=== PATIENT | female | born 2005 | race Caucasian/White ===

== ENCOUNTER 2023-05-04 18:44 | Outpatient (REF) | payer OTHER, SELFPAY | END 2023-05-04 18:45 | disposition home or self-care (01) | LOC: LAB 18:44 | PROVIDERS: PCP Nurse Practitioner; Visit Provider Nurse Practitioner | DX: N89.8 Other specified noninflammatory disorders of vagina (principal) | CPT/HCPCS: 87491; 87591; 87660 ==

== ENCOUNTER 2023-11-19 16:24 | Outpatient (OUT) | payer BC, SELFPAY ==
[2023-11-19 17:02] LABS: Basophils Absolute Auto 0.1 10^3/uL (0.0-0.1); Basophils Percent Auto 0.9 % (0.2-2.0); Eosinophils Absolute Auto 0.2 10^3/uL (0.0-0.7); Eosinophils Percent Auto 3.4 % (0.9-7.0); Hematocrit 39.4 % (36.0-48.0); Hemoglobin 12.3 g/dL (12.0-16.0); Immature Granulocytes Abs Auto 0.02 10^3/uL (0.00-0.03); Immature Granulocytes Pct Auto 0.3 % (0.0-0.5); Lymphocytes Absolute Auto 2.2 10^3/uL (1.2-3.8); Mean Corpuscular HGB Conc 31.2 g/dL (29.9-35.2); Mean Corpuscular Hemoglobin 27.7 pg (26.7-34.0); Mean Corpuscular Volume 88.7 fL (81.0-99.0); Mean Platelet Volume 11.1 fL (9.5-13.5); Monocytes Absolute Auto 0.6 10^3/uL (0.3-0.8); Monocytes Percent Auto 8.7 % (1.7-12.0); Neutrophils Absolute Auto 3.9 10^3/uL (1.4-6.5); Neutrophils Percent Auto 55.7 % (43.0-75.0); Platelet Count 287 10^3/uL (150-450); Red Blood Count 4.44 10^6/uL (4.20-5.40); Red Cell Distribution Width 12.8 % (11.0-15.0)
[2023-11-19 17:28] LABS: Alanine Aminotransferase 19 U/L (14-59); Albumin Globulin Ratio 0.9; Albumin Level 3.7 g/dL (3.4-5.0); Alkaline Phosphatase 81 U/L (46-116); Anion Gap 11.6; Aspartate Amino Transferase 14 U/L (15-37); BUN Creatinine Ratio 11.9; Bilirubin Total 0.3 mg/dL (0.2-1.0); Carbon Dioxide 27.5 mmol/L (21.0-32.0); Chloride 106 mmol/L (98-107); Estimated GFR (African America >60 (>=60); Estimated GFR (Non-African Ame >60 (>=60); Free T3 2.48 pg/mL (2.18-3.98); Globulin 4.3 g/dL; Glucose 84 mg/dL (74-106); Potassium 4.1 mmol/L (3.5-5.1); Sodium 141 mmol/L (136-145); Thyroid Stimulating Hormone 0.737 uIU/mL (0.358-3.740)
[2023-11-19 17:43] LABS: Free T4 1.14 ng/dL (0.76-1.46)
[2023-11-23 17:09] LABS: Thyroglobulin Antibody <1.0 IU/mL (0.0-0.9); Thyroid Peroxidase (TPO) Ab <9 IU/mL (0-34)
[2023-11-26 00:07] LABS: Free Insulin 17 uU/mL (.); Total Insulin 17 uU/mL (.)
== END 2023-11-19 16:25 | disposition home or self-care (01) ==
LOC: LAB 16:28
PROVIDERS: PCP Nurse Practitioner; Visit Provider Nurse Practitioner
DX: F41.9 Anxiety disorder, unspecified (principal); R53.82 Chronic fatigue, unspecified; R63.5 Abnormal weight gain
CPT/HCPCS: 36415; 80053; 83525; 83527; 84439; 84443; 84481; 85025; 86376; 86800

== ENCOUNTER 2025-07-20 10:18 | Outpatient (OUT) | payer BC, OTHER, SELFPAY ==
--- OUTSIDE RECORDS SUMMARY | 2025-07-18 06:40 | XMS_ITS | Continuity of Care Document ---
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 Name Role Phone Angie Pike Primary Care Provider [phone] Angie Pike Attending Provider Care Teams Patient Care Team Team Status: Active Member Role/Relationship Status Dates CHEVY Nam Primary Care Provider Active Patient Care Team Team Status: Inactive Member Role/Relationship Status Dates CHEVY Nam Primary Care Provider Active Start: July 18, 2025 End: July 18, 2025CHARLEEN NamCAttending ProviderActiveStart: July 18, 2025 End: July 18, 2025 Chief Complaint and Reason for Visit Chief Complaint Admit Date established patient July 18, 2025 9 :33am Reason for Visit Admit Date Abdominal pain July 18, 2025 9 :33am Anxiety and depression July 18 9:33am Bloating July 18, 2025 9 :33am Chronic fatigue July 18, 2025 9 :33am Vitamin D deficiency July 18, 2025 9:33am Reason for Referral Type Reason(s) Provider Provider Contact Information P nik Address Start Date 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 Abdominal pain Abdominal bloating R10.9 - Unspecified abdominal pain,R14.0 - Abdominal distension (gaseous)R10.9 - Unspecified abdominal pain,R14.0 - Abdominal distension (gaseous)[facility]Work Phone: [phone] Elie [address] [place] [id number] 2024 Allergies, Adverse Reactions, Alerts Allergen Type Severity Reaction Last Updated Verified Status doxycycline Allergy Unknown unknown July 12, 2025 7:57am Ye s Active Social History Smoking Status Unknown if ever smoked Observation Status Observation Response Date of Response Legal Sex Female (finding) Sex Assigned At [facility] 2002 Problems Active Problems Problem Diagnosis/Recorded Date Onset Date Stat us Chronic vulvitis July 12, 2025 7:57am Unknown Active Chronic fatigue July 12, 2025 7:57am Unknown Active Pelvic pain July 12, 2025 7:58am Unknown Ac tive Dysuria July 12, 2025 7:58am Unknown Ac tive Overweight July 12, 2025 7:58am Unknown Ac tive Weight gain July 12, 2025 7:58am Unknown Ac tive Bloating July 18, 2025 10:22am Unknown A ctive Anxiety and depression July 18, 2025 10:23am Unkn own Active Rectal bleeding July 12, 2025 7:58am Unknown Active Abdominal pain July 18, 2025 10:22am Unknown Active Vitamin D deficiency July 18, 2025 10:22am Unknow n Active Medications Medication Status Dose Units Route Directions Qty Days Refills S tart Date Stop Date End Date Reason(s) Instructions Adherence Norgestimate-Ethinyl Estradi ol (Sprintec (28)) 0.25-0.035 mg tablet Discontinued 1 TAB PO Daily July 14, [facility] 10:12am Vital Signs Vital Reading Result Reference Range Collection Date/Time Height 63 [in_i] July 18, 2025 9:09alHmxcuk75.73 [facility]Oct[facility] 2024 9:55amBody Temperature 97.8 [degF]97.6-99.0[facility] 2024 9:55amHeart Rate92 /pzm17-575Bfhcuxg 2024 9:55amRespiratory rate18 /cgp14-66Tiestjj 2024 9:55amOxygen saturation by Pulse ydpwvsrl46 %95-100[facility] 2024 9:55amBP Gshamrgw686 mm[Hg]100-140July 18, 2025 9:55amBP Yointnguo53 mm[Hg]60-100July 18, 2025 9:55amBMI (Body Mass Index)26.0 kg/i4UipahkxJuly 18, 2025 9:55am Advance Directives Advance Directive Response Recorded Date/ Time Advance Directives No October 9:51am Insurance Providers Guarantor Elinor Butterfield Address [address] [place] [id number] Info.Home Phone: Coverage Status Update:2025 Payer Group Member ID Coverage Type Subscriber Relationship to Subscriber Effective Date Expiration Date Joseph ENGLISH Id: [id number] L Butterfield Id: [id number] [address] [facility] [address] Home Phone: caresource Medicaid [id number] [place] Id: [id number] [address] [place] [address] Home Phone: Self Encounters Encounter Location(s) Arrival/Admit Date Discharge/Departure Date Discharge/Departure Disposition Provider(s) Departed Physician/ Provider Office Visit -[facility] Family Medicine [place] July 18, 2025 9:33am July 18, 2025 10:34am Discharged to home care or self care (routine discharge) CHEVY Nam Recent Diagnosis Onset Date Admit Date Abdominal pain Unknown July 18 9:33am Anxiety and depression Unknown June 222024 9:33am Bloating Unknown July 18 9:33am Chronic fatigue Unknown July 18 9:33am Vitamin D deficiency Unknown June 9:33am Assessments Diagnosis Onset Date Resolution Status Admit Date Abdominal pain acuteOct2024 9:33amAnxiety and depressionacuteJuly 18, 2025 9:33amBloatingacuteJuly 18, 2025 9:33amChronic fatigueacuteJuly 18, 2025 9:33amVitamin D deficiencyacuteOctober 2024 9:33am Plan of Treatment Future Tests Future scheduled test information is unavailable Pending Tests Test Name Ordered Date Scheduled Date OPAL with Reflex July 18, 2025 10:23am Comprehensive Metabolic PanelOctober 2024 10:23amEBV Ab VCA, IgGOctober 2024 10:27amEBV Ab VCA, IgMOctober 2024 10:27amT-Transglutaminase (tTG) IgAOctober 2024 10:25amT-Transglutaminase (tTG) IgGOctober 2024 10:25am Future Visits Future appointment information is unavailable Future Procedures Procedure Name Ordered Date Scheduled Date Dipstick and Microscopic July 18, 2025 10:2 3am Vitamin R55Ygwqojs 2024 10:23amComplete Blood Count Auto DiffOctober 2024 10:23amC-Reactive ProteinOctober 2024 10:27amErythrocyte Sedimentation RateOctober 2024 10:27amIronOctober 2024 10:23am FerritinOctober 2024 10:23amFolateOctober 2024 10:23am HCG,Qualitative SerumOctober 2024 10:23amLipid PanelOctober 2024 10:23amMagnesiumOctober 2024 10:23amFree T4 (Free Thyroxine)July 18, 2025 10:23amThyroid Antibodies TPO+Tg AbOctober 2024 10:23amTransferrin July 18, 2025 10:23amThyroid Stimulating HormoneOctober 2024 10:23am Vitamin D 25 Hydroxy TotalOctober 2024 10:23am Future Medications Future medication information is unavailable Patient Instructions Patient instructions are unavailable Hospital Discharge Instructions Ambulatory Orders* Referral to Gastroenterology Time Frame: 07/18/25, Location: None Selected
--- OUTSIDE RECORDS SUMMARY | 2025-07-20 10:23 | XMS_ITS | Clinical Summary ---
Author Organization [employer] [facility] Address [id number] [address] [place] [address] Care Team Providers Care Project Controller Name Role Phone Genaro Rodriguez MD Primary Care Provider [phone] Allergies Active AllergyReactionsCriticalityNoted DateComments Firyg-Xfmaa-Ibmklsl-VadmxcnqeEsorBkp16/30/2018 Mom can't remember name of antibiotic Medications MedicationSigDispense QuantityRefillsLast FilledStart DateEnd DateStatus norgestimate-ethinyl estradioL (ORTHO TRI-CYCLEN LO) 0.18/0.215/0.25 mg-25 mcg per tablet Take 1 tablet by mouth in the morning.04/24/2021ctive Active Problems ProblemNoted DateDiagnosed NzpeFpzkfhwnz38/30/2022 Overview (03/20/2022): + 02/18/22 and History of nasal xhiazhu3807/30/2021 Family History Medical HistoryRelationNameCommentsArrhythmiaNeg HxAsthmaNeg HxClotting disorder Neg HxDiabetesNeg HxHeart attackNeg HxHeart defectNeg HxHigh CholesterolNeg Hx HypertensionNeg HxSeizuresNeg HxStrokeNeg HxSudden deathNeg HxThyroid IssuesNeg Hx Social History Tobacco UseTypesPacks/DayYears UsedDateSmoking Tobacco: Passive Smoke Exposure - Never SmokerSmokeless Tobacco: NeverAlcohol UseStandard Drinks/WeekCommentsYes0 (1 standard drink = 0.6 oz pure alcohol)SocialChildcareAnswerDate Recorded IwtfgntxoGmfpikj08/12/2019EmploymentAnswerDate RecordedEmploymentUnknown 03/02/2019Purpose - LifeAnswerDate RecordedPurpose and direction in lifeUnknown 1CommentsNoSex and Gender InformationValueDate RecordedSex Assigned at BirthNot on fileLegal NdcElxleh10/06/2015 12:06 PM EDTGender IdentityNot on fileSexual OrientationNot on file Last Filed Vital Signs Vital SignReadingTime TakenCommentsBlood Sgbmcbwr502/6407 8:31 AM EDT Ebich9606/30/2018 8:38 AM EDTTemperature--Respiratory Rate--Oxygen Saturation 100%01/18/2018 8:33 AM EDTInhaled Oxygen Concentration--Uzxgux05.2 kg (130 lb 9.6 oz)04/16/2022 8:31 AM CJNZoonuf867 cm (5' 3 )04/16/2022 8:31 AM EDTBody Mass Index23.13004/16/2022 8:31 AM EDT Plan of Treatment Health MaintenanceDue DateLast DoneCommentsDepression Ihskjlxmb68/14/2015Tobacco Budkcuxkf75/14/2015dult BMI Armiiehiz76/14/2021Pap Smear2024TaP,Tdap and Td Vaccines (7 - Td or Tdap)/10/2013, 06/19/2009, 08/30/2004, Additional history existsInfluenza Trlfcle5805/22/2025 Medical Devices Not on file Insurance Care Teams Team MemberRelationshipSpecialtyStart DateEnd Date Genaro Rodriguez MD PCP - GeneralFamily Medicine01/18/18
--- OUTSIDE RECORDS SUMMARY | 2025-07-20 10:23 | XMS_ITS | Clinical Summary ---
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 Name Role Phone Angie Pike NP Unavailable Genaro Rodriguez MD Primary Care Provider [phone] Allergies Active AllergyReactionsCriticalityNoted VkenNyombxeaTdinfeqxnxdFdiwo09/24/2024 Turns teeth black Medications MedicationSigDispense QuantityRefillsLast FilledStart DateEnd DateStatus norgestimate-ethinyl estradiol (Sprintec 28) 0.25-35 MG-MCG tablet Take 1 tablet by mouth in the morning.09/09/2022ctive phentermine (Adipex-P) 37.5 MG tablet Indications:Weight gain,Overweight (BMI 25.0-29.9)Take 1/2 pill daily 15 tablet 11/19/2023ctive Active Problems ProblemNoted DateDiagnosed DateChronic ikmgvlt2011/19/2023Weight gain11/19/2023 Overweight (BMI 25.0-29.9)10/29/2023 Assessment & Plan (11/19/2023 4:36 PM EST): Will trial 1/2 pill of adipex daily Fu in 4 weeks, if anxiety worsens stop medication and contact office Assessment & Plan (10/29/2023 3:37 PM EST): Pt meets qualifications of OAC 4731-07-25 for weight loss. BMI>30 or >27 with comorbid conditions. Notify office with any symptoms of chest pain, dyspnea, heart palpitations, or any anxiety symptoms. F/U in 4 weeks to document weight loss. Increase physical activity as tolerated, and lower caloric intake to 1600 calories daily if no contraindications BMI is 27, dx anxiety, pelvic pain OARRS reviewed Fu in 4 weeks Ajbbfbw9910/29/2023 Assessment & Plan (11/19/2023 4:37 PM EST): Long standing anxiety w occassional depression, she does not like having to take medications either Wants to see a new psychologist to have proper dx, she is working with mom on this d/t new insurance No meds at this time Assessment & Plan (10/29/2023 3:36 PM EST): No current meds at this time Pelvic pain10/29/2023 Assessment & Plan (10/29/2023 4:51 PM EST): Will try to find her a GEOSCIENCES PROFESSOR in [place] area to help with this Euzmmhi74/08/2024Chronic mtkifocq90/08/2024Rectal rqddvumh34/08/2024 Assessment & Plan (10/29/2023 4:52 PM EST): Appears to have resolved No further work up at this time If occurs again pt to call office Does report straining w stool, cont miralax I have reviewed notes from ER visit Family History Medical HistoryRelationNameCommentsCancerPaternal GrandmotherCancer in a muscle in legRelationNameStatusCommentsFatherAliveMaternal GrandfatherAliveMaternal GrandmotherAliveMotherAlivePaternal GrandfatherAlivePaternal GrandmotherAlive Social History Tobacco UseTypesPacks/DayYears UsedDateSmoking Tobacco: Never Tobacco Cessation:Counseling Given: Not Answered Alcohol UseStandard Drinks/WeekCommentsNot Currently0 (1 standard drink = 0.6 oz pure alcohol)PHQ-2AnswerDate RecordedPatient Health Questionnaire-2 Score2 4CommentsUnknownSex and Gender InformationValueDate RecordedSex Assigned at BirthNot on fileLegal JuiJmhzya82/15/2023 11:45 PM EDTGender IdentityNot on fileSexual OrientationNot on file Last Filed Vital Signs Vital SignReadingTime TakenCommentsBlood Ykrgkvol653/72011/19/2023 3:07 PM EST Ufquo746311/19/2023 3:07 PM OEDArenoicqcdq49.1 ??C (98.7 ??F)11/19/2023 3:07 PM ESTRespiratory Fzns406711/19/2023 3:07 PM ESTOxygen Dkwfxiubdv238%11/19/2023 3:07 PM ESTInhaled Oxygen Concentration--Nidyif10.2 kg (152 lb 9.6 oz)11/19/2023 3:07 PM SAKFvfbii601 cm (5' 3 )11/19/2023 3:07 PM ESTBody Mass Index27.03011/19/2023 3:07 PM EST Plan of Treatment Not on file Insurance Care Teams Team MemberRelationshipSpecialtyStart DateEnd Date Genaro Rodriguez MD PCP - GeneralFamily Medicine10/14/23 Angie Pike NP Referring PhysicianNurse Practitioner04/07/23
--- OUTSIDE RECORDS SUMMARY | 2025-07-20 10:27 | XMS_ITS | CCD ---
Author Organization [facility] Care Team Providers Care Bottom Saw Operator Name Role Phone PHYSICIAN, DEFAULT Unavailable Unavailable PHYSICIAN, DEFAULT Unavailable Unavailable PHYSICIAN, DEFAULT Unavailable Unavailable PHYSICIAN, DEFAULT Unavailable Unavailable Aichholz Angie WASHBURN Primary Care Provider AICHASHLEY FORM SETTER HELPER ANGIE Admitting Unavailable AICHHOLMacey FORM SETTER HELPER ANGIE Consulting Unavailable AICHHOLMacey, FORM SETTER HELPER ANGIE Attending Unavailable AICHHOLMacey, FORM SETTER HELPER ANGIE Primary Care Unavailable AICHHOLMacey, FORM SETTER HELPER ANGIE Consulting Unavailable AICKASEY, FORM SETTER HELPER ANGIE Attending Unavailable GLENDY, MADDISON MEIERA Admitting Unavailable JULIETA MAZARIEGOS Admitting Unavailable JULIETA MAZARIEGOS Attending Unavailable AICHASHLEY ANGIE J. Primary Care Unavailable Unavailable Primary Care Provider Unavailabl e ADDI AMANDA Attending Unavailable SELF, A SELF Referring Unavailable NO PCP, [facility] Primary Care Unavailable PETKOVSKA, AMANDA Referring Unavailable NO PCP, [facility] Primary Care Unavailable Aichholz MARRIAGE AND FAMILY TEACHER, Angie Unavailable Genaro Rodriguez MD Primary Care Provider [phone] AICKASEY ANGIE Attending Unavailable AICKASEY, ANGIE Attending Unavailable Pcp, No Primary Care Provider [phone] Moose Ellsworth MD Unavailable Charis Barrera CNP Unavailable Unavailab Moose Pizano MD Unavailable Jackelyn Hoskins MD Unavailable Nicolas [facility], Radhaingcas V. Unavailable [phone] Marcel Olivares MD Unavailable Sofy Ferrer CNP Unavailable MP LEVIN Attending Unavailable UNKNOWN, ATTENDING PROVIDER Referring Unav ailable UNKNOWN, ATTENDING PROVIDER Primary Care Unav ailable UNKNOWN, ATTENDING PROVIDER Attending Unav ailable UNKNOWN, ATTENDING PROVIDER Referring Unav ailable UNKNOWN, ATTENDING PROVIDER Primary Care Unav ailable DHAMIJA, YASHU Attending Unavailable DHAMIJA, YASHU Referring Unavailable DHAMIJA, YASHU Primary Care Unavailable JACKELYN HOSKINS Attending Unavailable DHAMIJA, YASHU Referring Unavailable DHAMIJA, YASHU Primary Care Unavailable NICOLAS, NZINGHA V. Attending Unavailable DHAMIJA, YASHU Referring Unavailable DHAMIJA, YASHU Primary Care Unavailable NICOLAS, NZINGHA V. Attending Unavailable REFERRAL, SELF Referring Unavailable PCP, NO Primary Care Unavailable MOOSE ELLSWORTH Attending Unavailable REFERRAL, SELF Referring Unavailable PCP, NO Primary Care Unavailable NICOLAS, NZINGHA V. Attending Unavailable MARCEL OLIVARES Referring Unavailable PCP, NO Primary Care Unavailable JACKELYN HOSKINS Attending Unavailable DHAMIJA, YASHU Referring Unavailable DHAMIJA, YASHU Primary Care Unavailable NICOLAS, NZINGHA V. Attending Unavailable DHAMIJA, YASHU Referring Unavailable DHAMIJA, YASHU Primary Care Unavailable NICOLAS, NZINGHA V. Attending Unavailable DHAMIJA, YASHU Referring Unavailable DHAMIJA, YASHU Primary Care Unavailable NICOLAS, NZINGHA V. Attending Unavailable DHAMIJA, YASHU Referring Unavailable DHAMIJA, YASHU Primary Care Unavailable NICOLAS, NZINGHA V. Attending Unavailable DHAMIJA, YASHU Referring Unavailable DHAMIJA, YASHU Primary Care Unavailable NICOLAS, NZINGHA V. Attending Unavailable DHAMIJA, YASHU Referring Unavailable DHAMIJA, YASHU Primary Care Unavailable NICOLAS, NZINGHA V. Attending Unavailable DHAMIJA, YASHU Referring Unavailable DHAMIJA, YASHU Primary Care Unavailable NICOLAS, NZINGHA V. Attending Unavailable DHAMIJA, YASHU Referring Unavailable DHAMIJA, YASHU Primary Care Unavailable NICOLAS, NZINGHA V. Attending Unavailable DHAMIJA, YASHU Referring Unavailable DHAMIJA, YASHU Primary Care Unavailable NICOLAS, NZINGHA V. Attending Unavailable DHAMIJA, YASHU Referring Unavailable DHAMIJA, YASHU Primary Care Unavailable NICOLAS, NZINGHA V. Attending Unavailable DHAMIJA, YASHU Referring Unavailable DHAMIJA, YASHU Primary Care Unavailable DHAMIJA, YASHU Attending Unavailable DHAMIJA, YASHU Referring Unavailable DHAMIJA, YASHU Primary Care Unavailable NICOLAS, RADHAINGHA V. Attending Unavailable DHAMIJA, YASHU Referring Unavailable DHAMIJA, YASHU Primary Care Unavailable NICOLAS, RADHAINGHA V. Attending Unavailable DHAMIJA, YASHU Referring Unavailable DHAMIJA, YASHU Primary Care Unavailable NICOLAS, RADHAINGHA V. Attending Unavailable DHAMIJA, YASHU Referring Unavailable DHAMIJA, YASHU Primary Care Unavailable NICOLAS, RADHAINGHA V. Attending Unavailable DHAMIJA, YASHU Referring Unavailable DHAMIJA, YASHU Primary Care Unavailable JACKELYN HOSKINS Attending Unavailable DHAMIJA, YASHU Referring Unavailable DHAMIJA, YASHU Primary Care Unavailable NICOLAS, RADHAINGHA V. Attending Unavailable DHAMIJA, YASHU Referring Unavailable DHAMIJA, YASHU Primary Care Unavailable NICOLAS, RADHAINGHA V. Attending Unavailable DHAMIJA, YASHU Referring Unavailable DHAMIJA, YASHU Primary Care Unavailable NICOLAS, RADHAINGHA V. Attending Unavailable DHAMIJA, YASHU Referring Unavailable DHAMIJA, YASHU Primary Care Unavailable NICOLAS, RADHAINGHA V. Attending Unavailable DHAMIJA, YASHU Referring Unavailable DHAMIJA, YASHU Primary Care Unavailable DHAMIJA, YASHU Attending Unavailable DHAMIJA, YASHU Referring Unavailable DHAMIJA, YASHU Primary Care Unavailable DHAMIJA, YASHU Attending Unavailable DHAMIJA, YASHU Referring Unavailable DHAMIJA, YASHU Primary Care Unavailable NICOLAS, RADHAINGHA V. Attending Unavailable DHAMIJA, YASHU Referring Unavailable DHAMIJA, YASHU Primary Care Unavailable NICOLAS, RADHAINGHA V. Attending Unavailable DHAMIJA, YASHU Referring Unavailable DHAMIJA, YASHU Primary Care Unavailable DHAMIJA, YASHU Attending Unavailable DHAMIJA, YASHU Referring Unavailable DHAMIJA, YASHU Primary Care Unavailable NICOLAS, RADHAINGHA V. Attending Unavailable DHAMIJA, YASHU Referring Unavailable DHAMIJA, YASHU Primary Care Unavailable SOFY FERRER Attending Unavailable DHAMIJA, YASHU Referring Unavailable DHAMIJA, YASHU Primary Care Unavailable NICOLAS, NZINGHA V. Attending Unavailable DHAMIJA, YASHU Referring Unavailable DHAMIJA, YASHU Primary Care Unavailable NICOLAS, NZINGHA V. Attending Unavailable DHAMIJA, YASHU Referring Unavailable DHAMIJA, YASHU Primary Care Unavailable NICOLAS, NZINGHA V. Attending Unavailable DHAMIJA, YASHU Referring Unavailable DHAMIJA, YASHU Primary Care Unavailable DHAMIJA, YASHU Attending Unavailable DHAMIJA, YASHU Referring Unavailable DHAMIJA, YASHU Primary Care Unavailable NICOLAS, NZINGHA V. Attending Unavailable DHAMIJA, YASHU Referring Unavailable DHAMIJA, YASHU Primary Care Unavailable NICOLAS, NZINGHA V. Attending Unavailable DHAMIJA, YASHU Referring Unavailable DHAMIJA, YASHU Primary Care Unavailable NICOLAS, NZINGHA V. Attending Unavailable DHAMIJA, YASHU Primary Care Unavailable DHAMIJA, YASHU Attending Unavailable DHAMIJA, YASHU Referring Unavailable DHAMIJA, YASHU Primary Care Unavailable NICOLAS, NZINGHA V. Attending Unavailable DHAMIJA, YASHU Referring Unavailable DHAMIJA, YASHU Primary Care Unavailable NICOLAS, NZINGHA V. Attending Unavailable DHAMIJA, YASHU Referring Unavailable DHAMIJA, YASHU Primary Care Unavailable NICOLAS, NZINGHA V. Attending Unavailable DHAMIJA, YASHU Referring Unavailable DHAMIJA, YASHU Primary Care Unavailable NICOLAS, NZINGHA V. Attending Unavailable DHAMIJA, YASHU Primary Care Unavailable NICOLAS, RADHAINGHA V. Attending Unavailable DHAMIJA, YASHU Referring Unavailable DHAMIJA, YASHU Primary Care Unavailable NICOLAS, RADHAINGHA V. Attending Unavailable DHAMIJA, YASHU Primary Care Unavailable Angie Allen Primary Care Provider Angie Allen Attending Provider [phone] Allergies Allergy ClassificationReported Allergen(s)Allergy TypeDate of OnsetReaction(s) FacilityBacitracin / Neomycin / Polymyxin B / pramoxine (1 source)Bacitracin / Neomycin / Polymyxin B / pramoxineDrug Nqccgzn23-71-3601 Rash HealthDoxycycline (1 source)DoxycyclineDrug Wibvqcj55-69-2170Hatal (See Comments)[facility] (20 sources)Doxycycline; Translations: [DOXYCYCLINE]Drug Gzjnzzw32-28-1747Tmsry, Other (See Comments)[facility] (20 sources)Bacitracin / Neomycin / Polymyxin B / pramoxine; Translations: [UMHPF-OAYGM-TOXCVJR-PRAMOXINE]Drug Bndltbb77-08-1464KtsyTB Health Medications Current Medications MedicationDrug Class(es)DatesSig (Normalized)Sig (Original)clobetasol propionate 0.0005 mg/mg topical ointment (10 sources)CorticosteroidStart: 06-04-2024 End: 06-18-5781zzartiywzJ (TEMOVATE) 0.05 % ointment Apply 0.5 g topically daily for 30 days. 15 g 06/04/2024 07/04/2024 ActiveStart: 06-03-2024 End: 25-77-6570fsopqxdxlW (TEMOVATE) 0.05 % cream Apply thin layer to vulva/ urethra once daily 30 g 06/03/2024 07/26/2024 Discontinuedestradiol 0.1 mg/ml vaginal cream (20 sources)EstrogenStart: 47-87-6154habfxwnfN (ESTRACE) 0.01 % (0.1 mg/gram) vaginal cream Indications: Vaginal burning Place 1 g vaginally at bedtime as needed. 42.5 g 01/05/2025 ActiveStart: 06-07-2024 End: 04-65-4062cazhddquC (ESTRACE) 0.01 % (0.1 mg/gram) vaginal cream Indications: Vaginal burning PLACE 1 GRAM VAGINALLY EVERY THURSDAY AND THURSDAY 42.5 g 06/07/2024 11/01/2024 DiscontinuedStart: 54-46-7246kccahuhrE (ESTRACE) 0.01 % (0.1 mg/gram) vaginal cream Indications: Vaginal burning Place 1 g vagina lly every Thursday and . 42.5 g 02/29/2024 Activefluconazole 150 mg oral tablet (20 sources)Azole AntifungalStart: 03-11-2025 End: 08-45-3220ljeg 1 tablet by mouth in the morningfluconazole (DIFLUCAN) 150 MG tablet Take 1 tablet (150 mg total) by mouth every 7 days for 4 doses. 4 tablet 03/20/2025 9:39 AM EDT 03/11/2025 04/17/2025 ActiveStart: 12-15-2024 End: 48-42-7507kfzx 1 tablet by mouth in the eveningfluconazole (DIFLUCAN) 100 MG tablet Indications: Chronic vulvitis Take 1 tablet (100 mg total) by mouth every 7 days. 4 tablet 12/16/2024 1:54 PM EDT 12/15/2024 02/13/2025 Discontinued Start: 07-26-2024 End: 86-70-9923jvoqfdlzjkv (DIFLUCAN) 100 MG tablet Indications: Chronic vulvitis Take 1 tablet (100 mg total) by mouth every 7 days. 4 tablet 11/01/2024 12/13/2024 DiscontinuedStart: 12-15-2023 End: 81-99-5578wegs 1 tablet by mouth every other dayfluconazole (DIFLUCAN) 100 MG tablet Indications: Monilial vaginitis Take 1 tablet (100 mg total) by mouth every other day. 4 tablet 12/15/2023 02/26/2024 DiscontinuedStart: 11-25-2023 End: 47-09-4415xkls 1 tablet by mouth once dailyfluconazole (DIFLUCAN) 100 MG tablet Indications: Monilial vaginitis Take 1 tablet (100 mg total) by mouth daily. 4 tablet 0 11/25/2023 12/15/2023 Discontinued (Therapy Completed / No Longer Needed)nitrofurantoin, macrocrystals 25 mg oral capsule (3 sources)Nitrofuran Antibacterialtake 1 capsule by mouth four times daily at bedtimenitrofurantoin (MACRODANTIN) 25 MG capsule Take 1 capsule (25 mg total) by mouth 4 times a day withmeals and at bedtime. Activephentermine hydrochloride 37.5 mg oral tablet (6 sources)Sympathomimetic Amine AnorecticStart: 10-29-2023 End: 63-68-7788lriq 1 tablet by mouth before mealtimephentermine (Adipex-P) 37.5 MG tablet Indications: Overweight (BMI 25.0-29.9) Take 1 tablet (37.5 mg) by mouth in the morning. Take before meals. 30 tablet 0 10/29/2023 11/28/2023 Activetake 0.5 tablet by mouth once daily before breakfastphentermine (ADIPEX-P) 37.5 mg tablet Take 0.5 tablets (18.75 mg total) by mouth every morning before breakfast. Activepolyethylene glycol 3350 45263 mg powder for oral solution (3 sources)Osmotic LaxativeStart: 10-23-2023 End: 78-95-6868oiqrugrguukl glycol, PEG, 3350 (Glycolax) 17 GM/SCOOP powder Take 34 g by mouth in the morning. 0 10/23/2023 11/22/2023 Activevitamin b12 1 mg/ml injectable solution (9 sources)Vitamin E77Vtgcd: 02-09-2025 End: 46-29-0867xniiooqdhqdsyv (VITAMIN B-12) injection 1,000 mcgStart: 01-05-2025 End: 02-54-7525nlnynvgyilqzvz (VITAMIN B-12) injection 1,000 mcgStart: 01-05-2025 End: 27-80-6087epqpph 1000 ug by intramuscular injection once1,000 mcg, Intramuscular, Once, On Janice 01/05/25 at 1630, For 1 dose Completed/Discontinued Medications MedicationDrug Class(es)DatesSig (Normalized)Sig (Original)ARIPiprazole 2 mg oral tablet (16 sources)Atypical AntipsychoticStart: 07-07-2024 End: 24-53-2105lbke 0.5 tablet by mouth at bedtimeARIPiprazole (ABILIFY) 2 MG tablet Indications: MOOD Take 0.5 tablets (1 mg total) by mouth in the morning and at bedtime. Indications: MOOD 30 tablet 2 07/07/2024 11/09/2024 Discontinued Start: 20-99-1695aqjj 0.5 tablet by mouth at bedtimeARIPiprazole (ABILIFY) 2 MG tablet Indications: MOOD Take 0.5 tablets (1 mg total) by mouth in the morning and at bedtime. Indications: MOOD 30 tablet 2 05/20/2024 Activeazelastine hydrochloride 0.137 mg/actuat metered dose nasal spray (1 source)Histamine-1 Receptor AntagonistStart: 26-45-9724ezmk 2 spray(s) nasal route twice dailyazelastine (ASTELIN) 0.1% nasal spray Use 2 Sprays in each nostril twice daily. 30 mL 3 06/04/2021 ActiveComment on above:Use 2 Sprays in each nostril twice daily.ciprofloxacin 500 mg oral tablet (1 source)Quinolone Antimicrobial End: 48-63-8477rdqt 1 tablet by mouth twice dailyciprofloxacin HCl (CIPRO) 500 MG tablet Take 1 tablet (500 mg total) by mouth 2 times a day. 0 11/24/2023 DiscontinuedClindamycin (19 sources)Lincosamide AntibacterialStart: 11-24-2023 End: 08-07-9990dzrdnfuhlow phosphate 2 % Gel Indications: Subacute and chronic vaginitis Place 1 g vaginally at bedtime as needed. 5 g 11/24/2023 11/09/2024 DiscontinuedStart: 93-53-4850jhiymiujujs phosphate 2 % Gel Indications: Subacute and chronic vaginitis Place 1 g vaginally at bedtime as needed. 5 g 11/24/2023 ActiveStart: 05-88-3173pbrcuukqnpx phosphate 2 % Gel Indications: Subacute and chronic vaginitis Place 1 g vaginally at bedtime as needed. 5 g 0 11/24/2023 Activeclotrimazole 10 mg/ml topical cream (9 sources)Azole AntifungalStart: 11-25-2023 End: 66-11-4235sssrjdevlibg (LOTRIMIN) 1 % cream Indications: Monilial vaginitis Apply topically 2 times a day. Around the vagina 45 g 11/25/2023 07/26/2024 Discontinuedethinyl estradiol 0.005 mg / norethindrone acetate 1 mg oral tablet (3 sources)Estrogen End: 94-20-0791ejmlmuukwldmc-ethinyl estradiol (FEMHRT 1/5) 1-5 mg-mcg Tab Take by mouth daily. 02/26/2024 DiscontinuedNorgestimate-Ethinyl Estradiol (7 sources)Progestin, EstrogenStart: 07-14-2025 End: 74-04-7008Zwuqypzujcvb-Ethinyl Estradiol (Sprintec (28)) 0.25-0.035 mg tablet Discontinued 1 TAB PO Daily July 14, 2025 12:00am July 18, 2025 10:12amStart: 33-90-6197zqlp 1 tablet by mouth in the morningnorgestimate- ethinyl estradiol (Sprintec 28) 0.25-35 MG-MCG tablet Take 1 tablet by mouth in the morning. 0 09/09/2022 ActiveStart: 04-35-5755obeb 1 tablet by mouth once zhbxzWIF-TS-DJRP 0.18/0.215/0.25 mg-25 mcg Take 1 tablet by mouth once daily. 0 04/24/2021 ActiveComment on above:Take 1 tablet by mouth once daily.fluticasone propionate 0.05 mg/actuat metered dose nasal spray (2 sources)CorticosteroidStart: 76-48-5290ogyi 2 spray(s) nasal route once daily fluticasone (FLONASE ALLERGY RELIEF) 50 mcg/actuation nasal spray Use 2 Sprays in each nostril oncedaily. 16 g 5 05/16/2021 ActiveComment on above:Use 2 Sprays in each nostril once daily.hydrOXYzine hydrochloride 25 mg oral tablet (10 sources)AntihistamineStart: 07-25-2024 End: 93-99-3619lbix 1-2 tablets by mouth twice daily as needed for anxiety hydrOXYzine HCL (ATARAX) 25 MG tablet Take 1 to 2 tablets (25-50 mg total) by mouth 2 times a day as needed for Anxiety. 30 tablet 07/25/2024 12:21 PM EST 07/25/2024 11/09/2024 DiscontinuedoxyCODONE hydrochloride 5 mg oral tablet (1 source)Opioid AgonistStart: 81-18-7629gzri 1 tablet by mouth every six hours as needed for painoxyCODONE IR (ROXICODONE) 5 mg immediate release tablet Indications: Post-operative pain Take 1 tablet by mouth every 6 hours as needed for pain. 20 tablet 0 08/07/2021 ActiveComment on above:Take 1 tablet by mouth every 6 hours as needed for pain.sodium chloride 0.111 meq/ml nasal spray (1 source)Start: 59-71-5998xrmezp chloride (AYR SALINE) 0.65 % nasal spray Use 2 Sprays in the nose every 2 hours while awake.50 mL 5 08/07/2021 ActiveComment on above:Use 2 Sprays in the nose every 2 hours while awake. Problems Active Problems Problem ClassificationProblemDateDocumented DateEpisodic/ChronicAbdominal pain (11 sources)Periumbilical pain; Translations: [Pain in pelvis]Onset: 10-22-2023 EpisodicAnxiety disorders (20 sources)Anxiety; Translations: [Anxiety disorder, unspecified]Onset: 377044-36-3177TmfrbjiXifpwxbpowoxudpb hemorrhage (9 sources)Melena; Translations: [Blood in stool]Onset: 17-86-9519Xontypkg Genitourinary symptoms and ill-defined conditions (1 source)Unspecified urinary incontinence; Translations: [Unspecified urinary incontinence]Onset: 08-81-1789SstkwojYbagvlvqrnlgj symptoms and ill-defined conditions (9 sources)Other symptoms and signs involving the genitourinary system; Translations: [Dysuria]Onset: 580274-62-5034SjmfvkynLlayfhnsoyufx and screening for infectious disease (6 sources)Contact with and (suspected) exposure to infections with a predominantly sexual mode of transmission; Translations: [Patient encounter status]Onset: 27-02-5904BqrvtkljXaaftqyzwvcf diseases of female pelvic organs (20 sources)Chronic vulvitis; Translations: [Subacute and chronic vulvitis] Onset: 428664-02-5314PpgngpaxOlmhrhj and fatigue (3 sources)Fatigue; Translations: [Chronic fatigue, unspecified]02-09-2025 ChronicMenstrual disorders (2 sources)Intermenstrual bleeding - irregular; Translations: [Excessive and frequent menstruation with irregular cycle]21-00-8924OxkkgydLcgw disorders (2 sources)Mood disorder; Translations: [Unspecified mood [affective] disorder] 72-20-9521DzzwjlxTzfp disorders (20 sources)Mood disorders; Translations: [Depression, unspecified]Onset: 04-22-2024 Resolved: 772720-60-4447Sxqygmk (2 sources)Candidiasis of vagina; Translations: [Monilial vaginitis]12-15-2023 EpisodicNutritional deficiencies (2 sources)Vitamin D deficiency; Translations: [Vitamin D deficiency, unspecified]71-67-9971VbfxsknJsixyrabiwz deficiencies (1 source)Cobalamin deficiency; Translations: [Deficiency of other specified B group vitamins]96-90-0699NuiihmymQrwpy female genital disorders (2 sources)Burning sensation of vagina; Translations: [Unspecified condition associated with female genital organs and menstrual cycle]05-71-6666Cdanntff Other gastrointestinal disorders (1 source)Slow transit constipation; Translations: [Slow transit constipation] 72-87-3529BpetzalhPgnng gastrointestinal disorders (3 sources)Abdominal bloating; Translations: [Abdominal distension (gaseous)] EpisodicOther injuries and conditions due to external causes (1 source)Injury of finger of left hand; Translations: [Unspecified injury of left wrist, hand and finger(s),initial encounter]78-87-2621WpnavolpDewkv injuries and conditions due to external causes (1 source)Unspecified injury of left wrist, hand and finger(s), initial encounter; Translations: [Unspecifiedinjury of left wrist, hand and finger(s), initial encounter]Onset: 57-27-4351IhrqkypgRpuza nervous system disorders (2 sources)Numbness of finger; Translations: [Anesthesia of skin]11-09-2024 EpisodicOther nutritional; endocrine; and metabolic disorders (5 sources)Body mass index 25-29 - overweight; Translations: [Overweight]Onset: 478715-74-2286AqfhdvwoIparn nutritional; endocrine; and metabolic disorders (1 source)Overweight; Translations: [Overweight]04-66-5814WiajnbltQkqik nutritional; endocrine; and metabolic disorders (1 source)Weight increased; Translations: [Abnormal weight gain]07-12-2025 EpisodicOther upper respiratory disease (1 source)Nasal congestion; Translations: [Nasal congestion]EpisodicOther upper respiratory infections (1 source)Chronic maxillary sinusitis; Translations: [Chronic maxillary sinusitis]74-83-3694UbdtwfnDxvezcfrxxi disorders (2 sources)Borderline personality disorder; Translations: [Borderline personality disorder]Onset: 901366-84-0053DfiicwoHqrvomox codes; unclassified (1 source)High sugar diet; Translations: [Other specified health status] 29-17-6937OvaovdmpSyxnxzmgndsn (2 sources)New Patient Visit/ Consultation; Translations: [New Patient Visit/ Consultation]Onset: 06-00-0246Yriujvovphkp (2 sources)Sexual Problem; Translations: [Sexual Problem]Onset: 01-05-2025 Unclassified (2 sources)std testOnset: 78-89-1956Uhdbvtgantns (2 sources)Annual Exam; Translations: [Annual Exam]Onset: 70-00-0000Jtybhsrumqhv (2 sources)Injury; Translations: [Injury]Onset: 85-25-0137Pqqyxbqfpbsz (2 sources)Labs Only; Translations: [Labs Only]Onset: 99-51-1110Xwqexxmahlfi (2 sources)Female Problem; Translations: [Female Problem]Onset: 04-22-2024 Unclassified (2 sources)R10.9 - Unspecified abdominal pain,R14.0 - Abdominal distension (gaseous)Urinary tract infections (1 source)Interstitial cystitis (chronic) without hematuria; Translations: [Interstitial cystitis (chronic) without hematuria]Onset: 78-12-2622Rglhfcx Past or Other Problems Problem ClassificationProblemDateDocumented DateEpisodic/ChronicOther aftercare (1 source)Encounter for therapeutic drug level monitoring; Translations: [Encounter for therapeutic drug level monitoring]Onset: 06-90-9201UmydlfivVybhz nutritional; endocrine; and metabolic disorders (20 sources)Abnormal weight gain; Translations: [Abnormal weight gain]Onset: 755028-43-9369IeaszwfzMdhkt nutritional; endocrine; and metabolic disorders (1 source)Abnormal weight gain; Translations: [Abnormal weight gain]Onset: 95-82-7213UhvpxpsdTyqnm upper respiratory disease (1 source)Nasal obstruction; Translations: [Other specified disorders of nose and nasal sinuses]Onset: 106496-86-3923UvolwmebDryjw upper respiratory disease (1 source)Stenosis of nasal valve; Translations: [Other specified disorders of nose and nasal sinuses]Onset: 080298-95-7408FfmzxjcuKlkcn upper respiratory disease (1 source)Deviated nasal septum; Translations: [Deviated nasal septum]Onset: 566881-25-8847YaxesaocBfzbd upper respiratory disease (1 source)Perforation of nasal septum; Translations: [Other specified disorders of nose and nasal sinuses]Onset: 764710-98-0570TnbvrgwwQiiamhd and strains (20 sources)Sprain of interphalangeal joint of unspecified finger, initial encounter; Translations: [Sprain of interphalangeal (joint) of hand]Onset: 393735-98-7281PvhsqhchMhchkkdzq-zdewoaw disorders (1 source)Cannabis use, unspecified, uncomplicated; Translations: [Cannabis use, unspecified, uncomplicated]Onset: 40-43-5744BjxlrfyzAruvkptmzlzy (1 source)Sprain of proximal interphalangeal (PIP) joint of waadjj53-85-2705 Urinary tract infections (2 sources)Urinary tract infectious disease; Translations: [Urinary Tract Infection]Onset: 21-20-3988Dppvvkro Results Test NameValueInterpretationReference RangeFacilityCBCon 49-11-7963Rieoimodtvm distribution width (RBC) [Ratio]13.9 %11.0 - 15.0 % HealthHematocrit (Bld) [Volume fraction]41.4 %35.0 - 45.0 % HealthHemoglobin (Bld) [Mass/Vol]13.8 g/dL11.7 - 15.5 g/dLUC White HospitalMCH (RBC) [Entitic mass]29.1 pg27.0 - 33.0 pgUC HealthMCHC (RBC) [Mass/Vol]33.3 g/dL32.0 - 36.0 g/dLUC HealthMCV (RBC) [Entitic vol]87.4 fL80.0 - 100.0 fLUC HealthPlatelet mean volume (Bld) [Entitic vol]10.9 fL7.5 - 11.5 fLUC HealthPlatelets (Bld) [#/Vol]214 10*3/uLUC HealthRBC (Bld) [#/Vol]4.74 10*6/uLUC HealthWBC (Bld) [#/Vol]5.8 10*3/uLUC HealthErythrocyte distribution width (RBC) [Ratio]13.9 %Mmoltc72.0-15.0[facility] CenterComment on above:Performed By: #### CBC #### Singh Gan ([id number]) [place] [address] USAHematocrit (Bld) [Volume fraction]41.4 %Hqlkhm77.0-45.0 [facility] Medical CenterComment on above:Performed By: #### CBC #### Singh Gan ([id number]) [place] [address] USAHemoglobin (Bld) [Mass/Vol]13.8 g/iTYtiqlb47.7-15.5 [facility] CenterComment on above:Performed By: #### CBC #### Singh Gan ([id number]) [place] [address] USAMCH (RBC) [Entitic mass]29.1 jfPpzwcj69.0-33.0UnSan Luis Obispo General HospitalComment on above:Performed By: #### CBC #### Singh Gan ([id number]) [place] [address] USAMCHC (RBC) [Mass/Vol]33.3 g/pLLjehgk34.0-36.0UnSan Luis Obispo General HospitalComment on above:Performed By: #### CBC #### Singh Gan ([id number]) [place] [address] USAMCV (RBC) [Entitic vol]87.4 wQRfgtth05.0-100.0UnSan Luis Obispo General HospitalComment on above:Performed By: #### CBC #### Singh Gan ([id number]) [place] [address] USAPlatelet mean volume (Bld) [Entitic vol]10.9 fLNormal 7.5-11.5UnSan Luis Obispo General HospitalComment on above:Performed By: #### CBC #### Singh Gan ([id number]) [place] [address] USAPlatelets (Bld) [#/Vol]214 10*3/eOJhlbrc504-284 [facility] CenterComment on above:Performed By: #### CBC #### Singh Gan ([id number]) [place] [address] USARBC (Bld) [#/Vol]4.74 10*6/uLNormal3.80-5.10[facility] Medical CenterComment on above:Performed By: #### CBC #### Singh Gan ([id number]) [place] [address] USAWBC (Bld) [#/Vol]5.8 10*3/uLNormal3.8-10.8UnSan Luis Obispo General HospitalComment on above:Performed By: #### CBC #### Singh Gan ([id number]) [place] [address] USADIFFERENTIALon 25-46-5913Nts BASO52 /uLNormal0-108 [facility] Medical CenterComment on above:Performed By: #### DIFF #### Singh Gan ([id number]) [place] [address] USAAbs USS338 /uLNormal0-864UnSan Luis Obispo General HospitalComment on above:Performed By: #### DIFF #### Singh Gan ([id number]) [place] [address] USAAbs UMHW871 /uLNormal0-1296UnSan Luis Obispo General HospitalComment on above:Performed By: #### DIFF #### Singh Gan ([id number]) [place] [address] USAAbs [id number] /zHWhtcfx9677-7577LfkassherzSan Luis Obispo General HospitalComment on above:Performed By: #### DIFF #### Singh Gan ([id number]) [place] [address] USABasophils/100 WBC (Bld)0.9 %Normal0.0-1.0UnSan Luis Obispo General HospitalComment on above:Performed By: #### DIFF #### Singh Gan ([id number]) [place] [address] USAEosinophils/100 WBC (Bld)2.2 %Normal0.0-8.0UnSan Luis Obispo General HospitalComment on above:Performed By: #### DIFF #### Singh Gan ([id number]) [place] [address] USALymphocytes (Bld) [#/Vol]1.572 10*3/zIRhprhe027-2113 [facility] CenterComment on above:Performed By: #### DIFF #### Singh Gan ([id number]) [place] [address] USALymphocytes/100 WBC (Bld)27.1 %Pqtzct50.0-45.0UnSan Luis Obispo General HospitalComment on above:Performed By: #### DIFF #### Singh Gan ([id number]) [place] [address] USAMonocytes/100 WBC (Bld)6.3 %Normal0.0-12.0UnSan Luis Obispo General HospitalComment on above:Performed By: #### DIFF #### Singh Gan ([id number]) [place] [address] USANeutrophils/100 WBC (Bld)63.5 %Qgkouz64.0-80.0[facility] Medical CenterComment on above:Performed By: #### DIFF #### Singh Gan ([id number]) [place] [address] USANucleated RBC0 /100 WBCNormal0-0UnSan Luis Obispo General HospitalComment on above:Performed By: #### DIFF #### Singh Gan ([id number]) [place] [address] USADifferentialon 57-21-7508Vegtvhrva (Bld) [#/Vol]0.052 10*3/uL0 - 108 /uLUC HealthBasophils/100 WBC (Bld)0.9 %0.0 - 1.0 % Health Eosinophils (Bld) [#/Vol]0.128 10*3/uL0 - 864 /uLUC HealthEosinophils/100 WBC (Bld)2.2 %0.0 - 8.0 % HealthLymphocytes (Bld) [#/Vol]1.572 10*3/uL570 - 4860 /uLUC HealthLymphocytes/100 WBC (Bld)27.1 %15.0 - 45.0 %UC HealthMonocytes (Bld) [#/Vol]0.365 10*3/uL0 - 1296 /uLUC HealthMonocytes/100 WBC (Bld)6.3 %0.0 - 12.0 % HealthNeutrophils (Bld) [#/Vol]3.683 10*3/oF8752 - 8640 /uLUC Health Neutrophils/100 WBC (Bld)63.5 %40.0 - 80.0 % HealthNucleated RBC/100 WBC (Bld) [Ratio]0 % HealthFERRITINon 93-06-2183Idqgamzs [Mass/Vol]20.9 ng/mLNormal 11.0-306.8[facility] CenterComment on above:Performed By: #### B12 #### Singh Gan ([id number]) [place] [address] USAFerritinon 28-62-3937Olnieujh [Mass/Vol]20.9 ng/mL11.0 - 306.8 ng/mLUC [facility] HealthIRON STUDIESon 02-09-2025%SAT15.8 %Fzeudb38.0-55.0 [facility] CenterComment on above:Performed By: #### B12 #### Singh Gan ([id number]) [place] [address] USAIron [Mass/Vol]59 ug/bXMjrpfy37-367BapdhzqvbsSan Luis Obispo General HospitalComment on above:Performed By: #### B12 #### Singh Gan ([id number]) [place] [address] MCZUCBQ864 ug/rCKrzayh216-727GbuxchswlxSan Luis Obispo General HospitalComment on above:Performed By: #### B12 #### Singh Gan ([id number]) [place] [address] USAIron Studies (Iron + TIBC)on 15-39-2799Nyev [Mass/Vol]59 ug/dL50 - 212 ug/dLUC HealthIron binding capacity [Mass/Vol]374 ug/dL265 - 497 ug/dLUC HealthIron saturation [Mass fraction]15.8 %15.0 - 55.0 %[facility] HealthNo Panel Informationon 83-87-2277HY HealthVITAMIN B12on 02-09-2025 Cobalamin (Vitamin B12) [Mass/Vol]471 pg/uPBqtkul871-094CfcdpupiflSan Luis Obispo General HospitalComment on above:Performed By: #### B12 #### Singh Gan ([id number]) [place] [address] USAVitamin B12on 55-59-7897Hdrepdizv (Vitamin B12) [Mass/Vol]471 pg/mL180 - 914 pg/mLUC [facility] HealthChlamydia / Gonorrhoeae DNA Swabon 01-06-2025. trachomatis DNA DALE+probe Ql (Unsp spec)NegativeNegativeUC HealthN. gonorrhoeae DNA DALE+probe Ql (Unsp spec)NegativeNegativeUC Health Comment on above:The presence of Chlamydia trachomatis and Neisseria gonorrhoeae DNA is detected by a U.S. Food and Drug Administration-approved amplification assay.[facility] General HospitalUrine cultureon 06-18-7680Fhwokijm identified Cx Nom (U)<1,000 cfu/mLUC HealthBacteria identified Cx Nom (U)Skin/Urogenital Bernadette. No Further Workup.[facility] HealthCHLAMYDIA / GONORRHOEAE DNA SWABon 01-05-2025. trachomatis DNA DALE+probe Ql (Unsp spec)NegativeNormalNegativeUnSan Luis Obispo General HospitalComment on above:Performed By: #### B12 #### Singh Gan ([id number]) [place] [address] USAN. gonorrhoeae DNA DALE+probe Ql (Unsp spec)Negative NormalNegativeUnSan Luis Obispo General HospitalComment on above:Result Comment: The presence of Chlamydia trachomatis and Neisseria gonorrhoeae DNA is detected by a U.S. Food and Drug Administration-approved amplification assay. Performed By: #### B12 #### Singh Gan ([id number]) [place] [address] USAURINALYSIS, MICROSCOPICon 54-92-1336LtsfpksoiUnleooy AbnormalNone SeenUnSan Luis Obispo General HospitalComment on above: Performed By: #### DIFF #### Singh Gan ([id number]) [place] [address] USARBC.1 /HPFNormal0-3UnSan Luis Obispo General HospitalComment on above:Performed By: #### DIFF #### Singh Gan ([id number]) [place] [address] USASquamous, Epith1 /HPFNormal0-5UnSan Luis Obispo General HospitalComment on above:Performed By: #### DIFF #### Singh Gan ([id number]) [place] [address] USAWBC.<0Okjooj1-0HhaofhxppySan Luis Obispo General Hospital Comment on above:Performed By: #### DIFF #### Singh Gan ([id number]) [place] [address] USAURINALYSIS-MACROSCOPIC W/REFLEX TO MICROSCOPICon 99-77-3978Quybqlvyi, UrineNegativeNormalNegativeUnSan Luis Obispo General HospitalComment on above:Performed By: #### DIFF #### Singh Gan ([id number]) [place] [address] USAClarity (U)CloudyAbnormalClearUnSan Luis Obispo General HospitalComment on above:Performed By: #### DIFF #### Singh Gan ([id number]) [place] [address] USAColor (U)StrawNormalYellow,StrawUnSan Luis Obispo General HospitalComment on above:Performed By: #### DIFF #### Singh Gan ([id number]) [place] [address] USAGlucose Ql (U)NegativeNormalNegativeUnSan Luis Obispo General HospitalComment on above:Performed By: #### DIFF #### Singh Gan ([id number]) [place] [address] USAHemoglobin Ql (U)NegativeNormalNegativeUnSan Luis Obispo General HospitalComment on above:Performed By: #### DIFF #### Singh Gan ([id number]) [place] [address] USAKetoneNegativeNormalNegativeUnSan Luis Obispo General HospitalComment on above:Performed By: #### DIFF #### Singh Gan ([id number]) [place] [address] USALeukocyte esterase Test strip Ql (U)NegativeNormal NegativeParkview Community Hospital Medical CenterComment on above:Performed By: #### DIFF #### Singh Gan ([id number]) [place] [address] USANitrite Ql (U)NegativeNormalNegativeUnSan Luis Obispo General HospitalComment on above:Performed By: #### DIFF #### Singh Gan ([id number]) [place] [address] USApH (U)6.5 [pH]Normal5.0-8.0[facility] CenterComment on above:Performed By: #### DIFF #### Singh Gan ([id number]) [place] [address] USAProtein, urineNegativeNormalNegativeUnSan Luis Obispo General HospitalComment on above:Performed By: #### DIFF #### Singh Gan ([id number]) [place] [address] USASpecific gravity (U) [Rel density]1.182Hdbqtc7.005-1.035 [facility] CenterComment on above:Performed By: #### DIFF #### Singh Gan ([id number]) [place] [address] USAUrobilinogen (U) [Mass/Vol]mg/dLNormal0.2-1.9UnSan Luis Obispo General HospitalComment on above:Performed By: #### DIFF #### Singh Gan ([id number]) [place] [address] USAURINE CULTUREon 46-92-8488Uleuvonr identified Cx Nom (U) Culture Result: <1,000 cfu/mL Skin/Urogenital Bernadette. No Further Workup.NormalUnSan Luis Obispo General HospitalComment on above:Performed By: #### B12 #### Singh Gan ([id number]) [place] [address] USAUreaplasma/Mycoplasma hominis Cultureon 01-05-2025 Mycoplasma hominisNegativeNormalNegativeUnSan Luis Obispo General Hospital Comment on above:Order Comment: PERFORMED AT: [place] [id number] DIRECTOR: Mikki Nunez MD PHONE: [phone] By: #### B12 #### Singh Gan ([id number]) [place] [address] USAUreaplasma urealyticumNegativeNormalNegativeUnSan Luis Obispo General HospitalComment on above:Order Comment: PERFORMED AT: [facility] [address] [id number] DIRECTOR: Mikki Nunez MD PHONE: [phone] By: #### B12 #### Singh Gan ([id number]) [place] [address] USAUrinalysis-Macroscopic w/Rfx to Microscoon 01-05-2025 Bilirubin Ql (U)NegativeNegativeUC HealthClarity (U)CloudyAbnormalClearUC Health Color (U)StrawYellow,StrawUC HealthGlucose Ql (U)NegativeNegative mg/dLUC Health Interpretation and review of laboratory resultsAbnormalUC HealthKetones (U) [Mass/Vol]NegativeNegative mg/dLUC HealthLeukocyte esterase Test strip Ql (U) NegativeNegativeUC HealthNitrite Ql (U)NegativeNegativeUC HealthpH (U)6.5 [pH] 5.0 - 8.0UC HealthProtein Ql (U)NegativeNegative mg/dLUC HealthRBC Ql (U) NegativeNegativeUC HealthSpecific gravity Refractometry (U) [Rel density]1.022 1.005 - 1.035UC HealthUrobilinogen (U) [Mass/Vol]mg/dL0.2 - 1.9 mg/dLUC HealthUC HealthVaginitis Panel DNA Amplified Probeon 06-18-3705Iirknvynp Vaginosis NegativeNegativeUC HealthCandida glabrata/kruseiNot detectedNot DetectedUC HealthCandida SpeciesNot detectedNot DetectedUC HealthTrichomonas vaginalisNot detectedNot DetectedUC HealthComment on above:A positive result for bacterial vaginosis indicates that Atopobium spp., bacterial vaginosis-associated bacterium 2 (BVAB2), and/or Megasphaera-1 have been detected in relative concentrations consistent with bacterial vaginosis. A detected result for Nadya group indicates that C. albicans, C. tropicalis, C. parapsilosis, and/or C. dubliniensis have been detected. A detected result for Nadya gl abrata/Nadya krusei indicates that C. glabrata and/or C. krusei have been detected. For both Nadya targets, further species differentiation is not possible. A detected result for Trichomonas vaginalis indicates that T. vaginalis was detected in the specimen. For all targets, a negative or not detected result indicates that these organisms were not detected above the limit of detection of the assay. This assay is an FDA-approved nucleic acid amplification assay. HealthBacterial VaginosisNegativeNormalNegativeParkview Community Hospital Medical CenterComment on above:Performed By: #### B12 #### Singh Gan ([id number]) [place] [address] USACandida glabrata/kruseiNot detectedNormalNot Detected [facility] CenterComment on above:Performed By: #### B12 #### Singh Gan ([id number]) [place] [address] USACandida SpeciesNot detectedNormalNot DetectedUnSan Luis Obispo General HospitalComment on above:Performed By: #### B12 #### Singh Gan ([id number]) [place] [address] USATrichomonas vaginalisNot detectedNormalNot Detected [facility] CenterComment on above:Result Comment: A positive result for bacterial vaginosis indicates that Atopobium spp., bacterial vaginosis-associated bacterium 2 (BVAB2), and/or Megasphaera-1 have been detected in relative concentrations consistent with bacterial vaginosis. A detected result for Nadya group indicates that C. albicans, C. tropicalis, C. parapsilosis, and/or C. dubliniensis have been detected. A detected result for Nadya glabrata/Nadya krusei indicates that C. glabrata and/or C. krusei have been detected. For both Nadya targets, further species differentiation is not possible. A detected result for Trichomonas vaginalis indicates that T. vaginalis was detected in the specimen. For all targets, a negative or not detected result indicates that these organisms were not detected above the limit of detection of the assay. This assay is an FDA-approved nucleic acid amplification assay. Performed By: #### B12 #### Singh Gan ([id number]) [place] [address] USACHLAMYDIA / GONORRHOEAE DNA URINEon 16-87-9464Uwarmqdus Trachomatis DNANegativeNormalNegativeUnSan Luis Obispo General Hospital Comment on above:Performed By: #### DIFF #### Singh Gan ([id number]) [place] [address] USANeisseria Gonorrhoeae DNANegativeNormalNegative [facility] CenterComment on above:Result Comment: The presence of Chlamydia trachomatis and Neisseria gonorrhoeae DNA is detected by a U.S. Food and Drug Administration-approved amplification assay.Performed By: #### DIFF #### Singh Gan ([id number]) [place] [address] USAVaginitis Panel DNA Amplified Probeon 12-13-2024 Bacterial VaginosisNegativeNormalNegativeUnSan Luis Obispo General Hospital Comment on above:Performed By: #### DIFF #### Singh Gan ([id number]) [place] [address] USACandida glabrata/kruseiNot detectedNormalNot Detected [facility] CenterComment on above:Performed By: #### DIFF #### Singh Gan ([id number]) [place] [address] USACandida SpeciesNot detectedNormalNot DetectedUnSan Luis Obispo General HospitalComment on above:Performed By: #### DIFF #### Singh Gan ([id number]) [place] [address] USATrichomonas vaginalisNot detectedNormalNot Detected [facility] CenterComment on above:Result Comment: A positive result for bacterial vaginosis indicates that Atopobium spp., bacterial vaginosis-associated bacterium 2 (BVAB2), and/or Megasphaera-1 have been detected in relative concentrations consistent with bacterial vaginosis. A detected result for Nadya group indicates that C. albicans, C. tropicalis, C. parapsilosis, and/or C. dubliniensis have been detected. A detected result for Nadya glabrata/Nadya krusei indicates that C. glabrata and/or C. krusei have been detected. For both Nadya targets, further species differentiation is not possible. A detected result for Trichomonas vaginalis indicates that T. vaginalis was detected in the specimen. For all targets, a negative or not detected result indicates that these organisms were not detected above the limit of detection of the assay. This assay is an FDA-approved nucleic acid amplification assay. Performed By: #### DIFF #### Singh Gan ([id number]) [address] StreetCon 72-33-6363Nzmxfhfuasb distribution width (RBC) [Ratio]14.0 %Vazopj80.0-15.0[facility] CenterComment on above:Performed By: #### UC #### Singh Gan ([id number]) [place] [address] USAHematocrit (Bld) [Volume fraction]39.0 %Zehkqb77.0-45.0 [facility] CenterComment on above:Performed By: #### UC #### Singh Gan ([id number]) [place] [address] USAHemoglobin (Bld) [Mass/Vol]13.0 g/iAHwxkrs15.7-15.5 [facility] CenterComment on above:Performed By: #### UC #### Singh Gan ([id number]) [place] [address] USAMCH (RBC) [Entitic mass]29.2 dqFbgnmi35.0-33.0[facility] CenterComment on above:Performed By: #### UC #### Singh Gan ([id number]) [place] [address] USAMCHC (RBC) [Mass/Vol]33.4 g/rKXxeohb23.0-36.0UnBeaumont Hospitalcinnati Medical CenterComment on above:Performed By: #### #### Singh Gan ([id number]) [place] [address] USAMCV (RBC) [Entitic vol]87.5 fZRmyxgd43.0-100.0UnSan Luis Obispo General HospitalComment on above:Performed By: #### #### Singh Gan ([id number]) [place] [address] USAPlatelet mean volume (Bld) [Entitic vol]11.6 fLHigh 7.5-11.5[facility] CenterComment on above:Performed By: #### #### Singh Gan ([id number]) [place] [address] USAPlatelets (Bld) [#/Vol]178 10*3/ySHqxghw954-571 [facility] CenterComment on above:Performed By: #### #### Singh Gan ([id number]) [place] [address] USARBC (Bld) [#/Vol]4.46 10*6/uLNormal3.80-5.10[facility] CenterComment on above:Performed By: #### #### Singh Gan ([id number]) [place] [address] USAWBC (Bld) [#/Vol]7.2 10*3/uLNormal3.8-10.8[facility] CenterComment on above:Performed By: #### #### Singh Gan ([id number]) [place] [address] USACOMPREHENSIVE METABOLIC PANELon 58-72-9118Cuygiaw [Mass/Vol]4.5 g/dLNormal3.5-5.7UnSan Luis Obispo General HospitalComment on above:Order Comment: Must the patient be fasting for this test?->YesPerformed By: #### CBC #### Singh Gan ([id number]) [place] [address] USAALP [Catalytic activity/Vol]56 U/QObbuit83-687HoieikkhhqSan Luis Obispo General HospitalComment on above:Order Comment: Must the patient be fasting for this test?->YesPerformed By: #### CBC #### Singh Gan ([id number]) [place] [address] USAALT [Catalytic activity/Vol]13 U/LNormal7-52UnSan Luis Obispo General HospitalComment on above:Order Comment: Must the patient be fasting for this test?->YesPerformed By: #### CBC #### Singh Gan ([id number]) [place] [address] USAAnion gap [Moles/Vol]9 mmol/LNormal3-16UnSan Luis Obispo General HospitalComment on above:Order Comment: Must the patient be fasting for this test?->YesPerformed By: #### CBC #### Singh Gan ([id number]) [place] [address] USAAST [Catalytic activity/Vol]28 U/WIloccg22-10NfaebifxtoSan Luis Obispo General HospitalComment on above:Order Comment: Must the patient be fasting for this test?->YesPerformed By: #### CBC #### Singh Gan ([id number]) [place] [address] USABILI, Total0.6 mg/dLNormal0.0-1.5UnSan Luis Obispo General HospitalComment on above:Order Comment: Must the patient be fasting for this test?->YesPerformed By: #### CBC #### Singh Gan ([id number]) [place] [address] USACalcium [Mass/Vol]8.9 mg/dLNormal8.6-10.3UnSan Luis Obispo General HospitalComment on above:Order Comment: Must the patient be fasting for this test?->YesPerformed By: #### CBC #### Singh Gan ([id number]) [place] [address] USAChloride [Moles/Vol]106 mmol/DDshpas93-344XxqyhffsxhSan Luis Obispo General HospitalComment on above:Order Comment: Must the patient be fasting for this test?->YesPerformed By: #### CBC #### Singh Gan ([id number]) [place] [address] USACO2 [Moles/Vol]25 mmol/XSovxdh52-50QmbcfxshmfSan Luis Obispo General HospitalComment on above:Order Comment: Must the patient be fasting for this test?->YesPerformed By: #### CBC #### Singh Gan ([id number]) [place] [address] USACreatinine [Mass/Vol]0.84 mg/dLNormal0.60-1.30UnSan Luis Obispo General HospitalComment on above:Order Comment: Must the patient be fasting for this test?->YesPerformed By: #### CBC #### Singh Gan ([id number]) [place] [address] USAGFR/1.73 sq M.predicted among non-blacks MDRD (S/P/Bld) [Vol rate/Area]mL/min/{1.73_m2}NormalUnSan Luis Obispo General Hospital Comment on above:Order Comment: Must the patient be fasting for this test?->Yes Result Comment: As of 2021, the estimated GFR is calculated using the 2020 Chronic Kidney Disease Epidemiology Collaboration (CKD-EPI) equation. In line with the NKF-ASN Task Force Recommendations, this equation does not include a coefficient for race. A single eGFR value is calculated for eachpatient. The reference interval is >60 mL/min/1.73m2. eGFR values greater than 90 will be reported as >90mL/min/1.73m2. Reference: Andrew C, Zoey M, Mar DC, Miguel A ND, Pati CA, Dash, et al. A Unifying Approach for GFR Estimation: Recommendations of the NKF-ASN Task Force on Reassessing the inclusion of Race in Diagnosing Kidney Disease. Am J Kidney Dis. 2020. GFR is estimated using creatinine, age, and sex. Patient's values should be interpreted as a trend. Below 90 mL/min/1.73m2, the patient may have renal disease. For additional information: www.kidney.orgPerformed By: #### CBC #### Singh Gan ([id number]) [place] [address] USAGlucose [Mass/Vol]78 mg/fUDeiygh37-462TqgsbcazgzSan Luis Obispo General HospitalComment on above:Order Comment: Must the patient be fasting for this test?->YesPerformed By: #### CBC #### Singh Gan ([id number]) [place] [address] USAOsmolality [Osmolality]287 mosm/duFuattd859-707 [facility] CenterComment on above:Order Comment: Must the patient be fasting for this test?->YesPerformed By: #### CBC #### Singh Gan ([id number]) [place] [address] USAPotassium [Moles/Vol]3.8 mmol/LNormal3.5-5.3UnSan Luis Obispo General HospitalComment on above:Order Comment: Must the patient be fasting for this test?->YesPerformed By: #### CBC #### Singh Gan ([id number]) [place] [address] USAProtein [Mass/Vol]6.6 g/dLNormal6.4-8.9UnSan Luis Obispo General HospitalComment on above:Order Comment: Must the patient be fasting for this test?->YesPerformed By: #### CBC #### Singh Gan ([id number]) [place] [address] USASodium [Moles/Vol]140 mmol/FGavduu926-528OsctcgovcgSan Luis Obispo General HospitalComment on above:Order Comment: Must the patient be fasting for this test?->YesPerformed By: #### [facility] #### Singh Gan ([id number]) [place] [address] USAUrea nitrogen [Mass/Vol]8 mg/dLNormal7-25UnSan Luis Obispo General HospitalComment on above:Order Comment: Must the patient be fasting for this test?->YesPerformed By: #### CBC #### Singh Gan ([id number]) [place] [address] USADIFFERENTIALon 66-03-9068Upr BASO36 /uLNormal0-200 [facility] CenterComment on above:Performed By: #### #### Singh Gan ([id number]) [place] [address] USAAbs FUV979 /hEYpoomk45-241QnezwidnlfSan Luis Obispo General HospitalComment on above:Performed By: #### #### Singh Gan ([id number]) [place] [address] USAAbs EGNQ892 /xFFjqyga554-140HmsuveilooSan Luis Obispo General HospitalComment on above:Performed By: #### #### Singh Gan ([id number]) [place] [address] USAAbs AXGK2496 /sHYgmhnv4487-2152NdzjayixdzSan Luis Obispo General HospitalComment on above:Performed By: #### #### Singh Gan ([id number]) [place] [address] USABasophils/100 WBC (Bld)0.5 %Normal0.0-1.0UnSan Luis Obispo General HospitalComment on above:Performed By: #### #### Singh Gan ([id number]) [place] [address] USAEosinophils/100 WBC (Bld)1.5 %Normal0.0-8.0UnSan Luis Obispo General HospitalComment on above:Performed By: #### #### Singh Gan ([id number]) [place] [address] USALymphocytes (Bld) [#/Vol]1.555 10*3/dJHoydaj939-8085 [facility] CenterComment on above:Performed By: #### #### Singh Gan ([id number]) [place] [address] USALymphocytes/100 WBC (Bld)21.6 %Mzmzhr77.0-45.0UnSan Luis Obispo General HospitalComment on above:Performed By: #### #### Singh Gan ([id number]) [place] [address] USAMonocytes/100 WBC (Bld)4.3 %Normal0.0-12.0UnSan Luis Obispo General HospitalComment on above:Performed By: #### UC #### Singh Gan ([id number]) [place] [address] USANeutrophils/100 WBC (Bld)72.1 %Lrxfdt13.0-80.0UnSan Luis Obispo General HospitalComment on above:Performed By: #### UC #### Singh Gan ([id number]) [place] [address] USANucleated RBC0 /100 WBCNormal0-0UnSan Luis Obispo General HospitalComment on above:Performed By: #### #### Singh Gan ([id number]) [place] [address] USAFSHon 39-92-1217WER9.3 mIU/mLNormalUnSan Luis Obispo General HospitalComment on above:Result Comment: All Adults Females: Mid-Follicular Phase 3.85-8.78 Mid-Cycle Peak 4.54-22.51 Mid-Luteal Phase 1.79-5.12 Post Menopausal 16.74-113.59 Males: 1.27-19.26Performed By: #### DIFF #### Singh Gan ([id number]) [place] [address] USAGLYCOHEMOGLOBIN, A1Con 48-08-7114EbN6r (Bld) [Mass fraction]4.9 %Normal4.0-5.6UnSan Luis Obispo General HospitalComment on above:Result Comment: Hemoglobin A1c Interpretation Guidelines: Normal: <5.7% Prediabetes: 5.7-6.4% Diabetes: >6.4% Diagnosis requires two independent tests unless clinical diagnosis is clear. Some clinical conditions, particularly anemias and hemoglobinopathies, may interfere with the diagnostic accuracy of hemoglobin A1c. The recommended goal for diabetic glycemic control (Hemoglobin A1c <7.0%) should be individualized based on duration of diabetes, age/life expectancy, comorbid conditions, known CVD or advanced microvascular complications, hypoglycemia unawareness, and other individual patient considerations.Performed By: #### DIFF #### Singh Gan ([id number]) [place] [address] USAHEPATITIS C ANTIBODYon 77-15-4944Ptujcjvhr C Interp Non-ReactiveNormalNonreactiveParkview Community Hospital Medical CenterComment on above:Order Comment: Antibodies to HCV not detected; does not exclude the possibility of exposure to HCV.Result Comment: Health Department notified in accordance with reportable infectious disease guidelines.Performed By: #### HCVAB #### Singh Gan ([id number]) [place] [address] USAHIV 1+2 ANTIBODY/ANTIGEN WITH REFLEXon 76-44-8709UCT 1+2 AB/AGNNon-ReactiveNormalNonreactiveUnSan Luis Obispo General Hospital Comment on above:Order Comment: HIV-1 p24 Antigen and HIV-1/HIV-2 Antibody not detected.Performed By: #### UC #### Singh Gan ([id number]) [place] [address] USAINSULINon 66-50-7016Vxpzmez5.98 uIU/mLNormal3.20-16.30 [facility] Medical CenterComment on above:Result Comment: Note: New reference range has been established due to a change in methodology. Please review results with caution and interpret values with the new reference range. Performed By: #### DIFF #### Singh Gan ([id number]) [place] [address] USALUTEINIZING HORMONEon 46-90-8823KT67.1 mIU/mLNormal [facility] CenterComment on above:Result Comment: All Adults Females: Mid-Follicular Phase 2.12-10.89 Mid-Cycle Peak 19.18-103.03 Mid-Luteal Phase 1.20-12.86 Post Menopausal 10.87-58.64 Males: 1.24-8.62Performed By: #### DIFF #### Singh Gan ([id number]) [place] [address] USAMAGNESIUMon 67-77-9334Rpvoogiww [Mass/Vol]1.9 mg/dL Normal1.5-2.5[facility] Medical CenterComment on above:Performed By: #### CBC #### Singh Gan ([id number]) [place] [address] USAPROLACTINon 20-58-6455Ngvnvkgyr6.80 ng/mLNormal 3.34-26.72UnSan Luis Obispo General HospitalComment on above:Order Comment: The testing method for prolactin is a chemiluminescent immunoassay manufactured by [employer] Concentrations of prolactin obtained by different assay methods or kits may varyand cannot be used interchangeably.Prolactin results cannot be interpreted as absolute evidence of the presence or absence of malignant disease.Performed By: #### DIFF #### Singh Gan ([id number]) [place] [address] USAProlactinon 28-95-2188Tsuxrquds [Mass/Vol]7.8 ng/mL3.34 - 26.72 ng/mLMemorial Health System Selby General HospitalThe testing method for prolactin is a chemiluminescent immunoassay manufactured by [employer]. Concentrations of prolactin obtained by different assay methods or kits may vary and cannot be used interchangeably. Prolactin results cannot be interpreted as absolute evidence of the presence or absence of malignant disease.[facility] HealthTESTOSTERONE, TOTALon 70-74-3772Rtqsqsqvpcfq [Mass/Vol]54 ng/dLNormal0-75UnSan Luis Obispo General HospitalComment on above:Performed By: #### UC #### Singh Gan ([id number]) [place] [address] USATHYROID FUNCTION CASCADEon 94-05-0162MDD, 3rd Generation 0.64 uIU/mLNormal0.45-4.12UnSan Luis Obispo General HospitalComment on above:Performed By: #### UC #### Singh Gan ([id number]) [place] [address] USAVITAMIN B12on 07-31-5679Wxtfszggt (Vitamin B12) [Mass/Vol]281 pg/tAOnklvi275-887FqmwpzadhkSan Luis Obispo General HospitalComment on above:Performed By: #### DIFF #### Singh Gan ([id number]) [place] [address] USAVITAMIN D 25-HYDROXYon 52-85-6798Flfhyzx D, 25 Hydroxy 39.5 ng/tQLpedak99.0-100.0UnSan Luis Obispo General HospitalComment on above:Result Comment: Vitamin D deficiency has been defined by the [place] of Medicine (IOM) and an Endocrine Society practice guideline as a level of serum 25-OH Vitamin D less than 20 ng/mL. The Endocrine Society went on to further define Vitamin D insufficiency as a level between 21-29 ng/mL. 1) IOM. 2011 Dietary reference intakes for calcium and D. Estrella D.C: The National Academies Press 2) Joe MF, Deisy NC, Vinay CARDOZO, et al. Evaluation, treatment, and prevention of Vitamin D deficiency: an Endocrine Society clinical practice guideline. JCEM. 2010; 96(7):1911-30.Performed By: #### UC #### Singh Gan ([id number]) [place] [address] USAHand Surgeryon 10-88-7272FI HealthXR FINGER LEFT MINIMUM 2-VIEWSon 29-02-8940RN FINGER LEFT MINIMUM 2-VIEWSEXAM: XR FINGER LEFT MINIMUM 2-VIEWS INDICATION: Sprain of proximal interphalangeal (PIP) joint of finger COMPARISON: None available TECHNIQUE: 3 views centered over the left third digit FINDINGS and IMPRESSION: 1. No acute fracture or dislocation. 2. Preserved joint spaces and alignments. Report Verified by: Kaylynn Colon MD at 11/10/2024 4:19 PM ESTNormalUniversZanesville City HospitalHCG URINE, QUALITATIVEon 45-47-5727Nyji HCG ( test) Ql (U)NegativeNormalNegativeUnSan Luis Obispo General Hospital Comment on above:Performed By: #### UPREG #### Singh Gan ([id number]) [place] [address] USAUrine cultureon 85-08-2396Loxyyquu identified Cx Nom (U) 1,000- <10,000 cfu/mLUC HealthBacteria identified Cx Nom (U)Mixed Gram Negative and Gram Positive Organisms. No Further WorkupUC [facility] HealthVaginitis Panel DNA Amplified Probeon 91-71-4056Jtcodembj VaginosisNegativeNegativeUC Health Nadya glabrata/kruseiNot detectedNot DetectedUC HealthCandida SpeciesNot detectedNot DetectedUC HealthTrichomonas vaginalisNot detectedNot DetectedUC HealthComment on above:A positive result for bacterial vaginosis indicates that Atopobium spp., bacterial vaginosis-associated bacterium 2 (BVAB2), and/or Megasphaera-1 have been detected in relative concentrations consistent with bacterial vaginosis. A detected result for Nadya group indicates that C. albicans, C. tropicalis, C. parapsilosis, and/or C. dubliniensis have been detected. A detected result for Nadya glabrata/Nadya krusei indicates that C. glabrata and/or C. krusei have been detected. For both Nadya targets, further species differentiation is not possible. A detected result for Trichomonas vaginalis indicates that T. vaginalis was detected in the specimen. For all targets, a negative or not detected result indicates that these organisms were not detected above the limit of detection of the assay. This assay is an FDA-approved nucleic acid amplification assay. [facility] General HospitalURINE CULTUREon 49-51-2277Dmmqvkye identified Cx Nom (U)Culture Result: 1,000- <10,000 cfu/mL Mixed Gram Negative and Gram Positive Organisms. No Further WorkupNormal [facility] CenterComment on above:Performed By: #### UC #### Singh Gan ([id number]) [place] [address] USAVaginitis Panel DNA Amplified Probeon 07-26-2024 Bacterial VaginosisNegativeNormalNegativeUnSan Luis Obispo General Hospital Comment on above:Performed By: #### UC #### Singh Gan ([id number]) [place] [address] USACandida glabrata/kruseiNot detectedNormalNot Detected [facility] Medical CenterComment on above:Performed By: #### UC #### Singh Gan ([id number]) [place] [address] USACandida SpeciesNot detectedNormalNot DetectedUnSan Luis Obispo General HospitalComment on above:Performed By: #### UC #### Singh Gan ([id number]) [place] [address] USATrichomonas vaginalisNot detectedNormalNot Detected [facility] Medical CenterComment on above:Result Comment: A positive result for bacterial vaginosis indicates that Atopobium spp., bacterial vaginosis-associated bacterium 2 (BVAB2), and/or Megasphaera-1 have been detected in relative concentrations consistent with bacterial vaginosis. A detected result for Nadya group indicates that C. albicans, C. tropicalis, C. parapsilosis, and/or C. dubliniensis have been detected. A detected result for Nadya glabrata/Nadya krusei indicates that C. glabrata and/or C. krusei have been detected. For both Nadya targets, further species differentiation is not possible. A detected result for Trichomonas vaginalis indicates that T. vaginalis was detected in the specimen. For all targets, a negative or not detected result indicates that these organisms were not detected above the limit of detection of the assay. This assay is an FDA-approved nucleic acid amplification assay. Performed By: #### UC #### Singh Gan ([id number]) [place] [address] USACHLAMYDIA / GONORRHOEAE DNA URINEon 19-27-8671Jfokgyueb Trachomatis DNANegativeNormalNegativeParkview Community Hospital Medical Center Comment on above:Performed By: #### CTNGUR #### Singh Gan ([id number]) [place] [address] USANeisseria Gonorrhoeae DNANegativeNormalNegative [facility] Medical CenterComment on above:Result Comment: The presence of Chlamydia trachomatis and Neisseria gonorrhoeae DNA is detected by a U.S. Food and Drug Administration-approved amplification assay.Performed By: #### CTNGUR #### Singh Gan ([id number]) [place] [address] USAURINALYSIS, MICROSCOPICon 13-87-6223AKI.4 /HPFHigh0-3 [facility] Medical CenterComment on above:Performed By: #### CTNGUR #### Singh Gan ([id number]) [place] [address] USASquamous, Epith1 /HPFNormal0-5[facility] Medical CenterComment on above:Performed By: #### CTNGUR #### Singh Gan ([id number]) [place] [address] USAWBC.>203Zkew1-2LrmhkkdwnaSan Luis Obispo General Hospital Comment on above:Performed By: #### CTNGUR #### Singh Gan ([id number]) [place] [address] USAURINALYSIS-MACROSCOPIC W/REFLEX TO MICROSCOPICon 71-71-3271Kviiiubup, UrineNegativeNormalNegativeParkview Community Hospital Medical CenterComment on above:Performed By: #### CTNGUR #### Singh Gan ([id number]) [place] [address] USAClarity (U)ClearNormalClearUnSan Luis Obispo General HospitalComment on above:Performed By: #### CTNGUR #### Singh Gan ([id number]) [place] [address] USAColor (U)YellowNormalYellow,StrawUnSan Luis Obispo General HospitalComment on above:Performed By: #### CTNGUR #### Singh Gan ([id number]) [place] [address] USAGlucose Ql (U)NegativeNormalNegativeParkview Community Hospital Medical CenterComment on above:Performed By: #### CTNGUR #### Singh Gan ([id number]) [place] [address] USAHemoglobin Ql (U)TraceAbnormalNegHighland Springs Surgical CenterComment on above:Performed By: #### CTNGUR #### Singh Gan ([id number]) [place] [address] USAKetoneNegativeNormalNegativeParkview Community Hospital Medical CenterComment on above:Performed By: #### CTNGUR #### Singh Gan ([id number]) [place] [address] USALeukocyte esterase Test strip Ql (U)LargeAbnormal NegativeParkview Community Hospital Medical CenterComment on above:Performed By: #### CTNGUR #### Singh Gan ([id number]) [place] [address] USANitrite Ql (U)NegativeNormalNegativeUnSan Luis Obispo General HospitalComment on above:Performed By: #### CTNGSYLVESTER #### Singh Gan ([id number]) [place] [address] USApH (U)6.5 [pH]Normal5.0-8.0UnSan Luis Obispo General HospitalComment on above:Performed By: #### CTNGSYLVESTER #### Singh Gan ([id number]) [place] [address] USAProtein (U) [Mass/Vol]30 mg/dLAbnormalNegativeUnSan Luis Obispo General HospitalComment on above:Performed By: #### CTNGSYLVESTER #### Singh Gan ([id number]) [place] [address] USASpecific gravity (U) [Rel density]1.769Yuyzeo0.005-1.035 [facility] Medical CenterComment on above:Performed By: #### CTNGSYLVESTER #### Singh Gan ([id number]) [place] [address] USAUrobilinogen (U) [Mass/Vol]mg/dLNormal0.2-1.9UnSan Luis Obispo General HospitalComment on above:Performed By: #### CTNGUR #### Singh Gan ([id number]) [place] [address] USAURINE CULTUREon 21-80-6962Akxbtsnj identified Cx Nom (U) Culture Result: <10,000 cfu/mL Skin/Urogenital Bernadette. No Further Workup.NormalUnSan Luis Obispo General HospitalComment on above:Performed By: #### CTNGUR #### Singh Gan ([id number]) [place] [address] USACHLAMYDIA / GONORRHOEAE DNA SWABon 4C. trachomatis DNA DALE+probe Ql (Unsp spec)NegativeNormalNegativeParkview Community Hospital Medical CenterComment on above:Performed By: #### CTNGUR #### Singh Gan ([id number]) [place] [address] USAN. gonorrhoeae DNA DALE+probe Ql (Unsp spec)Negative NormalNegativeParkview Community Hospital Medical CenterComment on above:Result Comment: The presence of Chlamydia trachomatis and Neisseria gonorrhoeae DNA is detected by a U.S. Food and Drug Administration-approved amplification assay. Performed By: #### CTNGUR #### Singh Gan ([id number]) [place] [address] USAPOC URINALYSISon 04-42-5151Mvyfvtbpu, UrineNegative NormalNegativeParkview Community Hospital Medical CenterComment on above:Performed By: #### CTNGUR #### Singh Gan ([id number]) [place] [address] USAGlucose Ql (U)NegativeNormalNegativeParkview Community Hospital Medical CenterComment on above:Performed By: #### CTNGUR #### Singh Gan ([id number]) [place] [address] USAHemoglobin Ql (U)NegativeNormalNegativeParkview Community Hospital Medical CenterComment on above:Performed By: #### CTNGUR #### Singh Gan ([id number]) [place] [address] USAKetoneNegativeNormalNegativeParkview Community Hospital Medical CenterComment on above:Performed By: #### CTNGSYLVESTER #### Singh Gan ([id number]) [place] [address] USALeukocyte esterase Test strip Ql (U)SmallAbnormal NegativeUnSan Luis Obispo General HospitalComment on above:Performed By: #### CTNGSYLVESTER #### Singh Gan ([id number]) [place] [address] USANitrite Ql (U)NegativeNormalNegativeUnSan Luis Obispo General HospitalComment on above:Performed By: #### CTNGUR #### Singh Gan ([id number]) [place] [address] USApH (U)6.0 [pH]Normal5.0-8.0UnSan Luis Obispo General HospitalComment on above:Performed By: #### CTNGSYLVESTER #### Singh Gan ([id number]) [place] [address] USAProtein, urineNegativeNormalNegativeUnSan Luis Obispo General HospitalComment on above:Performed By: #### CTNGSYLVESTER #### Singh Gan ([id number]) [place] [address] USASpecific gravity (U) [Rel density]1.833Fwzzzq3.005-1.035 [facility] CenterComment on above:Performed By: #### CTNGUR #### Singh Gan ([id number]) [place] [address] USAUrobilinogen (U) [Mass/Vol]0.2 mg/dLNormal0.2-1.0 [facility] CenterComment on above:Performed By: #### CTNGUR #### Singh Gan ([id number]) [place] [address] USAURINALYSIS, MICROSCOPICon 93-15-7166Cenrhron, Epith2 /HPFNormal0-5[facility] CenterComment on above:Performed By: #### CTNGUR #### Singh Gan ([id number]) [place] [address] USAWBC.7 /HPFHigh0-UnSan Luis Obispo General Hospital Comment on above:Performed By: #### CTNGUR #### Singh Gan ([id number]) [place] [address] USAURINALYSIS-MACROSCOPIC W/REFLEX TO MICROSCOPICon 20-38-2038Gyeeenlqb, UrineNegativeNormalNegativeUnSan Luis Obispo General HospitalComment on above:Performed By: #### CTNGUR #### Singh Gan ([id number]) [place] [address] USAClarity (U)ClearNormalClearUnSan Luis Obispo General HospitalComment on above:Performed By: #### CTNGUR #### Singh Gan ([id number]) [place] [address] USAColor (U)StrawNormalYellow,StrawUnSan Luis Obispo General HospitalComment on above:Performed By: #### CTNGUR #### Singh Gan ([id number]) [place] [address] USAGlucose Ql (U)NegativeNormalNegativeParkview Community Hospital Medical CenterComment on above:Performed By: #### CTNGUR #### Singh Gan ([id number]) [place] [address] USAHemoglobin Ql (U)NegativeNormalNegativeUnSan Luis Obispo General HospitalComment on above:Performed By: #### CTNGUR #### Singh Gan ([id number]) [place] [address] USAKetoneNegativeNormalNegativeUnSan Luis Obispo General HospitalComment on above:Performed By: #### CTNGUR #### Singh Gan ([id number]) [place] [address] USALeukocyte esterase Test strip Ql (U)ModerateAbnormal NegativeUnSan Luis Obispo General HospitalComment on above:Performed By: #### CTNGUR #### Singh Gan ([id number]) [place] [address] USANitrite Ql (U)NegativeNormalNegativeUnSan Luis Obispo General HospitalComment on above:Performed By: #### CTNGUR #### Singh Gan ([id number]) [place] [address] USApH (U)6.5 [pH]Normal5.0-8.0[facility] CenterComment on above:Performed By: #### CTNGUR #### Singh Gan ([id number]) [place] [address] USAProtein, urineNegativeNormalNegativeUnSan Luis Obispo General HospitalComment on above:Performed By: #### CTNGUR #### Singh Gan ([id number]) [place] [address] USASpecific gravity (U) [Rel density]1.137Pvoeff8.005-1.035 [facility] CenterComment on above:Performed By: #### CTNGUR #### Singh Gan ([id number]) [place] [address] USAUrobilinogen (U) [Mass/Vol]mg/dLNormal0.2-1.9UnSan Luis Obispo General HospitalComment on above:Performed By: #### CTNGUR #### Singh Gan ([id number]) [place] [address] USAURINE CULTUREon 71-88-3742Svzoupky identified Cx Nom (U) Culture Result: 1,000- <10,000 cfu/mL Skin/Urogenital Bernadette. No Further Workup.NormalUnSan Luis Obispo General HospitalComment on above:Performed By: #### CTNGUR #### Singh Gan ([id number]) [place] [address] USAVaginitis Panel DNA Amplified Probeon 04-22-2024 Bacterial VaginosisNegativeNormalNegativeUnSan Luis Obispo General Hospital Comment on above:Performed By: #### CTNGUR #### Singh Gan ([id number]) [place] [address] USACandida glabrata/kruseiNot detectedNormalNot Detected [facility] CenterComment on above:Performed By: #### CTNGUR #### Singh Gan ([id number]) [place] [address] USACandida SpeciesNot detectedNormalNot DetectedUnSan Luis Obispo General HospitalComment on above:Performed By: #### CTNGUR #### Singh Gan ([id number]) [place] [address] USATrichomonas vaginalisNot detectedNormalNot Detected [facility] CenterComment on above:Result Comment: A positive result for bacterial vaginosis indicates that Atopobium spp., bacterial vaginosis-associated bacterium 2 (BVAB2), and/or Megasphaera-1 have been detected in relative concentrations consistent with bacterial vaginosis. A detected result for Nadya group indicates that C. albicans, C. tropicalis, C. parapsilosis, and/or C. dubliniensis have been detected. A detected result for Nadya glabrata/Nadya krusei indicates that C. glabrata and/or C. krusei have been detected. For both Nadya targets, further species differentiation is not possible. A detected result for Trichomonas vaginalis indicates that T. vaginalis was detected in the specimen. For all targets, a negative or not detected result indicates that these organisms were not detected above the limit of detection of the assay. This assay is an FDA-approved nucleic acid amplification assay. Performed By: #### CTVALERIA #### Singh Gan ([id number]) [address] 77-00-8216Xbmgrunbbtw distribution width (RBC) [Ratio]14.1 %Oepiqu73.0-15.0UnSan Luis Obispo General HospitalComment on above:Performed By: #### CBC #### Singh Gan ([id number]) [place] [address] USAHematocrit (Bld) [Volume fraction]35.7 %Wfgaoe95.0-45.0 [facility] CenterComment on above:Performed By: #### CBC #### Singh Gan ([id number]) [place] [address] USAHemoglobin (Bld) [Mass/Vol]12.6 g/tNQggkvg01.7-15.5 [facility] CenterComment on above:Performed By: #### CBC #### Singh Gan ([id number]) [address] [address] USAMCH (RBC) [Entitic mass]34.2 aqUwts34.0-33.0UnSan Luis Obispo General HospitalComment on above:Performed By: #### CBC #### Singh Gan ([id number]) [place] [address] USAMCHC (RBC) [Mass/Vol]35.4 g/hSXngioa54.0-36.0UnSan Luis Obispo General HospitalComment on above:Performed By: #### CBC #### Singh Gan ([id number]) [address] (RBC) [Entitic vol]96.5 wSDuvere09.0-100.0UnSan Luis Obispo General HospitalComment on above:Performed By: #### CBC #### Singh Gan ([id number]) [place] [address] USAPlatelet mean volume (Bld) [Entitic vol]9.3 fLNormal 7.5-11.5UnSan Luis Obispo General HospitalComment on above:Performed By: #### CBC #### Singh Gan ([id number]) [place] [address] USAPlatelets (Bld) [#/Vol]241 10*3/nLAzxsba609-258 [facility] CenterComment on above:Performed By: #### CBC #### Singh Gan ([id number]) [place] [address] USARBC (Bld) [#/Vol]3.69 10*6/uLLow3.80-5.10[facility] CenterComment on above:Performed By: #### CBC #### Singh Gan ([id number]) [place] [address] USAWBC (Bld) [#/Vol]5.9 10*3/uLNormal3.8-10.8UnSan Luis Obispo General HospitalComment on above:Performed By: #### CBC #### Singh Gan ([id number]) [place] [address] USACOMPREHENSIVE METABOLIC PANELon 41-77-1520Elfvoda [Mass/Vol]4.2 g/dLNormal3.5-5.7UnSan Luis Obispo General HospitalComment on above:Order Comment: Must the patient be fasting for this test?->NoPerformed By: #### CBC #### Singh Gan ([id number]) [place] [address] USAALP [Catalytic activity/Vol]58 U/GTuanvc27-577CqujozutlySan Luis Obispo General HospitalComment on above:Order Comment: Must the patient be fasting for this test?->NoPerformed By: #### CBC #### Singh Gan ([id number]) [place] [address] USAALT [Catalytic activity/Vol]9 U/LNormal7-52UnSan Luis Obispo General HospitalComment on above:Order Comment: Must the patient be fasting for this test?->NoPerformed By: #### CBC #### Singh Gan ([id number]) [place] [address] USAAnion gap [Moles/Vol]11 mmol/LNormal3-16UnSan Luis Obispo General HospitalComment on above:Order Comment: Must the patient be fasting for this test?->NoPerformed By: #### CBC #### Singh Gan ([id number]) [place] [address] USAAST [Catalytic activity/Vol]15 U/LChpcpb33-76XbpjcsdzcgSan Luis Obispo General HospitalComment on above:Order Comment: Must the patient be fasting for this test?->NoPerformed By: #### CBC #### Singh Gan ([id number]) [place] [address] USABILI, Total0.3 mg/dLNormal0.0-1.5UnSan Luis Obispo General HospitalComment on above:Order Comment: Must the patient be fasting for this test?->NoPerformed By: #### CBC #### Singh Gan ([id number]) [place] [address] USACalcium [Mass/Vol]9.1 mg/dLNormal8.6-10.3UnSan Luis Obispo General HospitalComment on above:Order Comment: Must the patient be fasting for this test?->NoPerformed By: #### CBC #### Singh Gan ([id number]) [place] [address] USAChloride [Moles/Vol]105 mmol/DHqbosf73-719TngtbddpjcSan Luis Obispo General HospitalComment on above:Order Comment: Must the patient be fasting for this test?->NoPerformed By: #### CBC #### Singh Gan ([id number]) [place] [address] USACO2 [Moles/Vol]25 mmol/DLtrbal34-31AcwkzzwtqiSan Luis Obispo General HospitalComment on above:Order Comment: Must the patient be fasting for this test?->NoPerformed By: #### CBC #### Singh Gan ([id number]) [place] [address] USACreatinine [Mass/Vol]0.81 mg/dLNormal0.60-1.30UnSan Luis Obispo General HospitalComment on above:Order Comment: Must the patient be fasting for this test?->NoPerformed By: #### CBC #### Singh Gan ([id number]) [place] [address] USAGFR/1.73 sq M.predicted among non-blacks MDRD (S/P/Bld) [Vol rate/Area]mL/min/{1.73_m2}NormalUnSan Luis Obispo General Hospital Comment on above:Order Comment: Must the patient be fasting for this test?->No Result Comment: As of 2021, the estimated GFR is calculated using the 2020 Chronic Kidney Disease Epidemiology Collaboration (CKD-EPI) equation. In line with the NKF-ASN Task Force Recommendations, this equation does not include a coefficient for race. A single eGFR value is calculated for eachpatient. The reference interval is >60 mL/min/1.73m2. eGFR values greater than 90 will be reported as >90mL/min/1.73m2. Reference: Andrew C, Zoey M, Mar DC, Miguel A ND, Pati [place], Dash, et al. A Unifying Approach for GFR Estimation: Recommendations of the NKF-ASN Task Force on Reassessing the inclusion of Race in Diagnosing Kidney Disease. Am J Kidney Dis. 2020. GFR is estimated using creatinine, age, and sex. Patient's values should be interpreted as a trend. Below 90 mL/min/1.73m2, the patient may have renal disease. For additional information: [email or web address] By: #### CBC #### Singh Gan ([id number]) [place] [address] USAGlucose [Mass/Vol]79 mg/wRAieput28-965TqauiyvvgrSan Luis Obispo General HospitalComment on above:Order Comment: Must the patient be fasting for this test?->NoPerformed By: #### CBC #### Singh Gan ([id number]) [place] [address] USAOsmolality [Osmolality]289 mosm/xoZpxply848-899 [facility] CenterComment on above:Order Comment: Must the patient be fasting for this test?->NoPerformed By: #### CBC #### Singh Gan ([id number]) [place] [address] USAPotassium [Moles/Vol]3.6 mmol/LNormal3.5-5.3UnSan Luis Obispo General HospitalComment on above:Order Comment: Must the patient be fasting for this test?->NoPerformed By: #### CBC #### Singh Gan ([id number]) [place] [address] USAProtein [Mass/Vol]6.8 g/dLNormal6.4-8.9UnSan Luis Obispo General HospitalComment on above:Order Comment: Must the patient be fasting for this test?->NoPerformed By: #### CBC #### Singh Gan ([id number]) [place] [address] USASodium [Moles/Vol]141 mmol/AVtoooj851-772BnwkyaukilSan Luis Obispo General HospitalComment on above:Order Comment: Must the patient be fasting for this test?->NoPerformed By: #### CBC #### Singh Gan ([id number]) [place] [address] USAUrea nitrogen [Mass/Vol]7 mg/dLNormal7-25UnSan Luis Obispo General HospitalComment on above:Order Comment: Must the patient be fasting for this test?->NoPerformed By: #### CBC #### Singh Gan ([id number]) [place] [address] USADHEA SULFATE, SERUMon 94-21-1455IOUG Tyyumnb851 ug/dL Hioslw49-792TzyjkvotpoSan Luis Obispo General HospitalComment on above:Performed By: #### CBC #### Singh Gan ([id number]) [place] [address] USADIFFERENTIALon 90-26-8332Kbx BASO41 /uLNormal0-200 [facility] CenterComment on above:Performed By: #### DIFF #### Singh Gan ([id number]) [place] [address] USAAbs EOS71 /sAKsukbc23-677RvkfkcinhfSan Luis Obispo General HospitalComment on above:Performed By: #### DIFF #### Singh Gan ([id number]) [place] [address] USAAbs ZAWY706 /yALeseyk714-747VofxzbfblaSan Luis Obispo General HospitalComment on above:Performed By: #### DIFF #### Singh Gan ([id number]) [place] [address] USAAbs CBNF2113 /aVWbgbcm6086-5016QytdiyixavSan Luis Obispo General HospitalComment on above:Performed By: #### DIFF #### Singh Gan ([id number]) [place] [address] USABasophils/100 WBC (Bld)0.7 %Normal0.0-1.0UnSan Luis Obispo General HospitalComment on above:Performed By: #### DIFF #### Singh Gan ([id number]) [place] [address] USAEosinophils/100 WBC (Bld)1.2 %Normal0.0-8.0[facility] CenterComment on above:Performed By: #### DIFF #### Snigh Gan ([id number]) [place] [address] USALymphocytes (Bld) [#/Vol]1.64 10*3/xTDjbkdz359-2126 [facility] CenterComment on above:Performed By: #### DIFF #### Singh Gan ([id number]) [place] [address] USALymphocytes/100 WBC (Bld)27.8 %Qejjwi36.0-45.0UnSan Luis Obispo General HospitalComment on above:Performed By: #### DIFF #### Singh Gan ([id number]) [place] [address] USAMonocytes/100 WBC (Bld)5.6 %Normal0.0-12.0UnSan Luis Obispo General HospitalComment on above:Performed By: #### DIFF #### Singh Gan ([id number]) [place] [address] USANeutrophils/100 WBC (Bld)64.7 %Qiawvf03.0-80.0UnSan Luis Obispo General HospitalComment on above:Performed By: #### DIFF #### Singh Gan ([id number]) [place] [address] USANucleated RBC0 /100 WBCNormal0-0UnSan Luis Obispo General HospitalComment on above:Performed By: #### DIFF #### Singh Gan ([id number]) [place] [address] USAFERRITINon 81-29-8652Ehcjxcxs [Mass/Vol]9.7 ng/mLLow 11.0-306.8UnSan Luis Obispo General HospitalComment on above:Performed By: #### CBC #### Singh Gan ([id number]) [place] [address] USAFREE T4on 20-87-0356Fbyq T4 [Mass/Vol]0.91 ng/dLNormal 0.61-1.76[facility] CenterComment on above:Result Comment: Biotin megadosing (consumption >300 mcg/day) may falsely elevate free T4. When indicated, discontinue megadosing for 1 week and repeat testing.Performed By: #### CBC #### Singh Gan ([id number]) [place] [address] USAFSHon 89-11-6256VZM2.3 mIU/mLNormalParkview Community Hospital Medical CenterComment on above:Result Comment: All Adults Females: Mid-Follicular Phase 3.85-8.78 Mid-Cycle Peak 4.54-22.51 Mid-Luteal Phase 1.79-5.12 Post Menopausal 16.74-113.59 Males: 1.27-19.26Performed By: #### CBC #### Singh Gan ([id number]) [place] [address] USAIRON STUDIESon 02-26-2024%SAT10.5 %Low15.0-55.0 [facility] Medical CenterComment on above:Performed By: #### IRNS #### Singh Gan ([id number]) [place] [address] USAIron [Mass/Vol]36 ug/eQOpc07-991VsilfmjzymSan Luis Obispo General HospitalComment on above:Performed By: #### IRNS #### Singh Gan ([id number]) [place] [address] NCPVCJR194 ug/vYOnflkb169-852UpngyfrhfgSan Luis Obispo General HospitalComment on above:Performed By: #### IRNS #### Singh Gan ([id number]) [place] [address] USALUTEINIZING HORMONEon 46-80-3502JB55.3 mIU/mLNormal [facility] CenterComment on above:Result Comment: All Adults Females: Mid-Follicular Phase 2.12-10.89 Mid-Cycle Peak 19.18-103.03 Mid-Luteal Phase 1.20-12.86 Post Menopausal 10.87-58.64 Males: 1.24-8.62Performed By: #### CTNGUR #### Singh Gan ([id number]) [place] [address] USAT3 TOTALon 41-18-5600B9, Total95.4 ng/jPGginte46.0-220.0 [facility] CenterComment on above:Result Comment: Biotin megadosing (consumption >300 mcg/day) may falsely elevate total T3. When i ndicated, discontinue megadosing for 1 week and repeat testing.Performed By: #### CBC #### Singh Gan ([id number]) [place] [address] USATESTOSTERONE, TOTALon 75-28-8142Vyocrsfgwego [Mass/Vol] 49 ng/dLNormal0-75UnSan Luis Obispo General HospitalComment on above: Performed By: #### B12 #### Singh Gan ([id number]) [place] [address] USATHYROID STIMULATING HORMONEon 39-03-1406FZW, 3rd Generation0.72 uIU/mLNormal0.45-4.12[facility] Comment on above:Performed By: #### B12 #### Singh Gan ([id number]) [place] [address] USAURINALYSIS, MICROSCOPICon 77-19-0937Zulfdep Oxal Crystal OccasionalAbnormalNone Seen,FewUnSan Luis Obispo General HospitalComment on above:Performed By: #### CBC #### Singh Gan ([id number]) [place] [address] USAMucousPresentAbnormalNone SeenUnSan Luis Obispo General HospitalComment on above:Performed By: #### CBC #### Singh Gan ([id number]) [place] [address] USARBC.<5Ncmsgg7-4LtjmlicbtbSan Luis Obispo General Hospital Comment on above:Performed By: #### CBC #### Singh Gan ([id number]) [place] [address] USASquamous, Epith8 /HPFHigh0-5UnSan Luis Obispo General HospitalComment on above:Performed By: #### CBC #### Singh Gan ([id number]) [place] [address] USAWBC.8 /HPFHigh0UnSan Luis Obispo General Hospital Comment on above:Performed By: #### CBC #### Singh Gan ([id number]) [place] [address] USAURINALYSIS-MACROSCOPIC W/REFLEX TO MICROSCOPICon 62-72-8878Gnxxmsahf, UrineNegativeNormalNegativeUnSan Luis Obispo General HospitalComment on above:Performed By: #### CBC #### Singh Gan ([id number]) [place] [address] USAClarity (U)CloudyAbnormalClearUniversity of Moyie Springs Medical CenterComment on above:Performed By: #### CBC #### Singh Gan ([id number]) [place] [address] USAColor (U)YellowNormalYellow,StrawUnSan Luis Obispo General HospitalComment on above:Performed By: #### CBC #### Singh Gan ([id number]) [place] [address] USAGlucose Ql (U)NegativeNormalNegHighland Springs Surgical CenterComment on above:Performed By: #### CBC #### Singh Gan ([id number]) [place] [address] USAHemoglobin Ql (U)NegativeNormalNegHighland Springs Surgical CenterComment on above:Performed By: #### CBC #### Singh Gan ([id number]) [place] [address] ANQSrnwmn85 mg/dLAbnormalNegHighland Springs Surgical CenterComment on above:Performed By: #### CBC #### Singh Gan ([id number]) [place] [address] USALeukocyte esterase Test strip Ql (U)NegativeNormal NegativeParkview Community Hospital Medical CenterComment on above:Performed By: #### CBC #### Singh Gan ([id number]) [place] [address] USANitrite Ql (U)NegativeNormalNegHighland Springs Surgical CenterComment on above:Performed By: #### CBC #### Singh Gan ([id number]) [place] [address] USApH (U)6.0 [pH]Normal5.0-8.0UnSan Luis Obispo General HospitalComment on above:Performed By: #### CBC #### Singh Gan ([id number]) [place] [address] USAProtein (U) [Mass/Vol]50 mg/dLAbnormalNegativeUnSan Luis Obispo General HospitalComment on above:Performed By: #### CBC #### Singh Gan ([id number]) [place] [address] USASpecific gravity (U) [Rel density]1.243Ndyfgd8.005-1.035 [facility] CenterComment on above:Performed By: #### CBC #### Singh Gan ([id number]) [place] [address] USAUrobilinogen (U) [Mass/Vol]mg/dLNormal0.2-1.9UnSan Luis Obispo General HospitalComment on above:Performed By: #### CBC #### Singh Gan ([id number]) [place] [address] USAVITAMIN B12on 87-36-4257Prubglsbn (Vitamin B12) [Mass/Vol]355 pg/nSJhrdcp857-751UhdslyomnrSan Luis Obispo General HospitalComment on above:Performed By: #### B12 #### Singh Gan ([id number]) [place] [address] USAVaginitis Panel DNA Amplified Probeon 02-26-2024 Bacterial VaginosisNegativeNormalNegativeUnSan Luis Obispo General Hospital Comment on above:Performed By: #### B12 #### Singh Gan ([id number]) [place] [address] USACandida glabrata/kruseiNot detectedNormalNot Detected [facility] CenterComment on above:Performed By: #### B12 #### Singh Gan ([id number]) [place] [address] USACandida SpeciesNot detectedNormalNot DetectedParkview Community Hospital Medical CenterComment on above:Performed By: #### B12 #### Singh Gan ([id number]) [place] [address] USATrichomonas vaginalisNot detectedNormalNot Detected [facility] CenterComment on above:Result Comment: A positive result for bacterial vaginosis indicates that Atopobium spp., bacterial vaginosis-associated bacterium 2 (BVAB2), and/or Megasphaera-1 have been detected in relative concentrations consistent with bacterial vaginosis. A detected result for Nadya group indicates that C. albicans, C. tropicalis, C. parapsilosis, and/or C. dubliniensis have been detected. A detected result for Nadya glabrata/Nadya krusei indicates that C. glabrata and/or C. krusei have been detected. For both Nadya targets, further species differentiation is not possible. A detected result for Trichomonas vaginalis indicates that T. vaginalis was detected in the specimen. For all targets, a negative or not detected result indicates that these organisms were not detected above the limit of detection of the assay. This assay is an FDA-approved nucleic acid amplification assay. Performed By: #### B12 #### Singh Gan ([id number]) [place] [address] USAUrine cultureon 77-72-4215Rkcqumyg identified Cx Nom (U) <10,000 cfu/mL Skin/Urogenital Bernadette. No Further Workup. HealthUC Health Urinalysis-Macroscopic w/Rfx to Microscoon 05-64-7688Ekigueerb Ql (U)Negative NegativeUC HealthClarity (U)ClearClearUC HealthColor (U)StrawYellow,StrawUC HealthGlucose Ql (U)NegativeNegative mg/dLUC HealthKetones (U) [Mass/Vol] NegativeNegative mg/dLUC HealthLeukocyte esterase Test strip Ql (U)Negative NegativeUC HealthNitrite Ql (U)NegativeNegativeUC HealthpH (U)6.5 [pH]5.0 - 8.0 UC HealthProtein Ql (U)NegativeNegative mg/dLUC HealthRBC Ql (U)NegativeNegative UC HealthSpecific gravity Refractometry (U) [Rel density]1.0231.005 - 1.035UC HealthUrobilinogen (U) [Mass/Vol]mg/dL0.2 - 1.9 mg/dLUC HealthMicroscopic testing is not performed when the dipstick is negative for blood, leukocyte, protein and nitrite.[facility] LABUC White HospitalCB WITH DIFFERENTIALon 10-23-2023 AUTOMATED NRBC ABSOLUTE0.00 x10(3)/mcLNormalCSentara Obici HospitalComment on above:Performed By: #### [id number] #### [facility] [address] [place] [address] USAUTOMATED NRBC PERCENTAGE0.0 %[facility] Memorial HealthCareComment on above:Performed By: #### [id number] #### [facility] [address] [place] [address] 14096 USBASOPHIL ABSOLUTE0.04 x10(3)/mcLNormal0.00-0.10[facility] HospitalComment on above:Performed By: #### [id number] #### [facility] [address] [place] [address]387 USBasophils/100 WBC (Bld)0.5 %Normal0.0-1.0[facility] HospitalComment on above:Performed By: #### [id number] #### [facility] [address] [place] [address] 10905 USEOSINOPHIL ABSOLUTE0.28 x10(3)/mcLNormal0.00-0.60 [facility] HospitalComment on above:Performed By: #### [id number] #### [facility] [address] [place] [address] 22820 USEosinophils/100 WBC (Bld)3.5 %Normal0.0-5.0[facility] HospitalComment on above:Performed By: #### [id number] #### [facility] [address] [place] [address] 94212 USHematocrit (Bld) [Volume fraction]40.0 %Scocqj54.0-47.0 [facility] HospitalComment on above:Performed By: #### [id number] #### [facility] [address] [place] [address]993 USHemoglobin (Bld) [Mass/Vol]13.5 g/aOOtntpz08.7-15.7 [facility] HospitalComment on above:Performed By: #### [id number] #### [facility] [address] [place] [address] 95720 USIMMATURE GRAN ABS0.01 x10(3)/mcLNormal0.00-0.09[facility] HospitalComment on above:Performed By: #### [id number] #### [facility] [address] [place] [address]149 USImmature granulocytes/100 WBC (Bld)0.1 %Normal0.0-0.6 [facility] HospitalComformerly [facility] on above:Performed By: #### [id number] #### [facility] [address] [place] [address] 05672 USLYMPHOCYTE ABSOLUTE3.38 x10(3)/mcLNormal1.20-5.20 [facility] HospitalComformerly [facility] on above:Performed By: #### [id number] #### [facility] [address] [place] [address] 93467 USLymphocytes/100 WBC (Bld)41.9 %Payeaw01.0-42.0[facility] HospitalComformerly [facility] hospital on above:Performed By: #### [id number] #### [facility] [address] [place] [address] 38562 USMCV (RBC) [Entitic vol]84.7 dNMixqmb19.0-96.0[facility] HospitalComment on above:Performed By: #### [id number] #### [facility] [place] [address] USMEAN CELL TGHGEMGOOJ02.6 dvAirpri96.0-34.0[facility] HospitalComment on above:Performed By: #### [id number] #### [facility] [place] [address] USMEAN CELL HEMOGLOBIN CFHVFFFJKYSRT05.8 gm/dLNormal 31.0-36.0[facility] HospitalComment on above:Performed By: #### [id number] #### [facility] [address] [place] [address] 24342 USMONOCYTE ABSOLUTE0.66 x10(3)/mcLHigh0.00-0.60[facility] HospitalComformerly [facility] on above:Performed By: #### [id number] #### [facility] [address] [place] [address] 71034 USMonocytes/100 WBC (Bld)8.2 %High0.0-8.0[facility] HospitalComment on above:Performed By: #### [id number] #### [facility] [address] [place] [address] 50949 USNEUTROPHIL ABSOLUTE3.70 x10(3)/mcLNormal1.80-8.00 [facility] HospitalComment on above:Performed By: #### [id number] #### [facility] [address] [place] [address] 01314 QXMDZSFMDE383 x10(3)/fhKMggjsw608-116XfogptlmdrOhiohealth Shelby HospitalComment on above:Performed By: #### [id number] #### [facility] [place] [address] USPlatelet mean volume (Bld) [Entitic vol]11.4 fLNormal 9.6-12.0[facility] HospitalComment on above:Performed By: #### [id number] #### [facility] [place] [address] USRED BLOOD CELL4.72 x10(6)/mcLNormal3.80-5.20[facility] on above:Performed By: #### [id number] #### [facility] [address] [place] [address] USRED CELL DIAMETER WIDTH13.0 %Normal<=15.2CSentara Obici HospitalComformerly [facility] on above:Performed By: #### [id number] #### [facility] [place] [address] USSegmented neutrophils/100 WBC (Bld)45.8 %Kshzml68.0-70.0 [facility] on above:Performed By: #### [id number] #### [facility] [place] [address] USWHITE BLOOD CELLS8.07 x10(3)/mcLNormal4.50-13.00 [facility] on above:Performed By: #### [id number] #### [facility] [address] [place] [address] 91561 USCRP (C-REACTIVE PROTEIN)on 72-97-0759F-REACTIVE PROTEIN 0.40 mg/dLNormal<=0.40[facility] on above:Order Comment: Values of 0.8 mg/dL or higher are consistent with inflammation/infection.Performed By: #### [id number] #### [facility] [address] [place] [address] USED Provider Noteson 57-03-8570BQ Provider NotesHistory of Present Illness Brenda is a 18yo F with no significant past medical history brought to the ED for blood in stool. For the last 3 days patient has had large amount of bright red blood every time she has a bowel movement. She has been having bowel movement once a day, the blood is on the top of the stool, not mixed with the stool. Patient additionally complains of intermittent cramping abdominal pain. Denies nausea or vomiting. Denies diarrhea, no history of constipation. Has regular daily bowel movements. Patient remains afebrile, no weight loss. Denies anal pain or hemorrhoids. Denies blood in urine or easy bruising. No other associated symptoms or concerns. The history is provided by the patient. No permit coordinator was used. HPI Documentation is Complete History Review: PMH: No significant problems PSH: None Social History: Attends School/Day Care in Person Family History: Reviewed with patient/family - non contributory Review of Systems Review of Systems Constitutional: Negative for activity change, appetite change, fatigue and fever. HENT: Negative for congestion and sore throat. Respiratory: Negative for cough. Gastrointestinal: Positive for abdominal pain and blood in stool. Negative for diarrhea, nausea and vomiting. ROS Documentation is Complete Physical Exam Exam conducted with a lead pressman present. Constitutional: Appearance: Normal appearance. HENT: Mouth/Throat: Mouth: Mucous membranes are moist. Pharynx: Oropharynx is clear. Cardiovascular: Rate and Rhythm: Normal rate and regular rhythm. Heart sounds: Normal heart sounds. Pulmonary: Effort: Pulmonary effort is normal. Breath sounds: Normal breath sounds. Abdominal: Tenderness: There is abdominal tenderness (mild epigastric and suprapubic). There is no guarding or rebound. Genitourinary: Rectum: Normal. Skin: General: Skin is warm. Capillary Refill: Capillary refill takes less than 2 seconds. Neurological: Mental Status: She is alert. Physical Exam Documentation is Complete ED Course: ED Plan: Brenda is a 18yo F with no significant past medical history brought to the ED for blood in stool and intermittent cramping abdominal pain for the last 3 days. Patient well-appearing, in no distress, well-hydrated. Mild epigastric and suprapubic tenderness on exam without rebound or guarding. Rest of physical exam within normal limits. No hemorrhoids or anal fissure noted. Patient denies nausea, vomiting or diarrhea, no history of constipation. GI consulted over phone recommends obtaining KUB to rule out increase stool burden, CBC and inflammation markers, obtaining stool infectious panel and stool calprotectin. CBC CRP and ESR obtained and within normal limits, no elevation of white blood cell count, anemia or increased inflammation marker levels. KUB obtained shows increased stool burden, discussed with patient that we will start MiraLAX daily to ensure regular daily bowel movements and rule out constipation as a cause of presenting symptoms. Patient is not able to provide stool sample during the ER visit. Ordered bacterial and viral stool panel and stool calprotectin to be done outpatient. Instructed patient to follow-up with PCP, has appointment scheduled for the following week to follow-up on lab results and symptoms after patient taking MiraLAX for a week. Discussed further follow-up with GI if symptoms persist. Instructed patient to return to the ED if she develops increased abdominal pain, frequent bloody stools or other new concerning symptoms. Patient expresses understanding and agrees with the plan. MDMNormalCincRiverside Walter Reed HospitalFECAL CALPROTECTINon 57-74-6490NEMJY CALPROTECTINFECAL CALPROTECTIN 5Normal<=50[facility] on above:Order Comment: 50 ug/g or less: Normal 51-120 ug/g: Borderline elevated 121 ug/g or greater: Abnormal, suggestive of inflammatory bowel disease (IBD) Performed By: #### [id number] #### [facility] [address] [place] [address] USRAD ABDOMEN 1Von 81-75-9590UJT ABDOMEN 1VCLINICAL HISTORY: Blood in stool. Patient states that she has had abdominal pain for 4 days and herlast bowel movement was today. COMPARISON: None PROCEDURE COMMENTS: Single view of the abdomen. FINDINGS: ABDOMEN: Bowel gas is present in a nonobstructive pattern. There is no evidence of pneumatosis, organomegaly, or abdominal mass. There is a small calcific density projecting over the right lateral abdomen adjacent to the abdominal wall. There is a moderate amount of stool in the colon. BONES: Normal. IMPRESSION: 1. Moderate amount of stool in the colon. 2. Nonspecific small calcific density projecting over the right lateral mid abdomen. This may be related to the adjacent rib.NormalOhiohealth Shelby HospitalROUTINE BACTERIAL STOOL PATHOGENS - MOLECULARon 28-65-4697GSGAHALQENZWF NegativeNormalNegativeGalion Community Hospital on above:Order Comment: This specimen was tested with the BD MAX System, a PCR assay for the detection of nucleic acids from Campylobacter species (jejuni and coli), Salmonella species, Shigella species, and Shiga toxins 1 and 2.Performed By: #### [id number] #### [facility] [address] [place], [place] [address]YEWXLSIIJOKbaxglakKihnfmJomfahrzFsublpgurq Childrens HospitalComment on above:Order Comment: This specimen was tested with the BD MAX System, a PCR assay for the detection of nucleic acids from Campylobacter species (jejuni and coli), Salmonella species, Shigella species, and Shiga toxins 1 and 2.Performed By: #### [id number] #### [address] [address]RBIENKWELkmuiunyMbgcozSolewlvjMwkvexsogu [facility] Comment on above:Order Comment: This specimen was tested with the BD MAX System, a PCR assay for the detection of nucleic acids from Campylobacter species (jejuni and coli), Salmonella species, Shigella species, and Shiga toxins 1 and 2.Performed By: #### [id number] #### [address] [address]BKGPVBAFU E. COLI (SHIGA TOXIN)NegativeNormalNegGonzales Memorial HospitalComment on above:Order Comment: This specimen was tested with the BD MAX System, a PCR assay for the detection of nucleic acids from Campylobacter species (jejuni and coli), Salmonella species, Shigella species, and Shiga toxins 1 and 2.Performed By: #### [id number] #### [address] [address]SKEQXHT VIRAL STOOL PATHOGENS - MOLECULARon 10-23-[address] Baptist HospitalComment on above: Order Comment: This specimen was tested on the BD MAX system, a PCR assay for the detection of nucleic acids from Adenovirus, Astrovirus, Norovirus, Rotavirus, and Sapovirus.Performed By: #### [id number] #### [address] [address]SFZHMXYRUKBxlrrhmaQzpapjYoalejlyWdltqsdnyk Childrens HospitalComment on above:Order Comment: This specimen was tested on the BD MAX system, a PCR assay for the detection of nucleic acids from Adenovirus, Astrovirus, Norovirus, Rotavirus, and Sapovirus.Performed By: #### [id number] #### [address] [address]WGTNSAEENKexyxadhIimyxpVnuqoblsJmhccqsiju [facility] Comment on above:Order Comment: This specimen was tested on the BD MAX system, a PCR assay for the detection of nucleic acids from Adenovirus, Astrovirus, Norovirus, Rotavirus, and Sapovirus.Performed By: #### [id number] #### [facility] [address] [place], [place] [address]EHVLSOMRKBdgwuvfqNbxaqbCxgwjbxhQmjohewbjt [facility] Comment on above:Order Comment: This specimen was tested on the Liquid5 system, a PCR assay for the detection of nucleic acids from Adenovirus, Astrovirus, Norovirus, Rotavirus, and Sapovirus.Performed By: #### [id number] #### [facility] [address] [place] [address]HXBSSVEALFdlzewafXcyrkaBropxygoSwpgqsbtyu [facility] Comment on above:Order Comment: This specimen was tested on the BD MAX system, a PCR assay for the detection of nucleic acids from Adenovirus, Astrovirus, Norovirus, Rotavirus, and Sapovirus.Performed By: #### [id number] #### [facility] [address] [place] [id number] RATEon [id number] (Bld) [Velocity]16 mm/hNormal0-20 [facility] HospitalComment on above:Performed By: #### [id number] #### [facility] [address] [place] [address] USEDPCPon [id number] Duran/Female/[id number]/Triage Level 3//Blood in stool []; Periumbilical abdominal pain []/Discharge Home/Attending: Parker Michelle/Registered Nurse: Rhoda Borrero Provider Department Center 10/22/2023 None-None ED [facility] Primary Care Provider: No Pcp, [facility] Myco/Ureaplasma Culton [id number]/Ureaplasma Cult(NOTE)NormalMerSutter Amador HospitalComment on above:Result Comment: Ureaplasma Species and Mycoplasma hominis Culture ARUP test code [id number] Collected: 03/16/2023 15:09 MT Started: 03/18/2023 12:01 MT Source: Genital Body Site: Urethral Free Text Sources: Genital Final Report Culture negative for Mycoplasma hominis Culture negative for Ureaplasma spp Ureaplasma Species and Mycoplasma hominis Culture COLLECTED 03/16/2023 15:09 S=Susceptible, NonS=Nonsusceptible, IND=Indeterminate, I=Intermediate, SDD=Susceptibility is dose dependent, R=Resistant, None=Interpretive guidelines are not availablePerformed By: #### AUREMY #### [place] [id number] Collection Systems Administrator: Richmond Ayala MDOPERATIVE REPORTon [id number] REPORT [address] [address] OPERATIVE REPORT PATIENT NAME: BRENDA KIM : 2005 MED REC NO: [id number] ROOM: ACCOUNT NO: [id number] ADMIT DATE: 03/16/2023 PROVIDER: Julieta Mazariegos DO DATE OF PROCEDURE: 03/16/2023 INDICATIONS FOR SURGERY: Dysuria, painful urination, urethral pain. PREOPERATIVE DIAGNOSES: Dysuria, painful urination, urethral pain. POSTOPERATIVE DIAGNOSES: No evidence for interstitial cystitis, suspect nongonococcal urethritis, bladder trabeculations grade 2 with overactive bladder wet. OPERATIONS PERFORMED: Ureaplasma, mycoplasma urethral cultures and cystourethroscopy with hydrodistention. SURGEON: Julieta Mazariegos DO SLIDE FASTENER REPAIRER: Kalie Barlow DO and Rosanna Burgess DO ANESTHESIA: MAC. FINDINGS: As above. SPECIMENS: Ureaplasma culture. COMPLICATIONS: None. ESTIMATED BLOOD LOSS: None. COURSE: Prior to the procedure, risks and benefits of the procedure were explained to the patient. The patient understood and signed informed consent under no duress or confusion. Her urine test was negative. The patient was taken back to the OR and prepped and draped in sterile fashion in dorsal lithotomy position under MAC anesthesia. Surgical timeout was taken. Ureaplasma, mycoplasma cultures were taken. Then using a 17-[place] Timorese 30-degree cystourethroscope, the urethra was cannulated and cystoscopy was completed in the systematic manner. The urethra, trigone, and bladder were without tumor, stones, infection, diverticuli or fistula. There were signs of baseline inerstitial cystitis. The patient did have grade 1 to 2 trabeculations upon filling with 2 small pockets of what looked almost like diverticuli. Subjectively, as if she had a bladder of someone who is twice her age. Ureters were patent and effluxed urine. The bladder was only able to be distended to about 300 mL and the patient began bladder spasm and leaked around the cystoscope. This 300 mL volume was held into bladder by occluding the urethra with a gentle press technique and then the bladder was drained. Repeat cystourethroscopy at a lower volume did not show any interstitial cystitis or glomerulations and the bladder was drained. The procedure was felt to be complete. A postoperative timeout occurred and the patient was taken to recovery in stable fashion. The family was updated by personal consultation. The patient will go home on trospium 20 mg a day and Uribel 10 mg up to four times a day until the cultures are back. She will followup in 1 week in the office. JULIETA MAZARIEGOS DO /HT_[id number] Doc#: [id number] CC: Julieta Mazariegos, [facility] HospitalCHLAMYDIA/GONOCOCCUS DALE (SWAB/URINE/PAPon [id number] trachomatis, NAANegativeNormal NegativeThe [facility] HospitalComment on above:Performed By: #### CT/NGNA #### [facility] [address] [place] [address] Dr. Yilan ChangNeisseria gonorrhoeae, NAANegativeNormalNegativeThe [facility] HospitalComment on above:Performed By: #### CT/NGNA #### [facility] [address] [place] [address] [address] Matthew Baldwin [id number] Visit (OTPLIN) BRENDA MARROQUIN ([id number]) 1 F Date Time Provider Department 12/12/21 5:15 PM PATEL BAR [place] During your visit today, we recorded the following information about you: Patel Bar MD 12/12/2021 8:53 PM Signed SECTION OF FACIAL PLASTIC AND RECONSTRUCTIVE SURGERY Head and Neck [place], [facility] Follow up Visit Date of service: 12/12/2021 Brenda Marroquin is a 16 year old female who presents after surgery for follow-up. Procedure: 1. 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 Open septoplasty 3. Therapeutic out-fracture of bilateral inferior turbinates. 4. Repair of nasal septal perforation with Alloderm interposition graft 5. Cosmetic rhinoplasty Date: 08/07/2021 Patient reports that left side feels partially obstructed (improved from before surgery but worse than a month ago), right side reports some improvement. Obstruction most notable during exercise and sleeping - reports mouth breathing at night. Swelling has improved since prior visit. On exam edema resolving. Incision well healed. Nasal airways patent. Dynamic valve collapse mild-moderate, minimally contributing to obstruction. Left inferior turbinate mildly hypertrophied. Septum midline. Good nasal contours. Assessment/Plan: Discussed course of healing can vary, particularly with weather/humidity and allergy hx. Given no mechanical obstruction appreciated, symptoms may also be related to abnormal sensation intranasally related to prior surgeries. May further improve now that patient is approx 1 year out from original surgery, and 4 months out from most recent surgery. - Daily PO allergy medication / antihistamine + Flonase; they will get this over the counter - 2-3 months follow up; discussed that no intervention would be planned until at least 9-12 months out from surgery. Seen in conjunction with Dr. Bar. Curry Morgan MD Resident, Plastic Surgery Attending attestation: I personally evaluated and examined the patient with Dr. Morgan. Within the resident's note, I have edited the history, physical exam, assessment, and plan to reflect my own findings. Patel Bar MD, FACS Facial Plastic and Reconstructive Surgery [facility], Head and [place] I spent a total of 20 minutes on the date of the service which included preparing to see the patient, bohe-pn-dvva patient care, completing clinical documentation, performing a medically appropriate examination and counseling and educating the patient/family/caregiver. Referring Provider: SELF [[id number]] Allergies As of Date: 12/12/2021 (No Known Allergies) Date Reviewed: 12/12/2021 Reviewed by: Patel Bar MD - Fully Assessed Reason for Visit: Established Patient Follow-Up [[id number]] Cmt: 3-4 month follow up Primary Visit Diagnosis:History of nasal surgery [Z98.890] Other Visit Diagnosis:Nasal congestion [R09.81] Prescriptions as of 12/12/2021 - oxyCODONE IR (ROXICODONE) 5 mg immediate release tablet Take 1 tablet by mouth every 6 hours as needed for pain. - sodium chloride (AYR SALINE) 0.65 % nasal spray Use 2 Sprays in the nose every 2 hours while awake. - azelastine (ASTELIN) 0.1% nasal spray Use 2 Sprays in each nostril twice daily. - TRI-LO-CHARITY 0.18/0.215/0.25 mg-25 mcg Take 1 tablet by mouth once daily. - fluticasone (FLONASE ALLERGY RELIEF) 50 mcg/actuation nasal spray Use 2 Sprays in each nostril once daily. 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 Matthew HsiehCHLAMYDIA/GONOCOCCUS DALE (SWAB/URINE/PAPon [id number] trachomatis, NAANegativeNormalNegativeThe [facility] HospitalComment on above: Performed By: #### CT/NGNA #### [facility] [address] [place] [address] Dr. Matthew HsiehNeisseria gonorrhoeae, NAANegativeNormalNegativeCleveland Clinic Mercy HospitalComment on above:Performed By: #### CT/NGNA #### [facility] [address] [place] [address] Dr. Matthew HsiehVAGINITIS/VAGINOSIS DNA PROBEon [id number] speciesNegative NormalNegativeCleveland Clinic Mercy HospitalComment on above:Performed By: #### VAGINT #### [facility] [address] [place] [address] Dr. Matthew Fergusonerellcarlos vaginalisPositiveAbnormalNegativeCleveland Clinic Mercy HospitalComment on above:Performed By: #### VAGINT #### [facility] [address] [place] [address] Dr. Matthew Arias vaginalisNegativeNormalNegativeCleveland Clinic Mercy Hospital Comment on above:Performed By: #### VAGINT #### [facility] [address] [place] [address] Dr. Matthew Baldwin [id number] Visit (OTOLMN) BRENDA MARROQUIN ([id number]) 1 F Date Time Provider Department 08/13/21 3:45 PM PATEL BAR OTFRANCINE During your visit today, we recorded the following information about you: Patel Bar MD 08/13/2021 4:44 PM Signed SECTION [facility] FACIAL PLASTIC [facility] Date of service: 08/13/2021 Brenda Marroquin is a 16 year old female who presents after surgery for follow-up. Procedure: 1. 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 Open septoplasty 3. Therapeutic out-fracture of bilateral inferior turbinates. 4. Repair of nasal septal perforation with Alloderm interposition graft 5. Cosmetic rhinoplasty Date: 08/07/2021 Doing well with no significant concerns since surgery. On exam, suture lines are intact. No evidence of infection. Splints removed today. Nose with good contours and expected nasal swelling. Nasal cavities patent. Assessment/Plan: Doing well after surgery. Nasal saline spray every 2 hours while awake. Continue routine wound care. Follow up in 6 weeks with virtual visit and 3 months in person. Joe Rivera MD for the service of Patel Bar MD, [facility] Facial Plastic and Reconstructive Surgery [facility] [place] Attending attestation: I personally evaluated and examined the patient with Dr. Rivera. Within the resident's note, I have edited the history, physical exam, assessment, and plan to reflect my own findings. Patel Bar MD, [facility] Facial Plastic and Reconstructive Surgery [facility] [place] [place] Luciano Gonzalez 08/13/2021 3:24 PM Signed Tobacco Use: Never Was smoking cessation packet given? N/A - Patient is a non-smoker or quit >1 year ago. Was a referral initiated?N/A Patient is a non-smoker Referring Provider: PATEL BAR [[id number]] Allergies As of Date: 08/13/2021 (No Known Allergies) Date Reviewed: 08/13/2021 Reviewed by: Patel Bar MD - Fully Assessed Reason for Visit: Follow Up [171] Cmt: post op nasal surgery Primary Visit Diagnosis:Nasal septal deviation [J34.2] Prescriptions as of 08/13/2021 - oxyCODONE IR (ROXICODONE) 5 mg immediate release tablet Take 1 tablet by mouth every 6 hours as needed for pain. - sodium chloride (AYR SALINE) 0.65 % nasal spray Use 2 Sprays in the nose every 2 hours while awake. - bacitracin 500 unit/gram ointment Apply to affected area twice daily for 7 days. - cefADROxil (DURICEF) 500 mg capsule Take 1 capsule by mouth twice daily for 7 days. - azelastine (ASTELIN) 0.1% nasal spray Use 2 Sprays in each nostril twice daily. - TRI-LO-CHARITY 0.18/0.215/0.25 mg-25 mcg Take 1 tablet by mouth once daily. - fluticasone (FLONASE ALLERGY RELIEF) 50 mcg/actuation nasal spray Use 2 Sprays in each nostril once daily. 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 N/A - Patient is a non-smoker or quit >1 year ago. Was a referral initiated?N/A Patient is a non-smoker Disposition: Return in about 6 weeks (around 09/24/2021) for virtual appoitment. Follow-up and Disposition History for Encounter Date Provider Department Center 08/13/2021 [id number] BAR Bldg Encounter Status:Closed by PATEL BAR on 08/13/21[facility] POSTPROC EVALon [id number] POSTPROC EVALHNO ID: [id number] Author: Saqib Dobson MD Service: Anesthesiology Author Type: Anesthesiologist Type: Anesthesia Postprocedure Evaluation Filed: 08/07/2021 3:03 PM Note Text: POST ANESTHESIA EVALUATION NOTE : 2005 Procedure Summary Date: 08/07/21 Room / Location: [address] OR Anesthesia Start: 837 Anesthesia Stop: 1308 Procedures: REPAIR NASAL VESTIBULAR STENOSIS (Bilateral Nose) SEPTOPLASTY (Bilateral Nose) GRAFT EAR CARTILAGE TO NOSE AUTOGENOUS (Left Ear) GRAFT AUTOGENOUS RIB CARTILAGE TO NOSE (Right Chest) Diagnosis: Refractory obstruction of nasal airway Nasal valve stenosis Deviated nasal septum Nasal septal perforation History of nasal surgery Surgeons: Patel Bar MD Responsible Provider: Saqib Dobson MD Anesthesia Type: general ASA Status: 2 Anesthesia Type: general Last vitals Vitals Value Taken Time BP 108/51 08/07/21 1415 Temp 36.3 ?C (97.3 ?F) 08/07/21 1415 Pulse 89 08/07/21 1415 Resp 16 08/07/21 1415 SpO2 96 % 08/07/21 1415 Post Anesthesia Patient Status Patient Evaluation: PACU. PACU/ICU Patient Condition: stable. Anticipated Disposition: phase 2 then home. Neurological Status: aware and responsive. Pulmonary Status: breathing comfortably on room air Airway Control: returned to baseline unsupported. Cardiovascular Status: stable. Pain Management: clinically adequate - multimodal analgesia pain management approach Postoperative Hydration: acceptable. Intraoperative Events: no significant anesthesia events Post Operative Nausea/Vomiting Status: no significant post operative nausea or vomiting Anesthetic Observations: Recommendation: further care per PACU/ICU/floor team. Anesthesia Observations No Documentation SIGNATURE: Saqib Dobson MD PATIENT NAME: Brenda Marroquin DATE: August 07, 2021 TIME: 3:03 PM CSN: [id number] [facility] PRE-OPon [id number] PRE-OPHNO ID: [id number] Author: Saqib Dobson MD Service: Anesthesiology Author Type: Anesthesiologist Type: Anesthesia Preprocedure Evaluation Filed: 08/07/2021 8:06 AM Note Text: ANESTHESIOLOGY DAY OF SURGERY NOTE : 2005 Procedure(s) (LRB): REPAIR NASAL VESTIBULAR STENOSIS (Bilateral) SEPTOPLASTY (Bilateral) GRAFT EAR CARTILAGE TO NOSE AUTOGENOUS (Left) GRAFT AUTOGENOUS RIB CARTILAGE TO NOSE (Right) Surgeon(s): Patel Bar MD Estimated body mass index is 24.27 kg/m? as calculated from the following: Height as of 07/30/21: 160 cm (5' 3 ). Weight as of 07/30/21: 62.1 kg (137 lb). Most recent hematocrit and potassium results: No results found for this basename: HCT,HEMATOCRIT,K,POTASSIUM Relevant Problems No relevant active problems I - PHYSICAL EVALUATION AIRWAY Patient intubated: No. Tracheostomy tube not present Mallampati: II. TM distance: >3 FB. Neck ROM: full ROM without neurological symptoms. Mouth opening: adequate. Short neck: no. Thick neck: no DENTAL Dental findings: teeth intact. Additional exam findings: no II - ANESTHESIA PLAN ASA Score: 2 Anesthetic Plan: general Airway type: ETT The patient is not a current smoker. NPO Status: adequate Monitoring plan: standard ASA. Postoperative analgesic plan: parenteral or oral opioids. Anesthetic Risks, Benefits, Alternatives, Personnel Discussed. Consent obtained from: patient.Patient / Surrogate agrees to blood products: blood products not planned Significant changes in the patient condition since the History and Physical, not otherwise documented in primary service progress note: no. Potential Anesthesia issues that may suggest increased risk of complications or contraindication to planned procedure: none. Vitals Value Taken Time BP 118/58 08/07/21727 Pulse 68 08/07/21727 Resp 16 08/07/21727 Temp 36.5 ?C (97.7 ?F) 08/07/21727 SpO2 98 % 08/07/21727 Facility-Administered Medications as of 08/07/2021 Medication Dose Route Frequency - [COMPLETED] acetaminophen 1,000 mg tab(s) (TYLENOL) 1,000 mg ORAL Pre-Op Once - [COMPLETED] celecoxib 200 mg cap(s) (CeleBREX) 200 mg ORAL ONCE - [COMPLETED] promethazine 12.5 mg tab(s) (PHENERGAN) 12.5 mg ORAL Pre-Op Once - [COMPLETED] glycopyrrolate 0.2 mg injection (ROBINUL) 0.2 mg INTRAVENOUS Pre-Op Once - lactated ringers iv infusion 30 mL/hr INTRAVENOUS CONTINUOUS - [COMPLETED] gabapentin 100 mg cap(s) (NEURONTIN) 100 mg ORAL ONCE - lidocaine 10 mg/mL (1 %) 1-2 mg injection (XYLOCAINE) 0.1-0.2 mL INTRADERMAL PRN - lactated ringers iv infusion 5-30 mL/hr INTRAVENOUS CONTINUOUS - ceFAZolin iv piggyback 2 g in D5W (iso-osmotic) 100 mL (ANCEF) 2 g INTRAVENOUS Pre-Op Once Outpatient Medications as of 08/07/2021 Medication Sig - TRI-LO-CHARITY 0.18/0.215/0.25 mg-25 mcg Take 1 tablet by mouth once daily. - azelastine (ASTELIN) 0.1% nasal spray Use 2 Sprays in each nostril twice daily. (Patient not taking: Reported on 07/30/2021 ) - fluticasone (FLONASE ALLERGY RELIEF) 50 mcg/actuation nasal spray Use 2 Sprays in each nostril once daily. I have interviewed and examined the patient. I have reviewed the medical record and/or the pre-anesthesia evaluation, pertinent labs, and test results. This contains updated information obtained within 48 hours of Surgery/Procedure. SIGNATURE: Saqib Dobson MD PATIENT NAME: Brenda Marroquin DATE: August 07, 2021 TIME: 8:05 AM CSN: [id number] NOTon [id number] OP NOTHNO ID: [id number] Author: Joe Rivera MD Service: Otolaryngology Author Type: Resident Type: Brief Op Note Filed: 08/07/2021 12:49 PM Note Text: BRIEF OP NOTE LOG ID: [id number] Surgery/Procedure Date: 08/07/2021 Incision/Procedure Start Time: 9:08 AM Incision Close/Procedure End Time: Surgeon(s) and Role: * Patel Bar MD - Primary * Joe Rivera MD - Resident - Assisting Pre Operative Diagnoses: Refractory nasal obstruction, nasal deformity, nasal septal deviation Post Operative Diagnoses: Same as pre-op Procedure(s): 1. REPAIR NASAL VESTIBULAR STENOSIS: 79855 (CPT?) 2. SEPTOPLASTY: 10983 (CPT?) 3. GRAFT EAR CARTILAGE TO NOSE AUTOGENOUS: 94304 (CPT?) 4. GRAFT AUTOGENOUS RIB CARTILAGE TO NOSE: 70535 (CPT?) Anesthesia: General Procedure Indications: Brenda Marroquin is an 16 year old female with the above preoperative diagnosis and as such was taken to operating room for above listed procedure Operative Findings: 1. See op note Estimated Blood Loss: 15ml Specimens: * No specimens in log * Implants: Implant Name Type Inv. Item Serial No. Electrical Line Worker Lot No. LRB Model Num No. Used GRFT COSTAL CARTILAGE 5-8CM - [id number] Graft GRFT COSTAL CARTILAGE 5-8CM [id number] [facility] [id number] N/A 1216-25 1 MATRIX ALLODERM THIN ACELLULAR DERMIS 7X4CM TISSUE ALLOGRAFT REGENERATIVE - [id number] Graft MATRIX ALLODERM THIN ACELLULAR DERMIS 7X4CM TISSUE ALLOGRAFT REGENERATIVE LIFECELL [id number] N/A [id number] Complications: None Drains: None Counts: Correct SIGNATURE: Joe Rivera MD PATIENT NAME: Brenda Marroquin DATE: August 07, 2021 TIME: 12:48 PM PAGER/CONTACT #: [phone] Medical [facility]inkat[facility] [id number] (OTOLMN) BRENDA MARROQUIN ([id number]) 1 F Date Time Provider Department 08/07/21 RICHY VILLALOBOS During your visit today, we recorded the following information about you: Richy Villalobos MD 08/07/2021 6:38 PM Signed The patient's mother is calling the after-hours line. She is postop day [address] Bar. Mom noticed some slow oozing of blood coming around the external splint. There is not high-volume and appears to be stopping on its own. I advised that this is not entirely unexpected immediately after surgery. She will call the office back if there is continued or worsening bleeding. She will continue trying to keep the splint dry. Richy Villalobos MD Otolaryngology - Head and Neck Surgery PGY 3 Pager: [phone] Service pager: [phone] (page after 5pm and on weekends) Reid Rodriguez RN 08/08/2021 2:53 PM Signed Called and spoke to pt per Dr. bar request. Pt states that she is no longer bleeding from nose. Educated pt minor nasal bleeding is expected the first few days after surgery. Instructed pt to message into My Chart with any further questions or issues. Reid Rodriguez rn Allergies As of Date: 08/07/2021 (No Known Allergies) Date Reviewed: 08/07/2021 Reviewed by: Lea Faith RN - Fully Assessed Reason for Visit: Nasal bleeding [Other] Prescriptions as of 08/08/2021 - oxyCODONE IR (ROXICODONE) 5 mg immediate release tablet Take 1 tablet by mouth every 6 hours as needed for pain. - sodium chloride (AYR SALINE) 0.65 % nasal spray Use 2 Sprays in the nose every 2 hours while awake. - bacitracin 500 unit/gram ointment Apply to affected area twice daily for 7 days. - cefADROxil (DURICEF) 500 mg capsule Take 1 capsule by mouth twice daily for 7 days. - oxymetazoline (AFRIN, OXYMETAZOLINE,) 0.05 % nasal spray Use 2 Sprays in the nose as needed (for nasal bleeding) for up to 2 days. - azelastine (ASTELIN) 0.1% nasal spray Use 2 Sprays in each nostril twice daily. - TRI-LO-CHARITY 0.18/0.215/0.25 mg-25 mcg Take 1 tablet by mouth once daily. - fluticasone (FLONASE ALLERGY RELIEF) 50 mcg/actuation nasal spray Use 2 Sprays in each nostril once daily. 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] 07/30/2021 Nasal valve stenosis [J34.89] 07/30/2021 Deviated nasal septum [J34.2] 07/30/2021 Nasal septal perforation [J34.89] 07/30/2021 History of nasal surgery [Z98.890] 07/30/2021 Encounter Status:Closed by RICHY VILLALOBOS on 08/07/21[facility] DaytonHISTORY PHYSICALon [id number] PHYSICALHNO ID: [id number] Author: Patel Bar MD Service: Otolaryngology Author Type: Physician Type: HANDP Filed: 08/07/2021 8:31 AM Note Text: History and Physical Update Day of Surgery DOS: 08/07/21 Interval History: No changes to condition Exam: Unchanged Assessment/Plan: Ready for surgery as planned Patel Bar MDNoAccess Hospital DaytonNURSING PROGon [id number] PROGHNO ID: [id number] Author: Karolina Lott RN Service: ? Author Type: Registered Nurse Type: Nursing Progress Note Filed: 08/08/2021 12:55 PM Note Text: Mom reports pt had some bleeding from bridge of nose, getting splint bloody last night. She called control clerk repairs ENT doctor. Bleeding now stopped except for slight ooze. Mom reports she will check daughter again this afternoon and will call Dr. Bar's office if bleeding continues.Normal [facility] HospitalOPERATIVE NOon [id number] NOHNO ID: [id number] Author: Patel Bar MD Service: Otolaryngology Author Type: Physician Type: Operative Report Filed: 08/08/2021 1:40 PM Note Text: Date: 08/07/2021 Incision/Procedure Start Time: 9:08 AM Incision Close/Procedure End Time: 12:45 PM Attending Surgeon: Patel Bar MD Wallpaper Embosser Helper: Joe Rivera MD (resident) Preoperative Diagnosis: 1. Refractory nasal obstruction 2. Nasal septal deviation 3. Nasal valve collapse 4. History of nasal surgery 5. Nasal septal perforation Postoperative Diagnosis: 1. Refractory nasal obstruction 2. Nasal septal deviation 3. Nasal valve collapse 4. History of nasal surgery 5. Nasal septal perforation Procedure Performed: 1. 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 Open septoplasty 3. Therapeutic out-fracture of bilateral inferior turbinates. 4. Repair of nasal septal perforation with Alloderm interposition graft Specimens: No specimens Complications: No complications Blood loss: Minimal Anesthesia: General endotracheal Implanted Devices: None Indications: 16 year old female with a nasal septal deviation obstructing the bilateral nasal cavities, nasal valve stenosis, and nasal septal perforation after previous nasal surgery. The procedure, including risks and benefits were discussed with the patient, who expressed understanding. All questions were answered. Informed consent was obtained. She also desired cosmetic changes that are self pay and dictated in a separate note. Description Of Procedure: She was taken to the operating room and placed in a supine position on the operating table. After satisfactory induction of general anesthesia with oroendotracheal intubation, the nasal cavity was packed with 4% cocaine cottonoids and the soft tissues of the nose were infiltrated with 10 mL of a solution of 0.5% lidocaine, 0.25% Marcaine, 1:100,000 epinephrine. The patient's face was prepped and draped. The nose was approached from bilateral marginal incisions, joined by inverted-V transcolumellar incision. The dorsum sharply elevated. Bleeding controlled by electrocautery. The septum was approached from above with elevation of bilateral mucoperichondrial flaps. The upper lateral cartilages were sharply from the septum. The deviated quadrangular cartilage was exposed and resected along with inferiorly deviated maxillary crest and posteriorly deviated bony septum. For nasal valve reconstruction, bilateral communications editor grafts and a columellar strut graft were planned. Donor rib cartilage was obtained and carved into appropriately size grafts. Each communications editor graft was secured to the septum and the upper lateral cartilages re-suspended with several 5-0 PDS horizontal mattress sutures. The medial crura of the lower lateral cartilages were suspended to the columellar strut with 4-0 gut horizontal mattress sutures x3, followed by posterior transdomal dome-binding suture using 5-0 PDS suture. The septum was quilted with a 4-0 Chromic suture anteriorly. Cartilage was then harvested from the left ear conchal bowl. A posterior incision was made along the antihelix and taken down to cartilage. The skin flap was then elevated anteriorly. A 3 x 1.5 cm piece of conchal cartilage was the harvested. Hemostasis was obtained. The incision was closed with a running locking 5-0 fast gut suture. This same suture was then used to quilt the skin flaps in lieu of a bolster. Moises grafts were then fashioned from ear cartilage and placed within soft tissue pockets deep to the supra-alar crease bilaterally. The incisions were then repaired with 6-0 fast gut simple interrupted sutures for the transcolumellar incision and 5-0 chromic simple interrupted sutures for the marginal incision. The inferior turbinate were then fractured laterally to open up the nasal airway due to their being medialized. At this time, the patient's bilateral nasal cavities were patent. External tape was applied. Splints were placed internally and secured to the septum with a Prolene suture. The patient was then turned back to anesthesia and extubated uneventfully. She was taken to the recovery room in good condition. I, Patel Bar, was scrubbed for the entirety of the procedure and performed all critical portions with resident assistance. Patel Bar MD Facial Plastic and Reconstructive Surgery Head [facility] Neck [place] [facility] NOHNO ID: [id number] Author: Patel Bar MD Service: Otolaryngology Author Type: Physician Type: Operative Report Filed: 08/08/2021 1:41 PM Note Text: Date: 08/07/2021 Incision/Procedure Start Time: 9:08 AM Incision Close/Procedure End Time: 12:45 PM Attending Surgeon: Patel Bar MD Wallpaper Embosser Helper: Joe Rivera MD (resident) Preoperative Diagnosis: 1. Concern regarding nasal appearance 2. Encounter for cosmetic surgery Postoperative Diagnosis: 1. Concern regarding nasal appearance 2. Encounter for cosmetic surgery Procedure Performed: 1. Cosmetic reduction rhinoplasty - self pay (concurrent case with functional nasal surgery) Total cosmetic time: 30 minutes. Remainder of time spent on the functional procedures. Specimens: No specimens Complications: No complications Blood loss: Minimal Anesthesia: General endotracheal Implanted Devices: None Indications: 16 year old female who presents for cosmetic rhinoplasty with concurrent functional nasal surgery. The procedures, including risks and benefits were discussed with the patient, who expressed understanding. All questions were answered. Informed consent was obtained. The functional nasal surgery portion of the case is dictated in a separate operative report. The functional portion is submitted to insurance. The cosmetic portion is self pay. Description Of Procedure: She was taken to the operating room and placed in a supine position on the operating table. After satisfactory induction of general anesthesia with oroendotracheal intubation, the nasal cavity was packed with 4% cocaine cottonoids and the soft tissues of the nose were infiltrated with 8 mL of a solution of 0.5% lidocaine, 0.25% Marcaine, 1:100,000 epinephrine. The patient's face was prepped and draped. The nose was approached from bilateral marginal incisions, joined by inverted-V transcolumellar incision. The dorsum sharply elevated. Bleeding controlled by electrocautery. The septum was approached from above with elevation of bilateral mucoperichondrial flaps. The upper lateral cartilages were sharply from the septum. The deviated quadrangular cartilage was exposed. The dorsal hump was then reduced using a 15 blade for the cartilage and Claudio osteotomes for the bony dorsum. Lateral osteotomies were then performed to closed the open roof deformity and medialize the nasal bones. Functional septoplasty, nasal valve reconstruction, and inferior turbinate out-fracture were then performed. Cephalic trim of the lateral crura of the lower lateral cartilages was then performed, leaving 7 mm of caudal cartilage. The tip was then suspended, refined, and rotated. A small tip graft was placed using the lower lateral cartilage that was removed during the cephalic trim. Additionally, a small only draft was used to camouflage a small depression over the left dorsum using LLC that was removed from the other side. The incisions were then repaired with 6-0 fast-absorbing gut simple interrupted sutures for the transcolumellar incision and 5-0 chromic simple interrupted sutures for the marginal incision. External tape was applied. An external splint was applied. Splints were placed internally and secured to the septum with a 4-0 Prolene suture. The patient was then turned back to anesthesia and extubated uneventfully. She was taken to the recovery room in good condition. I, Patel Bar, was scrubbed for the entirety of the procedure and performed all critical portions with resident assistance. Patel Bar MD Facial Plastic and Reconstructive Surgery [facility] [place] [facility]No[facility] DaytonPreOp/PreProc COVIDon 08-04-2021 SARS-CoV-2 (COVID-19) RNA DALE+probe Ql (Unsp spec)UPPER RESPIRATORY TRACT SWAB NormalCleveland Clinic Lutheran HospitalComment on above:Performed By: #### POCOVD ####[facility] [id number] [place], [place] [address] [id number] (COVID-19) RNA DALE+probe Ql (Unsp spec)Negative for COVID19 (SARS CoV2) by RT- PCR or equivalent method.NormalNegative for COVID19 (SARS CoV2) by RT-PCR or equivalent method.[facility] on above:Result Comment: This test was developed and its performance characteristics determined by [facility] [place]. This test has been authorized by FDA under an Emergency Use Authorization (EUA). This test has been validated in accordance with the FDA's Guidance Document Policy for DiagnosticsTesting in Laboratories Certified to Perform High Complexity Testing under CLIA prior to Emergency use Authorization for Coronavirus Disease 2019 during the Public Health Emergency issued on November 19, 2019. Test performed by [facility], [facility] [place], [address], [place] [address].Performed By: #### POCOVD ####[facility] [id number] [place] [id number] [id number] PHYSICALon [id number] PHYSICALHNO ID: [id number] Author: Malka Taylor APRN.MADDISON Service: ? Author Type: Nurse Practitioner Type: HANDP Filed: 07/30/2021 3:17 PM Note Text: HISTORY AND PHYSICAL EXAMINATION SERVICE DATE: 07/30/2021 SERVICE TIME: 2:59 PM PRIMARY CARE PHYSICIAN: Angie Pike, MADDISON, FORM SETTER HELPER REASON FOR VISIT: Brenda Marroquin is a 16 year old female who is scheduled for Procedure(s): REPAIR NASAL VESTIBULAR STENOSIS (Bilateral) SEPTOPLASTY (Bilateral) GRAFT EAR CARTILAGE TO NOSE AUTOGENOUS (Left) GRAFT AUTOGENOUS RIB CARTILAGE TO NOSE (Right) at the request of Dr. Patel Bar for consultation. My final recommendation will be communicated back to the requesting physician by way of shared medical record or letter. COVID VACCINATION STATUS Not vaccinated, prior infection about 3-4 months ago. No hospitalization. 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 Patient presents with grandmother at today's visit. She had nasal surgery in October of this year. PND improved but her breathing did not. She has difficulty breathing out of the left side of her nose. She uses Flonase as needed which does help with drainage. She denies nasal congestion or loss of smell. She occasionally snores and breathes out of her mouth when sleeping. She works out doing [employer] a couple times per week. REVIEW OF SYSTEMS: General: No weight loss, malaise or fevers. Neurological: Negative for: headaches, impaired sensorium and seizures. Respiratory: Negative for: asthma, bronchitis, current cough, dyspnea, pneumonia within 6 weeks and URI < 2 weeks. Cardiovascular: Negative for: arrhythmia, chest pain, congenital heart defect, hyperlipidemia, hypertension, murmur/valvular heart disease, open heart surgery and valve surgery. GI: Negative for: abdominal pain, difficulty swallowing, GERD, irritable bowel syndrome, inflammatory bowel disease, liver disease, nausea and vomiting. : Negative for: dysuria, hematuria, nephrolithiasis, renal failure and urinary tract infection. MORTGAGE LOAN CLOSER: Negative for abnormal vaginal bleeding, abnormal vaginal discharge. Endocrine: No history of diabetes. Has not taken steroids within the past 30 days. No history of endocrinological symptoms or problems. Hematology: No history of bleeding or clotting disorder. Patient is not taking anti-coagulation or platelet medications. No history of hematological symptoms or problems. Oncology: No history of CA metastasis, chemo within 30 days, or radiotherapy within 90 days. No history of oncological symptoms or problems. Psych: No history of psychiatric symptoms or problems. Musculoskeletal: Negative for joint pain or swelling, back pain or muscle pain. Skin: Negative for lesions, rash and itching. PAST MEDICAL HISTORY Diagnosis Date - Deviated nasal septum 07/30/2021 PAST SURGICAL HISTORY Procedure Laterality Date - IN ANESTH,LOWER ARM SURGERY 2005 - SEPTOPLASTY 10/2020 FAMILY HISTORY Problem Relation Age of Onset - No Known Problems Mother - No Known Problems Father Social History Tobacco Use - Smoking status: Never Smoker - Smokeless tobacco: Never Used Vaping Use - Vaping Use: Never used Substance Use Topics - Alcohol use: Never - Drug use: Never Prior to Admission medications as of 07/30/21 1505 Medication Sig Last Dose Taking TRI-LO-CHARITY 0.18/0.215/0.25 mg-25 mcg Take 1 tablet by mouth once daily. Taking Yes fluticasone (FLONASE ALLERGY RELIEF) 50 mcg/actuation nasal spray Use 2 Sprays in each nostril once daily. Taking Yes azelastine (ASTELIN) 0.1% nasal spray Use 2 Sprays in each nostril twice daily. Patient not taking: Reported on 07/30/2021 Not Taking No medication comments found. ALLERGIES No Known Allergies Objective PHYSICAL EXAM: General: alert and oriented and healthy appearance. Pertinent negatives noted - not distressed. Skin: normal color, no rash or lesions. HEENT: pupils equal round and pupils reactive to light. Cardiovascular: regular rate and rhythm, normal S1 and S2, no rub, murmurs, or gallop. Respiratory: normal breath sounds, no wheezes or crackles. No chest wall deformity or tenderness. Abdomen: soft. Pertinent negatives noted - no hernia, no mass, not rigid and not tender. Extremities: no deformity, no edema or tenderness, no joint swelling or clubbing. Neurological: normal cognition and motor skills. Gait normal. No weakness or sensory deficit. PAIN ASSESSMENT: VITALS: BP 125/58 Pulse 78 Temp (Src) 98 (Tympanic) Resp 16 Ht 5' 3 (1.60m) Wt 137 lb (62.1kg) HC 6.3 (16.0cm) SpO2 98% LMP 07/23/2021 BMI 24.27 kg/(m2). Diagnostic tests reviewed for today's visit: Lab Value Units Date High Low HB No re (more content not included)...[facility] 06-27-2021 CNOVOffice Visit (OTPLIN) BRENDA MARROQUIN ([id number]) 1 F Date Time Provider Department 06/27/21 10:30 AM GENTHER, PATEL OTPLIN During your visit today, we recorded the following information about you: Patel Bar MD 06/27/2021 5:32 PM Signed SECTION OF FACIAL PLASTIC AND RECONSTRUCTIVE SURGERY Head and Neck [place], [facility] Follow-up Visit Date of service: 06/27/2021 Brenda Marroquin is a 16 year old female who presents for follow up of nasal obstruction. Interim History: Brenda has been using the Flonase daily for 6 weeks without improvement in her breathing. Saw Dr. Rosario who did not recommend intervention regarding her sinuses. Interested in surgical repair to address her breathing. Also may want to address some aesthetic concerns. She previously underwent septoplasty and inferior turbinate excision without improvement. Physical examination: Well appearing, NAD. Alert and oriented. Pleasant and appropriately interactive. Septum moderately deviated, S shaped with bilateral partial obstruction Small anterior septal perforation Internal nasal valves narrow and collapse on inspiration Weak nasal alae Turbinates reduced Tip bulbous, midvault narrow, projection slightly over, rotation slightly under Assessment/Plan: Nasal obstruction due primarily to nasal valve collapse with contribution from septal deviation. She also has a nasal septal perforation. She has failed Flonase for 6 weeks. We discussed surgical correction with septoplasty and nasal valve reconstruction (communications editor grafts and moises grafts). She would like to proceed with surgery given the severity of the problem. We will plan for an open approach. Given the need for cartilage for structural grafting and her previous history of septal surgery, she likely will not have adequate septal cartilage for necessary nasal grafting. She may require a right costal cartilage harvest. Additionally, she may require left auricular cartilage harvest for moises grafts for nasal valve reconstruction. We will also repair her septal perforation with primary closure and an Alloderm interposition graft. I do not plan to change the appearance of the patient's nose in any significant way. We discussed a functional, non-cosmetic nasal reconstruction. Risks discussed include but are not limited to: infection, bleeding, scar, septal perforation, persistent or worsened nasal obstruction, cartilage warp, cosmetic deformity, asymmetry, scar being more noticeable, no guarantee of functional/cosmetic outcome, need for future surgical procedures, and other unforseen complications. We also discussed concerns regarding the appearance of her nose. She would like to straighten the profile of her nose and refine and rotate her tip. We will plan for dorsal hump reduction, osteotomies to close the open roof, cephalic trim, and tip sutures to refine and rotate the tip. She will also likely need rim grafts to smooth the transition from her tip to ala. The functional components of the treatment plan will be submitted to insurance for approval. The cosmetic components will be paid by the patient according to the flat fee schedule and will be entirely separate from the functional component. All questions answered. Photos obtained today. Consent obtained. Patel Bar MD, FACS Facial Plastic and Reconstructive Surgery [facility], [facility] [place] I spent a total of 40 minutes on the date of the service which included preparing to see the patient, [id number] patient care, completing clinical documentation, obtaining and/or reviewing separately obtained history, performing a medically appropriate examination, counseling and educating the patient/family/caregiver and ordering medications, tests, or procedures. Referring Provider: SELF [200] Allergies As of Date: 06/27/2021 (No Known Allergies) Date Reviewed: 06/27/2021 Reviewed by: Patel Bar MD - Fully Assessed Reason for Visit: Follow Up [171] Primary Visit Diagnosis:Refractory obstruction of nasal airway [J34.89] Other Visit Diagnoses:Nasal valve stenosis [J34.89] Deviated nasal septum [J34.2] Nasal septal perforation [J34.89] History of nasal surgery [Z98.890] Order(s):SURGICAL REQUEST - ELECTIVE (04/2020) [3156835] Order #: [id number]: 1 REFER TO PACC - PRE ANESTHESIA CONSULTATION CLINIC [4832203] Order #: [id number]: 1 FUTURE PRE-PROCEDURE AND PRE-OPERATIVE COVID [SQPOCOVD] Order #: [id number] FUTURE Prescriptions as of 06/27/2021 - azelastine (ASTELIN) 0.1% nasal spray Use 2 Sprays in each nostril twice daily. - TRI-LO-CHARITY 0.18/0.215/0.25 mg-25 mcg Take 1 tablet by mouth once daily. - fluticasone (FLONASE ALLERGY RELIEF) 50 mcg/actuation nasal spray Use 2 Sprays in each nostril once daily. Problem List As Of Date: 06/27/2021 (None) Encounter N (more content not included)...NormalCleveland Clinic Lutheran HospitalHOSPon [id number]:Brenda Marroquin MRN: Height:5' 3 (1.6 m) Weight:137 lb (62.143 kg) Outpatient Medications as of 08/07/21: azelastine (ASTELIN) 0.1% nasal spray TRI-LO-CHARITY 0.18/0.215/0.25 mg-25 mcg fluticasone (FLONASE ALLERGY RELIEF) 50 mcg/actuation nasal spray Admission/Clinic Administered Medications as of 08/07/21: lactated ringers iv infusion lidocaine 10 mg/mL (1 %) 1-2 mg injection (XYLOCAINE) lactated ringers iv infusion scopolamine 1 mg over 3 days 1 Patch (TRANSDERM-SCOP) Problem List: Refractory obstruction of nasal airway [J34.89] Nasal valve stenosis [J34.89] Deviated nasal septum [J34.2] Nasal septal perforation [J34.89] History of nasal surgery [Z98.890] Allergies: No Known Allergies Date Verified:08/07/21 Lab Values No results within the last 30 days for the following basenames: K,HCT No progress notes entered within the past 30 daysNoOhioHealth [facility] [id number] Visit (OTOLMM) CARABRENDA ([id number]) 1 F Date Time Provider Department 06/04/21 2:10 PM ELIS ROSARIO OTOLMM During your visit today, we recorded the following information about you: Pulse Blood pressure 74/minute 121/79 Elis Rosario MD 06/04/2021 2:41 PM Signed This consult is seen at the kind request of Dr. Patel aBr of facial plastic surgery, and my final recommendations will be communicated to the requesting health care provider by way of shared electronic medical record. This note is formatted with the impression and plan first and the history and physical to follow. IMPRESSION 16-year-old female with nasal congestion opposable drainage secondary to septal deviation and likely chronic rhinitis. RECOMMENDATION/PLAN I recommend she continue the Flonase nasal spray. I will add saline irrigation twice a day and Astelin nasal spray, 2 sprays twice a day. I do not think she needs any sinus surgery at this point in time but she should proceed with Dr. Bar for functional septorhinoplasty. If patient has persistent drainage after her surgery with Dr. Bar, she can return to see me for further management of her chronic rhinitis. Chief Complaint Nasal drainage, cough, nasal congestion. History of Present Illness Brenda Marroquin is a 16 year old female presents for evaluation of nasal drainage and nasal congestion. Patient has longstanding history of nasal congestion and drainage. She was seen by outside ENT in October and a CT scan showed severe septal deviation and nasal polyps. She underwent septoplasty, resection of mari bullosa, and bilateral masseter antrostomy in October 2020. After surgery, patient reports persistent nasal congestion. She did have history of nasal trauma with external deviation to the left. Patient subsequently seen Dr. Patel Bar who recommended rhinoplasty and revision septoplasty. Patient was sent here to evaluate for her postnasal drainage. She did have a new CT scan scan of her sinuses which showed persistent right septal deviation. There does not appear to be any evidence of significant sinusitis. Currently patient has been on Flonase for 1 week and reports some improvement of her drainage and cough. She does not use any nasal saline irrigation. She reports congestion on the right side of her nose. Patient does report allergy symptoms of sneezing and watery eyes. History reviewed. No pertinent past medical history. PAST SURGICAL HISTORY Procedure Laterality Date - SEPTOPLASTY, bilateral maxillary antrostomies, resection of mari bullosa 10/2020 History reviewed. No pertinent family history. CURRENT OUTPATIENT MEDICATIONS Current Outpatient Medications on File Prior to Visit Medication Sig - TRI-LO-CHARITY 0.18/0.215/0.25 mg-25 mcg Take 1 tablet by mouth once daily. - fluticasone (FLONASE ALLERGY RELIEF) 50 mcg/actuation nasal spray Use 2 Sprays in each nostril once daily. No current facility-administered medications on file prior to visit. ALLERGIES ALLERGIES No Known Allergies The remainder of the patient's history and review of systems is on the outpatient questionaire which was reviewed by me and placed in the outpatient chart. PHYSICAL EXAMINATION Appearance: General examination of the patient's external face, head and neck reveals no abnormalities. The patient is not retrognathic The patient's voice is strong and clear and they communicate easily. Ears: Exam of the ears revealed normal appearing external auditory canals, tympanic membranes, and middle ears. No signs of infection or fluid were seen. Nose: External nose with slight deviation to the left side. Throat: There were no lesions to visualization or palpation of the lips, cheeks, gums, floor of mouth, tongue, hard and soft palate, tonsillar pillars or posterior pharyngeal wall. The patient is a Larsen Tongue Position 2 and has grade 2 tonsils. Neck: Palpation of the neck revealed no adenopathy, salivary gland masses or asymmetry, or thyroid masses or enlargement. Procedure In order to assess the patient's complaint of nasal obstruction, nasal endoscopy was performed. Consent: verbal Anesthesia: topical lidocaine and phenylephrine After spraying the nose with topical 2% lidocaine and Afrin the nasal endoscope was passed. Findings: Septum was deviated to the right side. There is a small pinpoint septal perforation in the anterior inferior septum. Bilateral lateral antrostomies were patent. No pus, edema, or polyps. Nasopharynx was patent. Elis Rosario MD Medical Decision Making: Problems: Moderate: New problem with uncertain prognosis Data: Unique test result(s) reviewed: 1 Risk: Moderate: Drug management Medical Decision Making Level: 4 - Moderate Referring Provider: SELF [200] Allergies As of Date: 06/04/2021 (No Known Allergies) (more content not included)...[facility] WO IVCONon [id number] SINUS STEREO WO IVCON* * *Final Report* * * DATE OF EXAM: May 28 2021 3:41PM [facility] 2075 - CT SINUS STEREO WO IVCON / PROCEDURE REASON: Chronic maxillary sinusitis * * * * Physician Interpretation * * * * EXAMINATION: CT SINUS STEREO WO IVCON CLINICAL HISTORY: Chronic maxillary sinusitis. TECHNIQUE: Spiral high resolution axial unenhanced CT images were obtained through the paranasal sinuses with sagittal, coronal reconstructions. MQ: CTSI_1 CT Radiation dose: Integrated Dose-Length Product (DLP) for this visit = 148 mGy*cm. CT Dose Reduction Employed: No dose reduction techniques were required COMPARISON: None. RESULT: Post-Surgical Findings: Limited inferior/mid left ethmoid resection, and morphology of left maxillary sinus ostium suggests some resection of the left uncinate process. There also appears to be partial removal of the tip of the right uncinate process (4:23). Sinus Chambers: Minimal ethmoid inflammatory mucosal thickening on the right and left. Small retention cyst along posterior-inferior portion of left maxillary sinus. Localized mucosal thickening along medial-inferior wall of left maxillary antrum partially sequestered by a small bony septal (series 3, image 19; series 4, image 20). This area is clear on the contralateral side but shows similar anatomic morphology. Frontal and sphenoid sinus chambers are clear. Nasal Cavities: Substantial nasal septal deviation towards the right. Developmental Anomalies: As above. Ostiomeatal Complex: Some narrowing of the midline drainage pathways related to the nasal septal deviation towards the right. Other: The visualized mastoid air cells and middle ear cavities are clear. The soft tissues of the face and orbits are within normal limits within the limitations of the study. Dock Builder (topogram) images: No additional findings. IMPRESSION: Mild inflammatory and localized postoperative changes as discussed above. Relatively prominent nasal septal deviation towards the right. Assembler Wire Mesh Gate: PSCB Transcribe Date/Time: May 28 2021 4:46P Dictated by : ROBERT LÓPEZ MD This examination was interpreted and the report reviewed and electronically signed by: ROBERT LÓPEZ MD on May 28 2021 4:52PM EST [id number] Campus Medical CenterCNOVon [id number] Visit (OTPLIN) BRENDA MARROQUIN ([id number]) 1 F Date Time Provider Department 05/16/21 11:00 AM PATEL BAR During your visit today, we recorded the following information about you: Patel Bar MD 05/16/2021 11:[address] sinus scan Referral to rhinology Start Flonase daily 2 sprays to each side Follow up with me after consultation with rhinology to finalize surgical plan (including cosmetic component) Patel Bar MD 05/16/2021 11:31 AM Signed SECTION OF FACIAL PLASTIC AND RECONSTRUCTIVE SURGERY Head and Neck [place], [facility] New Patient Evaluation Date of service: 05/16/2021 Brenda Marroquin is a 16 year old female who presents with a chief complaint of nasal obstruction, nasal drainage. HPI Today, Ms. Marroquin notes left worse than right nasal obstruction. She also has a lot of post-nasal drainage. She underwent endonasal septoplasty, bilateral MMA, conchal bullosa resection, and inferior turbinate excision in October 2020. She got very little improvement on the left. Drainage has remained the same. Still unable to adequately breathe through her nose comfortably. Previous CT scan prior to her sinus surgery showed maxillary thickening; only report available, no images. Not currently using any nasal sprays. Has some seasonal allergies for which she takes OTC pills. History of nasal trauma when she was around 9 years old. History reviewed. No pertinent past medical history. History reviewed. No pertinent surgical history. Medications: Current Outpatient Medications on File Prior to Visit Medication Sig - TRI-LO-CHARITY 0.18/0.215/0.25 mg-25 mcg Take 1 tablet by mouth once daily. No current facility-administered medications on file prior to visit. Allergies: ALLERGIES No Known Allergies Social History Tobacco Use - Smoking status: Not on file Substance Use Topics - Alcohol use: Not on file - Drug use: Not on file History reviewed. No pertinent family history. Vital Signs: There were no vitals taken for this visit. Exam: Patient is well-appearing, in no acute distress. Breathing comfortably, no stertor or stridor. Alert and oriented. Pleasant and appropriately interactive. Head is normocephalic, atraumatic. Nose: Septum moderately deviated, S shaped Internal nasal valves narrow and collapse on inspiration Turbinates reduced Tip bulbous, midvault narrow, projection slightly over, rotation slightly under ? Impression: Nasal obstruction with recent surgery. Here nasal valve issues (stenosis and collapse) were not addressed at her previous surgery and are most-likely responsible for her continued obstruction. In addition, her septum is still deviated. She additionally has persistent sinus issues. Plan: Start Flonase daily - Rx sent Sinus CT scan for continued sinus symptoms after sinus surgery Referral to rhinology for sinus evaluation Follow up with me after rhinology evaluation Pending her response to the Flonase, we discussed surgical correction with nasal valve reconstruction with communications editor and moises grafts and revision (likely extracorporeal) septoplasty. Given her history of nasal surgery and need for structural grafting for her nasal valve and septal reconstructions, she may require a right costal cartilage harvest or left auricular cartilage harvest. She would also like to modify the external shape of her nose. 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 She would like her tip to be less pointy; she would benefit from some tip deprojection, rotation, and refinement. 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 (more content not included)...[facility] Specimen: [id number] Received: 11/19/20 Status: MALLORY Amaya Num: [id number] Spec Type: Surgical Subm Dr: Elbert Lakhani DO Tissues: A Sinus Contents/Biopsy (SINUS CONTENTS) Procedures: HE Stain, Gross/Micro L4 Patient Age/Sex Location Account Attending Physician Brenda Marroquin / [place] [id number] Elbert Lakhani DO SPEC NUM: [id number] RECD: 11/19/20 STATUS: MALLORY AMAYA NUM: [id number] FAITH: 11/19/20- SUBM DR: Elbert Lakhani DO ENTERED: 11/19/20-1252 [facility] DR: [facility] SPEC TYPE: Surgical DEPT: S ORDERED: HE Stain, Gross/Micro L4 ORDERED: HE Stain, Gross/Micro L4 Pathological Diagnosis Sinus contents, bilateral maxillary sinus, antrostomy: - Fragments of respiratory mucosa with chronic inflammation and focal eosinophilia. - Minute fragments of bone also present. Clinical Information Nasal obstruction, deviated septum, turbinate hypertrophy Gross Description Received in formalin labeled with the patient's name, number and sinus contents is a collection sock containing toussaint-pink soft tissue aggregating 2 x 1.3 x 0.2 cm. Entirely submitted in one cassette labeled A1. (SM/YJ) Microscopic Description One glass slide with H E stained material has been examined. The microscopic findings support the above pathologic diagnosis. CPT Codes 28820 Specimen: [id number] Received: 11/19/20 Status: MALLORY Amaya Num: [id number] Spec Type: Surgical Subm Dr: Elbert Lakhani DO Tissues: A Sinus Contents/Biopsy (SINUS CONTENTS) Procedures: HE Stain, Gross/Micro L4 Patient: Brenda Marroquin [id number] (Continued) Signed (signature on file) Alf Heredia MD 11/20/20 1529 [facility] CenterCOVID[facility]19 [facility] [id number]- [facility] NegativeNormalNegativeBethesda North HospitalComment on above:Order Comment: Comment OR at [facility] Healthcare Worker?: NResult Comment: Testing for SARS-CoV-2 by RT-PCR This test was developed and its performance characteristics determined by [employer] ([employer] and validated at the [facility]. This test has not been FDA cleared or approved. This test has been authorized by FDA under an Emergency Use Authorization (EUA). This test has been validated in accordance with the FDA's Guidance Document (Policy for Diagnostics Testing in Laboratories Certified to Perform High Complexity Testing under CLIA prior to Emergency Use Authorization for Coronavirus Disease-2019 during the Public Health Emergency) issued on December 22, 2019. This test is only authorized for the duration of time the declaration that circumstances exist justifying the authorization of the emergency use of in vitro diagnostic tests for detection of SARS-CoV-2 virus and/or diagnosis of COVID-19 infection under section 564(b)(1) of the Act, 21 U.S.C. 360bbb-3(b)(1), unless the authorization is terminated or revoked sooner. PERFORMED BY: [place] [address] PATHOLOGIST PROPERTY SUPERVISOR MURRAY HERRING M.D.Performed By: #### COVID-19 [facility] #### [facility] [address] Vital Signs Date TimeVital SignValuePerforming TxcethvviDeammzzh10-45-4196 09:55-0400Body jkhteb292.02 cmLisa Aichholz MARRIAGE AND FAMILY TEACHER-C Work Phone: [phone]10-28-2025 09:55-0400 Body mass index (BMI) [Ratio]26 kg/m2Lisa Aichholz MARRIAGE AND FAMILY TEACHER-C Work Phone: [phone])[address] [place], [place] 3867610-28-2025 09:55-0400 Body vfhluihkusz23.8 [degF]Angie Aichholz MARRIAGE AND FAMILY TEACHER-C Work Phone: [phone] [place], [place] 3867610-28-2025 09:55-0400 Body gyhtiu94.73 kgLisa Aichholz MARRIAGE AND FAMILY TEACHER-C Work Phone: 1(107)[address] [place], [place] 3867610-28-2025 09:55-0400 Diastolic blood wcymcmpz42 mm[Hg]Angie Aichholz MARRIAGE AND FAMILY TEACHER-C Work Phone: [phone])[address] [place], [place] 3867610-28-2025 09:55-0400 Heart rate92 /minLisa Aichholz MARRIAGE AND FAMILY TEACHER-C Work Phone: [phone] [place], [place] 3867610-28-2025 09:55-0400 Respiratory rate18 /minLisa Aichholz MARRIAGE AND FAMILY TEACHER-C Work Phone: [phone])[address] [place], [place] 3867610-28-2025 09:55-0400 SaO2% (BldA) [Mass fraction]98 %Angie Aichholz MARRIAGE AND FAMILY TEACHER-C Work Phone: 1(477)[address]10-28-2025 09:55-0400 Systolic blood crkeamki876 mm[Hg]Angie Aichholz MARRIAGE AND FAMILY TEACHER-C Work Phone: 1(196)[address]05-22-2025 09:05-0400 Body xlsapy064 Aditya Ellsworth MD Work Phone: [facility] HospitalKikicu26-54-0911 09:05-0400Body mass index (BMI) [Ratio]26.15 kg/c0SorolMoose Ellsworth MD Work Phone: [facility] HospitalVeqnrs73-85-4794 09:05-0400Body wlonpdpxfih58.5 [degF]Moose Ellsworth MD Work Phone: [facility] HospitalKcigff07-69-5561 09:05-0400Body .95 kgMoose Ellsworth MD Work Phone: [facility] HospitalEsokhn40-04-4625 09:05-0400Diastolic blood pressure 74 mm[Hg]Moose Ellsworth MD Work Phone: [facility] HospitalMzsyrb18-64-0890 09:05-0400Heart rate82 /minMoose Ellsworth MD Work Phone: [facility] HospitalTxshwj33-14-4762 09:05-0400Inhaled oxygen otoelbjqqmawa48 %Moose Ellsworth MD Work Phone: [facility] HospitalLgcwse65-23-8587 09:05-0400Respiratory rate18 /min Moose Ellsworth MD Work Phone: [facility] HospitalGtblgh89-15-0816 09:05-8713XaF9% (BldA) [Mass fraction]99 %Moose Ellsworth MD Work Phone: [facility] HospitalJxpllx76-40-6339 09:05-0400Systolic blood pressure 108 mm[Hg]Moose Ellsworth MD Work Phone: [facility] HospitalTmsatp26-58-9901 16:13-0400Body isjgvv128 cmLlibia Ellsworth MD Work Phone: [facility] HospitalXudava85-72-1221 16:13-0400Body mass index (BMI) [Ratio]25.51 kg/v6KfuymMoose Ellsworth MD Work Phone: [facility] HospitalAwbcgo57-52-2408 16:13-0400Body ocjkmeipnjw32.5 [degF]Moose Ellsworth MD Work Phone: [place] [address]Qkcvtv91-96-4538 16:13-0400Body vrcvec77.32 kgMoose Ellsworth MD Work Phone: [facility] Rohpjx10-29-6039 16:13-0400Diastolic blood pressure 72 mm[Hg]Moose Ellsworth MD Work Phone: [place] [address]Emtome14-43-5165 16:13-0400Heart rate82 /minMoose Ellsworth MD Work Phone: [place] [address]Ukhpqa12-18-2478 16:13-0400Inhaled oxygen dchgumsknbexx71 %Moose Ellsworth MD Work Phone: [place] [address]Pmpsky50-20-3802 16:13-0400Respiratory rate14 /min Moose Ellsworth MD Work Phone: [place] [address]Xsypvb49-94-8116 16:13-3012KhZ5% (BldA) [Mass fraction]99 %Moose Ellsworth MD Work Phone: [place] [address]Knikal00-33-2810 16:13-0400Systolic blood pressure 105 mm[Hg]Moose Ellsworth MD Work Phone: [place] [address]Nndrwk71-95-8852 15:54-0400Body yawhjt577 cmLritu Ferrer CNP Work Phone: [place] [address]Ghfyzg24-59-7449 15:54-0400Body mass index (BMI) [Ratio]25.86 kg/m2Sofy Ferrer CNP Work Phone: [place] [address]Ffbtzv24-13-0360 15:54-0400Body ozdyuksnprx52.7 [degF]Sofy Ferrer CNP Work Phone: [place] [address]Whosqt64-16-9760 15:54-0400Body mheohx97.22 kgSofy Ferrer CNP Work Phone: [facility] Irogue16-09-5304 15:54-0400Diastolic blood pressure 74 mm[Hg]Sofy Ferrer CNP Work Phone: [place] [address]Jmvcpr16-39-6545 15:54-0400Heart rate71 /minSofy Ferrer CNP Work Phone: [facility] Wvepzx59-63-8541 15:54-0400Inhaled oxygen wdupgdeykaqkm98 %Sofy Ferrer CNP Work Phone: [facility] Jnwlpw43-33-1057 15:54-0400Respiratory rate18 /min Sfoy Ferrer CNP Work Phone: uc Xzgtla64-20-0877 15:54-5007YbT4% (BldA) [Mass fraction]98 %Sofy Ferrer CNP Work Phone: [facility] Myfpuy26-48-4456 15:54-0400Systolic blood pressure 108 mm[Hg]Sofy Ferrer CNP Work Phone: [facility] HospitalQcnqyq41-54-4075 10:35-0500Body lsuikt939 Aditya Ellsworth MD Work Phone: [facility] HospitalZtllhp64-15-4313 10:35-0500Body mass index (BMI) [Ratio]26.22 kg/d3LkfzsMoose Ellsworth MD Work Phone: [facility] HospitalVjbkjt83-12-7532 10:35-0500Body .3 [degF]Moose Ellsworth MD Work Phone: [facility] HospitalQelsxb72-44-6315 10:35-0500Body rtpfoy49.13 kgMoose Ellsworth MD Work Phone: [facility] HospitalZaiapo76-02-6436 10:35-0500Diastolic blood pressure 70 mm[Hg]Moose Ellsworth MD Work Phone: [facility] Erwhcb17-25-6798 10:35-0500Heart rate83 /minMoose Ellsworth MD Work Phone: [facility] Pusexq94-83-4307 10:35-0500Inhaled oxygen yihwwqwpnuulm41 %Moose Ellsworth MD Work Phone: [facility] HospitalTnfune03-89-9495 10:35-0500Respiratory rate14 /min Moose Ellsworth MD Work Phone: [facility] HospitalJtrkni65-89-1364 10:35-9721FbV6% (BldA) [Mass fraction]98 %Moose Ellsworth MD Work Phone: [facility] HospitalRyxqqp16-74-3544 10:35-0500Systolic blood pressure 100 mm[Hg]Moose Ellsworth MD Work Phone: [facility] HospitalOavsjo83-51-4631 12:57-0500Body tyvcqa280 cmMp Levin MD Work Phone: [facility] HospitalMsubyu74-15-1506 12:57-0500Body mass index (BMI) [Ratio]25.69 kg/j0PmvjeMp Levin MD Work Phone: [facility] HospitalIyhjtq81-30-1900 12:57-0500Body .77 kgMp Levin MD Work Phone: [facility] HospitalUpoovi71-72-5251 13:07-0500Body rxtise498 cmMarcel Olivares MD Work Phone: [facility] HospitalMvvznb44-91-3170 13:07-0500Body mass index (BMI) [Ratio]26.22 kg/k6MhdkyvzMarcel Olivares MD Work Phone: [facility] HospitalQxpskx90-36-5950 13:07-0500Body clhpcsnpopk99.3 [degF]Marcel Olivares MD Work Phone: [facility] HospitalRaholk24-60-9632 13:07-0500Body qrywlu26.13 kg Marcel Olivares MD Work Phone: [facility] HospitalOpfjob89-77-6767 13:07-0500Diastolic blood pressure 82 mm[Hg]Marcel Olivares MD Work Phone: [facility] HospitalWqlbgs29-50-5452 13:07-0500Heart rate93 /minMarcel Olivares MD Work Phone: [facility] HospitalUigjea75-81-3532 13:07-0500Inhaled oxygen excuoaqkxlwca85 %Marcel Olivares MD Work Phone: [facility] HospitalZtspzv27-18-2777 13:07-0500Respiratory rate18 /min Marcel Olivares MD Work Phone: [facility] Lxtsmd59-38-3329 13:07-1447JsB4% (BldA) [Mass fraction]99 %Marcel Olivares MD Work Phone: [facility] HospitalTbpzqs63-05-9114 13:07-0500Systolic blood pressure 119 mm[Hg]Marcel Olivares MD Work Phone: [facility] HospitalZyqebu94-96-7108 16:20-0500Body cmLlibia Ellsworth MD Work Phone: [facility] HospitalUkiwaw53-94-5669 16:20-0500Body mass index (BMI) [Ratio]26.93 kg/l9JhwzqMoose Ellsworth MD Work Phone: [facility] HospitalDmshtx39-26-0487 16:20-0500Body lqepygjjjgc50.7 [degF]Moose Ellsworth MD Work Phone: [facility] HospitalVbcdtt76-54-3572 16:20-0500Body .95 kgMoose Ellsworth MD Work Phone: [facility] HospitalGjwxnb40-97-6331 16:20-0500Diastolic blood pressure 82 mm[Hg]Moose Ellsworth MD Work Phone: [facility] HospitalGencqx15-98-1007 16:20-0500Heart rate85 /minMoose Ellsworth MD Work Phone: [facility] HospitalDhotck36-42-6139 16:20-0500Inhaled oxygen xjfjroqdurbfx95 %Moose Ellsworth MD Work Phone: [facility] Nlowwl39-46-2109 16:20-0500Respiratory rate18 /min Moose Ellsworth MD Work Phone: [facility] HospitalMurcku72-12-8181 16:20-2118UgX0% (BldA) [Mass fraction]99 %Moose Ellsworth MD Work Phone: [facility] Djfjig80-27-5359 16:20-0500Systolic blood pressure 133 mm[Hg]Moose Ellsworth MD Work Phone: [facility] Yzjsmd66-12-3883 10:48-0500Body mass index (BMI) [Ratio]26.04 kg/d2XfwxeJackelyn Hoskins MD Work Phone: [facility] HospitalZijfbd19-68-4288 10:48-0500Body .68 kgJackelyn Hoskins MD Work Phone: [facility] Opfsgo84-65-8514 10:48-0500Diastolic blood pressure 77 mm[Hg]Jackelyn Hoskins MD Work Phone: [facility] HospitalDyspli96-78-4516 10:48-0500Heart rate73 /minJackelyn Hoskins MD Work Phone: [facility] HospitalHoenfr16-61-7630 10:48-0500Systolic blood pressure 112 mm[Hg]Jackelyn Hoskins MD Work Phone: [facility] HospitalAtwjja93-31-7260 16:06-0500Body gbzxju035 cmLlibia Ellsworth MD Work Phone: [facility] Ighbby49-82-4126 16:06-0500Body mass index (BMI) [Ratio]25.86 kg/s9XfhgiMoose Ellsworth MD Work Phone: [facility] HospitalLdpcls88-21-4076 16:06-0500Body jzgwokqxhkt29.7 [degF]Moose Ellsworth MD Work Phone: [facility] Kqtrri68-66-1116 16:06-0500Body kohmfi37.22 kgMoose Ellsworth MD Work Phone: [facility] Ioeogr01-60-1204 16:06-0500Diastolic blood pressure 74 mm[Hg]Moose Ellsworth MD Work Phone: [facility] Ikuqxv77-99-7082 16:06-0500Heart rate77 /minMoose Ellsworth MD Work Phone: [facility] Jdwefj87-36-3468 16:06-0500Inhaled oxygen vpqizwavxpyfk01 %Moose Ellsworth MD Work Phone: [facility] Cerliz32-75-5276 16:06-0500Respiratory rate18 /min Moose Ellsworth MD Work Phone: [facility] Yjrxhw41-22-0202 16:06-7682ApV8% (BldA) [Mass fraction]98 %Moose Ellsworth MD Work Phone: [facility] Dmrhtv70-28-5138 16:06-0500Systolic blood pressure 108 mm[Hg]Moose Ellsworth MD Work Phone: [facility] Lbvnye60-24-8815 16:08-0400Body gsvxco090 cmLlibia Ellsworth MD Work Phone: [facility] Nobnua47-62-2848 16:08-0400Body mass index (BMI) [Ratio]25.33 kg/e5NzgtnMoose Ellsworth MD Work Phone: Rbfezx89-14-5139 16:08-0400Body thlirm78.86 kgMoose Ellsworth MD Work Phone: [facility] Jwuqhk34-14-5978 16:08-0400Diastolic blood pressure 78 mm[Hg]Moose Ellsworth MD Work Phone: [facility] Tqfxxf10-96-3234 16:08-0400Heart rate91 /minMoose Ellsworth MD Work Phone: [facility] Jnfehg08-37-9914 16:08-0400Inhaled oxygen tovnjzixsskzj56 %Moose Ellsworth MD Work Phone: [facility] Ikjegr19-89-8186 16:08-5969VlK4% (BldA) [Mass fraction]97 %Moose Ellsworth MD Work Phone: [facility] Tzywqg90-67-3037 16:08-0400Systolic blood pressure 113 mm[Hg]Moose Ellsworth MD Work Phone: [facility] Ohojwi58-58-2911 10:11-0400Body niwmea443 Aditya Ellsworth MD Work Phone: [facility] HospitalQwhwyf25-54-8517 10:11-0400Body mass index (BMI) [Ratio]26.57 kg/i0XdujqMoose Ellsworth MD Work Phone: [facility] HospitalMzhvow26-80-6892 10:11-0400Body kgvohkgtubq25.4 [degF]Moose Ellsworth MD Work Phone: [facility] HospitalNevimp31-50-7267 10:11-0400Body usnzkm59.04 kgMoose Ellsworth MD Work Phone: [facility] HospitalRusdms76-26-8365 10:11-0400Diastolic blood pressure 71 mm[Hg]Moose Ellsworth MD Work Phone: [facility] HospitalUcrapi51-74-7080 10:11-0400Heart rate83 /minMoose Ellsworth MD Work Phone: [facility] HospitalFjyapf40-63-9597 10:110400Respiratory rate18 /min Moose Ellsworth MD Work Phone: [facility] HospitalSwlcas86-35-4910 10:11-0400Systolic blood pressure 110 mm[Hg]Moose Ellsworth MD Work Phone: [facility] HospitalXgoern74-36-8999 10:41-0500Body ymarzk817 Aditya Ellsworth MD Work Phone: [facility] HospitalXtqzzr81-81-8688 10:41-0500Body mass index (BMI) [Ratio]26.75 kg/v2DzmhoMoose Ellsworth MD Work Phone: [facility] HospitalYzfjix19-12-9729 10:41-0500Body luqsaexrpgf37.4 [degF]Moose Ellsworth MD Work Phone: [facility] HospitalMxpurd01-31-4646 10:41-0500Body tdazfq62.49 kgMoose Ellsworth MD Work Phone: uc Cglpdj36-62-5353 10:41-0500Diastolic blood pressure 78 mm[Hg]Moose Ellsworth MD Work Phone: uc Bxuxgn47-04-9510 10:41-0500Heart rate94 /minMoose Ellsworth MD Work Phone: [facility] HospitalXahxbf14-93-9632 10:41-0500Inhaled oxygen yscnqghiycfqz43 %Moose Ellsworth MD Work Phone: [facility] HospitalCozdqu01-84-2920 10:41-8009SjP7% (BldA) [Mass fraction]97 %Moose Ellsworth MD Work Phone: [place] [address]Kjhpur32-91-9726 10:41-0500Systolic blood pressure 114 mm[Hg]Mooes Ellsworth MD Work Phone: [facility] HospitalXvamyl53-41-0721 13:45-0500Body cmLisa Glendy MARRIAGE AND FAMILY TEACHER Work Phone: [facility] CenterXkjcieoaih61-83-4640 13:45-0500Body mass index (BMI) [Ratio]27.88 kg/m2Marlenesa Glendy MARRIAGE AND FAMILY TEACHER Work Phone: [facility] CenterFvkilbpqgs75-03-3532 13:45-0500Body temperature 97.81 [degF]Angie Pike MARRIAGE AND FAMILY TEACHER Work Phone: [facility] CenterJkdwbjaqop12-37-6941 13:45-0500Body weyxba74.4 kg Angie Glendy MARRIAGE AND FAMILY TEACHER Work Phone: [facility] CenterWdirxdthje96-60-1068 13:45-0500Diastolic blood hjihkgpp08 mm[Hg]Angie Glendy MARRIAGE AND FAMILY TEACHER Work Phone: [facility] CenterCozekzqzfh13-49-4485 13:45-0500Heart rate80 /min Angie Pike MARRIAGE AND FAMILY TEACHER Work Phone: noResearch [facility] HospitalLfrxsnhevf36-55-5752 13:45-0500Respiratory rate18 /minAngie Pike MARRIAGE AND FAMILY TEACHER Work Phone: noAZ Abtrgrwqmc64-90-6867 13:45-8636AzO9% (BldA) [Mass fraction]96 %Angie Glendy MARRIAGE AND FAMILY TEACHER Work Phone: [facility] Vqdnbziqeb92-76-1446 13:45-0500Systolic blood npghhgse054 mm[Hg]Angie Glendy MARRIAGE AND FAMILY TEACHER Work Phone: [facility] Encounters Encounter DateEncounter TypeCare ProviderFacilityStart: 07-18-2025 End: 33-28-5962wkgyuiimaaIife J Aichholz MARRIAGE AND FAMILY TEACHER-C Work Phone: -[facility] ClydeStart: 07-18-2025 End: 03-60-5257Neqlpyf encounter procedureLisa Yonatan Pike MARRIAGE AND FAMILY TEACHER-C-[facility] [place] Work Phone: Start: 70-34-8369qdhgecdeopEHTXOKA [facility] PhysiciansStart: 13-16-6534mgexaspmlnHLZPQBY [facility] PhysiciansStart: 31-96-8226qtpdvmvgpeCBWUKQX [facility] PhysiciansStart: 48-69-7271qtnuioxdgiJMOBRHL [facility] PhysiciansStart: 18-84-4256oqzzfaelhrYRCJVEE [facility] PhysiciansStart: 60-87-2374srikyhkybsPOSLALA [facility] PhysiciansStart: 02-09-2025 End: 40-88-2762Cymmnn outpatient visit 15 minutesMoose Ellsworth MD Work Phone: [facility] CenterComment on above:Chronic fatigue (Primary Dx); Slow transit constipationStart: 27-58-9497keofnfhggzVXRBD [facility] PhysiciansStart: 52-42-0264syxmzrqwufIGJZIQH [facility] PhysiciansStart: 80-11-1190pweibtsdzsFAWZCMO [facility] PhysiciansStart: 24-15-4576ldszdxgndiRZHYWDC [facility] PhysiciansStart: 01-05-2025 End: 15-87-4723Spjmdg outpatient visit 25 minutesMoose Ellsworth MD Work Phone: [facility] CenterComment on above:Vaginal burning (Primary Dx); B12 deficiencyStart: 99-17-5944iszmzdftnqBDAMACarolinas ContinueCARE [facility] PhysiciansStart: 88-24-3236eobhpohdcuHVQFMJG [facility] PhysiciansStart: 58-31-0098jzonmczlsmTHPVNJG [facility] PhysiciansStart: 92-44-6918mhsvvyjdsqDKGNTJR [facility] PhysiciansStart: 12-13-2024 End: 84-72-7181Gsduqi outpatient visit 15 minutesSofy Ferrer CNP Work Phone: [facility] CenterComment on above:Routine screening for STI (sexually transmitted infection) (Primary Dx); Chronic vulvitisStart: 63-34-9117nnodemnobgSTBXCommunity Health PhysiciansStart: 92-09-2992tgeuqarrreKINJWBG VMunising [facility] PhysiciansStart: 11-24-2024 End: 46-35-9754Xrvlfa outpatient visit 15 minutesMoose Ellsworth MD Work Phone: [facility] CenterComment on above:Abnormal weight gain (Primary Dx); Monilial vaginitis; Anxiety and depressionStart: 44-80-0125cvdopyvpeiXNNOWCarolinas ContinueCARE [facility] PhysiciansStart: 09-00-5076mgboesgxgxNZBUZKX [facility] PhysiciansStart: 11-17-2024 End: 31-69-0191Ekvkdd outpatient new 30 minutesMp Levin MD Work Phone: [facility] HospitalComment on above:Injury of finger of left hand, initial encounter (Primary Dx)Start: 91-41-5939efcpxbwpncUBZSX [facility] Start: 11-18-1365kffeujtwgoXXHUKTM VCarmencita [facility] Physicians Start: 11-09-2024 End: 54-20-6322Hwjgjv outpatient visit 25 minutesMarcel Olivares MD Work Phone: [facility] CenterComment on above:Sprain of proximal interphalangeal (PIP) joint of finger (Primary Dx); Numbness of fingerStart: 11-09-2024 End: 53-61-8430uwmwgeelviBZQURMXAOCanby Medical Centertart: 97-01-7260lcryiutsddRIFAS [facility] PhysiciansStart: 11-01-2024 End: 23-59-1585Znihpo outpatient visit 15 minutesMoose Ellsworth MD Work Phone: [facility] CenterComment on above:Irregular periods (Primary Dx); Chronic vulvitis; Screen for sexually transmitted diseasesStart: 44-88-3806ooeplmvvvjGABYJUV [facility] PhysiciansStart: 49-42-8706addsabscysRQMABWI VMun[facility] PhysiciansStart: 08-26-7488lyctdcnfznKEKQZWY [facility] PhysiciansStart: 47-83-2736rizsuiqckyWOJTURC [facility] PhysiciansStart: 09-02-2024 End: 92-34-8001Mwntek outpatient visit 25 minutesJackelyn Hoskins MD Work Phone: [facility] CenterComment on above:Borderline personality disorder (CMS-HCC) (Primary Dx); ISABELL (generalized anxiety disorder); Other depressionStart: 14-72-2057imhyobxzjySKEUT [facility] PhysiciansStart: 34-44-2328sfkkcsgfauHEYGBSC [facility] PhysiciansStart: 70-88-2566cweiihkdmnGHUYXRJ [facility] PhysiciansStart: 18-96-9295rhwkeobfbyRCHSBZK [facility] PhysiciansStart: 19-21-2533ybvdvqfpfpYWIUHIJ [facility] PhysiciansStart: 07-26-2024 End: 34-33-6010Ewwszz outpatient visit 25 minutesMoose Ellsworth MD Work Phone: [facility] CenterComment on above:Chronic vulvitis (Primary Dx); Mood disorder (CMS-HCC); Diet is high in sugarStart: 31-32-5537wqtjuwpatpCCLXZHuron Valley-Sinai Hospital PhysiciansStart: 60-95-2670hlgbebzweaACHYWJX [facility] PhysiciansStart: 18-14-3542iilezqlxwbNJVHRZB [facility] PhysiciansStart: 22-06-1880ssffvdqbgzEIKTUKQ [facility] PhysiciansStart: 68-50-7384gvoscacegcMZQSGXP [facility] PhysiciansStart: 67-12-6714abhwmwsswiRAEZISX [facility] PhysiciansStart: 79-63-7041rpeqbbpfgzUUXOLVO [facility] PhysiciansStart: 75-99-1316ewvhgionvbPTSCEUQ [facility] PhysiciansStart: 35-03-1491ikvzibigqgZRSBOOL [facility] PhysiciansStart: 59-08-7018mvsbuvpafmDEXWXIM [facility] PhysiciansStart: 82-39-0777ehicqzunweSNKCKGV [facility] PhysiciansStart: 21-11-1165dgoilxxwmuNHFGSCritical access hospital PhysiciansStart: 68-19-9661uzorueslkzCAZTTCM [facility] PhysiciansStart: 79-43-9327ogptphmiwrNGMSI JOHNMyMichigan Medical Center PhysiciansStart: 36-65-4378pzwvbwrkhsJRJNSQM [facility] PhysiciansStart: 81-43-5804hiwepguwlhIGSTBVC [facility] PhysiciansStart: 37-37-2262fdftfnbmqjHMDZLBeaumont Hospital PhysiciansStart: 28-37-4770kmsmmuphgkJJKFJ [facility] PhysiciansStart: 02-26-2024 End: 14-78-9972Hiwmql outpatient visit 25 Marshal Ellsworth MD Work Phone: [facility] CenterComment on above:Dysuria (Primary Dx); Metrorrhagia; Vaginal burningStart: 12-15-2023 End: 43-19-6532Bjmdwm outpatient visit 25 Marshal Ellsworth MD Work Phone: [facility] CenterComment on above:Dysuria (Primary Dx); Monilial vaginitis; Abnormal weight gainStart: 11-24-2023 End: 77-01-4696Ixmhst outpatient visit 25 minutesMoose Ellsworth MD Work Phone: [facility] CenterComment on above:Subacute and chronic vaginitis (Primary Dx); Acute vulvitis; Abnormal weight gainStart: 11-19-2023 End: 17-00-5010drsagrjwuoGDEC AICHHOLZNot AvailableStart: 71-12-9204Hnkfldwru encounterLisa Aichholz MARRIAGE AND FAMILY TEACHER Work Phone: [facility] FMStart: 10-29-2023 End: 44-94-5800nwjsvsblzwULXA AICHHOLZNot AvailableStart: 13-68-0515Aswpfh flowsheetLisa Aichholz MARRIAGE AND FAMILY TEACHER Work Phone: [facility] FMStart: 05-47-6592Ghzldw flowsheetLisa Aichholz MARRIAGE AND FAMILY TEACHER Work Phone: [facility] FMStart: 10-29-2023 End: 79-67-9630Gxpihd outpatient visit 25 minutesAngie Glendy MARRIAGE AND FAMILY TEACHER Work Phone: [facility] FMComment on above:Overweight (BMI 25.0-29.9) (Primary Dx); Pelvic pain; Dysuria; Anxiety; Rectal bleedingStart: 10-23-2023 End: 64-36-2973oncgiofhprDAQJPCorewell Health Ludington Hospitaltart: 10-22-2023 End: 99-94-1135Inavxityz department patient visitCorewell Health Ludington Hospitaltart: 03-16-2023 End: 24-18-2599lokesfusdiJHVZDS J CROAKMerDoctors Medical Centertart: 04-29-2022 End: 52-70-5374xnigtearetWCQ ANGIE PIKEFacility:Q2Vdtdu: 12-12-2021 End: 71-95-0086Phwolqu encounter procedureDacortes Bar MD Work Phone: Plastic SurgeryComment on above:History of nasal surgery (Primary Dx); Nasal congestionStart: 10-02-2021 End: 41-32-6342xgfbyfwhmyCUQ LISA AICHHOLZFacility:M7Hlhai: 05-28-2021 End: 95-54-4508Ehjzhdxcli hospital [facility] by [facility]United [facility] Radiology Ct ScanStart: 10-13-2017 End: 80-10-3585KibmqlwramYLCUDWG PHYSICIANFacility:UTMCStart: 10-07-2017 End: 23-32-1115OjmqccjqmmUZZQWAX PHYSICIANFacility:[facility] Procedures DateProcedureProcedure DetailPerforming ClinicianStart: 03-20-2025 End: 94-30-5322Aqkynoebrkboa w/patient 60 minutesAnxiety and depressionNzingcas Black [facility] Work Phone: Comment on above:Anxiety and depression (Primary Dx) Start: 03-13-2025 End: 71-92-8735Sazadmxmnefsi w/patient 60 minutesAnxiety and depressionNzingha V. Nicolas LPCC Work Phone: Comment on above:Anxiety and depression (Primary Dx) Start: 03-06-2025 End: 66-85-4081Anfrqytxclzyi w/patient 60 minutesAnxiety and depressionNzingha V. Nicolas LPCC Work Phone: Comment on above:Anxiety and depression (Primary Dx) Start: 02-27-2025 End: 19-47-3421Brbqbifogaegf w/patient 60 minutesAnxiety and depressionNzingha V. Nicolas LPCC Work Phone: Comment on above:Anxiety and depression (Primary Dx) Start: 02-20-2025 End: 75-06-4229Lmtghlrqhysgm w/patient 60 minutesAnxiety and depressionNzingha V. Nicolas LPCC Work Phone: Comment on above:Anxiety and depression (Primary Dx) Start: 01-30-2025 End: 02-18-6127Yskqgganlodrz w/patient 60 minutesAnxiety and depressionNzingha V. Nicolas LPCC Work Phone: Comment on above:Anxiety and depression (Primary Dx) Start: 01-23-2025 End: 68-56-6293Nuimvbauuirhi w/patient 60 minutesAnxiety and depressionNzingha V. Nicolas LPCC Work Phone: Comment on above:Anxiety and depression (Primary Dx) Start: 01-09-2025 End: 24-06-3113Eddfnvymvvysz w/patient 60 minutesAnxiety and depressionNzingha V. Nicolas LPCC Work Phone: Comment on above:Anxiety and depression (Primary Dx) Start: 01-02-2025 End: 19-20-5356Tbalzgtoiuuem w/patient 60 minutesAnxiety and depressionNzingha V. Nicolas LPCC Work Phone: Comment on above:Anxiety and depression (Primary Dx) Start: 12-26-2024 End: 78-41-5979Mxryfdvmefniw w/patient 60 minutesAnxiety and depressionNzingha V. Nicolas LPCC Work Phone: Comaweh on above:Anxiety and depression (Primary Dx) Start: 12-19-2024 End: 02-28-0120Tcqlzkvjllvcs w/patient 60 minutesAnxiety and depressionNzingha V. Nicolas LPCC Work Phone: Comment on above:Anxiety and depression (Primary Dx) Start: 11-28-2024 End: 48-07-6408Vryeogddnvdkc w/patient 60 minutesAnxiety and depressionNzingha V. Nicolas LPCC Work Phone: Comment on above:Anxiety and depression (Primary Dx) Start: 11-21-2024 End: 12-59-6047Bjptjinmvrmdx w/patient 60 minutesAnxiety and depressionNzingha V. Nicolas LPCC Work Phone: Comment on above:Anxiety and depression (Primary Dx) Start: 13-85-2303YAJ REFERRAL TO HAND SURGERYMarcle Olivares MD Work Phone: Start: 11-14-2024 End: 30-13-5325Npmicaksgpigi w/patient 60 minutesAnxiety and depressionNzingha V. Nicolas LPCC Work Phone: Comwtax on above:Anxiety and depression (Primary Dx) Start: 10-17-2024 End: 42-13-5004Wbhhvsosxaygq w/patient 60 minutesAnxiety and depressionNzingha V. Nicolas LPCC Work Phone: Comhubt on above:Anxiety and depression (Primary Dx) Start: 10-03-2024 End: 88-81-8645Vemglhbkcmzxb w/patient 60 minutesAnxiety and depressionNzingha V. Nicolas LPC Work Phone: Combrht on above:Anxiety and depression (Primary Dx) Start: 09-19-2024 End: 45-51-1275Sumuknisyudxe w/patient 60 minutesAnxiety and depressionNzingha V. Nicolas LPCC Work Phone: Comment on above:Anxiety and depression (Primary Dx) Start: 08-15-2024 End: 83-06-2487Vvbqjkyqoxvwa w/patient 60 minutesAnxiety and depressionNzingha V. Nicolas LPCC Work Phone: Comment on above:Anxiety and depression (Primary Dx) Start: 08-08-2024 End: 02-12-2935Gesevkllpilaz w/patient 60 minutesAnxiety and depressionNzingha V. Nicolas LPCC Work Phone: Comment on above:Anxiety and depression (Primary Dx) Start: 08-01-2024 End: 45-97-9143Iaovzqqygwrsr w/patient 60 minutesAnxiety and depressionNzingha V. Nicolas LPCC Work Phone: Comment on above:Anxiety and depression (Primary Dx) Start: 07-25-2024 End: 81-82-8407Bofdqbhianigd w/patient 60 minutesAnxiety and depressionNzingha V. Nicolas LPCC Work Phone: Comment on above:Anxiety and depression (Primary Dx) Start: 07-18-2024 End: 04-02-3018Puxkflrsnzitq w/patient 60 minutesAnxiety and depressionNzingha V. Nicolas LPCC Work Phone: Comcnxb on above:Anxiety and depression (Primary Dx) Start: 07-11-2024 End: 03-69-8621Xwgjsiiiiiwzd w/patient 60 minutesAnxiety and depressionNzingha V. Nicolas LPCC Work Phone: Comment on above:Anxiety and depression (Primary Dx) Start: 07-04-2024 End: 82-61-4480Yzxjnglshabae w/patient 45 minutesAnxiety and depressionNzingha V. Nicolas LPCC Work Phone: Comwddb on above:Anxiety and depression (Primary Dx) Start: 06-27-2024 End: 97-81-8801Lkyswqdmreoyi w/patient 60 minutesAnxiety and depressionNzingha V. Nicolas LPCC Work Phone: Comment on above:Anxiety and depression (Primary Dx) Start: 06-20-2024 End: 83-04-4325Erqsnkkuwzwqu w/patient 60 minutesAnxiety and depressionNalexandr Black [facility] Work Phone: Comment on above:Anxiety and depression (Primary Dx) Start: 59-10-7416Utmrms-up visitFollow-upLAURI NANDYALStart: 07-30-2021H/O: surgeryHistory of nasal surgeryPatel Bar MD Work Phone: Start: 56-93-8398Lg maxillofacial w/o contrast materialPatel Bar MD Work Phone: H/O: surgeryHistory of nasal surgeryPatel Bar MD Work Phone: Plan of Treatment DateCare ActivityDetailAuthorStart: 76-97-0875Svippavamcmx: Influenza (MyChart) (Season Ended) HealthStart: 01-97-3371Tlkriqkzychz: Influenza (MyChart) (#1) Immunization: Influenza (MyChart) (#1)[facility] HospitalComment on above:Postponed from 05/22/2024 (Declined by patient)Start: 39-45-7911Gwdjyucdnz Monitoring (PHQ-9) Depression Monitoring (PHQ-9)[facility] HospitalStart: 26-82-3219Lgrxvyyzmq A1c measurementDiabetes Screening HealthStart: 01-51-2039Telrypttwa Monitoring (PHQ-9)Depression Monitoring (PHQ-9) HealthStart: 10-64-1783Lqbillesccfb: DTaP/Tdap/Td (7 - Td or Tdap)Immunization: DTaP/Tdap/Td (7 - Td or Tdap) HealthStart: 96-61-7567Tabzaletzhzs: COVID-19 ( season)Immunization: COVID-19 ( season) HealthStart: 50-50-3358Yegylzkivldb: Influenza (MyChart) (#1)Immunization: Influenza (MyChart) (#1) HealthStart: 05-22-2024 Influenza vaccinationImmunization: Influenza (MyChart) (Season Ended)[facility] Start: 77-55-1019Anjjxjgpo for malignant neoplasm of cervixCervical Cancer Screening/Pap Smear (MyChart)[facility] HospitalStart: 11-19-2023 End: 62-74-1090Iwaujke encounter astfxrclb02/29/2024 3:00 PM EST Office Visit [facility] [address] [place] [phone] Genaro Rodriguez MD [address] [place] [phone] [facility] FMStart: 10-29-2023 End: 23-70-3949Pqtysvr encounter barcpmqmb62/08/2024 1:40 PM EST Office Visit [facility] [address] [place] [phone] Angie Pike NP [address] [place] [phone] ArrivedNOMS CW FMComment on above:ArrivedStart: 05-22-2023 Immunization: COVID-19 ( season)Immunization: COVID-19 ( season)[facility] HospitalStart: 56-59-0907Mfuaqwnat vaccinationPeoples Hospitaltart: 51-73-8336Vhnlgxbjty AssessmentDepression AssessmentPeoples Hospitaltart: 49-32-7639Zuaawfeozvpm: DTaP/Tdap/Td (1 - Tdap)Immunization: DTaP/Tdap/Td (1 - Tdap) HealthStart: 66-78-7381Aschvqbrgugm: Hepatitis A (1 of 2 - Risk 2-dose series)Immunization: Hepatitis A (1 of 2 - Risk 2-dose series)[facility] HospitalStart: 17-62-6736Cgvwjgltpmmw: Hepatitis B (1 of 3 - 19+ 3-dose series)Immunization: Hepatitis B (1 of 3 - 19+ 3-dose series)[facility] HospitalStart: 91-58-9979Vhfsr microalbumin profileDTaP,Tdap,Td Vaccine (1 - Tdap)[facility] Hospitaltart: 96-94-9720Swdjhhdtk vaccinationINFLUENZA (#1)[facility] Hospitaltart: 2021 Alcohol consumption screeningAlcohol Misuse ScreeningUC HealthStart: 2021 CHLAMYDIA SCREENING (18-24)CHLAMYDIA SCREENING (18-24)[facility] Hospitaltart: 65-50-3242Ixzsouxkdn screeningDepression ScreeningUC HealthStart: 01-23-8989EG (GONORRHEA) SCREENING (18-24)GC (GONORRHEA) SCREENING (18-24)[facility] Start: 05-56-0745FBLPISBSZ C SCREENINGHEPATITIS C SCREENINGProtestant Hospital Start: 86-83-0094MTC SCREENINGHIV SCREENINGPeoples Hospitaltart: 62-77-0108HVB screeningHIV ScreeningUC HealthStart: 60-54-3319Eqqilscvpcjgp B Vaccine: Consider Based On Risk (1 of 2 - Patient Seeks Protection)Meningococcal B Vaccine: Consider Based On Risk (1 of 2 - Patient Seeks Protection)[facility] Hospital[facility]art: 08-02-3869NANWBVGSBOXZQ CONJUGATE (1 - 2-dose series)MENINGOCOCCAL CONJUGATE (1 - 2-dose series)[facility] Hospitaltart: 45-32-1386Lwmpffpvkopp: HPV (1 - 3-dose series)Immunization: HPV (1 - 3-dose series)[facility] HospitalStart: 70-23-0495UGZD TO ADULT TRANSITION ANNUAL ASSESSMENTPEDS TO ADULT TRANSITION ANNUAL ASSESSMENTPeoples Hospitaltart: 13-91-3232Nfcee depression screening assessmentDEPRESSION SCREENINGPeoples Hospitaltart: 99-56-1585MKPW TO ADULT TRANSITION INITIAL DISCUSSIONPEDS TO ADULT TRANSITION INITIAL DISCUSSION [facility]: 07-49-0233EDB VACCINE (1 - 2-dose series)HPV VACCINE (1 - 2-dose series)[facility]art: 77-65-6101Udvlkzcbd Hearing TestPediatric Hearing TestUC HealthStart: 84-89-7701LDTELJXNWXAJP B: Consider based on risk (1 of 2 - Risk Bexsero 2-dose series)MENINGOCOCCAL B: Consider based on risk (1 of 2 - Risk Bexsero 2-dose series)[facility]art: 42-61-7625HIW Vaccine (1 - 2-dose series)HPV Vaccine (1 - 2-dose series)[facility] Urine microalbumin profileDTAP,TDAP,TD (1 - Tdap)[facility]: 66-10-8991EOWEH-19 VACCINE (1)COVID-19 VACCINE (1)[facility]: 99-06-5699Sixzs-19 Vaccine (#1)Covid-19 Vaccine (#1)[facility]: 71-90-3151Cwonsglla B Vaccine (1 of 3 - 3-dose series)Hepatitis B Vaccine (1 of 3 - 3-dose series)[facility]: 84-04-5039Uqdztlqrl C screening Hepatitis C Screening (MyChart)[facility] HospitalStart: 75-16-8764Tubpt panelLipid Panel [facility] HospitalStart: 38-70-0343Wennkgft examinationComprehensive Physical ExamUC Health End: 26-78-8025DHJ panel - Blood by Automated countCBC Lab Routine Metrorrhagia 1 Occurrences starting 02/26/2024 until 02/25/2025UC HealthComment on above:1 Occurrences starting 02/26/2024 until 5CBC panel - Blood by Automated countCBC Lab Routine Metrorrhagia 02/26/2024 4:51 PM EDTUC Health End: 99-07-1875CQC panel - Blood by Automated countCBC Lab Routine Irregular periods 1 Occurrences starting 11/01/2024 until 11/01/2025UC HealthComment on above:1 Occurrences starting 11/01/2024 until 6Cefuroxime free [Mass/volume] in Serum or PlasmaBethesda North Hospital End: 41-45-7236Thrhidcwp / Gonorrhoeae DNA SwabChlamydia / Gonorrhoeae DNA Swab Lab Routine Subacute and chronic vaginitis Acute vulvitis 1 Occurrences starting 11/24/2023 until 11/23/2024UC HealthComment on above:1 Occurrences starting 11/24/2023 until 5Chlamydia / Gonorrhoeae DNA SwabChlamydia / Gonorrhoeae DNA Swab Lab Routine Subacute and chronic vaginitis Acute vulvitis 11/24/2023 3:33 PM ESTUC Health End: 49-09-9143Rhpbnqmod / Gonorrhoeae DNA UrineChlamydia / Gonorrhoeae DNA Urine Lab Routine Routine screening for STI (sexually transmitted infection) 1 Occurrences starting 12/13/2024 until 12/13/2025[facility] Work Phone: comment on above:1 Occurrences starting 12/13/2024 until 6Chlamydia / Gonorrhoeae DNA UrineChlamydia / Gonorrhoeae DNA Urine Lab Routine Routine screening for STI (sexually transmitted infection) 12/13/2024 4:12 PM EDTUC Health End: 14-97-2149Dpjdlcbffcgwy metabolic 2000 panel - Serum or PlasmaComprehensive metabolic panel Lab Routine Metrorrhagia 1 Occurrences starting 02/26/2024 until 02/25/2025UC HealthComment on above:1 Occurrences starting 02/26/2024 until 5Comprehensive metabolic 1999 panel - Serum or Plasma Comprehensive metabolic panel Lab Routine Metrorrhagia 02/26/2024 4:51 PM EDTUC Health End: 12-28-6163Xetiaxfamiryh metabolic 1999 panel - Serum or PlasmaComprehensive metabolic panel Lab Routine Irregular periods 1 Occurrences starting 11/01/2024 until11/01/2025UC HealthComment on above:1 Occurrences starting 11/01/2024 until 6Comprehensive metabolic 2000 panel - Serum or PlasmaBethesda North Hospital End: 87-19-0354Ecnvlyzzlgxswh vitamin b-12Vitamin B12 Lab Routine Subacute and chronic vaginitis 1 Occurrences starting 11/24/2023 until 11/23/2024[facility] Comment on above:1 Occurrences starting 11/24/2023 until 11/23/2024 End: 66-13-7858Bxrhtlxzbrqqjq vitamin b-12Vitamin B12 Lab Routine Metrorrhagia 1 Occurrences starting 02/26/2024 until 02/25/2025UC HealthComment on above:1 Occurrences starting 02/26/2024 until 5Cyanocobalamin vitamin b-12 Vitamin B12 Lab Routine Metrorrhagia 02/26/2024 4:51 PM EDTUC Health End: 92-60-6554Vzaqgwkjpenwqq vitamin b-12Vitamin B12 Lab Routine Irregular periods 1 Occurrences starting 11/01/2024 until 11/01/2025UC HealthComment on above:1 Occurrences starting 11/01/2024 until 11/01/2025 End: 86-82-2748OCNM-sulfate, serumDHEA-sulfate, serum Lab Routine Metrorrhagia 1 Occurrences starting 02/26/2024 until 02/25/2025UC HealthComment on above:1 Occurrences starting 02/26/2024 until 02/25/2025DHEA-sulfate, serumDHEA-sulfate, serum Lab Routine Metrorrhagia 02/26/2024 4:51 PM EDTUC Health End: 17-06-1873KshukjceksmbBpbwopmlekfh Lab Routine Metrorrhagia 1 Occurrences starting 02/26/2024 until 02/25/2025UC HealthComment on above:1 Occurrences starting 02/26/2024 until 02/25/2025DifferentialDifferential Lab Routine Metrorrhagia 02/26/2024 4:51 PM EDTUC Health End: 29-44-0675XmpdzbhwxsgqKvbifcxuhcrz Lab Routine Irregular periods 1 Occurrences starting 11/01/2024 until 11/01/2025UC HealthComment on above:1 Occurrences starting 11/01/2024 until 11/01/2025Epstein Riley virus capsid IgG Ab [Units/volume] in SerumBethesda North Hospital End: 74-08-7566Iemhhkbq [Mass/volume] in Serum or PlasmaFerritin Lab Routine Metrorrhagia 1 Occurrences starting 02/26/2024 until 02/25/2025UC HealthComment on above:1 Occurrences starting 02/26/2024 until 02/25/2025Ferritin [Mass/volume] in Serum or PlasmaFerritin Lab Routine Metrorrhagia 02/26/2024 4:51 PM EDTUC Health End: 84-07-6858JRK (Follicle stimulating hormone)FSH (Follicle stimulating hormone) Lab Routine Metrorrhagia 1 Occurrences starting 02/26/2024 until 02/25/2025UC HealthComment on above:1 Occurrences starting 02/26/2024 until 02/25/2025FSH (Follicle stimulating hormone)FSH (Follicle stimulating hormone) Lab Routine Metrorrhagia 02/26/2024 4:51 PM EDTUC Health End: 03-71-0631MMF (Follicle stimulating hormone)FSH (Follicle stimulating hormone) Lab Routine Irregular periods 1 Occurrences starting 11/01/2024 until 11/01/2025UC HealthComment on above:1 Occurrences starting 11/01/2024 until 11/01/2025 End: 94-53-9348ZXY Urine, QualitativeHCG Urine, Qualitative Lab Routine Chronic vulvitis 1 Occurrences starting 11/01/2024 until 11/01/2025[facility] Work Phone: Comment on above:1 Occurrences starting 11/01/2024 until 11/01/2025HCG Urine, QualitativeHCG Urine, Qualitative Lab Routine Chronic vulvitis 11/01/2024 4:54 PM ESTUC Health End: 84-36-2242Jfbmjpdbqn A1c/Hemoglobin.total in BloodHemoglobin A1c Lab Routine Subacute and chronic vaginitis 1 Occurrences starting 11/24/2023 until 11/23/2024UC HealthComment on above:1 Occurrences starting 11/24/2023 until 11/23/2024 End: 94-62-2571Hrsurkcumj A1c/Hemoglobin.total in BloodHemoglobin A1c Lab Routine Irregular periods 1 Occurrences starting 11/01/2024 until 11/01/2025UC HealthComment on above:1 Occurrences starting 11/01/2024 until 11/01/2025 End: 58-49-7276Ordnpjcli C AntibodyHepatitis C Antibody Lab Routine Screen for sexually transmitted diseases 1 Occurrences starting 11/01/2024 until 05/16/2025 [facility] HealthComment on above:1 Occurrences starting 11/01/2024 until 05/16/2025 End: 22-57-6963TDG 1+2 Antibody/Antigen with ReflexHIV 1+2 Antibody/Antigen with Reflex Lab Routine Screen for sexually transmitted diseases 1 Occurrences starting 11/01/2024 until 05/16/2025UC HealthComment on above:1 Occurrences starting 11/01/2024 until 05/16/2025 End: 39-97-7909IwvtyahNekkcvl Lab Routine Irregular periods 1 Occurrences starting 11/01/2024 until 11/01/2025UC HealthComment on above:1 Occurrences starting 11/01/2024 until 11/01/2025 End: 84-49-0769Zfkv Studies (Iron + TIBC)Iron Studies (Iron + TIBC) Lab Routine Metrorrhagia 1 Occurrences starting 02/26/2024 until 02/25/2025UC HealthComment on above:1 Occurrences starting 02/26/2024 until 02/25/2025Iron Studies (Iron + TIBC)Iron Studies (Iron + TIBC) Lab Routine Metrorrhagia 02/26/2024 4:51 PM EDT Health End: 02-48-9127Lfnopbehpcq hormoneLuteinizing hormone Lab Routine Metrorrhagia 1 Occurrences starting 02/26/2024 until 02/25/2025UC HealthComment on above:1 Occurrences starting 02/26/2024 until 02/25/2025Luteinizing hormoneLuteinizing hormone Lab Routine Metrorrhagia 02/26/2024 4:51 PM EDTUC Health End: 94-13-0888Jhqvlmygitn hormoneLuteinizing hormone Lab Routine Irregular periods 1 Occurrences starting 11/01/2024 until 11/01/2025UC HealthComment on above:1 Occurrences starting 11/01/2024 until 11/01/2025 End: 43-60-0382Lomajllre [Mass/volume] in Serum or PlasmaMagnesium Lab Routine Subacute and chronic vaginitis 1 Occurrences starting 11/24/2023 until [facility] HealthComment on above:1 Occurrences starting 11/24/2023 until 11/23/2024 End: 08-71-4717Ueqwrvold [Mass/volume] in Serum or PlasmaMagnesium Lab Routine Irregular periods 1 Occurrences starting 11/01/2024 until 11/01/2025[facility] Comment on above:1 Occurrences starting 11/01/2024 until 11/01/2025 End: 98-51-8905X5, TotalT3, Total Lab Routine Metrorrhagia 1 Occurrences starting 02/26/2024 until 02/25/2025UC HealthComment on above:1 Occurrences starting 02/26/2024 until 02/25/2025T3, TotalT3, Total Lab Routine Metrorrhagia 02/26/2024 4:51 PM EDT Health End: 28-26-9419Hwmlywqowfyp [Mass/volume] in Serum or PlasmaTestosterone, Total Lab Routine Metrorrhagia 1 Occurrences starting 02/26/2024 until 02/25/2025UC HealthComment on above:1 Occurrences starting 02/26/2024 until 02/25/2025 Testosterone [Mass/volume] in Serum or PlasmaTestosterone, Total Lab Routine Metrorrhagia 02/26/2024 4:51 PM EDTUC Health End: 70-31-2046Lokfjbbkhwux [Mass/volume] in Serum or PlasmaTestosterone, Total Lab Routine Irregular periods 1 Occurrences starting 11/01/2024 until 11/01/2025 HealthComment on above:1 Occurrences starting 11/01/2024 until 11/01/2025 End: 80-13-5809Flwlebg Function CascadeThyroid Function [place] Lab Routine Irregular periods 1 Occurrences starting 11/01/2024 until 05/16/2025[facility] Comment on above:1 Occurrences starting 11/01/2024 until 05/16/2025 End: 30-41-2649Jdokbwqwjcr [Units/volume] in Serum or PlasmaTSH (Thyroid Stimulating Hormone) Lab Routine Metrorrhagia 1 Occurrences starting 02/26/2024 until 02/25/2025UC HealthComment on above:1 Occurrences starting 02/26/2024 until 02/25/2025Thyrotropin [Units/volume] in Serum or PlasmaTSH (Thyroid Stimulating Hormone) Lab Routine Metrorrhagia 02/26/2024 4:51 PM EDTUC Health End: 95-73-5362Ovzkaurum (T4) free [Mass/volume] in Serum or PlasmaT4, free Lab Routine Metrorrhagia 1 Occurrences starting 02/26/2024 until 02/25/2025[facility] Comment on above:1 Occurrences starting 02/26/2024 until 02/25/2025Thyroxine (T4) free [Mass/volume] in Serum or PlasmaT4, free Lab Routine Metrorrhagia 02/26/2024 4:51 PM EDTUC HealthTissue transglutaminase IgA Ab [Units/volume] in [facility]glutamin[facility] IgG Ab [Units/volume] in [facility] End: 02-27-3280Eyosw [Mass/volume] in Serum or PlasmaUric acid Lab Routine Abnormal weight gain 1 Occurrences starting 11/24/2023 until 11/23/2024[facility] Comment on above:1 Occurrences starting 11/24/2023 until 11/23/2024 End: 69-57-5690Adnphvcjkf/Mycoplasma hominis CultureUreaplasma/Mycoplasma hominis Culture Microbiology Routine Vaginal burning 1 Occurrences starting until 01/05/2026 Health Work Phone: comment on above:1 Occurrences starting 01/05/2025 until 01/05/2026Ureaplasma/Mycoplasma hominis CultureUreaplasma/Mycoplasma hominis Culture Microbiology Routine Vaginal burning 01/05/2025 4[facility] End: 82-67-2715Papwspdtkg Macroscopic OnlyUrinalysis Macroscopic Only Lab Routine Dysuria 1 Occurrences starting 12/15/2023 until 12/14/2024 Health Work Phone: comidda on above:1 Occurrences starting 12/15/2023 until 12/14/2024 End: 09-96-5632Isexwwileu-Macroscopic w/Rfx to MicroscoUrinalysis-Macroscopic w/Rfx to Microsco Lab Routine Dysuria 1 Occurrences starting 02/26/2024 until 02/25/2025 Health Work Phone: comment on above:1 Occurrences starting 02/26/2024 until 02/25/2025Urinalysis-Macroscopic w/Rfx to MicroscoUrinalysis-Macroscopic w/Rfx to Microsco Lab Routine Dysuria 02/26/2024 4:51 PM [facility] End: 69-91-4078Flrtxnywn Panel DNA Amplified ProbeVaginitis Panel DNA Amplified Probe Microbiology Routine Subacute and chronic vaginitis Acute vulvitis 1 Occurrences starting 11/24/2023 until 11/23/2024UC HealthComment on above:1 Occurrences starting 11/24/2023 until 11/23/2024Vaginitis Panel DNA Amplified ProbeVaginitis Panel DNA Amplified Probe Microbiology Routine Subacute and chronic vaginitis Acute vulvitis 11/24/2023 3:33 PM [facility] Health End: 52-69-5952Xprlfbmqm Panel DNA Amplified ProbeVaginitis Panel DNA Amplified Probe Microbiology Routine Dysuria Vaginal burning 1 Occurrences starting 02/26/2024 until 02/25/2025UC HealthComment on above:1 Occurrences starting 02/26/2024 until 02/25/2025Vaginitis Panel DNA Amplified ProbeVaginitis Panel DNA Amplified Probe Microbiology Routine Dysuria Vaginal burning 02/26/2024 4:59 PMEDTUC Health End: 68-46-2052Nbohudwyb Panel DNA Amplified ProbeVaginitis Panel DNA Amplified Probe Microbiology Routine Chronic vulvitis 1 Occurrences starting 12/13/2024 until 12/13/2025UC HealthComment on above:1 Occurrences starting 12/13/2024 until 12/13/2025Vaginitis Panel DNA Amplified ProbeVaginitis Panel DNA Amplified Probe Microbiology Routine Chronic vulvitis 12/13/2024 4:12 PM EDTUC Health End: 54-07-9142Udrbwsf D 25 hydroxyVitamin D 25 hydroxy Lab Routine Subacute and chronic vaginitis 1 Occurrences starting 11/24/2023 until 11/23/2024[facility] Work Phone: comment on above:1 Occurrences starting 11/24/2023 until 11/23/2024 End: 04-98-0179Yqhakux D 25 hydroxyVitamin D 25 hydroxy Lab Routine Irregular periods 1 Occurrences starting 11/01/2024 until 11/01/2025UC HealthComment on above:1 Occurrences starting 11/01/2024 until 11/01/2025 End: 66-72-9077IM Finger - left 2 ViewsX-ray Finger Left min 2-views Imaging Routine Sprain of proximal interphalangeal (PIP) joint of finger 1 Occurrences starting 11/09/2024 until 05/24/2025[facility] Work Phone: comment on above:1 Occurrences starting 11/09/2024 until 05/24/2025XR Finger - left 2 ViewsX-ray Finger Left min 2-views Imaging Routine Sprain of proximal interphalangeal (PIP) joint of finger 11/09/2024 1:43 PM [facility] Immun[facility] Immunization DateImmunizationNotesCare JyibdgsbCopjehqr74-09-8203GNH, unspecified formulationNzingha Nicolas [facility] Work Phone: uc Uyxotw77-80-3782frrysjrrj virus vaccineNzingha Nicolas [facility] Work Phone: uc Lilkvr98-52-3564EUP, unspecified formulationNzingha Nicolas [facility] Work Phone: uc Zmdcoe65-93-1985baajlxx toxoid, reduced diphtheria toxoid, and acellular pertussis vaccine, adsorbedNGallup Indian Medical Center Work Phone: uc Qrdkha75-70-7397tedirdczfh, tetanus toxoids and acellular pertussis vaccine, 5 pertussis antigensNGallup Indian Medical Center Work Phone: uc Tjnbjb44-07-3986wzsjbku, mumps and rubella virus vaccineNGallup Indian Medical Center Work Phone: [place] Ltugqh79-96-1900lisvhnilzd vaccine, inactivated [facility] Work Phone: uc Oyzghj36-36-4099gbbjonady virus vaccineNGallup Indian Medical Center Work Phone: uc Eozuiq45-28-9898spsihcejnm, tetanus toxoids and acellular pertussis vaccine, 5 pertussis antigensNGallup [facility] Center Work Phone: uc Rdwxsq98-81-5218yyyoyozelfn influenzae type b vaccine, conjugate unspecified formulationMemorial Medical Center Work Phone: uc Ikjwmu04-32-6910tjuclqr, mumps and rubella virus vaccineNGallup [facility] Medical Center Work Phone: uc Hufppu70-94-2112waetdqjqqd, tetanus toxoids and acellular pertussis vaccine, 5 pertussis antigensNGallup [facility] Work Phone: HP Olwpnx95-82-2528mxowncsxmfa influenzae type b vaccine, conjugate unspecified formulationMemorial Medical Center Work Phone: uc Hassfg85-07-8068jimdieezx B vaccine, pediatric or pediatric/adolescent dosageNGallup [facility] Medical Center Work Phone: uc Jryrrw48-39-4363puzdxdydxa vaccine, inactivated [facility] Work Phone: uc Ofqhbj81-70-0344otepgxjxnz, tetanus toxoids and acellular pertussis vaccine, 5 pertussis antigensNzingcas Black [facility] Work Phone: uc Vzuuko77-06-4414opjfbwpsmhe influenzae type b vaccine, conjugate unspecified formulationNzingcas Black [facility] Work Phone: LL Yffupr83-18-7819nohvnsdjl B vaccine, pediatric or pediatric/adolescent dosageNzingcas Black [facility] Work Phone: VQ Hfeatq68-76-1431nwinbelgyu vaccine, inactivated Nzingcas Black [facility] Work Phone: [place] Luzunv56-15-4777ggbfnpamyc, tetanus toxoids and acellular pertussis vaccine, 5 pertussis antigensNzingcas Black [facility] Work Phone: XI Sppbte60-43-3302vhmfkkuuyti influenzae type b vaccine, conjugate unspecified formulationNzingcas Black [facility] Work Phone: EL Vtbndn51-16-6539dylqfsbfg B vaccine, pediatric or pediatric/adolescent dosageNzingcas Black [facility] Work Phone: PY Ielnrk42-97-1204uyztsbrgyb vaccine, inactivated Nzingcas Black [facility] Work Phone: [facility] Payers DatePayer CategoryPayerPolicy [id number] Health Insurance[facility] [id number] 2020-Present [phone] [address] [place] [address] [id number] Private Health InsuranceUN[facility] [id number] 2020- Present [phone] [address] [place] [address] HMO [id number] BLUE CARD PPO OOS [id number] 2019-Present [phone] [address] [place] [address] [id number] [id number] 2.16.840.1.867091.3.57[id number] 2.16.840.1.656964.3.579.[id number] 2.16.840.1.206650.3.579.2.74058-24-5961Crrtbsk63979632 2.16.840.1.847827.3.579.2.423205-14-8426Gutaqlx5098354 2.16.840.1.959320.3.579.2.501268-48-1261Dncqgip1611134 2.16.840.1.796628.3.57[id number] 2.16.840.1.393210.3.57[id number] 2.16.840.1.078422.3.57[id number] 2.16.840.1.200143.3.579.2.852842-40-0737Yvsoctq34119261 2.16.840.1.554899.3.579.2.628365-69-3461Nwgwlcx36367557 2.16.840.1.219929.3.579.2.678460-97-6936Zdsztsm20814055 2.16840.1.446151.3.579.2.406190-27-8119Gqqqyms57033271 2.16840.1.039351.3.579.2.481034-63-4335Mllqrsi37627899 2.840.1.795392.3.579.2.676675-99-9956Jczrasx12405200 2.840.1.848328.3.579.2.295171-43-1623Fjhgihr92482985 2.0.1.317878.3.579.2.094588-47-7080Acyvwyh46851524 2.840.1.197030.3.579.2.041406-42-1410Beitkre68317734 2.0.1.887885.3.579.2.915457-14-7240Ezewycr38829533 2.840.1.518750.3.579.2.817697-29-2405Rembzcl05650631 2.840.1.901601.3.579.2.520711-11-9030Dzrtezh44250476 2.840.1.133048.3.579.2.087466-45-2813Ofmxwqw14545309 2.840.1.370584.3.579.2.259937-35-3767Kmwzuzk08018168 2.840.1.207013.3.579.2.892717-58-1067Cwnejcc19889882 2.840.1.078360.3.579.2.226337-40-4393Pdnukfm93683828 2.840.1.526414.3.579.2.271079-92-5092Gwqqwgm53658789 2.840.1.074581.3.579.2.465518-26-1809Arianod26752267 2.840.1.652508.3.579.2.726963-40-1781Kdoyutm91272399 2.840.1.834953.3.579.2.593517-78-8909Qdedngf07916149 2.840.1.495997.3.579.2.007962-39-4157Bfsranx85920894 2.0.1.010675.3.579.2.963526-51-6752Dsifear67764969 2..1.652947.3.579.2.888134-82-6251Ocdesva15080682 2.0.1.283449.3.579.2.691384-63-4578Pcoeiqi47356194 2.840.1.748666.3.579.2.508143-21-3564Ccsjmgo13075200 2.0.1.784377.3.579.2.093780-39-1558Hrlvrzj39323860 2..1.704969.3.579.2.755404-26-8436Dwhfogv59487859 2.840.1.023705.3.579.2.027366-53-1820Tbwsbvo43674995 2.0.1.606174.3.579.2.665573-32-3943Lrekbql64180890 2.840.1.043233.3.579.2.087388-61-0629Vtnquux91519125 2.840.1.268282.3.579.2.503717-07-4044Fsidryt75066876 2.16840.1.961962.3.579.2.631768-24-6340Hawequq96429679 2.16.840.1.781348.3.579.2.001310-93-1534Nfrhhej50318856 2.16.840.1.099363.3.579.2.352571-69-2418Dewmqud88029185 2.16840.1.560253.3.579.2.196366-36-0771Hifzefs68361160 2.16840.1.156013.3.579.2.993075-17-0821Uhohhqn76208531 2.840.1.238679.3.579.2.792758-99-5036Pulzulc24909397 2.840.1.221603.3.579.2.308197-05-3821Njxlttz83557924 2.840.1.451849.3.579.2.212292-18-6419Wuimuzp01746349 2.840.1.117587.3.579.2.224787-14-5548Uagemea81073864 2.840.1.722663.3.579.2.057501-95-9291Diqakzq69826730 2.840.1.678897.3.579.2.375926-94-8000Qogifxa65020349 2.840.1.000268.3.579.2.871704-70-7122Phbvytf92026479 2.840.1.986076.3.579.2.446898-77-1157Gcgmrxd21201766 2.16840.1.944151.3.579.2.411516-27-3079Urwuwer86505941 2.840.1.485917.3.579.2.373502-64-9785Zhqqybo96040721 2.16.840.1.880660.3.579.2.964137-43-5466Skifbsx54054481 2.16.840.1.688236.3.579.2.098850-64-4642Glxovwk77085079 2.16.840.1.864100.3.579.2.302110-82-2652Aysn-vqzNtkerivFBG998524349 Social History DateTypeDetailFacilityStart: 06-04-2021 End: 13-07-6696Crhwxow smoking status NHISNever smoked tobaccoProtestant Hospital Start: 06-04-2021 End: 55-21-9273Xmqxcmx use and exposureSmokeless tobacco non-userPeoples Hospitaltart: 01-91-0250Qzzczfs intakeLifetime non-drinker (finding)Peoples Hospitaltart: 87-61-6741Jmzjdaz SDOH Alcohol Hiumyyjjf1Jhtfydmvg ClinicStart: 70-29-5837Tvw Assigned At BirthNot on fileAdamstown ClinicStart: 12-02-2021 End: 43-74-7898Ecfbhpce to SARS-CoV-2 (event)Not sureProtestant HospitalTojohnson memorial hospital smoking status NHISTobacco smoking consumption unknownPeoples Hospitaltart: 05-16-2021 End: 15-90-5399Azccccc of Social functionNOAZ HealthcareStart: 05-16-2021 End: 23-90-8647Sjup Deprivation IndexNOAZ HealthcareNational Score (1-100), lower number is lower riskNot on file HealthStart: 10-27-2023 End: 43-20-3364Lzbmbqt intakeEx-drinker (finding)N[facility] HealthcareStart: 12-13-2024 End: 04-15-6745Mdxhkoiaw beverage intakeCurrent drinker of alcohol (finding) HealthStart: 27-51-8522Zbdshap CommentoccUC HealthSexFemale (finding)[facility] Hospitaltart: 81-59-6396Ids Assigned At BirthFeSelect Medical Specialty [facility] Medical Equipment Procedure CodeEquipment CodeEquipment Original TextEquipment IdentifierDatesGrft Costal Cartilage 5-8cm - [id number]: 07-62-1824Mtxfpl Alloderm Thin Acellular Dermis 7x4cm Tissue Allograft Regenerative - [id number]: 08-07-2021 Clinical Notes 05-16-2021 to 06-21-2025 Note Date & QkiyLnwiBathapam45-93-6365 Evaluation note* Diagnosis Onset Date Resolution Status Admit Date Abdominal pain acuteOctober 2024 9:33amAnxiety and depressionacuteOctober 2024 9:33amBloatingacuteOctober 2024 9:33amChronic fatigueacuteOctober 2024 9:33amVitamin D deficiencyacuteOctober 2024 9:33am [facility] Work Phone: 1(921) 273-901806-30-2025 History of Present illness Narrative* Rodriguez Black [facility] - 03/20/2025 10:00 AM EDT The HPI, ROS, and assessment & plan were reviewed and copied forward (with edits) from a note written by radio script writer on 03/13/2025. I have reviewed and updated the history, physical exam, data, assessment, and plan of the note so that it reflects my evaluation and management of the patient. THERAPY SESSION NOTE Session #: 34 Start Time: 10:00 AM End Time: 11:00 AM Session Length: 60 minutes Focal Issues Discussed client's process of packing and moving. She is getting ready for a trip to [place], then back to [place], and finally her move to [place] with Javi. Discussed client feeling too overwhelmed withmoving to make arrangements for ongoing therapy. Also discussed client does not feel that she can consider getting medical care for control or anything else, as she has not looked for a job to get insurance. Client did not follow through on more work regarding attachment issues. However, client and counselor discussed client examining possible various aspects of her life that she may want to explore and develop a plan of activities to address moving forward. Client and counselor looked at a Wellness Wheel worksheet and client scored and identified strengths and weaknesses in her wellness plan. Counselor encouraged client to complete the worksheet activities, when she is able, as a way to continue working on her wellbeing. Impressions Client is making some progress. Goals: 1. Be able to leave an unhealthy relationship. 2. Cease obsessive stalking behavior 3. Develop confidence in her ability to manage everyday life stressors related to living independently. Diagnosis Anxiety and Depression Follow up on Treatment Plan Next session is scheduled for Thursday, April 03, 2025 at 10:00 AM. RECOMMENDATIONS/PLANS Disposition Continue individual therapy. documented in this encounterMemorial Health System [facility]by [facility] HospitalZptyix35-97-5470 History of Present illness Narrative* MEÑO Sharp - 03/13/2025 10:00 AM EDT The HPI, ROS, and assessment & plan were reviewed and copied forward (with edits) from a note written by radio script writer on 03/06/2025. I have reviewed and updated the history, physical exam, data, assessment, and plan of the note so that it reflects my evaluation and management of the patient. THERAPY SESSION NOTE Session #: 33 Start Time: 10:00 AM End Time: 10:58 AM Session Length: 58 minutes Focal Issues Because client will be going home to take things there, then taking a trip to [place], April 03 will be client's last therapy session. Clients last day of work was yesterday. 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 Client is more anxious about traveling with her cat, Betsy, than living with Javi. Reviewed work in 'The Attachment Theory Workbook . Client scored high on anxious attachment and discussed the importance of continuing therapy so that client can continue her progress on learning to manage her emotions when she is stressed. Discussed client's concern that Javi experiences anxious avoidance. Discuss that it might be helpful for both of them to read the workbook together. Client acknowledged that getting into ongoing therapy will be important. Impressions Client is making some progress. Goals: 1. Be able to leave an unhealthy relationship. 2. Cease obsessive stalking behavior 3. Develop confidence in her ability to manage everyday life stressors related to living independently. Diagnosis Anxiety and Depression Follow up on Treatment Plan Next session is scheduled for Woody, March 20, 2025 at 10:00 AM. RECOMMENDATIONS/PLANS Disposition Continue individual therapy. documented in this encounterUC [id number] History of Present illness Narrative* MEÑO Sharp - 03/06/2025 10:00 AM EDT The HPI, ROS, and assessment & plan were reviewed and copied forward (with edits) from a note written by radio script writer on 02/27/2025. I have reviewed and updated the history, physical exam, data, assessment, and plan of the note so that it reflects my evaluation and management of the patient. THERAPY SESSION NOTE Session #: 32 Start Time: 10:00 AM End Time: 11:00 AM Session Length: 60 minutes Focal Issues Discussed the self love workbook. Client shared that results of tests that she took on self-love and that client identified that she wants healthier relationships and she wants to experience peace inher life. Client acknowledged that the barriers to achieving her goals is her unresolved trauma related that being abandoned by her biological father. Also discussed client making new effort to work on herself instead of focusing on romance by overcoming her fear of being alone and sitting out by herself at her apartment's pool. 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 Impressions Client is making some progress. Goals: 1. Be able to leave an unhealthy relationship. 2. Cease obsessive stalking behavior 3. Develop confidence in her ability to manage everyday life stressors related to living independently. Diagnosis Anxiety and Depression Follow up on Treatment Plan Next session is scheduled for Thursday, March 13, 2025 RECOMMENDATIONS/PLANS Disposition Continue individual therapy. documented in this encounterUC [id number] History of Present illness Narrative* MEÑO Sharp - 02/27/2025 10:00 AM EDT The HPI, ROS, and assessment & plan were reviewed and copied forward (with edits) from a note written by radio script writer on 02/20/2025. I have reviewed and updated the history, physical exam, data, assessment, and plan of the note so that it reflects my evaluation and management of the patient. THERAPY SESSION NOTE Session #: 31 Start Time: 10:00 AM End Time: 11:00 AM Session Length: 60 minutes Focal Issues April 02, 2025 client is moving to [place] to be with Javi. Client will move her things to her family's home, including her car, and stay with Javi temporarily while she looks for a job in [place]. Discussed client's mother's concern that client will get and will become so complacent living with Javi that client doesn't look for a job. Client wrote a letter to her mother about her plans. Discussed client developing other relationships with [place] and not being totally dependent on Javi for socialization. Client stated that she plans to reach out to some online girl groups to make connections, as she did in [place]. This counselor also mentioned [facility]. Also discussed the importance of continuing therapy. 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 This counselor mentioned online therapy and discussed finding someone who specializes in DBT. Discussed continuing with Self Love Workbook. Impressions Client is making some progress. Goals: 1. Be able to leave an unhealthy relationship. 2. Cease obsessive stalking behavior 3. Develop confidence in her ability to manage everyday life stressors related to living independently. Diagnosis Anxiety and Depression Follow up on Treatment Plan Next session is scheduled for Thursday, March 06, 2025 at 10:00 AM. RECOMMENDATIONS/PLANS Disposition Continue individual therapy. documented in this encounterMemorial [facility] [id number] History of Present illness Narrative* MEÑO Sharp - 02/20/2025 10:00 AM EDT The HPI, ROS, and assessment & plan were reviewed and copied forward (with edits) from a note written by radio script writer on 01/30/2025. I have reviewed and updated the history, physical exam, data, assessment, and plan of the note so that it reflects my evaluation and management of the patient. THERAPY SESSION NOTE Session #: 30 Start Time: 10:00 AM End Time: 11:00 AM Session Length: 60 minutes Focal Issues Discussed Javi visiting over the last week and how they have been having a good time together. Discussed client feeling hurt and upset with her mother for screaming at client and putting her down because client has not found a job and is considering moving to [place] and staying with Javi. Client can understand her mother's concerns, but is hurt by the way her mother talks to her and does not listen to client. Discussed client's plans and how she feels that she has made a lot of progress in demonstrating self-care and not putting herself in positions where she is hurt by men. Discussed that importance of client continuing with therapy to manage her BPD and further working in loving herself. Client sharedthat she is very passionate about working with children and with animals and wishes that she would have focused on these areas in school instead of business, which she does not want to do at all. 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 She feels that her supervisor dried yeast is out to [facility] and client is just trying to stay there until she gives her two weeks notice in a few weeks. Client's lease ends in March and currently client is planning on moving to [place] with Javi and that client will continue to look for work in [place]. When Javi's lease ends in September, they are both talking about Javi joining client in [place]. Discussed client's work in her self love book. Impressions Client is making some progress. Goals: 1. Be able to leave an unhealthy relationship. 2. Cease obsessive stalking behavior 3. Develop confidence in her ability to manage everyday life stressors related to living independently. Diagnosis Anxiety and Depression Follow up on Treatment Plan Next session is scheduled for Thursday, February 27, 2025 at 10:00 AM. RECOMMENDATIONS/PLANS Disposition Continue individual therapy. documented in this encounterMemorial Health [facility] [id number] History of Present illness Narrative* Moose Ellsworth MD - 02/09/2025 9:15 AM EDT [facility] Brenda Kim : 2005 IN-PERSON VISIT Time spent on visit: Prep time day of visit: Call/visit scheduled for: 9:15 Patient checked in: Call/Visit start: 9:28 Call/Visit end: 9:48 Code based on time/LOS: LEVEL 3 PRIOR VISITS: DATE 05/21/2022 11/24/2023 12/15/2023 02/26/2024 04/22/2024 05/10/2024 07/26/2024 11/01/2024 11/24/2024 02/09/2025 SUMMARY UTI sx UA 05/20 nonindicative ?Vag dc Hx STI DC Term dysuria Vulvar swelling +BV 5 and +CT Recurrent Seen over ^ 6 times by Integrity Director and Uro w/o def dx Wants to avoid abx!!! Last visit here for similar 11/19/23 LABS Gluc 84 LFT TSH 0.74 fT3: 2.48 TPO Ab <1 Insulin 17 nf 3/5 +nadya > 4 doses fluconazole Sx resolved, Dysuria restarted after menses No vulvar swelling, no dysp Didn t get clinda gel No labs as yet Wt up 30# in 2 mo, Did 1 mo Adipex (Sep only) Nf insulin 17 (4 hr pp) POC UA: neg pH 6.5 SG 1025 OFF OCP, Heavy menses Acne flares w/o it LABS 12/14 Mag 2.0 Uric 4.4 B12 196 D 34.6 A1c 4.7 Using daily B12, mag, Probiotic POC UA: too late E cream helps burning a lot using weekly NSActive from Oct to march STI screen ?Monilia LMP 03/05-, then spotted brown x 2 wk after, period again Anxiety/ Depr worse since BF issues Labile PHQ 15 ISABELL 14 6 LABS K 3.6 Mag X LFT 15/ Iron 36/10%/342 Ferr 9.7 B12 355 H/H 12.8/35.7 MCV 96.5 RDW 14 DHEA 156 FSH 9.3 LH 55.3 T 49 TSH 0.72, FT4 0.91 TT3 95 Still some dysuria on bi w topical E2, declines further eval today 04/22 Tritest (-) Ucx (-) CT/NG (-) ?E2 vag cr, two times per week Wt 124# in , Max now 142# Just wants a chance for 1-2 more mo Adipex, (only got to use in Oct/Nov, 18>35mg doses, none x3 mo Newly (x3d) on micro dosing of Abilify for dx BPD Vulvitis after sugar SI over weekend after excesses Sees sugar correlations Episode 07/25- of some SI Working with Dr Black OFF Abilify OFF Estrace Hasn t started Atarax Wt sl up on Abilify so stopped it Adipex > Acne, nightsweats Impacted wisdom teeth removed from sinuses, currently on steroids/ Abx Acne flare Concerns about PCOS Irreg periods Wants repeat work up (Didn't remember eval) Reports NOT using Abilify or Adipex WH Labs ordered for 3 wk post abx ?Yeast infxn now, did 2 doses fluconazole, \ Tired, drained Sleep and appt off Dog last week Fatigue More before menses Not too heavy ?b12 inj x1 Labs 11/24 Insulin 8.9 Test 54 A1c 4.9 FSH/LH 4.3/13 PRL 7.8 H/H MCV 87 RDW 14 B12 281 D 39.5 LFT Mag 1.9 K 3.8 SOC IC diet over summer Loves fruit, has reduced bananas More greens Less sweet fruits Working 2 jobs and 2 classes over summer 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 , working at [employer], has cut out sugar, Working out daily More greens, spinach / lettuce Good fruits On mB12 ggt 1K every other day PLAN >Tritest >uCT/NG (neg) >HIV/RPR RX fluconazole After visit Cx > strep ag (rx Keflex #10) >CT/NG >BV (+Nadya) Declines UA Rx Clinda vag gel JIC >labs later for D, Mag, B12, A1c ?Vag pH testing, ?boric acid ?Dr Santos at [facility] 12/15/23 >Reduce fructose >Umicro >UCx (-) >Lemon/ACV in water >CHO/fruit redux ?Allergic response >Sacc B RF Fluc for 4 doses over longer time Trial off OCP vs alternative OCP ?Adipex >LABS w/ FSH/LH/Test >UA, micro >Tritest Prefers to C: OFF OCP Still on Adipex, wt down 7-8# Rx Estrace cream for topical burning Has clindagel for BV but not using >UA/ Cx >Tritest collected >CT/NG swab >two times per week E2 cream Ref psychiatry soon Ref Counseling >home uHCG C: LD Abilify Rx Adipex 18 #15 C: care with MH >BV panel (self collect) >UCx Rx Fluconazole 100 #4 weekly ?Sacc B +/- Nystatin If no yeast > retrial E2 cream >uHCG (-) RF Rx Fluconazole #4 Orders in for fasting labs not sooner than 3 wks AFTER steroids, abx. OR Follow up before labs >LABS with added PRL Consider Allulose sweetner >LABS for B12, iron Then B12 inj after >Hydrate >ADD Mag citr/ CALM or pill Mejia: >>: POC; C: Continue S: stable R!: Resolved! MSQ: Medical Symptom Questionnaire) MBSR: Mindfulness Based Stress Reduction Rx: Prescribed Tx: Treatment Rec: Recommended GF: Gluten Free DE: Digestive Enzymes S:SUBJECTIVE: CC: Chief Complaint Patient presents with Follow-up Wants another B-12 shot HPI: NOTES FROM 11/24/2024 VISIT: HERE TO UPDATE ON MOOD/ WEIGHT CONCERNS HAS BEEN MEETING WITH COUNSELORS NOT NOTING SIG SHIFTS IN HEALTH SINCE REMOVAL OF IMPACTED TEETH/ CHRONIC SINUS ISSUES STILL FRUSTRATED WITH WEIGHT, WORKING OUT REGULARLY REMAINS CONCERNED ABOUT HORMONAL CONTRIBUTION TO HER SITUATION AND WANTING TO ADDRESS PCOS SLEEPING AND APPETITE OFF BALANCE, MID SEMESTER STRESSES BLAMMED NOT USING ANY RX NOR ANY SUPPLEMENTS SOME COMPLAINTS ABOUT VAG ISSUES YEAST NOT IMPROVING YET WITH 2 DOSES OF FLUCONAZOLE OVER PASTWEEK. 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 SO FAR NONE FOR OCT 2 HOME PREG TESTS NEGATIVE REVIEWED CONCERNS OF INTERPRETING HORMONE LEVELS AT CURRENT LEVEL OF METABOLIC/ IMMUNOLOGIC DISTRESS FROM RECENT SURG AND MEDS E2 HELPS SOME DURING FLARES BUT HASN'T BEEN USING WAS ON FENUGREEK FOR 6 MONTHS BUT OFF PAST 6+ MONTHS, WAS TRYING FOR VAG ODOR MOOD, NOT USING ABILIFY DIDN'T DISCUSS WEIGHT HAS BEEN BACK ON VITAMINS, AND WOULD LIKE TO ASCERTAIN LEVELS NOTES FROM 07/26/2024 VISIT: VULVITIS FLARE UP, HAD BEEN OFF ESTROGEN SINCE WAS DOING WELL WITH BURNING SOME WHITISH CLUMPY DC URINE HAS ODD SMELL LAST S ACTIVE WEEKS AGO STARTING TO SEE SOME DIETARY CORRELATIONS, CONSIDERABLE CANDY IN TAKE RELATED TO RECENT HALLOWEEN AND LAST NIGHTS, FAV CANDY...SOUR PUNCH STRAWS ( 2 LAST NIGHT) HAD HAD SOME BURNING 2 DAY PRIOR, PERIODS REMAIN RANDOM Patient's last menstrual period was 07/25/2024 (exact date). DID HAVE ONE WEEK OF ADIPEX, DIDN'T FINISH THE REST OF THE MONTH > WORSE ACNE, NIGHT SWEATS ON ABILIFY WAS OVEREATING, HUNGRY A LOT AND CRAVED SUGARY FOODS, PAST WEEKEND WAS ALSO SCARY BECAUSE OF A SUDDEN FLARE UP IN SUICIDAL THOUGHTS OVER WEEKEND, AFTER HALLOWEEN AND WHILE/AFTER WORKING AT [employer] WHERE SHE HAD HAD SEVERAL PANCAKES; REPORTS THE SCARY THOUGHTS STOPPED QUICKLY THEY STARTED. HAS BEEN IN CONTACT WITH PSYCHIATRY TEAM OVER PREVIOUS WEEKEND, AND HAS COUNSELOR APPT ON 08/01. REPORTS NO CURRENT SUICIDAL THOUGHTS OR PLANS. HAS ATARAX BUT NOT STARTED NOTES FROM 05/10/2024 VISIT: BLADDER STILL SOME BURNING, DESPITE two times per week E2 CREAM URINE BAD ODOR AND HAS TRIED SOME BORIC ACID VAGINALLY STARTED ABILIFY 1MG YESTERDAY, NEWER DX WITH BPD ON LOWEST DOSE, MOOD STABILIZING ALSO STARTED REGULAR TALK THERAPY/ Q THURSDAY ADIPEX CONVERSATION/ WEIGHT CONCERNS DID HAPPEN PER PSYCHIATRY WAS USING 09/22 TAB 18.75, IN OCT, WENT TO FULL TAB SPRING. OFF ADIPEX SINCE 3 MONTHS MAX WT NOW AT 142#, 2018 WT PRE COLLEGE 124# MORE SUGAR PAST WEEK, BIRTHDAY/ ETOH LAST SEX EARLY MARCH Patient's last menstrual period was 04/04/2024 (within days). NOTES FROM 04/22/2024 VISIT: VULVAR BURNING MUCH BETTER WITH WEEKLY TOPICAL ESTROGEN, HOWEVER, OFF OCP, MENSES ARE IRREG, Patient's last menstrual period was 04/04/2024 (approximate). BUT PRIOR HAD BEEN 2 WEEKS EARLIER AND HAD BROWN SPOTTING BETWEEN THE TWO STILL REQUIRING A PANTY LINER, NOTICED THAT APPLYING THE ESTROGEN CREAM SEEMED TO SIG REDUCE THE MENSTRUAL BLEEDING TOO Lab Results Component Value Date KETONESU Negative 04/22/2024 GLUCOSEU Negative 04/22/2024 BLOODU Negative 04/22/2024 BILIRUBINUR Negative 04/22/2024 UROBILINOGEN 0.2 04/22/2024 PROTEINUA Negative 04/22/2024 NITRITE Negative 04/22/2024 LEUKOCYTESUR Small (A) 04/22/2024 PHUR 6.0 04/22/2024 WANTING TO GET BACK ON ADIPEX, LABS SEEN FROM EVAL IN OFF RX PAST 3 MONTHS. HAD GAINED 30# UP FROM 127# FROM APR TO Aug, RANDOM DID DROP 20# ON RX, NOW AT 137# MOOD VERY LABILE MICKEY SINCE BF , HE WAS BACK IN [place]OWN RECENTLY AND THEY HOOKED UP, LATER SHEFOUND OUT HE HAD ANOTHER GF OUT OF STATE. WANTING RETEST FOR STI SHE IDENTIFIES THEIR RELATIONSHIP A CONTRIBUTOR TO HER POOR MENTAL HEALTH LATELY, PRIOR TRIALS OF MEDICATIONS MET WITH TOO MANY SIDE EFFECTS SHE'S OPEN TO CONNECTING WITH A NEW PSYCHIATRIST AND COUNSELOR/S. HX OF SUICIDAL IDEATION, NO HOSPITALIZATIONS BUT REPORTS THAT HOSPITALIZATION WAS RECOMMENDED FOR SI IN THE PAST, NO CURRENT SI OR IMPULSES BUT ADMITS THINGS CAN FLIP FROM DAY TO DAY. BUT SHE HAS NO CURRENT PLAN AND FEELS SAFE FOR THE NEAR FUTURE, WALKED HER TO EXERCISE SPECIALIST FOR SOON APPT WITH PSYCHIATRY TEAM PHQ-9 Scores: 15/ ISABELL 15 NOTES FROM 02/26/2024 VISIT: OFF OCP TO SEE ABOUT WEIGHT LOSS STILL ON ADIPEX 01/18-01/22, SPOTTING 02/17-02/24, SUPER TAMPONS, BIG CLOTS STARTED TRACKING URINE BURNING, , STARTED AGAIN 02/18-TODAY HAS BEEN DOING PERIOD PANTIES SO NOT USING TAMPONS OR PADS, STILL HOPKINS NOTES FROM 12/15/2023 VISIT: BACK TO DISCUSS RETURN OF BURNING URINATION, FEELS IT'S MAINLY FUNGAL. DID HAVE +NADYA ON 11/24/23 TESTING. USED 4 DOSES OF FLUCONAZOLE, RESOLVED, WAS ABLE TO USE TAMPONS ON LAST MENSES, NOT OFTEN COMFORTABLE ENOUGH TO DO THAT. REDUCED VAG DC EXTREME BURNING RESOLVED BUT BURNING BACK AFTER MOST RECENT MENSES Patient's last menstrual period was 12/08/2023 (approximate). 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, WITHOUT NOTABLE BENEFIT OFF OCP LATELY, BF IS LONG DISTANCE STARTED OCP AT AGE 13 Lab Results Component Value Date KETONESU Negative 12/15/2023 GLUCOSEU Negative 12/15/2023 BLOODU Negative 12/15/2023 BILIRUBINUR Negative 12/15/2023 UROBILINOGEN 0.2 12/15/2023 PROTEINUA Negative 12/15/2023 NITRITE Negative 12/15/2023 LEUKOCYTESUR Trace (A) 12/15/2023 PHUR 6.5 12/15/2023 LABSPEC 1.023 12/15/2023 CLARITYU Clear 12/15/2023 COLORU Straw 12/15/2023 NOTES FROM 11/24/2023 VISIT: RECURRENT INTENSE VULVITIS/ VAGINITIS DATES ONSET FROM WHEN CT+ X2 IN CLOSE PROXIMITY WITH SAME EX=PARTNER, ALSO + FOR BV AT THAT TIME SO UNDERWENT 2 ROUNDS OF DOXY NOW MAINLY EXTERNAL DYSURIA CURRENTLY VULVA/VAGINAL INTROITUS TOO SWOLLEN TO SELF ADMIN MONISTAT SUPP RECENTLY SEXUALLY ACTIVE WITH NEW LONG DISTANCE PARTNER FROM Jul INTOL OF CONDOMS/ SPERMACIDE, LATEX ALLERGY? 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 12 MONTHS, 2 ULTRASOUNDS, 2 LAP EXPLOR HAS BEEN TO UROGYN ALSO WT UP 50# IN YEAR, NO TPO AB MANY LABS FROM [facility] AND CARE EVERYWHERE OVER PAST 2 WEEKS WITH NL GLUCOSE, NL LFTs, NORMAL CBC, RECALLS PRIOR TESTING FOR MYCO/UREAPLASMA BUT RESULTS NOT FOUND DIET MOD WITH LOWER SUGAR, BUT HEAVY FRUIT, BANANA HAS TRIED PROBIOTICS RX THAT WORKED BEST AND FOR SEVERAL DAYS WAS TOPICAL/INSERT OF CLINDAYMYCIN (USED APPLICATOR WITH GEL) SOON SUPPOSED TO SEE DR COLLAZO WITH UC TODAY BUT WAS CANCELLED RESCHEDULED FOR 12/14 ALSO STRUGGLING WITH SEVERE CONSTIPATION, FIRST BOUT 7TH GR WAS HAVING RECTAL BLEEDING 10/23/23 > CALPRO TESTING (NORMAL) AND STOOL TESTING (NEG) CLEARED UP TRIED GUT HELP WITH PROBIOTICS (FLORAGEN), MAG, TRIED CLINDA CREAM VAGINALLY, HELPED TOPICALLY FOR SEV DAYS NOTES FROM 05/21/2022 VISIT: URINARY SX CAME IN PRIOR DAY FOR UA, ESSENTIALLY NON-SUSPICIOUS FOR INFECTION HX BV STAYED WITH EX BUT BROKE UP AFTER January EVAL NO NEW PARTNERS SINCE January: CHLAMYDIA, YEAST + BV AND UTI > ABX FOR CHLAMYDIA, DIDN'T HELP (AZITH), 2ND DX OF CHLAMYDIA, ENDED UP ON 2ND ABX (DOXY) RETEST IN March WAS NEG FOR CHLAMYDIA SX DIDN'T CLEAR UP LAST MENSTRUAL HX UA Lab Results Component Value Date KETONESU Negative 05/20/2022 GLUCOSEU Negative 05/20/2022 BLOODU Negative 05/20/2022 BILIRUBINUR Negative 05/20/2022 UROBILINOGEN 0.2 E.U./dL 05/20/2022 PROTEINUA Negative 05/20/2022 NITRITE Negative 05/20/2022 LEUKOCYTESUR Negative 05/20/2022 PHUR 6.5 05/20/2022 LABSPEC 1.025 05/20/2022 CLARITYU Clear 05/20/2022 COLORU Yellow 05/20/2022 RX HISTORY: FLAGYL ZITHROMYCIN ONE TIME DOSE > 2 X CHLAMYDIA DOXY 14 DOSES, THEN NEG FOR CHLAMYDIA NEG AGAIN FOR CHLAMYDIA, STILL NOT TESTED NO ORAL MEDS FOR ACNE OCP FROM MEDS: Current Medications as of 02/13/2025 10:22 PM Outpatient Medications Quantity Refills Start End estradioL (ESTRACE) 0.01 % (0.1 mg/gram) vaginal cream 42.5 g 0 01/05/2025 -- fluconazole (DIFLUCAN) 100 MG tablet 4 tablet 0 12/15/2024 -- Inpatient Medications Ordered Dose Frequency Start End cyanocobalamin (VITAMIN B-12) injection 1,000 mcg 1,000 mcg Every 30 days 02/09/2025 1000 04/10/2025 0859 ROS/ BIO-SYSTEMS REVIEW: GEN: wt/sleep/ appetite/ energy [] PSYCHOSOCIAL: mood/ connections / intimacy/ pain 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, ?EATING DISORDER WEIGHT GAIN REPORTED 30# IN ON ADIPEX NOVEMBER-February PHQ-9 Scores: 04/22/2024 10:57 AM 04/22/2024 6:28 PM 11/01/2024 4:55 PM PHQ Total Score PHQ-9 Total Score 12 14 10 GAD7 Scores: 04/22/2024 10:58 AM 04/22/2024 6:27 PM 11/01/2024 4:56 PM [id number] Score ISABELL-7 Total Score 16 15 6 [] ASSIMILATION: gut/ digestion/ BM / nutrition/ oxygenation ON ADIPEX , NONE HAS BEEN ON SACC B FOR 3 MO, [] ENERGY: mitochondria/ sleep quality [] IMMUNE: environment/ airways/ skin /pets : WISDOM TEETH OUT/ SINUS IMPACTION > 2 ABX/ STEROIDS FLAGYL ZITHROMYCIN ONE TIME DOSE > 2 X CHLAMYDIA DOXY 14 DOSES, THEN NEG FOR CHLAMYDIA > ROTTED TEETH NEG AGAIN FOR CHLAMYDIA, TEST FOR MYCOPLASMA NO ORAL MEDS FOR ACNE TRIAL OF ESTRACE FOR ?VAGINITIS () OCCAS USE OF BORIC ACID VAGINALLY (2023) [] STRUCTURE: spine/ joints/ muscles [] HORMONAL: neurotransmitters/ cycles, weight, adrenal WT GAIN FRESHMAN 50# ON OCP FROM AGE 13, INITIALLY FOR 2-3 WK PERIODS OFF OCP DECEMBER-FEBRUARY 2024 > IRREG MENSES, CLOTTING, TRIAL ESTRACE FOR VAG BURNING STEPAN-MENSES WHILE LABS PENDING FOR FSH/LH [] TRANSPORT: heart/ circ/ swelling/ lymph/ bleed/bruise [] DETOX: exposures/ tob-EtOH / elim ON ADIPEX , NONE DEC>Apr [] Past medical history, medications, allergies and problem visit reviewed and discussed: Past Medical History: Diagnosis Date Acne 2017 Allergy 2020 Anxiety 2021 Constipation 2017 Depression 2021 Allergies Allergen Reactions Doxycycline Other (See Comments) Other Reaction(s): Tooth Discoloration Turns teeth black Djqqi-Xbtxj-Zkyxctk-Pramoxine Rash Mom can't remember name of antibiotic SOC: Social History Tobacco Use Smoking status: Never Smokeless tobacco: Never Vaping Use Vaping status: Never Used Substance Use Topics Alcohol use: Not Currently Comment: occ Drug use: Never O: OBJECTIVE: Vitals: 02/09/25 0905 BP: 108/74 BP Location: Right upper arm Patient Position: Sitting Pulse: 82 Resp: 18 Temp: 97.5 F (36.4 C) TempSrc: Temporal SpO2: 99% Weight: 147 lb 9.6 oz (67 kg) Height: 5' 3 (1.6 m) Body mass index is 26.15 kg/m . 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 Chronic fatigue Vitamin B12 CBC Differential Ferritin Iron Studies (Iron + TIBC) cyanocobalamin (VITAMIN B-12) injection 1,000 mcg 2. Slow transit constipation SUMMARY: No LOS data to display Patient Instructions FATIGUE: CONT B12 ORALLY UNTIL WE MAKE SURE YOU'RE ABSORBING IT LAB BEFORE JAB BUT THEN POP BACK TO ROOM FOR THE JAB BOWELS AND ENERGY: ADD MAG CITRATE (PDR) CALM FOR BOWELS OR MAG GLYCINATE FOR BOWELS AND MOOD ====== RESTORING MAGNESIUM! Magnesium is needed for a functioning level of Vitamin D and many other critical biochemical processes. Have your Magnesium level checked, aim for over 2.1 OR Magnesium RBC > 6.2 Dietary sources: Start eating more Magnesium-rich foods: Seafood, especially kelp and oysters. Whole grains, especially buckwheat, millet and wild rice. Leafy greens, especially Collards, Beet Greens, Mustard Greens,spinach and kale. Nuts and seeds, especially cashews, almonds, and pistachio nuts, as well as pumpkin seeds. And, Chocolate! But, only dark chocolate with a high content of [place], 80+% or more is great! Here are some high quality magnesium supplement brands: Magnesium Glycinate by NOW Brands or Nature Made, more easily found on the shelf at local pharmacies but... Prefer online ordering for..... Magnesium Glycinate by Vital Nutrients (magnesium glycinate ,and malate) Magnesium Glycinate by Pure Encapsulations (120mg per capsule, 1-2 daily, best at bedtime) Mag Glycinate by Callision - This highly absorbable and osnh-uz-pqexop formula promotes relaxation and restful sleep. Gluten, dairy and soy free formula. Magnesium SRT B free by Mariel (mag malate) AVOID MAGNESIUM OXIDE OR CITRATE IF POSSIBLE UNLESS YOUR MAIN GOAL IS VERY LOOSE BOWELS. MAGNESIUM FOR CONSTIPATION: BEST MAG CITRATE IN PILL OR POWDER FORM (LIKE NATURAL CALM ), STARTING AROUND 180- 200MG DAILY (1 TSP) MICKEY BEFORE BED, DIAL UP TO BOWEL TOLERANCE, EVEN HIGH 800MG (5 TSP), BACK OFF IF BOWELS TOO LOOSE. FOR CALMING/MUSCLE RELAXATION, WITHOUT CONSTIPATION: BETTER ABSORBED AND MAY SEE LESS LAXATIVE EFFECT WITH MAGNESIUM GLYCINATE OR MALATE OR TAURATE, LESS READILY AVAILABLE) START AROUND 120MG AND ALSO DIAL UP TO BOWEL TOLERANCE. YOUR BOWELS WILL TELL YOU IF YOU'VE GONE TOO FAR documented in this encounterMemorial Health [facility] [id number] Instructions* Patient Instructions* Moose Ellsworth MD - 02/09/2025 9:15 AM EDT FOR FATIGUE: LAB BEFORE JAB BUT THEN POP BACK TO ROOM FOR THE JAB CONT B12 ORALLY UNTIL WE MAKE SURE YOU'RE ABSORBING IT FOR BOWELS AND ENERGY: ADD MAG CITRATE (PDR) CALM FOR BOWELS OR MAG GLYCINATE FOR BOWELS AND MOOD ====== RESTORING MAGNESIUM! Magnesium is needed for a functioning level of Vitamin D and many other critical biochemical processes. Have your Magnesium level checked, aim for over 2.1 OR Magnesium RBC > 6.2 Dietary sources: Start eating more Magnesium-rich foods: Seafood, especially kelp and oysters. Whole grains, especially buckwheat, millet and wild rice. Leafy greens, especially Collards, Beet Greens, Mustard Greens,spinach and kale. Nuts and seeds, especially cashews, almonds, and pistachio nuts, as well as pumpkin seeds. And, Chocolate! But, only dark chocolate with a high content of [place], 80+% or more is great! Here are some high quality magnesium supplement brands: Magnesium Glycinate by NOW Brands or Nature Made, more easily found on the shelf at local pharmacies but... Prefer online ordering for..... Magnesium Glycinate by Vital Nutrients (magnesium glycinate ,and malate) Magnesium Glycinate by Pure Encapsulations (120mg per capsule, 1-2 daily, best at bedtime) Mag Glycinate by Callision - This highly absorbable and upiq-cg-irorzx formula promotes relaxation and restful sleep. Gluten, dairy and soy free formula. Magnesium SRT B free by Mariel (mag malate) AVOID MAGNESIUM OXIDE OR CITRATE IF POSSIBLE UNLESS YOUR MAIN GOAL IS VERY LOOSE BOWELS. MAGNESIUM FOR CONSTIPATION: BEST MAG CITRATE IN PILL OR POWDER FORM (LIKE NATURAL CALM ), STARTING AROUND 180- 200MG DAILY (1 TSP) MICKEY BEFORE BED, DIAL UP TO BOWEL TOLERANCE, EVEN HIGH 800MG (5 TSP), BACK OFF IF BOWELS TOO LOOSE. FOR CALMING/MUSCLE RELAXATION, WITHOUT CONSTIPATION: BETTER ABSORBED AND MAY SEE LESS LAXATIVE EFFECT WITH MAGNESIUM GLYCINATE OR MALATE OR TAURATE, LESS READILY AVAILABLE) START AROUND 120MG AND ALSO DIAL UP TO BOWEL TOLERANCE. YOUR BOWELS WILL TELL YOU IF YOU'VE GONE TOO FAR documented in this encounterMemorial Health System [facility] [id number] History of Present illness Narrative* Rodriguez FranklinCarmencita Black, [facility] - 01/30/2025 10:00 AM EDT The HPI, ROS, and assessment & plan were reviewed and copied forward (with edits) from a note written by radio script writer on 01/23/2025. I have reviewed and updated the history, physical exam, data, assessment, and plan of the note so that it reflects my evaluation and management of the patient. THERAPY SESSION NOTE Session #: 29 Start Time: 10:01 AM End Time: 11:00 AM Session Length: 59 minutes Focal Issues Client will probably quit her job at [employer] and is going to focus on looking for a corporate job in [place] and stay in an [employer] in [place] while she is waiting for a while. Javi is coming to [place] to visit next weekend. Client sing going to work until the end of February while she is looking for a job in [place]. Javi is willing to move to [place] when his lease is up on his apartment. Client catches herself stalking Javi on [employer] and tracking his movements on his phone. Discussed client's struggle with having a mother who is anxious and explodes at client and everyonearound her with anger client doesn't want to be that person again, who would become physically violent towards her mother and others. Agreed that client would continue to work on studying her self love workbook. Impressions Client is making some progress. Goals: 1. Be able to leave an unhealthy relationship. 2. Cease obsessive stalking behavior 3. Develop confidence in her ability to manage everyday life stressors related to living independently. Diagnosis Anxiety and Depression Follow up on Treatment Plan Next session is scheduled for Thursday, February 20, 2025 at 10:00 AM. RECOMMENDATIONS/PLANS Disposition Continue individual therapy. documented in this encounterMemorial Health [facility] [id number] History of Present illness Narrative* MEÑO Sharp - 01/23/2025 10:00 AM EDT The HPI, ROS, and assessment & plan were reviewed and copied forward (with edits) from a note written by radio script writer on 01/09/2025. I have reviewed and updated the history, physical exam, data, assessment, and plan of the note so that it reflects my evaluation and management of the patient. THERAPY SESSION NOTE Session #: 28 Start Time: 10:00 AM End Time: 11:00 AM Session Length: 60 minutes Focal Issues Client went on trip for Javi's birthday. Her friend, Nilda, lives in [place], came to join them. Discussed her relationship with Javi. Client felt proud of herself for resisting taking his [employer] password when he offered it because she knows she would become obsessive. Discussed being supportive Javi's efforts t manage his IED (Intermittent Explosive Disorder) and how both of them have fears of self- sabatoging their relationship. Discussed that client is still waiting for [employer] to open hireing, but in the meantime,client is going to look for any job. Client wants to be a [id number] mother and Javi is supportive of that as well. Impressions Client is making some progress. Goals: 1. Be able to leave an unhealthy relationship. 2. Cease obsessive stalking behavior 3. Develop confidence in her ability to manage everyday life stressors related to living independently. Diagnosis Anxiety and Depression Follow up on Treatment Plan Next session is scheduled for Thursday, January 23, 2025 at 10:00 AM. RECOMMENDATIONS/PLANS Disposition Continue individual therapy. documented in this encounterMemorial Health [facility] [id number] History of Present illness Narrative* MEÑO Sharp - 01/09/2025 10:00 AM EDT THERAPY SESSION NOTE Session #: 27 Start Time: 10:00 AM End Time: 11:00 AM Session Length: 60 minutes Focal Issues Discussed The Fatherless Daughter Project book and client could relate to a list of descriptors of how being abandoned by her father impacts how client sees herself and engages in relationships. Client could relate to most of the descriptors. Client shared that she and Javi talk a lot and client is trying to not stay on her phone all of thetime, trying to constantly be trying to know what he is doing out of fear of losing him. This week client is driving to [place] to hang out with Javi and his friends for his birthday. Javi is graduating on January 21 with a degree in [employer]. Discussed client's nervousness about graduation and no longer having the structure of being in school, especially because she does not have her future plans settled. Client will apply to [employer] after graduation, although her first choice is [employer], but they are not open for applications at this time. Impressions Client is making some progress. Goals: 1. Be able to leave an unhealthy relationship. 2. Cease obsessive stalking behavior 3. Develop confidence in her ability to manage everyday life stressors related to living independently. Diagnosis Encounter Diagnosis Name Primary? Anxiety and depression Yes Follow up on Treatment Plan Next session is scheduled for Thursday, January 23, 2025 at 10:00 AM. RECOMMENDATIONS/PLANS Disposition Continue individual therapy. documented in this encounterMemorial Health System [facility] [id number] History of Present illness Narrative* Moose Ellsworth MD - 01/05/2025 4:15 PM EDT [facility] Brenda Kim : 2005 IN-PERSON VISIT Time spent on visit: Prep time day of visit: Call/visit scheduled for: 4:15 Patient checked in: Call/Visit start: 4:15 Call/Visit end: 4:35 Code based on time/LOS: LEVEL 4 PRIOR VISITS: DATE 05/21/2022 11/24/2023 12/15/2023 02/26/2024 04/22/2024 05/10/2024 07/26/2024 11/01/2024 11/24/2024 01/05/2025 SUMMARY UTI sx UA 05/20 nonindicative ?Vag dc Hx STI DC Term dysuria Vulvar swelling +BV 5 and +CT Recurrent Seen over ^ 6 times by Integrity Director and Uro w/o def dx Wants to avoid abx!!! Last visit here for similar 11/19/23 LABS Gluc 84 LFT TSH 0.74 fT3: 2.48 TPO Ab <1 Insulin 17 nf 3/5 +nadya > 4 doses fluconazole Sx resolved, Dysuria restarted after menses No vulvar swelling, no dysp Didn t get clinda gel No labs as yet Wt up 30# in 2 mo, Did 1 mo Adipex (Sep only) Nf insulin 17 (4 hr pp) POC UA: neg pH 6.5 SG 1025 OFF OCP, Heavy menses Acne flares w/o it LABS 12/14 Mag 2.0 Uric 4.4 B12 196 D 34.6 A1c 4.7 Using daily B12, mag, Probiotic POC UA: too late E cream helps burning a lot using weekly NSActive from Oct to march STI screen ?Monilia LMP 03/05-, then spotted brown x 2 wk after, period again 04/14- Anxiety/ Depr worse since BF issues Labile PHQ 15 ISABELL 14 02/25 LABS K 3.6 Mag X LFT 05/06 Iron 36/10%/342 Ferr 9.7 B12 355 H/H 12.8/35.7 MCV 96.5 RDW 14 DHEA 156 FSH 9.3 LH 55.3 T 49 TSH 0.72, FT4 0.91 TT3 95 Still some dysuria on bi w topical E2, declines further eval today 04/22 Tritest (-) Ucx (-) CT/NG (-) ?E2 vag cr, two times per week Wt 124# in , Max now 142# Just wants a chance for 1-2 more mo Adipex, (only got to use in Oct/Nov, 18>35mg doses, none x3 mo Newly (x3d) on micro dosing of Abilify for dx BPD Vulvitis after sugar SI over weekend after excesses Sees sugar correlations Episode 07/25- of some SI Working with Dr Black OFF Abilify OFF Estrace Hasn t started Atarax Wt sl up on Abilify so stopped it Adipex > Acne, nightsweats Impacted wisdom teeth removed from sinuses, currently on steroids/ Abx Acne flare Concerns about PCOS Irreg periods Wants repeat work up (Didn't remember eval) Reports NOT using Abilify or Adipex WH Labs ordered for 3 wk post abx ?Yeast infxn now, did 2 doses fluconazole, \ Tired, drained Sleep and appt off Dog last week Urethral Burning again the past [address]/ng 12/13 x 3 LABS K 3.8 Mag 1.9 B12 281 D 39.5 LFT FSH/LH 4.3/ A1c 4.9 Insulin <9 TSH 0.64 Test 54 SOC IC diet over summer Loves fruit, has reduced bananas More greens Less sweet fruits Working 2 jobs and 2 classes over summer 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 , working at [employer], has cut out sugar, Working out daily PLAN >Tritest >uCT/NG (neg) >HIV/RPR RX fluconazole After visit Cx > strep ag (rx Keflex #10) >CT/NG >BV (+Nadya) Declines UA Rx Clinda vag gel JIC >labs later for D, Mag, B12, A1c ?Vag pH testing, ?boric acid ?Dr Santos at [facility] 12/15/23 >Reduce fructose >Umicro >UCx (-) >Lemon/ACV in water >CHO/fruit redux ?Allergic response >Sacc B RF Fluc for 4 doses over longer time Trial off OCP vs alternative OCP ?Adipex >LABS w/ FSH/LH/Test >UA, micro >Tritest Prefers to C: OFF OCP Still on Adipex, wt down 7-8# Rx Estrace cream for topical burning Has clindagel for BV but not using >UA/ Cx >Tritest collected >CT/NG swab >two times per week E2 cream Ref psychiatry soon Ref Counseling >home uHCG C: LD Abilify Rx Adipex 18 #15 C: care with MH >BV panel (self collect) >UCx Rx Fluconazole 100 #4 weekly ?Sacc B +/- Nystatin If no yeast > retrial E2 cream >uHCG (-) RF Rx Fluconazole #4 Orders in for fasting labs not sooner than 3 wks AFTER steroids, abx. OR Follow up before labs >LABS with added PRL Consider Allulose sweetner >B12 #1 INJ >Self collect CT/NG + Tritest Vag (all neg) >UCx (-) >Ureaplasma cx RF Estrace vag cream Mejia: >>: POC; C: Continue S: stable R!: Resolved! MSQ: Medical Symptom Questionnaire) MBSR: Mindfulness Based Stress Reduction Rx: Prescribed Tx: Treatment Rec: Recommended GF: Gluten Free DE: Digestive Enzymes S:SUBJECTIVE: CC: Chief Complaint Patient presents with Sexual Problem STD testing pt states no symptoms HPI: NOTES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 >CT/NG >BV (+Nadya) Declines UA Rx Clinda vag gel JIC >labs later for D, Mag, B12, A1c ?Vag pH testing, ?boric acid ?Dr Santos at [facility] 12/15/23 >Reduce fructose >Umicro >UCx (-) >Lemon/ACV in water >CHO/fruit redux ?Allergic response >Sacc B RF Fluc for 4 doses over longer time Trial off OCP vs alternative OCP ?Adipex >LABS w/ FSH/LH/Test >UA, micro >Tritest Prefers to C: OFF OCP Still on Adipex, wt down 7-8# Rx Estrace cream for topical burning Has clindagel for BV but not using >UA/ Cx >Tritest collected >CT/NG swab >two times per week E2 cream Ref psychiatry soon Ref Counseling >home uHCG C: LD Abilify Rx Adipex 18 #15 C: care with MH >BV panel (self collect) >UCx Rx Fluconazole 100 #4 weekly ?Sacc B +/- Nystatin If no yeast > retrial E2 cream >uHCG (-) RF Rx Fluconazole #4 Orders in for fasting labs not sooner than 3 wks AFTER steroids, abx. OR Follow up before labs >LABS with added PRL Consider Allulose sweetner Mejia: >>: POC; C: Continue S: stable R!: Resolved! MSQ: Medical Symptom Questionnaire) MBSR: Mindfulness Based Stress Reduction Rx: Prescribed Tx: Treatment Rec: Recommended GF: Gluten Free DE: Digestive Enzymes S:SUBJECTIVE: CC: Chief Complaint Patient presents with Annual Exam Pt. Would like lab work HPI: NOTES FROM 11/24/2024 VISIT: HERE TO UPDATE ON MOOD/ WEIGHT CONCERNS HAS BEEN MEETING WITH COUNSELORS NOT NOTING SIG SHIFTS IN HEALTH SINCE REMOVAL OF IMPACTED TEETH/ CHRONIC SINUS ISSUES STILL FRUSTRATED WITH WEIGHT, WORKING OUT REGULARLY REMAINS CONCERNED ABOUT HORMONAL CONTRIBUTION TO HER SITUATION AND WANTING TO ADDRESS PCOS SLEEPING AND APPETITE OFF BALANCE, MID SEMESTER STRESSES BLAMMED NOT USING ANY RX NOR ANY SUPPLEMENTS SOME COMPLAINTS ABOUT VAG ISSUES YEAST NOT IMPROVING YET WITH 2 DOSES OF FLUCONAZOLE OVER PASTWEEK. 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 SO FAR NONE FOR OCT 2 HOME PREG TESTS NEGATIVE REVIEWED CONCERNS OF INTERPRETING HORMONE LEVELS AT CURRENT LEVEL OF METABOLIC/ IMMUNOLOGIC DISTRESS FROM RECENT SURG AND MEDS E2 HELPS SOME DURING FLARES BUT HASN'T BEEN USING WAS ON FENUGREEK FOR 6 MONTHS BUT OFF PAST 6+ MONTHS, WAS TRYING FOR VAG ODOR MOOD, NOT USING ABILIFY DIDN'T DISCUSS WEIGHT HAS BEEN BACK ON VITAMINS, AND WOULD LIKE TO ASCERTAIN LEVELS NOTES FROM 07/26/2024 VISIT: VULVITIS FLARE UP, HAD BEEN OFF ESTROGEN SINCE WAS DOING WELL WITH BURNING SOME WHITISH CLUMPY DC URINE HAS ODD SMELL LAST S ACTIVE WEEKS AGO STARTING TO SEE SOME DIETARY CORRELATIONS, CONSIDERABLE CANDY IN TAKE RELATED TO RECENT HALLOWEEN AND LAST NIGHTS, FAV CANDY...SOUR PUNCH STRAWS ( 2 LAST NIGHT) HAD HAD SOME BURNING 2 DAY PRIOR, PERIODS REMAIN RANDOM Patient's last menstrual period was 07/25/2024 (exact date). DID HAVE ONE WEEK OF ADIPEX, DIDN'T FINISH THE REST OF THE MONTH > WORSE ACNE, NIGHT SWEATS ON ABILIFY WAS OVEREATING, HUNGRY A LOT AND CRAVED SUGARY FOODS, PAST WEEKEND WAS ALSO SCARY BECAUSE OF A SUDDEN FLARE UP IN SUICIDAL THOUGHTS OVER WEEKEND, AFTER HALLOWEEN AND WHILE/AFTER WORKING AT [employer] WHERE SHE HAD HAD SEVERAL PANCAKES; REPORTS THE SCARY THOUGHTS STOPPED QUICKLY THEY STARTED. HAS BEEN IN CONTACT WITH PSYCHIATRY TEAM OVER PREVIOUS WEEKEND, AND HAS COUNSELOR APPT ON 08/01. REPORTS NO CURRENT SUICIDAL THOUGHTS OR PLANS. HAS ATARAX BUT NOT STARTED NOTES FROM 05/10/2024 VISIT: BLADDER STILL SOME BURNING, DESPITE two times per week E2 CREAM URINE BAD ODOR AND HAS TRIED SOME BORIC ACID VAGINALLY STARTED ABILIFY 1MG YESTERDAY, NEWER DX WITH BPD ON LOWEST DOSE, MOOD STABILIZING ALSO STARTED REGULAR TALK THERAPY/ Q THURSDAY ADIPEX CONVERSATION/ WEIGHT CONCERNS DID HAPPEN PER PSYCHIATRY WAS USING 09/22 TAB 18.75, IN OCT, WENT TO FULL TAB SPRING. OFF ADIPEX SINCE 3 MONTHS MAX WT NOW AT 142#, 2018 WT PRE COLLEGE 124# MORE SUGAR PAST WEEK, BIRTHDAY/ ETOH LAST SEX EARLY MARCH Patient's last menstrual period was 04/04/2024 (within days). NOTES FROM 04/22/2024 VISIT: VULVAR BURNING MUCH BETTER WITH WEEKLY TOPICAL ESTROGEN, HOWEVER, OFF OCP, MENSES ARE IRREG, Patient's last menstrual period was 04/04/2024 (approximate). BUT PRIOR HAD BEEN 2 WEEKS EARLIER AND HAD BROWN SPOTTING BETWEEN THE TWO STILL REQUIRING A PANTY LINER, NOTICED THAT APPLYING THE ESTROGEN CREAM SEEMED TO SIG REDUCE THE MENSTRUAL BLEEDING TOO Lab Results Component Value Date KETONESU Negative 04/22/2024 GLUCOSEU Negative 04/22/2024 BLOODU Negative 04/22/2024 BILIRUBINUR Negative 04/22/2024 UROBILINOGEN 0.2 04/22/2024 PROTEINUA Negative 04/22/2024 NITRITE Negative 04/22/2024 LEUKOCYTESUR Small (A) 04/22/2024 PHUR 6.0 04/22/2024 WANTING TO GET BACK ON ADIPEX, LABS SEEN FROM EVAL IN OFF RX PAST 3 MONTHS. HAD GAINED 30# UP FROM 127# FROM APR TO Aug, RANDOM DID DROP 20# ON RX, NOW AT 137# MOOD VERY LABILE MICKEY SINCE BF , HE WAS BACK IN [place]OWN RECENTLY AND THEY HOOKED UP, LATER SHEFOUND OUT HE HAD ANOTHER GF OUT OF STATE. WANTING RETEST FOR STI SHE IDENTIFIES THEIR RELATIONSHIP A CONTRIBUTOR TO HER POOR MENTAL HEALTH LATELY, PRIOR TRIALS OF MEDICATIONS MET WITH TOO MANY SIDE EFFECTS SHE'S OPEN TO CONNECTING WITH A NEW PSYCHIATRIST AND COUNSELOR/S. HX OF SUICIDAL IDEATION, NO HOSPITALIZATIONS BUT REPORTS THAT HOSPITALIZATION WAS RECOMMENDED FOR SI IN THE PAST, NO CURRENT SI OR IMPULSES BUT ADMITS THINGS CAN FLIP FROM DAY TO DAY. BUT SHE HAS NO CURRENT PLAN AND FEELS SAFE FOR THE NEAR FUTURE, WALKED HER TO EXERCISE SPECIALIST FOR SOON APPT WITH PSYCHIATRY TEAM PHQ-9 Scores: 15/ ISABELL 15 NOTES FROM 02/26/2024 VISIT: OFF OCP TO SEE ABOUT WEIGHT LOSS STILL ON ADIPEX 01/18-01/22, SPOTTING 29 02/17-02/24, SUPER TAMPONS, BIG CLOTS STARTED TRACKING URINE BURNING, , STARTED AGAIN 02/18-TODAY HAS BEEN DOING PERIOD PANTIES SO NOT USING TAMPONS OR PADS, STILL HOPKINS NOTES FROM 12/15/2023 VISIT: BACK TO DISCUSS RETURN OF BURNING URINATION, FEELS IT'S MAINLY FUNGAL. DID HAVE +NADYA ON 11/24/23 TESTING. USED 4 DOSES OF FLUCONAZOLE, RESOLVED, WAS ABLE TO USE TAMPONS ON LAST MENSES, NOT OFTEN COMFORTABLE ENOUGH TO DO THAT. REDUCED VAG DC EXTREME BURNING RESOLVED BUT BURNING BACK AFTER MOST RECENT MENSES Patient's last menstrual period was 12/08/2023 (approximate). 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, WITHOUT NOTABLE BENEFIT OFF OCP LATELY, BF IS LONG DISTANCE STARTED OCP AT AGE 13 Lab Results Component Value Date KETONESU Negative 12/15/2023 GLUCOSEU Negative 12/15/2023 BLOODU Negative 12/15/2023 BILIRUBINUR Negative 12/15/2023 UROBILINOGEN 0.2 12/15/2023 PROTEINUA Negative 12/15/2023 NITRITE Negative 12/15/2023 LEUKOCYTESUR Trace (A) 12/15/2023 PHUR 6.5 12/15/2023 LABSPEC 1.023 12/15/2023 CLARITYU Clear 12/15/2023 COLORU Straw 12/15/2023 NOTES FROM 11/24/2023 VISIT: RECURRENT INTENSE VULVITIS/ VAGINITIS DATES ONSET FROM WHEN CT+ X2 IN CLOSE PROXIMITY WITH SAME EX=PARTNER, ALSO + FOR BV AT THAT TIME SO UNDERWENT 2 ROUNDS OF DOXY NOW MAINLY EXTERNAL DYSURIA CURRENTLY VULVA/VAGINAL INTROITUS TOO SWOLLEN TO SELF ADMIN MONISTAT SUPP RECENTLY SEXUALLY ACTIVE WITH NEW LONG DISTANCE PARTNER FROM Jul INTOL OF CONDOMS/ SPERMACIDE, LATEX ALLERGY? 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 12 MONTHS, 2 ULTRASOUNDS, 2 LAP EXPLOR HAS BEEN TO UROGYN ALSO WT UP 50# IN YEAR, NO TPO AB MANY LABS FROM [facility] AND CARE EVERYWHERE OVER PAST 2 WEEKS WITH NL GLUCOSE, NL LFTs, NORMAL CBC, RECALLS PRIOR TESTING FOR MYCO/UREAPLASMA BUT RESULTS NOT FOUND DIET MOD WITH LOWER SUGAR, BUT HEAVY FRUIT, BANANA HAS TRIED PROBIOTICS RX THAT WORKED BEST AND FOR SEVERAL DAYS WAS TOPICAL/INSERT OF CLINDAYMYCIN (USED APPLICATOR WITH GEL) SOON SUPPOSED TO SEE DR COLLAZO WITH UC TODAY BUT WAS CANCELLED RESCHEDULED FOR 12/14 ALSO STRUGGLING WITH SEVERE CONSTIPATION, FIRST BOUT 7TH GR WAS HAVING RECTAL BLEEDING 10/23/23 > CALPRO TESTING (NORMAL) AND STOOL TESTING (NEG) CLEARED UP TRIED GUT HELP WITH PROBIOTICS (FLORAGEN), MAG, TRIED CLINDA CREAM VAGINALLY, HELPED TOPICALLY FOR SEV DAYS NOTES FROM 05/21/2022 VISIT: URINARY SX CAME IN PRIOR DAY FOR UA, ESSENTIALLY NON-SUSPICIOUS FOR INFECTION HX BV STAYED WITH EX BUT BROKE UP AFTER January EVAL NO NEW PARTNERS SINCE January: CHLAMYDIA, YEAST + BV AND UTI > ABX FOR CHLAMYDIA, DIDN'T HELP (AZITH), 2ND DX OF CHLAMYDIA, ENDED UP ON 2ND ABX (DOXY) RETEST IN March WAS NEG FOR CHLAMYDIA SX DIDN'T CLEAR UP LAST MENSTRUAL HX UA Lab Results Component Value Date KETONESU Negative 05/20/2022 GLUCOSEU Negative 05/20/2022 BLOODU Negative 05/20/2022 BILIRUBINUR Negative 05/20/2022 UROBILINOGEN 0.2 E.U./dL 05/20/2022 PROTEINUA Negative 05/20/2022 NITRITE Negative 05/20/2022 LEUKOCYTESUR Negative 05/20/2022 PHUR 6.5 05/20/2022 LABSPEC 1.025 05/20/2022 CLARITYU Clear 05/20/2022 COLORU Yellow 05/20/2022 RX HISTORY: FLAGYL ZITHROMYCIN ONE TIME DOSE > 2 X CHLAMYDIA DOXY 14 DOSES, THEN NEG FOR CHLAMYDIA NEG AGAIN FOR CHLAMYDIA, STILL NOT TESTED NO ORAL MEDS FOR ACNE OCP FROM MEDS: Current Medications as of 11/26/2024 9:10 AM Outpatient Medications Quantity Refills Start End fluconazole (DIFLUCAN) 100 MG tablet 4 tablet 0 11/01/2024 -- ROS/ BIO-SYSTEMS REVIEW: GEN: wt/sleep/ appetite/ energy [] PSYCHOSOCIAL: mood/ connections / intimacy/ pain 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, ?EATING DISORDER WEIGHT GAIN REPORTED 30# IN > ON ADIPEX PHQ-9 Scores: 04/22/2024 10:57 AM 04/22/2024 6:28 PM 11/01/2024 4:55 PM PHQ Total Score PHQ-9 Total Score 12 14 10 GAD7 Scores: 04/22/2024 10:58 AM 04/22/2024 6:27 PM 11/01/2024 4:56 PM [id number] Score ISABELL-7 Total Score 16 15 6 [] ASSIMILATION: gut/ digestion/ BM / nutrition/ oxygenation ON ADIPEX , NONE HAS BEEN ON SACC B FOR 3 MO, [] ENERGY: mitochondria/ sleep quality [] IMMUNE: environment/ airways/ skin /pets : WISDOM TEETH OUT/ SINUS IMPACTION > 2 ABX/ STEROIDS FLAGYL ZITHROMYCIN ONE TIME DOSE > 2 X CHLAMYDIA DOXY 14 DOSES, THEN NEG FOR CHLAMYDIA > ROTTED TEETH NEG AGAIN FOR CHLAMYDIA, TEST FOR MYCOPLASMA NO ORAL MEDS FOR ACNE TRIAL OF ESTRACE FOR ?VAGINITIS () OCCAS USE OF BORIC ACID VAGINALLY (2023) [] STRUCTURE: spine/ joints/ muscles [] HORMONAL: neurotransmitters/ cycles, weight, adrenal WT GAIN FRESHMAN 50# ON OCP FROM AGE 13, INITIALLY FOR 2-3 WK PERIODS OFF OCP DECEMBER-FEBRUARY 2024 > IRREG MENSES, CLOTTING, TRIAL ESTRACE FOR VAG BURNING STEPAN-MENSES WHILE LABS PENDING FOR FSH/LH [] TRANSPORT: heart/ circ/ swelling/ lymph/ bleed/bruise [] DETOX: exposures/ tob-EtOH / elim ON ADIPEX , NONE [] Past medical history, medications, allergies and problem visit reviewed and discussed: Past Medical History: Diagnosis Date Acne 2017 Allergy 2020 Anxiety 2021 Constipation 2017 Depression 2021 Allergies Allergen Reactions Doxycycline Other (See Comments) Other Reaction(s): Tooth Discoloration Turns teeth black Ytkek-Dbrqs-Jehcjpq-Pramoxine Rash Mom can't remember name of antibiotic SOC: Social History Tobacco Use Smoking status: Never Smokeless tobacco: Never Vaping Use Vaping status: Never Used Substance Use Topics Alcohol use: Not Currently Drug use: Never O: OBJECTIVE: Vitals: 11/24/24 1035 BP: 100/70 BP Location: Right upper arm Patient Position: Sitting BP Cuff Size: Regular Pulse: 83 Resp: 14 Temp: 97.3 F (36.3 C) TempSrc: Temporal SpO2: 98% Weight: 148 lb (67.1 kg) Height: 5' 3 (1.6 m) Body mass index is 26.22 kg/m . 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 Abnormal weight gain Prolactin 2. Monilial vaginitis 3. Anxiety and depression SUMMARY: No LOS data to display Patient Instructions LABS TODAY FASTING I'LL SEND MESSAGE SOON I CAN CONSIDER ALLULOSE, A SWEETENER RX SUGAR documented in this encounterUC [id number] Instructions* Patient Instructions* Moose Ellsworth MD - 11/24/2024 10:15 AM EST LABS TODAY FASTING I'LL SEND MESSAGE SOON I CAN CONSIDER ALLULOSE, A SWEETENER RX SUGAR documented in this encounterUC [id number] History of Present illness Narrative* Rodriguez Black, [facility] - 11/21/2024 10:00 AM EST THERAPY SESSION NOTE Session #: 22 Start Time: 10:00 AM End Time: 11:00 AM Session Length: 60 minutes Focal Issues Discussed how client put her dog down. Faraz cried for two days. She had nightmares and struggled to sleep for 3 days. Her family helped client to realize that she did the right thing. Chelsey talked to Ian about their relationship not woirking out. Reviewed client's progress on her goals. Client feels that she is doing well on her first two goals, but continues to struggle with developing confidence related to living independently. Discussed how client feels good about the growth she has accomplished. Discussed how different it may be for client to get comfortable with being alone. I'm trying to work on feeling good about myself physically and emotionally (due to fighting her poor body image. After graduation, it will be weird to live alone. Discussed creating a journal and practicing self-car when she becomes angry. Impressions Client is making progress. Goals: 1. Be able to leave an unhealthy relationship. 2. Cease obsessive stalking behavior 3. Develop confidence in her ability to manage everyday life stressors related to living independently. Diagnosis Encounter Diagnosis Name Primary? Anxiety and depression Yes Follow up on Treatment Plan Next session is scheduled for Thursday, November 28, 2024 at 10:00 AM. RECOMMENDATIONS/PLANS Disposition Continue individual therapy. documented in this encounterMemorial [facility] [id number] History of Present illness Narrative* Mp Levin MD - 11/17/2024 1:00 PM EST Images from the original note were not included. Orthopaedics and Sports Medicine Hand and Upper Extremity Surgery Mp Levin MD Brenda Rhoadess 11/17/2024 The patient is seen at the request of Marcel Olivares MD. CHIEF COMPLAINT Chief Complaint Patient presents with New Patient Visit/ Consultation Left hand- middle finger numbness Summary of Upper Extremity Problems and Interventions Diagnosis: left middle finger numbness History of Present Illness Assessment Brenda Kim is a 19 y.o. right hand dominant female who presents for evaluation of left middle finger numbness. She had her left hand caught on her pitbulls's collar on 10/28/2024. She has been feeling weird at the tip, always in pins and needles. Allergies Allergies Allergen Reactions Doxycycline Other (See Comments) Other Reaction(s): Tooth Discoloration Turns teeth black Cojkx-Zcnlc-Ajrwjgd-Pramoxine Rash Mom can't remember name of antibiotic Home Medications Current Outpatient Medications Medication Sig fluconazole Take 1 tablet (100 mg total) by mouth every 7 days. No current facility-administered medications for this visit. Past Medical, Surgical, & Social History Past Medical History: Diagnosis Date Acne 2017 Allergy 2020 Anxiety 2021 Constipation 2018 Depression 2021 Past Surgical History: Procedure Laterality Date COSMETIC SURGERY 2020 NASAL SEPTUM SURGERY 08/11 NOSE SURG WISDOM TOOTH EXTRACTION Bilateral 10/28/2024 IMPACTED INTO SINUSES Social History Occupational History Not on file Tobacco Use Smoking status: Never Smokeless tobacco: Never Vaping Use Vaping status: Never Used Substance and Sexual Activity Alcohol use: Not Currently Drug use: Never Sexual activity: Not Currently Partners: Male control/protection: Condom reports that she has never smoked. She has never used smokeless tobacco. History reviewed. No pertinent family history. Physical Exam Vital Signs: Ht 5' 3 (1.6 m) Wt 145 lb (65.8 kg) LMP 11/09/2024 (Exact Date) Comment: regular BMI 25.69 kg/m BMI: Body mass index is 25.69 kg/m . General appearance: healthy, alert, no distress, appropriate for stated age HEENT: normocephalic, atraumatic Respiratory exam: Breathing easy and unlabored on room air Cardiovascular: Extremities warm and well perfused with brisk capillary refill, no significant edema. Lymphatic: No obvious lymphadenopathy Neuro: Alert and oriented to person, place, time, and situation. No focal, motor, or sensory deficit except as noted below. Psychiatric: Mood and affect normal and appropriate Hand Exam LMF tip radial and ulnar side has 2PD of 6 mm. No tinel's sign on either side of the digit Assessment Brenda Kim is a 19 y.o. female with LMF injury due to dog collar Plan I shared that she has protective sensation with no signs of nerve disruption at this point. I recommended monitoring the progress of her recovery in the next few months. She agrees with this plan. All questions were answered in the office today. Mp Levin MD Assistant Professor Of Philosophy, Hand and Upper Extremity Surgery Professor, Department of Orthopaedic Surgery [facility] Please note that some or all of this record was generated using voice recognition software.If thereare any questions about the content of this document, please contact me as some errors in manager motor may have occurred. documented in this encounterUC [id number] History of Present illness Narrative* MEÑO Sharp - 11/14/2024 10:00 AM EST THERAPY SESSION NOTE Session #: 21 Start Time: 10:00 AM End Time: 11:00 AM Session Length: 60 minutes Focal Issues Discussed client feeling devastated because her family will either have to put her dog, Natividad, down,or give them away to the clinical trainer. Client may have to have surgery on her hand because she as injured tyring to get Natividad to stop attacking th eir other dog, Magdalene. Discussed client needing to break up with Ian. Discussed client's growth as she has learned to navigate having a healthy relationship, although they are not compatible. Impressions Client is making progress. Goals: 1. Be able to leave an unhealthy relationship. 2. Cease obsessive stalking behavior 3. Develop confidence in her ability to manage everyday life stressors related to living independently. Diagnosis Encounter Diagnosis Name Primary? Anxiety and depression Yes Follow up on Treatment Plan Next session is scheduled for Thursday, November 21, 2024 at 10:00 AM. RECOMMENDATIONS/PLANS Disposition Continue individual therapy. documented in this encounterUC [id number] History of Present illness Narrative* Marcel Olivares MD - 11/09/2024 1:15 PM EST Mandeep Kim is a 19 y.o. female who presents for Injury (Finger feels numb) History of Present Illness The patient presents with left middle finger numbness and pain after her fingers got caught in her dog's prong collar while trying to lift the 80 lb dog. The injury occurred on Thursday. The patient describes the sensation as 'pins and needles,' similar to when a limb falls asleep. The numbness extends from the middle of the finger at the PIP to the tip. The patient can bend the finger but experiences significant pain when trying to fully extend it, particularly at the proximal interphalangeal joint on the palmar aspect. The patient reports that the numbness and pain have made everyday activities, such as typing and petting her cat, difficult. Review of Systems. Objective Blood pressure 119/82, pulse 93, temperature 97.3 F (36.3 C), temperature source Temporal, resp. rate 18, height 5' 3 (1.6 m), weight 148 lb (67.1 kg), last menstrual period 11/09/2024, SpO2 99%. Physical Exam EXTREMITIES: No trauma signs, swelling, or deformity in left middle finger. Brisk capillary refill in left middle finger. Mildly limited extension at PIP joint with pain on palmar aspect of left middle finger. Flexion normal in left middle finger. Tenderness on joint line of PIP of left middle finger. Pain on radial side of PIP joint with valgus and varus stress testing in left middle finger. Joint of left middle finger appears normal on inspection. Results Procedure: Dorsal Splint Application Description: Dorsal splint applied to the left middle finger. Essence taped to the fourth finger. Checked capillary refill and ensured stability. Informed Consent: Discussed the use of a splint to prevent movement and aid in healing. Explained the alternative of essence taping and the potential need for a splint if a fracture is present. Patientpreferred the splint for better immobilization. RADIOLOGY X-ray: No evidence of fractures or avulsion fracture of the volar plate (11/09/2024) Assessment & Plan Left Middle Finger Trauma Traumatic injury to the left middle finger with numbness and pain, particularly at the proximal interphalangeal joint. Possible volar plate injury with damage to the palmar digital nerves. No visiblesigns of trauma, swelling, or deformity. Limited extension at the PIP joint due to pain. Flexion ispreserved. -Obtain X-ray to rule out fracture or damage to the joint. -Apply dorsal splint and essence tape to the fourth finger for stability and pain relief. -Refer to orthopedic surgery for further evaluation of possible damage to the palmar digital nerves. -Advise patient to report any changes in color or increased discomfort. General Health Maintenance -Check tetanus shot status. If it has been more than 10 years since the last shot, administer a booster. -Patient declined flu shot. -Patient has a scheduled appointment with a fiberglass model maker for a Pap smear. -Patient reports normal hearing. Attestation documented in this encounterUC [id number] Instructions* Patient Instructions* Marcel Olivares MD - 11/09/2024 1:15 PM EST VISIT SUMMARY: You came in today due to numbness and pain in your left middle finger after it got caught in your dog's prong collar. The injury has made it difficult for you to perform everyday activities like typing and petting your cat. We discussed the possible causes and next steps for treatment. YOUR PLAN: -LEFT MIDDLE FINGER TRAUMA: You have a traumatic injury to your left middle finger, which may involve damage to the palmar digital nerves and a possible volar plate injury. We will get an X-ray to check for any fractures or joint damage. In the meantime, you should use a dorsal splint and essence tape your middle finger to your fourth finger for stability and pain relief. We are also referring you to orthopedic surgery for further evaluation. Please let us know if you notice any changes in color or increased discomfort. -GENERAL HEALTH MAINTENANCE: We reviewed your general health. Please check your tetanus shot status; if it has been more than 10 years since your last shot, you should get a booster. You declined theflu shot today. You have an upcoming appointment with your fiberglass model maker for a Pap smear, and you reported normal hearing. INSTRUCTIONS: Please follow up with the orthopedic surgeon as soon as possible for further evaluation of your finger. If you notice any changes in color or increased discomfort in your finger, contact us immediately. Contains text generated by Marina. documented in this encounterUC [id number] History of Present illness Narrative* Moose Ellsworth MD - 11/01/2024 4:15 PM EST [facility] 2005 [facility] V[facility] Time spent on visit: Prep time day of visit: Call/visit scheduled for: 4:15 Patient checked in: Call/Visit start: 4:30 Call/Visit end: 4:50 Code based on time/LOS: LEVEL 3 PRIOR VISITS: DATE 05/21/2022 11/24/2023 12/15/2023 02/26/2024 04/22/2024 05/10/2024 07/26/2024 11/01/2024 SUMMARY UTI sx UA 05/20 nonindicative ?Vag dc Hx STI DC Term dysuria Vulvar swelling +BV 5 and +CT Recurrent Seen over ^ 6 times by Integrity Director and Uro w/o def dx Wants to avoid abx!!! Last visit here for similar 11/19/23 LABS Gluc 84 LFT TSH 0.74 fT3: 2.48 TPO Ab <1 Insulin 17 nf 11/23 +nadya > 4 doses fluconazole Sx resolved, Dysuria restarted after menses No vulvar swelling, no dysp Didn t get clinda gel No labs as yet Wt up 30# in 2 mo, Did 1 mo Adipex (Sep only) Nf insulin 17 (4 hr pp) POC UA: neg pH 6.5 SG 1025 OFF OCP, Heavy menses Acne flares w/o it LABS 12/14 Mag 2.0 Uric 4.4 B12 196 D 34.6 A1c 4.7 Using daily B12, mag, Probiotic POC UA: too late E cream helps burning a lot using weekly NSActive from Oct to march STI screen ?Monilia LMP 03/05-, then spotted brown x 2 wk after, period again 04/14- Anxiety/ Depr worse since BF issues Labile PHQ 15 ISABELL 14 6/ LABS K 3.6 Mag X LFT 15/9 Iron 36/10%/342 Ferr 9.7 B12 355 H/H 12.8/35.7 MCV 96.5 RDW 14 DHEA 156 FSH 9.3 LH 55.3 T 49 TSH 0.72, FT4 0.91 TT3 95 Still some dysuria on bi w topical E2, declines further eval today 04/22 Tritest (-) Ucx (-) CT/NG (-) ?E2 vag cr, two times per week Wt 124# in ', Max now 142# Just wants a chance for 1-2 more mo Adipex, (only got to use in Oct/Nov, 18>35mg doses, none x3 mo Newly (x3d) on micro dosing of Abilify for dx BPD Vulvitis after sugar SI over weekend after Halloween excesses Sees sugar correlations Episode 07/25- of some SI Working with Dr Black OFF Abilify OFF Estrace Hasn t started Atarax Wt sl up on Abilify so stopped it Adipex > Acne, nightsweats Impacted wisdom teeth removed from sinuses, currently on steroids/ Abx Acne flare Concerns about PCOS Irreg periods Wants repeat work up (Didn't remember eval) Reports NOT using Abilify or Adipex SOC IC diet over summer Loves fruit, has reduced bananas More greens Less sweet fruits Working 2 jobs and 2 classes over summer 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 , working at [employer] PLAN >Tritest >uCT/NG (neg) >HIV/RPR RX fluconazole After visit Cx > strep ag (rx Keflex #10) >CT/NG >BV (+Nadya) Declines UA Rx Clinda vag gel JIC >labs later for D, Mag, B12, A1c ?Vag pH testing, ?boric acid ?Dr Santos at [facility] 12/15/23 >Reduce fructose >Umicro >UCx (-) >Lemon/ACV in water >CHO/fruit redux ?Allergic response >Sacc B RF Fluc for 4 doses over longer time Trial off OCP vs alternative OCP ?Adipex >LABS w/ FSH/LH/Test >UA, micro >Tritest Prefers to C: OFF OCP Still on Adipex, wt down 7-8# Rx Estrace cream for topical burning Has clindagel for BV but not using >UA/ Cx >Tritest collected >CT/NG swab >two times per week E2 cream Ref psychiatry soon Ref Counseling >home uHCG C: LD Abilify Rx Adipex 18 #15 C: care with MH >BV panel (self collect) >UCx Rx Fluconazole 100 #4 weekly ?Sacc B +/- Nystatin If no yeast > retrial E2 cream >uHCG (-) RF Rx Fluconazole #4 Orders in for fasting labs not sooner than 3 wks AFTER steroids, abx. OR Follow up before labs Mejia: >>: POC; C: Continue S: stable R!: Resolved! 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 SO FAR NONE FOR OCT 23 HOME PREG TESTS NEGATIVE REVIEWED CONCERNS OF INTERPRETING HORMONE LEVELS AT CURRENT LEVEL OF METABOLIC/ IMMUNOLOGIC DISTRESS FROM RECENT SURG AND MEDS E2 HELPS SOME DURING FLARES BUT HASN'T BEEN USING WAS ON FENUGREEK FOR 6 MONTHS BUT OFF PAST 6+ MONTHS, WAS TRYING FOR VAG ODOR MOOD, NOT USING ABILIFY DIDN'T DISCUSS WEIGHT HAS BEEN BACK ON VITAMINS, AND WOULD LIKE TO ASCERTAIN LEVELS NOTES FROM 07/26/2024 VISIT: VULVITIS FLARE UP, HAD BEEN OFF ESTROGEN SINCE WAS DOING WELL WITH BURNING SOME WHITISH CLUMPY DC URINE HAS ODD SMELL LAST S ACTIVE WEEKS AGO STARTING TO SEE SOME DIETARY CORRELATIONS, CONSIDERABLE CANDY IN TAKE RELATED TO RECENT HALLOWEEN AND LAST NIGHTS, FAV CANDY...SOUR PUNCH STRAWS ( 2 LAST NIGHT) HAD HAD SOME BURNING 2 DAY PRIOR, PERIODS REMAIN RANDOM Patient's last menstrual period was 07/25/2024 (exact date). DID HAVE ONE WEEK OF ADIPEX, DIDN'T FINISH THE REST OF THE MONTH > WORSE ACNE, NIGHT SWEATS ON ABILIFY WAS OVEREATING, HUNGRY A LOT AND CRAVED SUGARY FOODS, PAST WEEKEND WAS ALSO SCARY BECAUSE OF A SUDDEN FLARE UP IN SUICIDAL THOUGHTS OVER WEEKEND, AFTER HALLOWEEN AND WHILE/AFTER WORKING AT [employer] WHERE SHE HAD HAD SEVERAL PANCAKES; REPORTS THE SCARY THOUGHTS STOPPED QUICKLY THEY STARTED. HAS BEEN IN CONTACT WITH PSYCHIATRY TEAM OVER PREVIOUS WEEKEND, AND HAS COUNSELOR APPT ON 08/01. REPORTS NO CURRENT SUICIDAL THOUGHTS OR PLANS. HAS ATARAX BUT NOT STARTED NOTES FROM 05/10/2024 VISIT: BLADDER STILL SOME BURNING, DESPITE two times per week E2 CREAM URINE BAD ODOR AND HAS TRIED SOME BORIC ACID VAGINALLY STARTED ABILIFY 1MG YESTERDAY, NEWER DX WITH BPD ON LOWEST DOSE, MOOD STABILIZING ALSO STARTED REGULAR TALK THERAPY/ Q THURSDAY ADIPEX CONVERSATION/ WEIGHT CONCERNS DID HAPPEN PER PSYCHIATRY WAS USING 09/22 TAB 18.75, IN OCT, WENT TO FULL TAB SPRING. OFF ADIPEX SINCE 3 MONTHS MAX WT NOW AT 142#, 2018 WT PRE COLLEGE 124# MORE SUGAR PAST WEEK, BIRTHDAY/ ETOH LAST SEX EARLY MARCH Patient's last menstrual period was 04/04/2024 (within days). NOTES FROM 04/22/2024 VISIT: VULVAR BURNING MUCH BETTER WITH WEEKLY TOPICAL ESTROGEN, HOWEVER, OFF OCP, MENSES ARE IRREG, Patient's last menstrual period was 04/04/2024 (approximate). BUT PRIOR HAD BEEN 2 WEEKS EARLIER AND HAD BROWN SPOTTING BETWEEN THE TWO STILL REQUIRING A PANTY LINER, NOTICED THAT APPLYING THE ESTROGEN CREAM SEEMED TO SIG REDUCE THE MENSTRUAL BLEEDING TOO Lab Results Component Value Date KETONESU Negative 04/22/2024 GLUCOSEU Negative 04/22/2024 BLOODU Negative 04/22/2024 BILIRUBINUR Negative 04/22/2024 UROBILINOGEN 0.2 04/22/2024 PROTEINUA Negative 04/22/2024 NITRITE Negative 04/22/2024 LEUKOCYTESUR Small (A) 04/22/2024 PHUR 6.0 04/22/2024 WANTING TO GET BACK ON ADIPEX, LABS SEEN FROM EVAL IN OFF RX PAST 3 MONTHS. HAD GAINED 30# UP FROM 127# FROM APR TO Aug, RANDOM DID DROP 20# ON RX, NOW AT 137# MOOD VERY LABILE MICKEY SINCE BF , HE WAS BACK IN [place]OWN RECENTLY AND THEY HOOKED UP, LATER SHEFOUND OUT HE HAD ANOTHER GF OUT OF STATE. WANTING RETEST FOR STI SHE IDENTIFIES THEIR RELATIONSHIP A CONTRIBUTOR TO HER POOR MENTAL HEALTH LATELY, PRIOR TRIALS OF MEDICATIONS MET WITH TOO MANY SIDE EFFECTS SHE'S OPEN TO CONNECTING WITH A NEW PSYCHIATRIST AND COUNSELOR/S. HX OF SUICIDAL IDEATION, NO HOSPITALIZATIONS BUT REPORTS THAT HOSPITALIZATION WAS RECOMMENDED FOR SI IN THE PAST, NO CURRENT SI OR IMPULSES BUT ADMITS THINGS CAN FLIP FROM DAY TO DAY. BUT SHE HAS NO CURRENT PLAN AND FEELS SAFE FOR THE NEAR FUTURE, WALKED HER TO EXERCISE SPECIALIST FOR SOON APPT WITH PSYCHIATRY TEAM PHQ-9 Scores: 15/ ISABELL 15 NOTES FROM 02/26/2024 VISIT: OFF OCP TO SEE ABOUT WEIGHT LOSS STILL ON ADIPEX 01/08-01/18-01/22 02/11-, SPOTTING 29 02/17-02/24, SUPER TAMPONS, BIG CLOTS STARTED TRACKING URINE BURNING, 02/11-, STARTED AGAIN 02/18-TODAY HAS BEEN DOING PERIOD PANTIES SO NOT USING TAMPONS OR PADS, STILL HOPKINS NOTES FROM 12/15/2023 VISIT: BACK TO DISCUSS RETURN OF BURNING URINATION, FEELS IT'S MAINLY FUNGAL. DID HAVE +NADYA ON 11/24/23 TESTING. USED 4 DOSES OF FLUCONAZOLE, RESOLVED, WAS ABLE TO USE TAMPONS ON LAST MENSES, NOT OFTEN COMFORTABLE ENOUGH TO DO THAT. REDUCED VAG DC EXTREME BURNING RESOLVED BUT BURNING BACK AFTER MOST RECENT MENSES Patient's last menstrual period was 12/08/2023 (approximate). 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, WITHOUT NOTABLE BENEFIT OFF OCP LATELY, BF IS LONG DISTANCE STARTED OCP AT AGE 13 Lab Results Component Value Date KETONESU Negative 12/15/2023 GLUCOSEU Negative 12/15/2023 BLOODU Negative 12/15/2023 BILIRUBINUR Negative 12/15/2023 UROBILINOGEN 0.2 12/15/2023 PROTEINUA Negative 12/15/2023 NITRITE Negative 12/15/2023 LEUKOCYTESUR Trace (A) 12/15/2023 PHUR 6.5 12/15/2023 LABSPEC 1.023 12/15/2023 CLARITYU Clear 12/15/2023 COLORU Straw 12/15/2023 NOTES FROM 11/24/2023 VISIT: RECURRENT INTENSE VULVITIS/ VAGINITIS DATES ONSET FROM WHEN CT+ X2 IN CLOSE PROXIMITY WITH SAME EX=PARTNER, ALSO + FOR BV AT THAT TIME SO UNDERWENT 2 ROUNDS OF DOXY NOW MAINLY EXTERNAL DYSURIA CURRENTLY VULVA/VAGINAL INTROITUS TOO SWOLLEN TO SELF ADMIN MONISTAT SUPP RECENTLY SEXUALLY ACTIVE WITH NEW LONG DISTANCE PARTNER FROM Jul INTOL OF CONDOMS/ SPERMACIDE, LATEX ALLERGY? 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 12 MONTHS, 2 ULTRASOUNDS, 2 LAP EXPLOR HAS BEEN TO UROGYN ALSO WT UP 50# IN YEAR, NO TPO AB MANY LABS FROM [facility] AND CARE EVERYWHERE OVER PAST 2 WEEKS WITH NL GLUCOSE, NL LFTs, NORMAL CBC, RECALLS PRIOR TESTING FOR MYCO/UREAPLASMA BUT RESULTS NOT FOUND DIET MOD WITH LOWER SUGAR, BUT HEAVY FRUIT, BANANA HAS TRIED PROBIOTICS RX THAT WORKED BEST AND FOR SEVERAL DAYS WAS TOPICAL/INSERT OF CLINDAYMYCIN (USED APPLICATOR WITH GEL) SOON SUPPOSED TO SEE DR COLLAZO WITH UC TODAY BUT WAS CANCELLED RESCHEDULED FOR 12/14 ALSO STRUGGLING WITH SEVERE CONSTIPATION, FIRST BOUT 7TH GR WAS HAVING RECTAL BLEEDING 10/23/23 > CALPRO TESTING (NORMAL) AND STOOL TESTING (NEG) CLEARED UP TRIED GUT HELP WITH PROBIOTICS (FLORAGEN), MAG, TRIED CLINDA CREAM VAGINALLY, HELPED TOPICALLY FOR SEV DAYS NOTES FROM 05/21/2022 VISIT: URINARY SX CAME IN PRIOR DAY FOR UA, ESSENTIALLY NON-SUSPICIOUS FOR INFECTION HX BV STAYED WITH EX BUT BROKE UP AFTER January EVAL NO NEW PARTNERS SINCE January: CHLAMYDIA, YEAST + BV AND UTI > ABX FOR CHLAMYDIA, DIDN'T HELP (AZITH), 2ND DX OF CHLAMYDIA, ENDED UP ON 2ND ABX (DOXY) RETEST IN March WAS NEG FOR CHLAMYDIA SX DIDN'T CLEAR UP LAST MENSTRUAL HX UA Lab Results Component Value Date KETONESU Negative 05/20/2022 GLUCOSEU Negative 05/20/2022 BLOODU Negative 05/20/2022 BILIRUBINUR Negative 05/20/2022 UROBILINOGEN 0.2 E.U./dL 05/20/2022 PROTEINUA Negative 05/20/2022 NITRITE Negative 05/20/2022 LEUKOCYTESUR Negative 05/20/2022 PHUR 6.5 05/20/2022 LABSPEC 1.025 05/20/2022 CLARITYU Clear 05/20/2022 COLORU Yellow 05/20/2022 RX HISTORY: FLAGYL ZITHROMYCIN ONE TIME DOSE > 2 X CHLAMYDIA DOXY 14 DOSES, THEN NEG FOR CHLAMYDIA NEG AGAIN FOR CHLAMYDIA, STILL NOT TESTED NO ORAL MEDS FOR ACNE OCP FROM MEDS: Current Medications as of 11/01/2024 5:44 PM Outpatient Medications Quantity Refills Start End ARIPiprazole (ABILIFY) 2 MG tablet 30 tablet 2 07/07/2024 -- clindamycin phosphate 2 % Gel 5 g 0 11/24/2023 -- fluconazole (DIFLUCAN) 100 MG tablet 4 tablet 0 11/01/2024 -- hydrOXYzine HCL (ATARAX) 25 MG tablet 30 tablet 0 07/25/2024 -- ROS/ BIO-SYSTEMS REVIEW: GEN: wt/sleep/ appetite/ energy [] PSYCHOSOCIAL: mood/ connections / intimacy/ pain 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, ?EATING DISORDER WEIGHT GAIN REPORTED 30# IN ON ADIPEX PHQ-9 Scores: 04/22/2024 10:57 AM 04/22/2024 6:28 PM 11/01/2024 4:55 PM PHQ Total Score PHQ-9 Total Score 12 14 10 GAD7 Scores: 04/22/2024 10:58 AM 04/22/2024 6:27 PM 11/01/2024 4:56 PM [id number] Score ISABELL-7 Total Score 16 15 6 [] ASSIMILATION: gut/ digestion/ BM / nutrition/ oxygenation ON ADIPEX , NONE HAS BEEN ON SACC B FOR 3 MO, [] ENERGY: mitochondria/ sleep quality [] IMMUNE: environment/ airways/ skin /pets : WISDOM TEETH OUT/ SINUS IMPACTION > 2 ABX/ STEROIDS FLAGYL ZITHROMYCIN ONE TIME DOSE > 2 X CHLAMYDIA DOXY 14 DOSES, THEN NEG FOR CHLAMYDIA > ROTTED TEETH NEG AGAIN FOR CHLAMYDIA, TEST FOR MYCOPLASMA NO ORAL MEDS FOR ACNE TRIAL OF ESTRACE FOR ?VAGINITIS () OCCAS USE OF BORIC ACID VAGINALLY (2023) [] STRUCTURE: spine/ joints/ muscles [] HORMONAL: neurotransmitters/ cycles, weight, adrenal WT GAIN FRESHMAN 50# ON OCP FROM AGE 13, INITIALLY FOR 2-3 WK PERIODS OFF OCP DECEMBER-FEBRUARY 2024 > IRREG MENSES, CLOTTING, TRIAL ESTRACE FOR VAG BURNING STEPAN-MENSES WHILE LABS PENDING FOR FSH/LH [] TRANSPORT: heart/ circ/ swelling/ lymph/ bleed/bruise [] DETOX: exposures/ tob-EtOH / elim ON ADIPEX , NONE [] Past medical history, medications, allergies and problem visit reviewed and discussed: Past Medical History: Diagnosis Date Acne 2017 Allergy 2020 Anxiety 2021 Constipation 2018 Depression 2021 Allergies Allergen Reactions Doxycycline Other (See Comments) Other Reaction(s): Tooth Discoloration Turns teeth black Ttdmk-Zbaqp-Mcxqkfz-Pramoxine Rash Mom can't remember name of antibiotic SOC: Social History Tobacco Use Smoking status: Never Smokeless tobacco: Never Vaping Use Vaping status: Never Used Substance Use Topics Alcohol use: Not Currently Drug use: Never O: OBJECTIVE: Vitals: 11/01/24 1620 BP: 133/82 BP Location: Right upper arm Patient Position: Sitting BP Cuff Size: Regular Pulse: 85 Resp: 18 Temp: 97.7 F (36.5 C) TempSrc: Temporal SpO2: 99% Weight: 152 lb (68.9 kg) Height: 5' 3 (1.6 m) Body mass index is 26.93 kg/m . 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 Irregular periods FSH (Follicle stimulating hormone) Luteinizing hormone Insulin Hemoglobin A1c Comprehensive metabolic panel CBC Differential Vitamin D 25 hydroxy Vitamin B12 Magnesium Testosterone, Total Thyroid Function [place] 2. Chronic vulvitis HCG Urine, Qualitative fluconazole (DIFLUCAN) 100 MG tablet 3. Screen for sexually transmitted diseases Hepatitis C Antibody HIV 1+2 Antibody/Antigen with Reflex SUMMARY: No LOS data to display Patient Instructions SORRY FOR ALL YOUR RECENT MISERIES. WE CAN RUN THE TEST HERE SENT OVER FOUR DOSES OF THE FLUCONAZOLE. LET'S GET BACK TOGETHER AT LEAST 3 WEEKS AFTER THE LAST STEROID AND ANTIBIOTIC DOSES AND SEE IF THE DUST HAS SETTLED ENOUGH TO DO THE HORMONE ASSESSMENTS AGAIN. TOO MUCH GOING ON RIGHT NOW TO INTERPRET THE RESULTS WITH ANY MEANINGFUL PLAN OF ACTION POSSIBLE. documented in this encounterMemorial [facility] [id number] Instructions* Patient Instructions* Moose Ellsworth MD - 11/01/2024 4:15 PM EST SORRY FOR ALL YOUR RECENT MISERIES. WE CAN RUN THE TEST HERE SENT OVER FOUR DOSES OF THE FLUCONAZOLE. LET'S GET BACK TOGETHER AT LEAST 3 WEEKS AFTER THE LAST STEROID AND ANTIBIOTIC DOSES AND SEE IF THE DUST HAS SETTLED ENOUGH TO DO THE HORMONE ASSESSMENTS AGAIN. TOO MUCH GOING ON RIGHT NOW TO INTERPRET THE RESULTS WITH ANY MEANINGFUL PLAN OF ACTION POSSIBLE. documented in this encounterMemorial Health [facility] [id number] History of Present illness Narrative* Rodriguez Black, [facility] [facility] - 10/17/2024 10:00 AM EST THERAPY SESSION NOTE Session #: 19 Start Time: 10:00 AM End Time: 11:00 AM Session Length: 60 minutes Focal Issues Client is waiting for Spring Break so that she and her friend can take a cruise to [place]. I'm just ready to be done. 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 Client found out that this might be an interesting company to which she can apply. However, client still thinks that she will waint until after she graduates to apply to anywhere. Things are going well with client and Ian. They are not spending every day together and client believes that this has helped. They go to the gym together and client spends some time hanging out withher friends. Client discussed feeling numb and disassociated. And shared that because she may not be able to geta job at an [employer] while she is on psychotropic medication, her mother suggested a medication that is over the counter and she could order it online. However, when client looked up the information about the medication while she was in the office, the information stated that the recommendeddosage is 35 mg a day and client's medication she bought is in 500 mg capsules. There is another option of 250 capsules. Counselor encouraged client to make an appointment with there doctor to discuss her concerns, this medication and that perhaps the doctor can get a prescription at the appropriate dosage. Impressions Client's progress is stable. Goals: 1. Be able to leave an unhealthy relationship. 2. Cease obsessive stalking behavior 3. Develop confidence in her ability to manage everyday life stressors related to living independently. Diagnosis Encounter Diagnosis Name Primary? Anxiety and depression Yes Follow up on Treatment Plan Next session is scheduled for Thursday, October 24, 2024 at 10:00 AM. RECOMMENDATIONS/PLANS Disposition Continue individual therapy. documented in this encounterMemorial [facility] [id number] History of Present illness Narrative* MEÑO Sharp - 10/03/2024 10:00 AM EST THERAPY SESSION NOTE Session #: 18 Start Time: 10:00 AM End Time: 11:00 AM Session Length: 60 minutes Focal Issues Discussed counting down the days until client goes on Spring Break with a female friend on a cruise. Discussed how client feels about her relationship with Ian. She is beginning to wonder if she is just with him to waste time. Ian is very attracted to client, but is overly-possessive. Client states he is up my ass every day. Client feels smothered and frustrated, causing client to become short and angry. Client states they spend so much time together, that they have nothing to talk about and are often arguing. Client realizes how how her dependent behavior in relationships was similar to Ian's. She is afraid that she may feel so upset about Ian's behavior that she breaks up with him, only later to regret that he left a good person. Discussed how client has an opportunity to grow in understanding how to understand and communicate her own feelings and needs, and how to engage in conversations about how people can engage together in a healthy relationship. Counselor suggested that client write a letter to Ian, describing how she feels and what she wants. Client agreed to do this and discuss it with counselor during next session. Impressions Client is making progress as evidenced by client's openness about feeling overwhelmed,confused, conflicted, and willing to try to articulate her needs. Goals: 1. Be able to leave an unhealthy relationship. 2. Cease obsessive stalking behavior 3. Develop confidence in her ability to manage everyday life stressors related to living independently. Diagnosis Encounter Diagnosis Name Primary? Anxiety and depression Yes Follow up on Treatment Plan Next session is scheduled for Thursday, October 17, 2024 at 10:00 AM. RECOMMENDATIONS/PLANS Disposition Continue individual therapy. documented in this encounterMemorial Health System [facility] [id number] History of Present illness Narrative* MEÑO Sharp - 09/19/2024 11:00 AM EST THERAPY SESSION NOTE Session #: 17 Start Time: 11:00 AM End Time: 12:00 PM Session Length: 60 minutes Focal Issues Discussed that next term is a little nerve-wracking because it is her last term before she graduates and she knows that she has to start her heavy load of coarse work. 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 She doesn't know when she will apply. Her lease on her apartment is through April and she is looking forward to spending some time with her friends after she graduates before she has to start training. There appears to be a lengthy interview process. So she is not sure when she should start applying and is not sure if it wouldbe better to apply after she graduates so that she can put her degree on her application. Client plans to call the school and try to get a better idea of when she should apply. Things are going well with Ian. She did wish O.J. a happy birthday. But when O.J. tried to talk toclient in a flirting way, she quickly signed off so she could end that conversation. She admits that it can feel boring to have such a nice boyfriend, like Ian, but she also admitted that it is niceto have a relationship with someone that she feels comfortable with and is not treating client likean object or play thing, which means she experiences less stress and self-doubt. Client shared that she feels proud of herself for feeling more confident to stand her ground and not allowing others try to control client by demeaning her. Client shared that her mother bought client a self-love workbook. Client likes it and discussed bringing it to therapy to discuss her work. Discussed client's progress on her goals. Client admits that she continues to engage in some unhealthy and unwanted behaviors. However, she does see herself making progress on all goals. Impressions Client is making progress as evidenced by client's report on her goals. Goals: 1. Be able to leave an unhealthy relationship. 2. Cease obsessive stalking behavior 3. Develop confidence in her ability to manage everyday life stressors related to living independently. Diagnosis Encounter Diagnosis Name Primary? Anxiety and depression Yes Follow up on Treatment Plan Next session is scheduled for Thursday, September 26, 2024 at 11:00 AM. RECOMMENDATIONS/PLANS Disposition Continue individual therapy. documented in this encounterMemorial Health System [facility]by [facility] [id number] History of Present illness Narrative* Jackelyn Hoskins MD - 09/02/2024 10:45 AM EST [facility] PSYCHIATRY, FOLLOW-UP VISIT CC: Follow-up HPI: Brenda Kim is a 19 y.o. female with history of anxiety, depression, chronic vaginitis who presented to [facility] Psychiatry on 09/02/2024 follow-up. Patient was last seen in [facility] Psychiatry clinic by Dr. Hoskins on 05/20/2024, at which time aripiprazole was increased. Doing a lot better. Fully ended things with OJ about 5 weeks ago. Was very hard but thinks it's for the best. Had SI at the time at the break up, but improved after a week or so and none since then. Stopped the Abilify about 6-10 weeks due to increasing weight gain, along with increased impulsivetendencies, including binge eating/drinking/smoking, and dating multiple people at the same time which is unusual for her. These behaviors all improved after stopping the Abilify. At her therapy appointment immediately after break-up with OJ, Dr. Black had Dr. Martinez see Brenda due to her voicing SI, and Dr. Martinez prescribed PRN hydroxyzine at that time, which patient tried a few times when anxiety was very high and found it effective. Brenda feels that in the past month, she is doing much better. Has been having less mood dysregulation, is taking better care of herself, officially dating neighbor as of yesterday. No suicidal thoughts or intent or actions. Feels coping skills have significantly improved. Reaching out to mom and friends more often which has been helpful. Dr. Black and mom have been reminding her of importance to take new relationship at a slower speed. 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 Knows she will need to be off all medication for mental health in order to go, s o does not want to start any regular medications and does not think she needs anything right now. Is interested in considering DBT at [facility] in addition to weekly talk therapy prior to graduating next semester. Still struggling with body image, weight. Had gained weight on Abilify that she was able to lose but since stopping it and since breaking up with OJ regained weight again which she is frustrated by. Discussed healthy ways to maintain a stable body weight or to work on safe, slow, maintainable weight loss. Does continue to feel guilty after eating something unhealthy. Less alcohol and marijuana use since stopping abilify. Will occasionally have a drink or two of alcohol after work when alone. Denies SI, HI, AVH. ROS: (since last visit) Depression: see above,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 7-8# Rx Estrace cream for topical burning Has clindagel for BV but not using >UA/ Cx >Tritest collected >CT/NG swab >two times per week E2 cream Ref psychiatry soon Ref Counseling >home [facility] C: LD Abilify Rx Adipex 18 #15 C: care with MH >BV panel (self collect) >UCx Rx Fluconazole 100 #4 weekly ?Sacc B +/- Nystatin If no yeast > retrial E2 cream Mejia: >>: POC; C: Continue S: stable R!: Resolved! MSQ: Medical Symptom Questionnaire) MBSR: Mindfulness Based Stress Reduction Rx: Prescribed Tx: Treatment Rec: Recommended GF: Gluten Free DE: Digestive Enzymes S:SUBJECTIVE: CC: Chief Complaint Patient presents with Urinary Tract Infection Burning while peeing. 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 Is not currently sexually active. HPI: NOTES FROM 07/26/2024 VISIT: VULVITIS FLARE UP, HAD BEEN OFF ESTROGEN SINCE WAS DOING WELL WITH BURNING SOME WHITISH CLUMPY DC URINE HAS ODD SMELL LAST S ACTIVE WEEKS AGO STARTING TO SEE SOME DIETARY CORRELATIONS, CONSIDERABLE CANDY IN TAKE RELATED TO RECENT HALLOWEEN AND LAST NIGHTS, FAV CANDY...SOUR PUNCH STRAWS ( 2 LAST NIGHT) HAD HAD SOME BURNING 2 DAY PRIOR, PERIODS REMAIN RANDOM Patient's last menstrual period was 07/25/2024 (exact date). DID HAVE ONE WEEK OF ADIPEX, DIDN'T FINISH THE REST OF THE MONTH > WORSE ACNE, NIGHT SWEATS ON ABILIFY WAS OVEREATING, HUNGRY A LOT AND CRAVED SUGARY FOODS, PAST WEEKEND WAS ALSO SCARY BECAUSE OF A SUDDEN FLARE UP IN SUICIDAL THOUGHTS OVER WEEKEND, AFTER HALLOWEEN AND WHILE/AFTER WORKING AT [employer] WHERE SHE HAD HAD SEVERAL PANCAKES; REPORTS THE SCARY THOUGHTS STOPPED QUICKLY THEY STARTED. HAS BEEN IN CONTACT WITH PSYCHIATRY TEAM OVER PREVIOUS WEEKEND, AND HAS COUNSELOR APPT ON 08/01. REPORTS NO CURRENT SUICIDAL THOUGHTS OR PLANS. HAS ATARAX BUT NOT STARTED NOTES FROM 05/10/2024 VISIT: BLADDER STILL SOME BURNING, DESPITE two times per week E2 CREAM URINE BAD ODOR AND HAS TRIED SOME BORIC ACID VAGINALLY STARTED ABILIFY 1MG YESTERDAY, NEWER DX WITH BPD ON LOWEST DOSE, MOOD STABILIZING ALSO STARTED REGULAR TALK THERAPY/ Q THURSDAY ADIPEX CONVERSATION/ WEIGHT CONCERNS DID HAPPEN PER PSYCHIATRY WAS USING 09/22 TAB 18.75, IN OCT, WENT TO FULL TAB SPRING. OFF ADIPEX SINCE 3 MONTHS MAX WT NOW AT 142#, 2018 WT PRE COLLEGE 124# MORE SUGAR PAST WEEK, BIRTHDAY/ ETOH LAST SEX EARLY MARCH Patient's last menstrual period was 04/04/2024 (within days). NOTES FROM 04/22/2024 VISIT: VULVAR BURNING MUCH BETTER WITH WEEKLY TOPICAL ESTROGEN, HOWEVER, OFF OCP, MENSES ARE IRREG, Patient's last menstrual period was 04/04/2024 (approximate). BUT PRIOR HAD BEEN 2 WEEKS EARLIER AND HAD BROWN SPOTTING BETWEEN THE TWO STILL REQUIRING A PANTY LINER, NOTICED THAT APPLYING THE ESTROGEN CREAM SEEMED TO SIG REDUCE THE MENSTRUAL BLEEDING TOO Lab Results Component Value Date KETONESU Negative 04/22/2024 GLUCOSEU Negative 04/22/2024 BLOODU Negative 04/22/2024 BILIRUBINUR Negative 04/22/2024 UROBILINOGEN 0.2 04/22/2024 PROTEINUA Negative 04/22/2024 NITRITE Negative 04/22/2024 LEUKOCYTESUR Small (A) 04/22/2024 PHUR 6.0 04/22/2024 WANTING TO GET BACK ON ADIPEX, LABS SEEN FROM EVAL IN OFF RX PAST 3 MONTHS. HAD GAINED 30# UP FROM 127# FROM APR TO Aug, RANDOM DID DROP 20# ON RX, NOW AT 137# MOOD VERY LABILE MICKEY SINCE BF , HE WAS BACK IN [place]OWN RECENT[place] AND THEY HOOKED UP, LATER SHEFOUND OUT HE HAD ANOTHER GF OUT OF STATE. WANTING RETEST FOR STI SHE IDENTIFIES THEIR RELATIONSHIP A CONTRIBUTOR TO HER POOR MENTAL HEALTH LATELY, PRIOR TRIALS OF MEDICATIONS MET WITH TOO MANY SIDE EFFECTS SHE'S OPEN TO CONNECTING WITH A NEW PSYCHIATRIST AND COUNSELOR/S. HX OF SUICIDAL IDEATION, NO HOSPITALIZATIONS BUT REPORTS THAT HOSPITALIZATION WAS RECOMMENDED FOR SI IN THE PAST, NO CURRENT SI OR IMPULSES BUT ADMITS THINGS CAN FLIP FROM DAY TO DAY. BUT SHE HAS NO CURRENT PLAN AND FEELS SAFE FOR THE NEAR FUTURE, WALKED HER TO EXERCISE SPECIALIST FOR SOON APPT WITH PSYCHIATRY TEAM PHQ-9 Scores: 04/22/2024 10:57 AM 04/22/2024 6:28 PM PHQ Total Score PHQ-9 Total Score 12 14 GAD7 Scores: 04/22/2024 10:58 AM 04/22/2024 6:27 PM [id number] Score ISABELL-7 Total Score 16 15 NOTES FROM 02/26/2024 VISIT: OFF OCP TO SEE ABOUT WEIGHT LOSS STILL ON ADIPEX 01/18-01/22, SPOTTING 02/17-02/24, SUPER TAMPONS, BIG CLOTS STARTED TRACKING URINE BURNING, , STARTED AGAIN 02/18-TODAY HAS BEEN DOING PERIOD PANTIES SO NOT USING TAMPONS OR PADS, STILL HOPKINS NOTES FROM 12/15/2023 VISIT: BACK TO DISCUSS RETURN OF BURNING URINATION, FEELS IT'S MAINLY FUNGAL. DID HAVE +NADYA ON 11/24/23 TESTING. USED 4 DOSES OF FLUCONAZOLE, RESOLVED, WAS ABLE TO USE TAMPONS ON LAST MENSES, NOT OFTEN COMFORTABLE ENOUGH TO DO THAT. REDUCED VAG DC EXTREME BURNING RESOLVED BUT BURNING BACK AFTER MOST RECENT MENSES Patient's last menstrual period was 12/08/2023 (approximate). 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, WITHOUT NOTABLE BENEFIT OFF OCP LATELY, BF IS LONG DISTANCE STARTED OCP AT AGE 13 Lab Results Component Value Date KETONESU Negative 12/15/2023 GLUCOSEU Negative 12/15/2023 BLOODU Negative 12/15/2023 BILIRUBINUR Negative 12/15/2023 UROBILINOGEN 0.2 12/15/2023 PROTEINUA Negative 12/15/2023 NITRITE Negative 12/15/2023 LEUKOCYTESUR Trace (A) 12/15/2023 PHUR 6.5 12/15/2023 LABSPEC 1.023 12/15/2023 CLARITYU Clear 12/15/2023 COLORU Straw 12/15/2023 NOTES FROM 11/24/2023 VISIT: RECURRENT INTENSE VULVITIS/ VAGINITIS DATES ONSET FROM WHEN CT+ X2 IN CLOSE PROXIMITY WITH SAME EX=PARTNER, ALSO + FOR BV AT THAT TIME SO UNDERWENT 2 ROUNDS OF DOXY NOW MAINLY EXTERNAL DYSURIA CURRENTLY VULVA/VAGINAL INTROITUS TOO SWOLLEN TO SELF ADMIN MONISTAT SUPP RECENTLY SEXUALLY ACTIVE WITH NEW LONG DISTANCE PARTNER FROM Jul INTOL OF CONDOMS/ SPERMACIDE, LATEX ALLERGY? 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 12 MONTHS, 2 ULTRASOUNDS, 2 LAP EXPLOR HAS BEEN TO UROGYN ALSO WT UP 50# IN YEAR, NO TPO AB MANY LABS FROM [facility] AND CARE EVERYWHERE OVER PAST 2 WEEKS WITH NL GLUCOSE, NL LFTs, NORMAL CBC, RECALLS PRIOR TESTING FOR MYCO/UREAPLASMA BUT RESULTS NOT FOUND DIET MOD WITH LOWER SUGAR, BUT HEAVY FRUIT, BANANA HAS TRIED PROBIOTICS RX THAT WORKED BEST AND FOR SEVERAL DAYS WAS TOPICAL/INSERT OF CLINDAYMYCIN (USED APPLICATOR WITH GEL) SOON SUPPOSED TO SEE DR COLLAZO WITH UC TODAY BUT WAS CANCELLED RESCHEDULED FOR 12/14 ALSO STRUGGLING WITH SEVERE CONSTIPATION, FIRST BOUT 7TH GR WAS HAVING RECTAL BLEEDING 10/23/23 > CALPRO TESTING (NORMAL) AND STOOL TESTING (NEG) CLEARED UP TRIED GUT HELP WITH PROBIOTICS (FLORAGEN), MAG, TRIED CLINDA CREAM VAGINALLY, HELPED TOPICALLY FOR SEV DAYS NOTES FROM 05/21/2022 VISIT: URINARY SX CAME IN PRIOR DAY FOR UA, ESSENTIALLY NON-SUSPICIOUS FOR INFECTION HX BV STAYED WITH EX BUT BROKE UP AFTER January EVAL NO NEW PARTNERS SINCE MAY '22: CHLAMYDIA, YEAST + BV AND UTI > ABX FOR CHLAMYDIA, DIDN'T HELP (AZITH), 2ND DX OF CHLAMYDIA, ENDED UP ON 2ND ABX (DOXY) RETEST IN March WAS NEG FOR CHLAMYDIA SX DIDN'T CLEAR UP LAST MENSTRUAL HX UA Lab Results Component Value Date KETONESU Negative 05/20/2022 GLUCOSEU Negative 05/20/2022 BLOODU Negative 05/20/2022 BILIRUBINUR Negative 05/20/2022 UROBILINOGEN 0.2 E.U./dL 05/20/2022 PROTEINUA Negative 05/20/2022 NITRITE Negative 05/20/2022 LEUKOCYTESUR Negative 05/20/2022 PHUR 6.5 05/20/2022 LABSPEC 1.025 05/20/2022 CLARITYU Clear 05/20/2022 COLORU Yellow 05/20/2022 RX HISTORY: FLAGYL ZITHROMYCIN ONE TIME DOSE > 2 X CHLAMYDIA DOXY 14 DOSES, THEN NEG FOR CHLAMYDIA NEG AGAIN FOR CHLAMYDIA, STILL NOT TESTED NO ORAL MEDS FOR ACNE OCP FROM MEDS: Current Medications as of 07/31/2024 9:10 AM Outpatient Medications Quantity Refills Start End ARIPiprazole (ABILIFY) 2 MG tablet 30 tablet 2 07/07/2024 -- clindamycin phosphate 2 % Gel 5 g 0 11/24/2023 -- estradioL (ESTRACE) 0.01 % (0.1 mg/gram) vaginal cream 42.5 g 0 06/07/2024 -- fluconazole (DIFLUCAN) 100 MG tablet 4 tablet 0 07/26/2024 -- hydrOXYzine HCL (ATARAX) 25 MG tablet 30 tablet 0 07/25/2024 -- ROS/ BIO-SYSTEMS REVIEW: GEN: wt/sleep/ appetite/ energy [] PSYCHOSOCIAL: mood/ connections / intimacy/ pain 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, ?EATING DISORDER WEIGHT GAIN REPORTED 30# IN ON ADIPEX NOVEMBER-February [] ASSIMILATION: gut/ digestion/ BM / nutrition/ oxygenation ON ADIPEX , NONE DEC>Apr HAS BEEN ON SACC B FOR 3 MO, [] ENERGY: mitochondria/ sleep quality [] IMMUNE: environment/ airways/ skin /pets FLAGYL ZITHROMYCIN ONE TIME DOSE > 2 X CHLAMYDIA DOXY 14 DOSES, THEN NEG FOR CHLAMYDIA > ROTTED TEETH NEG AGAIN FOR CHLAMYDIA, TEST FOR MYCOPLASMA NO ORAL MEDS FOR ACNE TRIAL OF ESTRACE FOR ?VAGINITIS () OCCAS USE OF BORIC ACID VAGINALLY (2023) [] STRUCTURE: spine/ joints/ muscles [] HORMONAL: neurotransmitters/ cycles, weight, adrenal WT GAIN FRESHMAN 50# ON OCP FROM AGE 13, INITIALLY FOR 2-3 WK PERIODS OFF OCP DECEMBER-FEBRUARY 2024 > IRREG MENSES, CLOTTING, TRIAL ESTRACE FOR VAG BURNING STEPAN-MENSES WHILE LABS PENDING FOR FSH/LH [] TRANSPORT: heart/ circ/ swelling/ lymph/ bleed/bruise [] DETOX: exposures/ tob-EtOH / elim ON ADIPEX , NONE DEC>Apr [] Past medical history, medications, allergies and problem visit reviewed and discussed: Past Medical History: Diagnosis Date Acne 2017 Allergy 2020 Anxiety 2021 Constipation 2017 Depression 2021 Allergies Allergen Reactions Doxycycline Other (See Comments) Other Reaction(s): Tooth Discoloration Turns teeth black Asgay-Ajyxg-Fvanpah-Pramoxine Rash Mom can't remember name of antibiotic SOC: Social History Tobacco Use Smoking status: Never Smokeless tobacco: Never Vaping Use Vaping status: Never Used Substance Use Topics Alcohol use: Not Currently Drug use: Never O: OBJECTIVE: Vitals: 07/26/24 1606 BP: 108/74 BP Location: Right upper arm Patient Position: Sitting Pulse: 77 Resp: 18 Temp: 97.7 F (36.5 C) TempSrc: Temporal SpO2: 98% Weight: 146 lb (66.2 kg) Height: 5' 3 (1.6 m) Body mass index is 25.86 kg/m . 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 Chronic vulvitis Urine culture Vaginitis Panel DNA Amplified Probe fluconazole (DIFLUCAN) 100 MG tablet 2. Mood disorder (CMS-HCC) 3. Diet is high in sugar SUMMARY: No LOS data to display Patient Instructions LET'S GET THE BV TEST AGAIN TREAT WITH ANTIFUNGAL 100 MG FLUCONAZOLE WEEKLY BUT OK TO USE 3 CLOSE TOGETHER IN THE NEXT WEEK IF YEAST IS THE CAUSE IF NO YEAST FOUND AND/OR NO BENEFIT FROM THE FLUCONAZOLE, RETRY THE ESTROGEN. WATCH OUT FOR THOSE SUGARY COATED THINGS. CONSIDER LONGER TERM ANTIFUNGAL PROTOCOL FOR YOUR OVER GROWTH OF YEAST or SUSPECTED FUNGAL OVERGROWTH WE NEED A THREE PRONGED APPROACH: 1) DIET IS MOST IMPORTANT, CURBING SUGARS (EVEN MOST FRUITS FOR A FEW WEEKS), (resource: Dr Garveysbook: The Yeast Connection and the Woman/ Cookbook) 2) ORAL/ FOOD BASED PROBIOTICS Adding fermented foods like plain yogurt (not all the sweetened junky yogurts), Kombucha (fermentedteas), sauerkraut or other fermented veggies like Kimchee. These are meals but more like condiments on the side of a regular meal, several tablespoons several days a week. The food for the good bacteria are veggies so really focus on adding more veggies toyour diet even if they're not fermented. ADDING FERMENTED FOODS LIKE PLAIN YOGURT (NOT ALL THE SWEETENED JUNKY YOGURTS) , KOMBUCHA TEA (KING FERMENTS), SAUERKRAUT OR OTHER FERMENTED VEGGIES) AND/OR SOME PROBIOTIC SUPPLEMENTS (WITH BIFIDOBACTER, LACTOBACILLUS AND SACCHAROMYCES BOULARDII DEPENDING ON YOUR SYMPTOMS WOULD BE THE FIRST STEP. 3) ADDING A PROBIOTIC SUPPLEMENT (with Bifidobacter, Lactobacillus and ideally also or individuallySaccharomyces Boulardii);; one daily for several weeks or months, longer if the problem persists. AND, maybe even... 4) ANTIFUNGAL RX: if the above aren't working, then we may want to add a few doses of a strong antifungal like Fluconazole (DIFLUCAN) 100-150 mg once daily for 1-4 doses, OR for some cases, for several weeks or months OR NYSTATIN LET ME KNOW YOUR THOUGHTS OR CONCERNS. documented in this encounterMemorial Health System [facility] [id number] Instructions* Patient Instructions* Moose Ellsworth MD - 07/26/2024 4:15 PM EST LET'S GET THE BV TEST AGAIN TREAT WITH ANTIFUNGAL 100 MG FLUCONAZOLE WEEKLY BUT OK TO USE 3 CLOSE TOGETHER IN THE NEXT WEEK IF YEAST IS THE CAUSE IF NO YEAST FOUND AND/OR NO BENEFIT FROM THE FLUCONAZOLE, RETRY THE ESTROGEN. WATCH OUT FOR THOSE SUGARY COATED THINGS. CONSIDER LONGER TERM ANTIFUNGAL PROTOCOL FOR YOUR OVER GROWTH OF YEAST or SUSPECTED FUNGAL OVERGROWTH WE NEED A THREE PRONGED APPROACH: 1) DIET IS MOST IMPORTANT, CURBING SUGARS (EVEN MOST FRUITS FOR A FEW WEEKS), (resource: Dr Garveysbook: The Yeast Connection and the Woman/ Cookbook) 2) ORAL/ FOOD BASED PROBIOTICS Adding fermented foods like plain yogurt (not all the sweetened junky yogurts), Kombucha (fermentedteas), sauerkraut or other fermented veggies like Kimchee. These are meals but more like condiments on the side of a regular meal, several tablespoons several days a week. The food for the good bacteria are veggies so really focus on adding more veggies toyour diet even if they're not fermented. ADDING FERMENTED FOODS LIKE PLAIN YOGURT (NOT ALL THE SWEETENED JUNKY YOGURTS) , KOMBUCHA TEA (KING FERMENTS), SAUERKRAUT OR OTHER FERMENTED VEGGIES) AND/OR SOME PROBIOTIC SUPPLEMENTS (WITH BIFIDOBACTER, LACTOBACILLUS AND SACCHAROMYCES BOULARDII DEPENDING ON YOUR SYMPTOMS WOULD BE THE FIRST STEP. 3) ADDING A PROBIOTIC SUPPLEMENT (with Bifidobacter, Lactobacillus and ideally also or individuallySaccharomyces Boulardii);; one daily for several weeks or months, longer if the problem persists. AND, maybe even... 4) ANTIFUNGAL RX: if the above aren't working, then we may want to add a few doses of a strong antifungal like Fluconazole (DIFLUCAN) 100-150 mg once daily for 1-4 doses, OR for some cases, for several weeks or months OR NYSTATIN LET ME KNOW YOUR THOUGHTS OR CONCERNS. documented in this encounterMemorial Health System [facility]by [facility] [id number] History of Present illness Narrative* Rodriguez Black, [facility] - 07/25/2024 11:00 AM EST THERAPY SESSION NOTE Session #: 13 Start Time: 11:00 AM End Time: 12:00 PM Session Length: 60 minutes Focal Issues For the past 3 days, client experienced passive suicidal ideations. Client stated that it helped totalk to her friend, Ian, who took a walk with her and was able to talk things through that helped a lot. Client stated that she suddenly felt better today, but was feeling very hopeless over the last few days and struggled to function. Client was feeling depressed after her friends had been leaving her out of activities. Client went to a bar and that only made her feel more depressed and alone. If I didn't talk to Ian, I don't know what would have happened. Client stated that she stopped taking her medication because she didn't feel that it was working. Counselor asked client for her permission to talk to a psychiatrist about client's feeling that hermedication was failing and what might be changed. Dr. Paula Martinez spoke with client and prescribed Hydroxyzine, 25 to 50 mg, as needed. Later, client stated that she would like to explore the possibility of Adderall because she has trouble with focusing. Also, client is interested in getting blood drawn (or swab) to check and see if there is information about how her body works in order to discover a medication that might work moreeffectively because client has experienced so many negative side effects over the years. Client and counselor discussed how client not being in a romantic relationship at this time may have contributed to client's depressed mood. Client agreed. I'm really going to try to work on myself.It's confusing, but I know I cannot be in a relationship. Client admitted that she has not read any of the information counselor sent her. Discussed processing it in session. Counselor read to client some of the workbook information on self-love. Client stated that the information reflected the struggle that client is experiencing. Client and counselor agreed to work on it in session Impressions Client's struggle with being medication compliant and not currently being in a romantic relationship escalated client's risk of self-harm. Goals: Be able to leave an unhealthy relationship 2. Cease obsessive stalking behavior 3. Develop confidence in her ability to manage everyday life stressors related to living independently. Diagnosis Encounter Diagnosis Name Primary? Anxiety and depression Yes Follow up on Treatment Plan Next session is scheduled for Thursday, August 01, 2024 at 11:00 AM. RECOMMENDATIONS/PLANS Disposition Continue individual therapy. documented in this encounterMemorial [facility] [id number] History of Present illness Narrative* MEÑO Sharp - 07/18/2024 11:00 AM EDT THERAPY SESSION NOTE Session #: 12 Start Time: 11:00 AM End Time: 12:00 PM Session Length: 60 minutes Focal Issues Client broke up with Thomas Tam because she missed Ian. But now she misses Thomas Tam and realized that she wants to start talking to her again and eventually have a relationship. Client acknowledges that her friends are frustrated with her behavior. Client and counselor discussed client's relationship instability and that client would very likely not be able to achieve the kind of healthy relationship she craves until she halts the need to be attached to a man and instead focus on getting healthy by feeling more positive about herself. Client began to cry, acknowledging that she wants a better life and that she cannot remember when she likedherself. Counselor sent client's psychiatrist a message about client feeling that her medication is not effective and that client is experiencing significant depressive mood. Client endorsed thoughts of not liking her life, but denied any suicidal ideations. Client and counselor reviewed client's safety plan: Healthy self-soothing activities: working in her coloring books, watching television, and going on hikes and walks Healthy thoughts: I love animals and I'm curious about life. , I have a diagnosis, but it's something I can learn to manage. , I have to learn to love myself first before anyone else really see me to show me love. Supports: Mother, Espinoza, Grandmother as supports. suicide crisis line, [phone] Agreed that she would go the hospital if using her plan does not work. Client stated that her 2 best friends are in town today and she plans on talking with them about what she is experiencing. Counselor reiterated that counselor will make self available if client is experiencing a crisis. Impressions Client is increasing in her willingness to work more intentionally on improving how she feels aboutherself instead of focusing on relationships with others. However, this is an emotionally painful and difficult transition for client. Goals Be able to leave an unhealthy relationship Cease obsessive stalking behavior Develop confidence in her ability to manage everyday life stressors related to living independently. Diagnosis Encounter Diagnosis Name Primary? Anxiety and depression Yes Follow up on Treatment Plan Next session is scheduled for July 25, 2024 at 11:00 AM. RECOMMENDATIONS/PLANS Disposition Continue individual therapy. documented in this encounterMemorial [facility] General [id number] History of Present illness Narrative* MEÑO Sharp - 07/11/2024 11:00 AM EDT THERAPY SESSION NOTE Session #: 11 Start Time: 11:00 AM End Time: 12:00 PM Session Length: Focal Issues Client went home for the weekend for a cousin's wedding. She got into a fight with her mother over cleaning. Client stated that she would not go home and live with her mother because they do easily get into fights. OJ was missing for 6 hours and client was angry at him. She sent a text to him Don't talk to me again. She misses Ian's attention. Her psychiatrist is booked until August. She was off of her medication for 3 days because she forgot to bring them with her when she went home over the weekend. Client is preparing for graduation and is feeling stressful about it. 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 Discussed that client may struggle because of her BPD establishing the kind of life she wants. I feel like the unstable moods suck (e.g. anger outbursts). She looks around and sees others in relationships and I don't think I'll ever have that. I choose relationships with people who have problems and I sabotage healthy relationships and I have to deal with the negative consequences of what I do.I feel shitty. Counselor led client in present, future, and change visualization exercise. At the end, client voiced a stronger commitment to work on treating her BPD instead of putting her focus on relationships with men and others. Client's psychiatrist gave client a list of DBT groups and client agreed to contact them, compare which ones she can afford with her insurance and which ones have groups with members closer to her age. Impressions Client is making progress as evidenced by client's acknowledgement that she has been struggling to focus on working to understand and treat her BPD instead of focusing on her romantic relationships. Goals Be able to leave an unhealthy relationship Cease obsessive stalking behavior Develop confidence in her ability to manage everyday life stressors related to living independently. Diagnosis Encounter Diagnosis Name Primary? Anxiety and depression Yes Follow up on Treatment Plan Next session is scheduled for Thursday, July 18, 2024 at 11:00 AM RECOMMENDATIONS/PLANS Disposition documented in this encounterMemorial Health System [facility] General [id number] History of Present illness Narrative* MEÑO Sharp - 07/04/2024 11:00 AM EDT THERAPY SESSION NOTE Session #: 10 Start Time: 11:09 AM End Time: 12:00 PM Session Length: 51 minutes Focal Issues Client is feeling anxious about registering for classes next term. Client feels like she has hit an emotional low this week. Yesterday she was crying all day. Her roommate stated that client was manic last week in that she was romantically involved with 3 men (O.J. long distance, Ian who lives next door, and Arnie who will be leaving in a week). Client would also wake up in the morning and drink alcohol. I'm afraid that I will become suicidal. Client did not endorse any current S.I. Her friend took her to the gym and that helped client's mood somewhat, but she will cry all night when she is alone. Client said that she is taking her medication consistently, but was not for the last few weeks. Client agreed to make an appointment with her psychiatrist to see about possibly getting the dosage increased, but she is worried about gaining weight. Client stated that her psychiatrist discussed the possibility of Adderall Client agreed to try to go to the gym everyday. Client had not read the excerpt on Self-Love, but agreed to discuss it next week, as client agreed that she needs to focus on loving herself instead of using men as a way to feel good about herself. Impressions Diagnosis Encounter Diagnosis Name Primary? Anxiety and depression Yes Follow up on Treatment Plan Next session is scheduled for July 11, 11:00 AM. RECOMMENDATIONS/PLANS Disposition Continue individual therapy, following up on psychiatrist appointment, going to the gym, and reviewing Self Love excerpts. documented in this encounterMemorial Health System [facility] General [id number] History of Present illness Narrative* MEÑO Sharp - 06/27/2024 11:00 AM EDT THERAPY SESSION NOTE Session #: 9 Start Time: 11:03 AM End Time: 12:00 PM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 AND, maybe even... 4) ANTIFUNGAL RX: if the above aren't working, then we may want to add a few doses of a strong antifungal like Fluconazole (DIFLUCAN) 100-150 mg once daily for 1-4 doses SENT OVER ANOTHER 4 DOSES, ORfor some cases, for several weeks or months LET ME KNOW YOUR THOUGHTS OR CONCERNS. documented in this encounterMemorial Health System [facility]by General [id number] History of Present illness Narrative* Moose Ellsworth MD - 11/24/2023 10:45 AM EST [facility] Brenda Kim : 2005 IN-PERSON VISIT Time spent on visit: Prep time day of visit: 6 min reviewing outside records Call/visit scheduled for: SAME DAY 10:45 Patient checked in: Call/Visit start: 10:48 Call/Visit end: 11:30 Code based on time/LOS: LEVEL 4 PRIOR VISITS: DATE 05/21/2022 11/24/2023 SUMMARY UTI sx UA 05/20 nonindicative ?Vag dc Hx STI DC Term dysuria Vulvar swelling +BV 5 and +CT Recurrent Seen over ^ 6 times by Integrity Director and Uro w/o def dx Wants to avoid abx!!! Last visit here for similar 11/19/23 LABS Gluc 84 LFT TSH 0.74 fT3: 2.48 TPO Ab <1 PLAN >Tritest >uCT/NG (neg) >HIV/RPR RX fluconazole After visit Cx > strep ag (rx Keflex #10) >CT/NG >BV Declines UA Rx Clinda vag gel JIC >labs later for D, Mag, B12, A1c ?Vag pH testing, ?boric acid ?Dr Santos at [facility] 12/15/23 >Reduce fructose Mejia: >>: POC; C: Continue S: stable R!: Resolved! MSQ: Medical Symptom Questionnaire) MBSR: Mindfulness Based Stress Reduction Rx: Prescribed Tx: Treatment Rec: Recommended GF: Gluten Free DE: Digestive Enzymes S:SUBJECTIVE: CC: Chief Complaint Patient presents with Female Problem Vaginal swelling. Abnormal discharge possibly yellow x 2 weeks HPI: NOTES FROM 11/24/2023 VISIT: RECURRENT INTENSE VULVITIS/ VAGINITIS DATES ONSET FROM WHEN CT+ X2 IN CLOSE PROXIMITY WITH SAME EX=PARTNER, ALSO + FOR BV AT THAT TIME SO UNDERWENT 2 ROUNDS OF DOXY NOW MAINLY EXTERNAL DYSURIA CURRENTLY VULVA/VAGINAL INTROITUS TOO SWOLLEN TO SELF ADMIN MONISTAT SUPP RECENTLY SEXUALLY ACTIVE WITH NEW LONG DISTANCE PARTNER FROM Jul INTOL OF CONDOMS/ SPERMACIDE, LATEX ALLERGY? 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 12 MONTHS, 2 ULTRASOUNDS, 2 LAP EXPLOR HAS BEEN TO UROGYN ALSO WT UP 50# IN YEAR, NO TPO AB MANY LABS FROM [facility] AND CARE EVERYWHERE OVER PAST 2 WEEKS WITH NL GLUCOSE, NL LFTs, NORMAL CBC, RECALLS PRIOR TESTING FOR MYCO/UREAPLASMA BUT RESULTS NOT FOUND DIET MOD WITH LOWER SUGAR, BUT HEAVY FRUIT, BANANA HAS TRIED PROBIOTICS RX THAT WORKED BEST AND FOR SEVERAL DAYS WAS TOPICAL/INSERT OF CLINDAYMYCIN (USED APPLICATOR WITH GEL) SOON SUPPOSED TO SEE DR COLLAZO WITH UC TODAY BUT WAS CANCELLED RESCHEDULED FOR 12/14 ALSO STRUGGLING WITH SEVERE CONSTIPATION, FIRST BOUT 7TH GR WAS HAVING RECTAL BLEEDING 10/23/23 > CALPRO TESTING (NORMAL) AND STOOL TESTING (NEG) CLEARED UP TRIED GUT HELP WITH PROBIOTICS (FLORAGEN), MAG, TRIED CLINDA CREAM VAGINALLY, HELPED TOPICALLY FOR SEV DAYS NOTES FROM 05/21/2022 VISIT: URINARY SX CAME IN PRIOR DAY FOR UA, ESSENTIALLY NON-SUSPICIOUS FOR INFECTION HX BV STAYED WITH EX BUT BROKE UP AFTER January EVAL NO NEW PARTNERS SINCE January: CHLAMYDIA, YEAST + BV AND UTI > ABX FOR CHLAMYDIA, DIDN'T HELP (AZITH), 2ND DX OF CHLAMYDIA, ENDED UP ON 2ND ABX (DOXY) RETEST IN March WAS NEG FOR CHLAMYDIA SX DIDN'T CLEAR UP LAST MENSTRUAL HX UA Lab Results Component Value Date KETONESU Negative 05/20/2022 GLUCOSEU Negative 05/20/2022 BLOODU Negative 05/20/2022 BILIRUBINUR Negative 05/20/2022 UROBILINOGEN 0.2 E.U./dL 05/20/2022 PROTEINUA Negative 05/20/2022 NITRITE Negative 05/20/2022 LEUKOCYTESUR Negative 05/20/2022 PHUR 6.5 05/20/2022 LABSPEC 1.025 05/20/2022 CLARITYU Clear 05/20/2022 COLORU Yellow 05/20/2022 RX HISTORY: FLAGYL ZITHROMYCIN ONE TIME DOSE > 2 X CHLAMYDIA DOXY 14 DOSES, THEN NEG FOR CHLAMYDIA NEG AGAIN FOR CHLAMYDIA, STILL NOT TESTED NO ORAL MEDS FOR ACNE OCP FROM MEDS: Current Medications as of 11/24/2023 5:14 PM Outpatient Medications Quantity Refills Start End clindamycin phosphate 2 % Gel 5 g 0 11/24/2023 -- nitrofurantoin (MACRODANTIN) 25 MG capsule -- -- -- norethindrone-ethinyl estradiol (FEMHRT 09/25) 1-5 mg-mcg Tab -- -- -- phentermine (ADIPEX-P) 37.5 mg tablet -- -- -- ciprofloxacin HCl (CIPRO) 500 MG tablet (Discontinued) -- -- 11/24/2023 ROS/ BIO-SYSTEMS REVIEW: GEN: wt/sleep/ appetite/ energy [] PSYCHOSOCIAL: mood/ connections / intimacy/ pain 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, ?EATING DISORDER [] ASSIMILATION: gut/ digestion/ BM / nutrition/ oxygenation ON ADIPEX FOR WT 1 WK Oct, REPEATED START 11/24/23 HAS BEEN ON SACC B FOR 3 MO, [] ENERGY: mitochondria/ sleep quality [] IMMUNE: environment/ airways/ skin /pets FLAGYL ZITHROMYCIN ONE TIME DOSE > 2 X CHLAMYDIA DOXY 14 DOSES, THEN NEG FOR CHLAMYDIA > ROTTED TEETH NEG AGAIN FOR CHLAMYDIA, TESTED FOR MYCOPLASMA NO ORAL MEDS FOR ACNE TRIAL OF ZYRTEC FOR ?VAGINITIS [] STRUCTURE: spine/ joints/ muscles [] HORMONAL: neurotransmitters/ cycles, weight, adrenal WT GAIN FRESHMAN 50# ON OCP FROM AGE 13, INITIALLY FOR 2-3 WK PERIODS [] TRANSPORT: heart/ circ/ swelling/ lymph/ bleed/bruise [] DETOX: exposures/ tob-EtOH / elim [] Past medical history, medications, allergies and problem visit reviewed and discussed: Past Medical History: Diagnosis Date Acne 2017 Allergy 2020 Anxiety 2021 Constipation 2017 Depression 2021 Allergies Allergen Reactions Mhhld-Htchy-Giuaubg-Pramoxine Rash Mom can't remember name of antibiotic SOC: Social History Tobacco Use Smoking status: Never Smokeless tobacco: Never Vaping Use Vaping Use: Never used Substance Use Topics Alcohol use: Not Currently Drug use: Never O: OBJECTIVE: Vitals: 11/24/23 1041 BP: 114/78 Pulse: 94 Temp: 98.4 F (36.9 C) SpO2: 97% Weight: 151 lb (68.5 kg) Height: 5' 3 (1.6 m) Body mass index is 26.75 kg/m . Wt Readings from Last 3 Encounters: 11/24/23 151 lb (68.5 kg) 10/08/22 132 lb (59.9 kg) (58%, Z= 0.21)* 05/21/22 129 lb (58.5 kg) (55%, Z= 0.12)* * Growth percentiles are based on CDC (Girls, 2-20 Years) data. 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 Subacute and chronic vaginitis Vitamin D 25 hydroxy Vitamin B12 Magnesium clindamycin phosphate 2 % Gel Hemoglobin A1c Vaginitis Panel DNA Amplified Probe Chlamydia / Gonorrhoeae DNA Swab 2. Acute vulvitis Vaginitis Panel DNA Amplified Probe Chlamydia / Gonorrhoeae DNA Swab 3. Abnormal weight gain Uric acid SUMMARY: No LOS data to display Patient Instructions GETTING STI TESTS ALONG WITH BV/ YEAST/ TRICH NO TESTING FOR BLADDER INFECTION TODAY, SINCE MOST SYMPTOMS ARE VAGINAL/ EXTERNAL VULVA WILL SEND OVER RX FOR CLINDAMYCIN GEL COME BACK FOR SOME NUTRIENT ASSESSMENT LABS WHICH HAVEN'T BEEN DONE BEFORE. DIAL DOWN FRUIT (SOME FOLKS CAN'T PROCESS FRUCTOSE WELL!) documented in this encounterMemorial Health System [facility] [id number] Instructions* Patient Instructions* Moose Ellsworth MD - 11/24/2023 10:45 AM EST GETTING STI TESTS ALONG WITH BV/ YEAST/ TRICH NO TESTING FOR BLADDER INFECTION TODAY, SINCE MOST SYMPTOMS ARE VAGINAL/ EXTERNAL VULVA WILL SEND OVER RX FOR CLINDAMYCIN GEL COME BACK FOR SOME NUTRIENT ASSESSMENT LABS WHICH HAVEN'T BEEN DONE BEFORE. DIAL DOWN FRUIT (SOME FOLKS CAN'T PROCESS FRUCTOSE WELL!) documented in this [facility]02-14-2024 Telephone encounter Note* Telephone Encounter - Angie Pike NP - 11/04/2023 11:57 AM EST Please tell pt that I sent a referral for Gynecology Dr Betty Mathew at [place] [address] . I just placed the referral on 11/04/23. She should be getting a call from them, if after a week if she does not get called, let me know [place] [facility] [id number] Miscellaneous Notes* Telephone Encounter - Angie Pike NP - 11/04/2023 11:57 AM EST Please tell pt that I sent a referral for Gynecology Dr Betty Mathew at [place] [address] . I just placed the referral on 11/04/23. She should be getting a call from them, if after a week if she does not get called, let me know [place] documented in this encounterBoone Hospital [id number] History of Present illness Narrative* Angie Pike NP - 10/29/2023 4:52 PM ESTAssociated Problem(s): Rectal bleeding Appears to have resolved No further work up at this time If occurs again pt to call office Does report straining w stool, cont miralax I have reviewed notes from ER visit * Angie Pike NP - 10/29/2023 4:51 PM ESTAssociated Problem(s): Pelvic pain Will try to find her a [place]AGE [place] [facility] [place] [facility] * Angie Pike NP - 10/29/2023 3:37 PM ESTAssociated Problem(s): Overweight (BMI 25.0-29.9) Pt meets qualifications of OAC 4731-07-25 for [...] pain OARRS reviewed Fu in 4 weeks * Angie Pike NP - 10/29/2023 3:36 PM ESTAssociated Problem(s): Anxiety No current meds at this time * DILCIA BEAVERS - 10/29/2023 1:40 PM EST ER a couple days ago due to having blood in her stool. ER could not find out why- they sent her home with bridgett Wanting blood work due to vaginal issues. Painful during intercourse, having to take medication forpain, stopped using condoms due to a possibility of pain, pt states she has been tested 6 times over the year for an std. Having burning with urination that comes and goes in the last two years. Pt has gone to three different gynos and has had ultrasounds done. Never yeast infection or UTI. Pt concerned with weight gain while working out and not seeing tone or definition * Angie Pike NP - 10/29/2023 1:40 PM EST Images from the original note were not included. Brenda Kim is a 18 y.o. female presents with chief complaint of No chief complaint on file. HPI: Weight gain: since last visit 15 pounds, works out daily, no pop or sugary drinks, no ETOH, very frustrated, asking about adipex ER at school for rectal bleeding, had labs, abd xray, sent home w miralax, symptoms have resolved, reviewed avail notes Pelvic Pain The patient's primary symptoms include pelvic pain. The patient's pertinent negatives include no genital itching, genital lesions, genital odor, genital rash, missed menses, vaginal bleeding or vaginal discharge. This is a chronic problem. The current episode started more than 1 year ago. The problem occurs every several days. The problem has been unchanged. The pain is moderate. The problem affects both sides. She is not . Associated symptoms include dysuria and painful intercourse. Pertinent negatives include no abdominal pain, back pain, chills, constipation, diarrhea, discolored urine, fever, frequency, headaches, hematuria, nausea, rash, sore throat, urgency or vomiting. She has tried antibiotics and antifungals for the symptoms. The treatment provided no relief. She is sexually active. No, her partner does not have an STD. She uses oral contraceptives for contraception. Her menstrual history has been regular. Her past medical history is significant for an STD. There is no history of an abdominal surgery, an ectopic , endometriosis, a gynecological surgery, menorrhagia, metrorrhagia, miscarriage, ovarian cysts, PID or vaginosis. Rectal Bleeding This is a new problem. The current episode started in the past 7 days. The problem occurs intermittently. The problem has been resolved. Pertinent negatives include no abdominal pain, arthralgias, chest pain, chills, congestion, coughing, fever, headaches, joint swelling, myalgias, nausea, rash, sore throat or vomiting. Treatments tried: miralax. The treatment provided significant relief. SUBJECTIVE: MEDICATIONS: Current Outpatient Medications Medication Instructions norgestimate-ethinyl estradiol (Sprintec 28) 0.25-35 MG-MCG tablet 1 tablet, Oral, Daily phentermine (ADIPEX-P) 37.5 mg, Oral, Daily before breakfast polyethylene glycol (PEG) 3350 (GLYCOLAX) 34 g, Oral, Daily RT ALLERGIES: Allergies Allergen Reactions Doxycycline Other Turns teeth black REVIEW OF SYMPTOMS: Review of Systems Constitutional: Negative for appetite change, chills and fever. HENT: Negative for congestion, ear pain and sore throat. Eyes: Negative for pain, discharge, redness and visual disturbance. Respiratory: Negative for cough, shortness of breath and wheezing. Cardiovascular: Negative for chest pain, palpitations and leg swelling. Gastrointestinal: Positive for anal bleeding and hematochezia. Negative for abdominal pain, blood in stool, constipation, diarrhea, nausea and vomiting. Genitourinary: Positive for dysuria and pelvic pain. Negative for difficulty urinating, frequency, hematuria, menorrhagia, missed menses, urgency and vaginal discharge. Musculoskeletal: Negative for arthralgias, back pain, joint swelling and myalgias. Skin: Negative for rash and wound. Neurological: Negative for dizziness, tremors, seizures, syncope and headaches. Psychiatric/Behavioral: Negative for behavioral problems, self-injury and suicidal ideas. The patient is not nervous/anxious. Hematological: Does not bruise/bleed easily. Endocrine: Negative for polydipsia, polyphagia and polyuria. Allergic/Immunologic: Negative for environmental allergies and food allergies. PAST MEDICAL HISTORY Past Medical History: Diagnosis Date Acne vulgaris Anxiety 10/29/2023 At low risk for fall Family planning, BCP ( control pills) maintenance Influenza vaccination declined Interstitial cystitis Menometrorrhagia Positive depression screening Possible exposure to STD Past Surgical History: Procedure Laterality Date CYSTOURETHROSCOPY 03/16/2023 With Hydrodistention and Ureaplasm and Mycoplasma Urethral cultures FRACTURE SURGERY 2004 repair fx left arm NOSE SURGERY 2020 SEPTOPLASTY 11/19/2020 Septoplasty, Bilateral maxillary antrostomy, bilateral excision inferior turbinates, excision left mari bullosa family history includes Cancer in her paternal grandmother. OBJECTIVE: Visit Vitals BP 102/72 (BP Location: Right arm, Patient Position: Sitting, BP Cuff Size: Small adult) Pulse 80 Temp 97.8 F (Temporal) Resp 18 Ht 5' 3 Wt 157 lb 6.4 oz SpO2 96% BMI 27.88 kg/m Smoking Status Never BSA 1.78 m Physical Exam Vitals reviewed. Constitutional: General: She is not in acute distress. Appearance: Normal appearance. HENT: Head: Normocephalic and atraumatic. Right Ear: External ear normal. Left Ear: External ear normal. Nose: Nose normal. Mouth/Throat: Mouth: Mucous membranes are moist. Eyes: Extraocular Movements: Extraocular movements intact. Conjunctiva/sclera: Conjunctivae normal. Cardiovascular: Rate and Rhythm: Normal rate and regular rhythm. Pulses: Normal pulses. Heart sounds: Normal heart sounds. Pulmonary: Effort: Pulmonary effort is normal. Breath sounds: Normal breath sounds. Abdominal: General: Bowel sounds are normal. There is no distension. Palpations: Abdomen is soft. There is no mass. Tenderness: There is no abdominal tenderness. Musculoskeletal: General: Normal range of motion. Cervical back: Neck supple. Skin: General: Skin is warm and dry. Capillary Refill: Capillary refill takes 2 to 3 seconds. Findings: No rash. Neurological: General: No focal deficit present. Mental Status: She is alert and oriented to person, place, and time. Psychiatric: Mood and Affect: Mood normal. Behavior: Behavior normal. Thought Content: Thought content normal. Judgment: Judgment normal. ASSESSMENT AND PLAN: No follow-ups on file. Problem List Items Addressed This Visit Overweight (BMI 25.0-29.9) - Primary Pt meets qualifications of [facility] 4731-07-25 for weight loss. BMI>30 or >27 with comorbid conditions. Notify office with any symptoms of chest pain, dyspnea, heart palpitations, or any anxiety symptoms. F/U in 4 weeks to document weight loss. Increase physical activity as tolerated, and lower caloric intake to 1600 calories daily if no contraindications BMI is 27, dx anxiety, pelvic pain OARRS reviewed Fu in 4 weeks Relevant Medications phentermine (Adipex-P) 37.5 MG tablet Anxiety No current meds at this time Pelvic pain Dysuria documented in [facility] encounterBo[facility] [id number] NoteHNO ID: [id number] Author: Patel Bar MD Service: ? Author Type: Physician Type: Progress Notes Filed: 12/12/2021 8:53 PM Note Text: SECTION OF FACIAL PLASTIC AND RECONSTRUCTIVE SURGERY Head and Neck [place], [facility] Follow up Visit Date of service: 12/12/2021 Brenda Marroquin is a 16 year old female who presents after surgery for follow-up. Procedure: 1. 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 Open septoplasty 3. Therapeutic out-fracture of bilateral inferior turbinates. 4. Repair of nasal septal perforation with Alloderm interposition graft 5. Cosmetic rhinoplasty Date: 08/07/2021 Patient reports that left side feels partially obstructed (improved from before surgery but worse than a month ago), right side reports some improvement. Obstruction most notable during exercise and sleeping - reports mouth breathing at night. Swelling has improved since prior visit. On exam edema resolving. Incision well healed. Nasal airways patent. Dynamic valve collapse mild-moderate, minimally contributing to obstruction. Left inferior turbinate mildly hypertrophied. Septum midline. Good nasal contours. Assessment/Plan: Discussed course of healing can vary, particularly with weather/humidity and allergy hx. Given no mechanical obstruction appreciated, symptoms may also be related to abnormal sensation intranasally related to prior surgeries. May further improve now that patient is approx 1 year out from original surgery, and 4 months out from most recent surgery. - Daily PO allergy medication / antihistamine + Flonase; they will get this over the counter - 2-3 months follow up; discussed that no intervention would be planned until at least 9-12 months out from surgery. Seen in conjunction with Dr. Bar. Curry Morgan MD Resident, Plastic Surgery Attending attestation: I personally evaluated and examined the patient with Dr. Morgan. Within the resident's note, I have edited the history, physical exam, assessment, and plan to reflect my own findings. Patel Bar MD, FACS Facial Plastic and Reconstructive Surgery [facility], [facility] [place] I spent a total of 20 minutes on the date of the service which included preparing to see the patient, [id number] patient care, completing clinical documentation, performing a medically appropriate examination and counseling and educating the patient/family/caregiver.[facility] 12-12-2021 History of Present illness Narrative* Patel Bar MD - 12/12/2021 5:09 PM EDT Images from the original note were not included. SECTION OF FACIAL PLASTIC AND RECONSTRUCTIVE SURGERY Head and Neck [place], [facility] Follow up Visit Date of service: 12/12/2021 Brenda Marroquin is a 16 year old female who presents after surgery for follow-up. Procedure: 1. 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 Open septoplasty 3. Therapeutic out-fracture of bilateral inferior turbinates. 4. Repair of nasal septal perforation with Alloderm interposition graft 5. Cosmetic rhinoplasty Date: 08/07/2021 Patient reports that left side feels partially obstructed (improved from before surgery but worse than a month ago), right side reports some improvement. Obstruction most notable during exercise and sleeping - reports mouth breathing at night. Swelling has improved since prior visit. On exam edema resolving. Incision well healed. Nasal airways patent. Dynamic valve collapse mild-moderate, minimally contributing to obstruction. Left inferior turbinate mildly hypertrophied. Septum midline. Good nasal contours. Assessment/Plan: Discussed course of healing can vary, particularly with weather/humidity and allergy hx. Given no mechanical obstruction appreciated, symptoms may also be related to abnormal sensation intranasally related to prior surgeries. May further improve now that patient is approx 1 year out from original surgery, and 4 months out from most recent surgery. - Daily PO allergy medication / antihistamine + Flonase; they will get this over the counter - 2-3 months follow up; discussed that no intervention would be planned until at least 9-12 months out from surgery. Seen in conjunction with Dr. Bar. Curry Morgan MD Resident, Plastic Surgery Attending attestation: I personally evaluated and examined the patient with Dr. Morgan. Within theresident's note, I have edited the history, physical exam, assessment, and plan to reflect my own findings. Patel Bar MD, FACS Facial Plastic and Reconstructive Surgery [facility], [facility] [place] I spent a total of 20 minutes on the date of the service which included preparing to see the patient, [id number] patient care, completing clinical documentation, performing a medically appropriate examination and counseling and educating the patient/family/caregiver. documented in [facility]Pro[facility] NoteHNO ID: [id number] Author: Patel Bar MD Service: ? Author Type: Physician Type: Progress Notes Filed: 09/26/2021 9:54 PM Note Text: SECTION OF FACIAL PLASTIC AND RECONSTRUCTIVE SURGERY Head and Neck [place], [facility] Post-operative Visit, Virtual Zoom Date of service: 09/26/21 Brenda Marroquin is a 16 year old female who presents after surgery for follow-up. Procedure: 1. 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 Open septoplasty 3. Therapeutic out-fracture of bilateral inferior turbinates. 4. Repair of nasal septal perforation with Alloderm interposition graft 5. Cosmetic rhinoplasty Date: 08/07/2021 Doing well overall. Some congestion. Some supratip fullness and some asymmetric healing. Assessment/Plan: Discussed healing can be asymmetric but should resolve. Breathing should improve, but allergy treatment still needed. Follow up as scheduled in person. Patel Bar MD, [facility] Facial Plastic and Reconstructive Surgery [facility] Neck [facility]11-23-2021 NoteHNO ID: [id number] Author: Patel Bar MD Service: ? Author Type: Physician Type: Progress Notes Filed: 08/13/2021 4:44 PM Note Text: SECTION OF FACIAL PLASTIC AND RECONSTRUCTIVE SURGERY [facility] Neck [facility] Post-operative Visit Date of service: 08/13/2021 Brenda Marroquin is a 16 year old female who presents after surgery for follow-up. Procedure: 1. 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 Open septoplasty 3. Therapeutic out-fracture of bilateral inferior turbinates. 4. Repair of nasal septal perforation with Alloderm interposition graft 5. Cosmetic rhinoplasty Date: 08/07/2021 Doing well with no significant concerns since surgery. On exam, suture lines are intact. No evidence of infection. Splints removed today. Nose with good contours and expected nasal swelling. Nasal cavities patent. Assessment/Plan: Doing well after surgery. Nasal saline spray every 2 hours while awake. Continue routine wound care. Follow up in 6 weeks with virtual visit and 3 months in person. Joe Rivera MD for the service of Patel Bar MD, [facility] Facial Plastic and Reconstructive Surgery [facility] Attending attestation: I personally evaluated and examined the patient with Dr. Rivera. Within the resident's note, I have edited the history, physical exam, assessment, and plan to reflect my own findings. Patel Bar MD, [facility] Facial Plastic and Reconstructive Surgery [facility] Neck [facility]11-17-2021 NoteHNO ID: [id number] Author: PRESLEY Morales Service: Anesthesiology Author Type: Casing Man Type: Anesthesia Procedure Notes Filed: 08/07/2021 9:14 AM Note Text: ANESTHESIOLOGY PROCEDURE NOTE Airway General Information Procedure Start Time/Medication Administration: 08/07/2021 8:44 AM Patient location during procedure: OR Timeout Performed Pre-procedure: timeout performed Consent Obtained: Yes Patient identity confirmed: arm band, care team primary care physician and patient Staffing CAA: PRESLEY Morales Performed by: anesthesiologist and CAA Indications and Patient Condition Preoxygenated: yes Manual In-Line Stabilization: No Difficult Mask: No Indications for airway management: anesthesia anesthesia circuit Method: asleep Cricoid Pressure: No Final Airway Details Final airway type: endotracheal airway Final Endotracheal Airway: reinforced tube Cuffed: yes Successful intubation technique: direct laryngoscopy Endotracheal tube insertion site: oral Blade: Sharmaine Blade size: #3 ETT size (mm): 6.0 Measured from: lips Measurement (cm): 21 Placement verified by: chest auscultation and capnometry Cormack-Lehane Classification: grade I - full view of glottis Number of attempts at approach: 1 Ventilation between attempts: none Failed airway: no Unrecognized esophageal intubation: no Airway not difficult SIGNATURE: PRESLEY Morales PATIENT NAME: Brenda Marroquin DATE: August 07, 2021 TIME: 9:13 AM CSN: [id number] NoteHNO ID: [id number] Author: Patel Bar MD Service: ? Author Type: Physician Type: Progress Notes Filed: 06/27/2021 5:32 PM Note Text: SECTION OF FACIAL PLASTIC AND RECONSTRUCTIVE SURGERY Head and Neck [place], [facility] Follow-up Visit Date of service: 06/27/2021 Brenda Marroquin is a 16 year old female who presents for follow up of nasal obstruction. Interim History: Brenda has been using the Flonase daily for 6 weeks without improvement in her breathing. Saw Dr. Rosario who did not recommend intervention regarding her sinuses. Interested in surgical repair to address her breathing. Also may want to address some aesthetic concerns. She previously underwent septoplasty and inferior turbinate excision without improvement. Physical examination: Well appearing, NAD. Alert and oriented. Pleasant and appropriately interactive. Septum moderately deviated, S shaped with bilateral partial obstruction Small anterior septal perforation Internal nasal valves narrow and collapse on inspiration Weak nasal alae Turbinates reduced Tip bulbous, midvault narrow, projection slightly over, rotation slightly under Assessment/Plan: Nasal obstruction due primarily to nasal valve collapse with contribution from septal deviation. She also has a nasal septal perforation. She has failed Flonase for 6 weeks. We discussed surgical correction with septoplasty and nasal valve reconstruction (communications editor grafts and moises grafts). She would like to proceed with surgery given the severity of the problem. We will plan for an open approach. Given the need for cartilage for structural grafting and her previous history of septal surgery, she likely will not have adequate septal cartilage for necessary nasal grafting. She may require a right costal cartilage harvest. Additionally, she may require left auricular cartilage harvest for moises grafts for nasal valve reconstruction. We will also repair her septal perforation with primary closure and an Alloderm interposition graft. I do not plan to change the appearance of the patient's nose in any significant way. We discussed a functional, non-cosmetic nasal reconstruction. Risks discussed include but are not limited to: infection, bleeding, scar, septal perforation, persistent or worsened nasal obstruction, cartilage warp, cosmetic deformity, asymmetry, scar being more noticeable, no guarantee of functional/cosmetic outcome, need for future surgical procedures, and other unforseen complications. We also discussed concerns regarding the appearance of her nose. She would like to straighten the profile of her nose and refine and rotate her tip. We will plan for dorsal hump reduction, osteotomies to close the open roof, cephalic trim, and tip sutures to refine and rotate the tip. She will also likely need rim grafts to smooth the transition from her tip to ala. The functional components of the treatment plan will be submitted to insurance for approval. The cosmetic components will be paid by the patient according to the flat fee schedule and will be entirely separate from the functional component. All questions answered. Photos obtained today. Consent obtained. Patel Bar MD, FACS Facial Plastic and Reconstructive Surgery [facility], [facility] [place] I spent a total of 40 minutes on the date of the service which included preparing to see the patient, [id number] patient care, completing clinical documentation, obtaining and/or reviewing separately obtained history, performing a medically appropriate examination, counseling and educating the patient/family/caregiver and ordering medications, tests, or procedures.[facility]09-14-2021 NoteHNO ID: [id number] Author: Elis Rosario MD Service: ? Author Type: Physician Type: Progress Notes Filed: 06/04/2021 2:41 PM Note Text: This consult is seen at the kind request of Dr. Patel Bar of facial plastic surgery, and my final recommendations will be communicated to the requesting health care provider by way of shared electronic medical record. This note is formatted with the impression and plan first and the history and physical to follow. IMPRESSION 16-year-old female with nasal congestion opposable drainage secondary to septal deviation and likely chronic rhinitis. RECOMMENDATION/PLAN I recommend she continue the Flonase nasal spray. I will add saline irrigation twice a day and Astelin nasal spray, 2 sprays twice a day. I do not think she needs any sinus surgery at this point in time but she should proceed with Dr. Bar for functional septorhinoplasty. If patient has persistent drainage after her surgery with Dr. Bar, she can return to see me for further management of her chronic rhinitis. Chief Complaint Nasal drainage, cough, nasal congestion. History of Present Illness Brenda Marroquin is a 16 year old female presents for evaluation of nasal drainage and nasal congestion. Patient has longstanding history of nasal congestion and drainage. She was seen by outside ENT in October and a CT scan showed severe septal deviation and nasal polyps. She underwent septoplasty, resection of mari bullosa, and bilateral masseter antrostomy in October 2020. After surgery, patient reports persistent nasal congestion. She did have history of nasal trauma with external deviation to the left. Patient subsequently seen Dr. Patel Bar who recommended rhinoplasty and revision septoplasty. Patient was sent here to evaluate for her postnasal drainage. She did have a new CT scan scan of her sinuses which showed persistent right septal deviation. There does not appear to be any evidence of significant sinusitis. Currently patient has been on Flonase for 1 week and reports some improvement of her drainage and cough. She does not use any nasal saline irrigation. She reports congestion on the right side of her nose. Patient does report allergy symptoms of sneezing and watery eyes. History reviewed. No pertinent past medical history. PAST SURGICAL HISTORY Procedure Laterality Date - SEPTOPLASTY, bilateral maxillary antrostomies, resection of mari bullosa 10/2020 History reviewed. No pertinent family history. CURRENT OUTPATIENT MEDICATIONS Current Outpatient Medications on File Prior to Visit Medication Sig - TRI-LO-CHARITY 0.18/0.215/0.25 mg-25 mcg Take 1 tablet by mouth once daily. - fluticasone (FLONASE ALLERGY RELIEF) 50 mcg/actuation nasal spray Use 2 Sprays in each nostril once daily. No current facility-administered medications on file prior to visit. ALLERGIES ALLERGIES No Known Allergies The remainder of the patient's history and review of systems is on the outpatient questionaire which was reviewed by me and placed in the outpatient chart. PHYSICAL EXAMINATION Appearance: General examination of the patient's external face, head and neck reveals no abnormalities. The patient is not retrognathic The patient's voice is strong and clear and they communicate easily. Ears: Exam of the ears revealed normal appearing external auditory canals, tympanic membranes, and middle ears. No signs of infection or fluid were seen. Nose: External nose with slight deviation to the left side. Throat: There were no lesions to visualization or palpation of the lips, cheeks, gums, floor of mouth, tongue, hard and soft palate, tonsillar pillars or posterior pharyngeal wall. The patient is a Larsen Tongue Position 2 and has grade 2 tonsils. Neck: Palpation of the neck revealed no adenopathy, salivary gland masses or asymmetry, or thyroid masses or enlargement. Procedure In order to assess the patient's complaint of nasal obstruction, nasal endoscopy was performed. Consent: verbal Anesthesia: topical lidocaine and phenylephrine After spraying the nose with topical 2% lidocaine and Afrin the nasal endoscope was passed. Findings: Septum was deviated to the right side. There is a small pinpoint septal perforation in the anterior inferior septum. Bilateral lateral antrostomies were patent. No pus, edema, or polyps. Nasopharynx was patent. Elis Rosario MD Medical Decision Making: Problems: Moderate: New problem with uncertain prognosis Data: Unique test result(s) reviewed: 1 Risk: Moderate: Drug management Medical Decision Making Level: 4 - [facility]erateC[facility] NoteHNO ID: [id number] Author: RT Tre(R) Service: ? Author Type: Technologist Type: Progress Notes Filed: 05/28/2021 3:50 PM Note Text: Radiology Service Progress Note PATIENT NAME: Brenda Marroquin DATE OF SERVICE: May 28, 2021 TIME: 3:49 PM PATIENT IDENTITY VERIFICATION COMPLETED USING TWO (2) IDENTIFIERS: Name and Date of confirmed by patient verbally. FALL SCREENING: Has the patient had 2 falls in the last year or 1 fall with injury or currently using an Ambulatory Assistive Device (Walker, Cane, Wheelchair, Crutches, etc.)? No PATIENT GENDER DATA: Female. status: : No status: NO. PATIENT RELEVANT IMPLANT DATA REVIEWED: Not Applicable RADIOLOGY DEPARTMENT: CT; Exam(s) Completed: Sinus PERIPHERAL IV DATA: Not applicable SIGNED BY: RT Tre(R) May 28, 2021 3:49 [facility]08-26-2021 NoteHNO ID: [id number] Author: Patel Bar MD Service: ? Author Type: Physician Type: Progress Notes Filed: 05/16/2021 11:31 AM Note Text: SECTION OF FACIAL PLASTIC AND RECONSTRUCTIVE SURGERY Head and Neck [place], [facility] Patient Evaluation Date of service: 05/16/2021 Brenda Marroquin is a 16 year old female who presents with a chief complaint of nasal obstruction, nasal drainage. HPI Today, Ms. Marroquin notes left worse than right nasal obstruction. She also has a lot of post-nasal drainage. She underwent endonasal septoplasty, bilateral MMA, conchal bullosa resection, and inferior turbinate excision in October 2020. She got very little improvement on the left. Drainage has remained the same. Still unable to adequately breathe through her nose comfortably. Previous CT scan prior to her sinus surgery showed maxillary thickening; only report available, no images. Not currently using any nasal sprays. Has some seasonal allergies for which she takes OTC pills. History of nasal trauma when she was around 9 years old. History reviewed. No pertinent past medical history. History reviewed. No pertinent surgical history. Medications: Current Outpatient Medications on File Prior to Visit Medication Sig - TRI-LO-CHARITY 0.18/0.215/0.25 mg-25 mcg Take 1 tablet by mouth once daily. No current facility-administered medications on file prior to visit. Allergies: ALLERGIES No Known Allergies Social History Tobacco Use - Smoking status: Not on file Substance Use Topics - Alcohol use: Not on file - Drug use: Not on file History reviewed. No pertinent family history. Vital Signs: There were no vitals taken for this visit. Exam: Patient is well-appearing, in no acute distress. Breathing comfortably, no stertor or stridor. Alert and oriented. Pleasant and appropriately interactive. Head is normocephalic, atraumatic. Nose: Septum moderately deviated, S shaped Internal nasal valves narrow and collapse on inspiration Turbinates reduced Tip bulbous, midvault narrow, projection slightly over, rotation slightly under ? Impression: Nasal obstruction with recent surgery. Here nasal valve issues (stenosis and collapse) were not addressed at her previous surgery and are most-likely responsible for her continued obstruction. In addition, her septum is still deviated. She additionally has persistent sinus issues. Plan: Start Flonase daily - Rx sent Sinus CT scan for continued sinus symptoms after sinus surgery Referral to rhinology for sinus evaluation Follow up with me after rhinology evaluation Pending her response to the Flonase, we discussed surgical correction with nasal valve reconstruction with communications editor and moises grafts and revision (likely extracorporeal) septoplasty. Given her history of nasal surgery and need for structural grafting for her nasal valve and septal reconstructions, she may require a right costal cartilage harvest or left auricular cartilage harvest. She would also like to modify the external shape of her nose. 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 She would like her tip to be less pointy; she would benefit from some tip deprojection, rotation, and refinement. Patel Bar MD, FACS Facial Plastic and Reconstructive Surgery [facility], [facility] [place] Medical Decision Making: Problems: Moderate: 1+ chronic illnesses with change Risk: Moderate: Drug management Medical Decision Making Level: 4 - ModerateC[facility] HospitalEvaluation note* Diagnosis History of nasal surgery- Primary Other postprocedural status Nasal congestion Other diseases of nasal cavity and sinuses [facility] Chronic maxillary sinusitis [facility] Over[facility] (BMI 25.0-29.9)- Primary Overweight Pelvic pain Dysuria Anxiety Anxiety state, unspecified Rectal bleeding Hemorrhage of rectum and anus documented in this encounter [facility]* Diagnosis Subacute and chronic vaginitis- Primary Unspecified vaginitis and vulvovaginitis Acute vulvitis Unspecified vaginitis and vulvovaginitis Abnormal weight gain [facility] Diagnosis Dysuria- Primary Monilial vaginitis Abnormal weight gain Subacute and chronic vaginitis Unspecified vaginitis and vulvovaginitis Abnormal weight gain Dysuria [facility] Diagnosis Dysuria- Primary Metrorrhagia Vaginal burning Other specified symptom associated with female genital organs [facility] Diagnosis Anxiety and depression- Primary [facility] Diagnosis Anxiety and depression- Primary [facility] Diagnosis Anxiety and depression- Primary [facility] Diagnosis Chronic vulvitis- Primary Unspecified vaginitis and vulvovaginitis Mood disorder ([facility] Unspecified episodic mood disorder Diet is high in sugar [facility] Diagnosis Anxiety and depression- Primary [facility] Diagnosis Anxiety and depression- Primary [facility] Diagnosis Borderline personality disorder ([facility] Primary Borderline personality disorder ISABELL (generalized anxiety disorder) Generalized anxiety disorder Other depression [facility] Diagnosis Irregular periods- Primary Chronic vulvitis Unspecified vaginitis and vulvovaginitis Screen for sexually transmitted diseases Screening examination for venereal disease [facility] Diagnosis Sprain of proximal interphalangeal (PIP) joint of finger- Primary Numbness of finger Disturbance of skin sensation [facility] Diagnosis Anxiety and depression- Primary [facility] Diagnosis Injury of finger of left hand, initial encounter- Primary [facility] Diagnosis Abnormal weight gain- Primary Monilial vaginitis Anxiety and depression Irregular periods Screen for sexually transmitted diseases Screening examination for venereal disease Abnormal weight gain [facility] Diagnosis Routine screening for STI (sexually transmitted infection)- Primary Screening examination for venereal disease Chronic vulvitis Unspecified vaginitis and vulvovaginitis [facility] Diagnosis Vaginal burning- Primary Other specified symptom associated with female genital organs B12 deficiency [facility] Diagnosis Anxiety and depression- Primary [facility] Diagnosis Chronic fatigue- Primary Other malaise and fatigue Slow transit constipation documented in this encounter [facility] note* Diagnosis Anxiety and depression- Primary documented in this encounter [facility] Dis[facility] instructionsAmbulatory Orders* Referral to Gastroenterology Time Frame: 07/18/25, Location: None [facility] Work Phone: Instructions* Attachments The following attachments cannot be sent through Care Everywhere. * Sexually Transmitted Infection (Nigerian) documented in this encounter HealthReason for visit Narrative* Auth/Cert (Routine)SpecialtyDiagnoses / ProceduresReferred By ContactReferred To Contact Family Medicine [facility] at [address], [address] [place] [address] Phone: tel: fax: Referral IDStatusReasonStart DateExpiration DateVisits RequestedVisits [id number] [facility] Summary Purpose Family History No Family History Records FoundNo Family History Records FoundNo Family History Records FoundNo Family History Records FoundNo Family History Records FoundNo Family History Records FoundNo Family History Records FoundNo Family History Records FoundNo Family History Records FoundNo Family History Records Found Advance Directives TypeDate RecordedPatient RepresentativeExplanationAdvance Directive(s)08/07/2021 7:04 AMAdvance Directive(s)07/24/2021 4:42 PM Advance Directive Response Recorded Date/ Time Advance Directives No October 9:51am Reason for Referral SpecialtyDiagnoses / ProceduresReferred By ContactReferred To Contact Diagnoses Overweight (BMI 25.0-29.9) Angie Pike, DONTE [address] [place] [address] Referral IDStatusReasonStart DateExpiration DateVisits RequestedVisits [id number] Chief Complaint and Reason for Visit Chief Complaint Admit Date established patient July 18, 2025 9 :33am Reason for Visit Admit Date Abdominal pain July 18, 2025 9 :33am Anxiety and depression July 18 9:33am Bloating July 18, 2025 9 :33am Chronic fatigue July 18, 2025 9 :33am Vitamin D deficiency July 18, 2025 9:33am Additional Source Comments INFORMATION SOURCE (unrecogn ized section and content) DATE CREATED AUTHOR 03/15/2018 [facility] DATE CREATED AUTHOR AUTHOR'S ORGANIZ ATION 12/01/2020 [facility] DATE CREATED AUTHOR AUTHOR'S ORGANIZ ATION 07/31/2021 [facility] DATE CREATED AUTHOR AUTHOR'S ORGANIZ ATION 12/16/2021 [facility] DATE CREATED AUTHOR AUTHOR'S ORGANIZ ATION 05/31/2022 [facility] DATE CREATED AUTHOR AUTHOR'S ORGANIZ ATION 03/22/2023 [facility] DATE CREATED AUTHOR AUTHOR'S ORGANIZ ATION 10/26/2023 [facility] DATE CREATED AUTHOR AUTHOR'S ORGANIZ ATION 11/22/2023 [facility] DATE CREATED AUTHOR AUTHOR'S ORGANIZ ATION 02/16/2025 [facility] DATE CREATED AUTHOR AUTHOR'S ORGANIZ ATION 04/12/2025 [facility] Source Comments (unrecognize d section and content) In the event this informatio n is protected by the Federal Confidentiality of Alcohol and Drug Abuse Patient Records regulations: The Federal rules restrict any use of the information to criminally investigate or prosecute any alcohol or drug abuse patient.[facility] HospitalIn the event this information is protected by the Federal Confidentiality of Alcohol and Drug Abuse Patient Records regulations: The Federal rules restrict any use of the information to criminally investigate or prosecute any alcohol or drug abuse patient.[facility] HospitalThis information has been disclosed to you from confidential records protectfrom disclosure by state law. You shall make no further disclosure of thisinformation without the specific, written, and informed release of theindividual to whom it pertains, or as otherwise permitted by law. A generalauthorization for the release of medical or other information is not sufficientfor the purposes of the release of HIV test results or diagnoses. [id number]This information has been disclosed to you from confidential records protectfrom disclosure by state law. You shall make no further disclosure of thisinformation without the specific, written, and informed release of theindividual to whom it pertains, or as otherwise permitted by law. A generalauthorization for the release of medical or other information is not sufficientfor the purposes of the release of HIV test results or diagnoses. [id number]This information has been disclosed to you from confidential records protectfrom disclosure by state law. You shall make no further disclosure of thisinformation without the specific, written, and informed release of theindividual to whom it pertains, or as otherwise permitted by law. A generalauthorization for the release of medical or other information is not sufficientfor the purposes of the release of HIV test results or diagnoses. [id number]This information has been disclosed to you from confidential records protectfrom disclosure by state law. You shall make no further disclosure of thisinformation without the specific, written, and informed release of theindividual to whom it pertains, or as otherwise permitted by law. A generalauthorization for the release of medical or other information is not sufficientfor the purposes of the release of HIV test results or diagnoses. [id number]This information has been disclosed to you from confidential records protectfrom disclosure by state law. You shall make no further disclosure of thisinformation without the specific, written, and informed release of theindividual to whom it pertains, or as otherwise permitted by law. A generalauthorization for the release of medical or other information is not sufficientfor the purposes of the release of HIV test results or diagnoses. [id number]This information has been disclosed to you from confidential records protectfrom disclosure by state law. You shall make no further disclosure of thisinformation without the specific, written, and informed release of theindividual to whom it pertains, or as otherwise permitted by law. A generalauthorization for the release of medical or other information is not sufficientfor the purposes of the release of HIV test results or diagnoses. [id number]This information has been disclosed to you from confidential records protectfrom disclosure by state law. You shall make no further disclosure of thisinformation without the specific, written, and informed release of theindividual to whom it pertains, or as otherwise permitted by law. A generalauthorization for the release of medical or other information is not sufficientfor the purposes of the release of HIV test results or diagnoses. [id number]This information has been disclosed to you from confidential records protectfrom disclosure by state law. You shall make no further disclosure of thisinformation without the specific, written, and informed release of theindividual to whom it pertains, or as otherwise permitted by law. A generalauthorization for the release of medical or other information is not sufficientfor the purposes of the release of HIV test results or diagnoses. [id number]This information has been disclosed to you from confidential records protectfrom disclosure by state law. You shall make no further disclosure of thisinformation without the specific, written, and informed release of theindividual to whom it pertains, or as otherwise permitted by law. A generalauthorization for the release of medical or other information is not sufficientfor the purposes of the release of HIV test results or diagnoses. [id number]This information has been disclosed to you from confidential records protectfrom disclosure by state law. You shall make no further disclosure of thisinformation without the specific, written, and informed release of theindividual to whom it pertains, or as otherwise permitted by law. A generalauthorization for the release of medical or other information is not sufficientfor the purposes of the release of HIV test results or diagnoses. [id number]This information has been disclosed to you from confidential records protectfrom disclosure by state law. You shall make no further disclosure of thisinformation without the specific, written, and informed release of theindividual to whom it pertains, or as otherwise permitted by law. A generalauthorization for the release of medical or other information is not sufficientfor the purposes of the release of HIV test results or diagnoses. [id number]This information has been disclosed to you from confidential records protectfrom disclosure by state law. You shall make no further disclosure of thisinformation without the specific, written, and informed release of theindividual to whom it pertains, or as otherwise permitted by law. A generalauthorization for the release of medical or other information is not sufficientfor the purposes of the release of HIV test results or diagnoses. [id number]This information has been disclosed to you from confidential records protectfrom disclosure by state law. You shall make no further disclosure of thisinformation without the specific, written, and informed release of theindividual to whom it pertains, or as otherwise permitted by law. A generalauthorization for the release of medical or other information is not sufficientfor the purposes of the release of HIV test results or diagnoses. [id number]This information has been disclosed to you from confidential records protectfrom disclosure by state law. You shall make no further disclosure of thisinformation without the specific, written, and informed release of theindividual to whom it pertains, or as otherwise permitted by law. A generalauthorization for the release of medical or other information is not sufficientfor the purposes of the release of HIV test results or diagnoses. [id number]This information has been disclosed to you from confidential records protectfrom disclosure by state law. You shall make no further disclosure of thisinformation without the specific, written, and informed release of theindividual to whom it pertains, or as otherwise permitted by law. A generalauthorization for the release of medical or other information is not sufficientfor the purposes of the release of HIV test results or diagnoses. [id number]This information has been disclosed to you from confidential records protectfrom disclosure by state law. You shall make no further disclosure of thisinformation without the specific, written, and informed release of theindividual to whom it pertains, or as otherwise permitted by law. A generalauthorization for the release of medical or other information is not sufficientfor the purposes of the release of HIV test results or diagnoses. [id number]This information has been disclosed to you from confidential records protectfrom disclosure by state law. You shall make no further disclosure of thisinformation without the specific, written, and informed release of theindividual to whom it pertains, or as otherwise permitted by law. A generalauthorization for the release of medical or other information is not sufficientfor the purposes of the release of HIV test results or diagnoses. [id number]This information has been disclosed to you from confidential records protectfrom disclosure by state law. You shall make no further disclosure of thisinformation without the specific, written, and informed release of theindividual to whom it pertains, or as otherwise permitted by law. A generalauthorization for the release of medical or other information is not sufficientfor the purposes of the release of HIV test results or diagnoses. [id number]This information has been disclosed to you from confidential records protectfrom disclosure by state law. You shall make no further disclosure of thisinformation without the specific, written, and informed release of theindividual to whom it pertains, or as otherwise permitted by law. A generalauthorization for the release of medical or other information is not sufficientfor the purposes of the release of HIV test results or diagnoses. [id number]This information has been disclosed to you from confidential records protectfrom disclosure by state law. You shall make no further disclosure of thisinformation without the specific, written, and informed release of theindividual to whom it pertains, or as otherwise permitted by law. A generalauthorization for the release of medical or other information is not sufficientfor the purposes of the release of HIV test results or diagnoses. [id number]This information has been disclosed to you from confidential records protectfrom disclosure by state law. You shall make no further disclosure of thisinformation without the specific, written, and informed release of theindividual to whom it pertains, or as otherwise permitted by law. A generalauthorization for the release of medical or other information is not sufficientfor the purposes of the release of HIV test results or diagnoses. [id number]This information has been disclosed to you from confidential records protectfrom disclosure by state law. You shall make no further disclosure of thisinformation without the specific, written, and informed release of theindividual to whom it pertains, or as otherwise permitted by law. A generalauthorization for the release of medical or other information is not sufficientfor the purposes of the release of HIV test results or diagnoses. [id number]This information has been disclosed to you from confidential records protectfrom disclosure by state law. You shall make no further disclosure of thisinformation without the specific, written, and informed release of theindividual to whom it pertains, or as otherwise permitted by law. A generalauthorization for the release of medical or other information is not sufficientfor the purposes of the release of HIV test results or diagnoses. [id number]This information has been disclosed to you from confidential records protectfrom disclosure by state law. You shall make no further disclosure of thisinformation without the specific, written, and informed release of theindividual to whom it pertains, or as otherwise permitted by law. A generalauthorization for the release of medical or other information is not sufficientfor the purposes of the release of HIV test results or diagnoses. [id number]This information has been disclosed to you from confidential records protectfrom disclosure by state law. You shall make no further disclosure of thisinformation without the specific, written, and informed release of theindividual to whom it pertains, or as otherwise permitted by law. A generalauthorization for the release of medical or other information is not sufficientfor the purposes of the release of HIV test results or diagnoses. [id number]This information has been disclosed to you from confidential records protectfrom disclosure by state law. You shall make no further disclosure of thisinformation without the specific, written, and informed release of theindividual to whom it pertains, or as otherwise permitted by law. A generalauthorization for the release of medical or other information is not sufficientfor the purposes of the release of HIV test results or diagnoses. [id number]This information has been disclosed to you from confidential records protectfrom disclosure by state law. You shall make no further disclosure of thisinformation without the specific, written, and informed release of theindividual to whom it pertains, or as otherwise permitted by law. A generalauthorization for the release of medical or other information is not sufficientfor the purposes of the release of HIV test results or diagnoses. [id number]This information has been disclosed to you from confidential records protectfrom disclosure by state law. You shall make no further disclosure of thisinformation without the specific, written, and informed release of theindividual to whom it pertains, or as otherwise permitted by law. A generalauthorization for the release of medical or other information is not sufficientfor the purposes of the release of HIV test results or diagnoses. [id number]This information has been disclosed to you from confidential records protectfrom disclosure by state law. You shall make no further disclosure of thisinformation without the specific, written, and informed release of theindividual to whom it pertains, or as otherwise permitted by law. A generalauthorization for the release of medical or other information is not sufficientfor the purposes of the release of HIV test results or diagnoses. [id number]This information has been disclosed to you from confidential records protectfrom disclosure by state law. You shall make no further disclosure of thisinformation without the specific, written, and informed release of theindividual to whom it pertains, or as otherwise permitted by law. A generalauthorization for the release of medical or other information is not sufficientfor the purposes of the release of HIV test results or diagnoses. [id number]This information has been disclosed to you from confidential records protectfrom disclosure by state law. You shall make no further disclosure of thisinformation without the specific, written, and informed release of theindividual to whom it pertains, or as otherwise permitted by law. A generalauthorization for the release of medical or other information is not sufficientfor the purposes of the release of HIV test results or diagnoses. [id number]This information has been disclosed to you from confidential records protectfrom disclosure by state law. You shall make no further disclosure of thisinformation without the specific, written, and informed release of theindividual to whom it pertains, or as otherwise permitted by law. A generalauthorization for the release of medical or other information is not sufficientfor the purposes of the release of HIV test results or diagnoses. [id number]This information has been disclosed to you from confidential records protectfrom disclosure by state law. You shall make no further disclosure of thisinformation without the specific, written, and informed release of theindividual to whom it pertains, or as otherwise permitted by law. A generalauthorization for the release of medical or other information is not sufficientfor the purposes of the release of HIV test results or diagnoses. [id number]This information has been disclosed to you from confidential records protectfrom disclosure by state law. You shall make no further disclosure of thisinformation without the specific, written, and informed release of theindividual to whom it pertains, or as otherwise permitted by law. A generalauthorization for the release of medical or other information is not sufficientfor the purposes of the release of HIV test results or diagnoses. [id number]This information has been disclosed to you from confidential records protectfrom disclosure by state law. You shall make no further disclosure of thisinformation without the specific, written, and informed release of theindividual to whom it pertains, or as otherwise permitted by law. A generalauthorization for the release of medical or other information is not sufficientfor the purposes of the release of HIV test results or diagnoses. [id number]This information has been disclosed to you from confidential records protectfrom disclosure by state law. You shall make no further disclosure of thisinformation without the specific, written, and informed release of theindividual to whom it pertains, or as otherwise permitted by law. A generalauthorization for the release of medical or other information is not sufficientfor the purposes of the release of HIV test results or diagnoses. [id number] HealthThis information has been disclosed to you from confidential records protectfrom disclosure by state law. You shall make no further disclosure of thisinformation without the specific, written, and informed release of theindividual to whom it pertains, or as otherwise permitted by law. A generalauthorization for the release of medical or other information is not sufficientfor the purposes of the release of HIV test results or diagnoses. [id number] HealthThis information has been disclosed to you from confidential records protectfrom disclosure by state law. You shall make no further disclosure of thisinformation without the specific, written, and informed release of theindividual to whom it pertains, or as otherwise permitted by law. A generalauthorization for the release of medical or other information is not sufficientfor the purposes of the release of HIV test results or diagnoses. [id number] Reason for Visit (unrecogniz ed section and content) ReasonCommentsEstablished Patient Xudear-Mh3-2 month follow upSpecialtyDiagnoses / ProceduresReferred By ContactReferred To ContactCT IMAGING Diagnoses Chronic maxillary sinusitis Procedures CT SINUS WO IVCON CT MAXLFCL AREA C-MATRL Patel Bar MD [address] [place] [address] Ct Imaging [place] [address] Referral IDStatusReasonStart DateExpiration DateVisits RequestedVisits [id number] Auto-Generated Referral /[id number] ProblemVaginal swelling. Abnormal discharge possibly yellow x 2 weeksReasonCommentsSexual ProblemFollow up for chronic vaginitis.ReasonCommentsFemale ProblemMenstrual issuesSpecialty Diagnoses / ProceduresReferred By ContactReferred To Contactm[facility] Counseling Vv [address] [place] [address] Referral IDStatusReasonStvictor DateExpiration DateVisits RequestedVisits [id number] Tract InfectionBurning while peeing. 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 Is not currently s exually active.ReasonCommentsMental Health ProblemSpecialtyDiagnoses / ProceduresReferred By ContactReferred To ContactPsychiatry [facility] Psychiatry at [facility] [address] [place] [address] Phone: tel: fax: Referral IDStatusReasonStart DateExpiration DateVisits RequestedVisits [id number] OnlyReasonCommentsInjuryFinger feels numb ReasonCommentsNew Patient Visit/ ConsultationLeft hand- middle finger numbness SpecialtyDiagnoses / ProceduresReferred By ContactReferred To ContactUCH Orthopedic Surgery Diagnoses Sprain of proximal interphalangeal (PIP) joint of finger Numbness of finger Marcel Olivares MD [address] [facility], [address]rd [place] [address] Phone: tel: fax: Referral IDStatusReasonStart DateExpiration DateVisits RequestedVisits [id number]/19/20258/18/[id number]w ExamPt. Would like lab workReasonCommentsstd testNo exposure or symptoms. Burning during pee but has chronic yeast infections. Just wants to be safeand get checked.Reason CommentsSexual ProblemSTD testing pt states no symptomsReasonCommentsFollow-up Wants another B-12 shot Care Teams (unrecognized sec tion and content) Team MemberRelationshipSpecialtyStart DateEnd Date Angie Pike, FORM SETTER HELPER [address] [place] [address] PCP - GeneralFamily Gnbmvqsz42/3/21Team MemberRelationshipSpecialtyStart DateEnd Date Genaro Rodriguez MD [address] [place] [address] PCP - GeneralFamily Medicine10/14/23 Angie Pike NP [address] [place] [address] Referring PhysicianNurse Practitioner04/07/23Team MemberRelationshipSpecialty Start DateEnd Date Genaro Rodriguez MD [address] [place] [address] PCP - [facility] Medicine10/14/23 Angie Pkie, DONTE [address] [place] [address] Referring PhysicianNurse Practitioner04/07/23Team MemberRelationshipSpecialty Start DateEnd Date Genaro Rodriguez MD [address] [place] [address] PCP - [facility] Medicine10/14/23 Angie Pike NP [address] [place] [address] Referring PhysicianNurse Practitioner04/07/23Te MemberRelationshipSpecialty Start DateEnd Date Pcp, No No Address PCP - General05/19/22 Moose Ellsworth MD [address] [facility], [address] [place] [address] [facility]05/21/22 Charis Barrera, FORM SETTER HELPER [address] [facility], [address] [place] [address] [place] [address] Nurse Practitioner10/08/22Team MemberRelationship SpecialtyStart DateEnd Date Pcp, No No Address PCP - General05/19/22 Moose Ellsworth MD [address] [facility], [address] [place] [address] [facility]05/21/22 Charis Barrera, FORM SETTER HELPER [address] [facility], [address] [place] [address] [facility] Nurse Practitioner10/08/22Team MemberRelationship SpecialtyStart DateEnd Date Pcp, No No Address PCP - [facility]05/19/22 Moose Ellsworth MD [address] [facility], [address] [place] [address] [facility]05/21/22 Jackelyn Hoskins MD [address] [place] [address] ResidentPsychiatry04/29/24 [facility] [address] [place] [address] Consulting [facility] Psychology05/19/24Te MemberRelationshipSpecialty Start DateEnd Date Pcp, No No Address PCP [facility]05/19/22 Moose Ellsworth MD [address] [facility], [address] [place] [address] [facility]05/21/22 Jackelyn Hoskins MD [address] [place] [address] ResidentPsychiatry04/29/24 [facility] V[facility] [address] [place] [address] Consulting [facility] Psychology05/19/24Te MemberRelationshipSpecialty Start DateEnd Date Pcp, No No Address PCP [facility]05/19/22 Moose Ellsworth MD [address] [facility], [address] [place] [address] [facility]05/21/22 Jackelyn Hoskins MD [address] [place] [address] ResidentPsychiatry04/29/24 Rodriguez Black V., [facility] [address] [place] [address] Consulting [facility] Psychology05/19/24Team MemberRelationshipSpecialty Start DateEnd Date Pcp, No No Address PCP - General05/19/22 Moose Ellsworth MD [address] [facility], [address] [place] [address] [facility]05/21/22 Jackelyn Hoskins MD [address] [place] [address] ResidentPsychiatry04/29/24 Rodriguez Black V., [facility] [address] [place] [address] Consulting [facility] Psychology05/19/24Te MemberRelationshipSpecialty Start DateEnd Date Pcp, No No Address [facility] General05/19/22 Moose Ellsworth MD [address] [facility], [address] [place] [address] [facility]05/21/22 Jackelyn Hoksins MD [address] [place] [address] ResidentPsychiatry04/29/24 Rodriguez Black V., [facility] [address] [place] [address] Consulting [facility] Psychology05/19/24Team MemberRelationshipSpecialty Start DateEnd Date Pcp, No No Address PCP - [facility]05/19/22 Moose Ellsworth MD [address] [facility], [address] [place] [address] [facility]05/21/22 Jackelyn Hoskins MD [address] [place] [address] ResidentPsychiatry04/29/24 NicolasRodriguez V., [facility] [address] [place] [address] Consulting [facility] Psychology05/19/24Te MemberRelationshipSpecialty Start DateEnd Date Pcp, No No Address [facility]05/19/22 Moose Ellsworth MD [address] [facility], [address] [place] [address] [facility]05/21/22 Jackelyn Hoskins MD [address] [place] [address] ResidentPsychiatry04/29/24 NicolasRodriguez V., [facility] [address] [place] [address] Consulting [facility] Psychology05/19/24Te MemberRelationshipSpecialty Start DateEnd Date Pcp, No No Address [facility]05/19/22 Moose Ellsworth MD [address] [facility], [address] [place] [address] [facility]05/21/22 Jackelyn Hoskins MD [address] [place] [address] ResidentPsychiatry04/29/24 Rodriguez Black V., [facility] [address] [place] [address] Consulting [facility] Psychology05/19/24Team MemberRelationshipSpecialty Start DateEnd Date Pcp, No No Address PCP - General05/19/22 Moose Ellsworth MD [address] [facility], [address] [place] [address] [facility]05/21/22 Jackelyn Hoskins MD [address] [place] [address] ResidentPsychiatr04/29/24 NicolasoRdriguez V., [facility] [address] [place] [address] Consulting [facility] Psychology05/19/24Te MemberRelationshipSpecialty Start DateEnd Date Pcp, No No Address PCP - [facility]05/19/22 Moose Ellsworth MD [address] [facility], [address] [place] [address] [facility]05/21/22 Jackelyn Hoskins MD [address] [place] [address] ResidentPsychiatry04/29/24 NicolasRodriguez V., [facility] [address] [place] [address] Consulting [facility] Psychology05/19/24 Marcel Olivares MD [address] [facility], [address] [place] [address] [facility]11/09/24Team MemberRelationshipSpecialty Start DateEnd Date Pcp, No No Address PCP - [facility]05/19/22 Moose Ellsworth MD [address] [facility], [address] [place] [address] [facility]05/21/22 Jackelyn Hoskins MD [address] [place] [address] ResidentPsychiatry04/29/24 Rodriguez Black V., [facility] [address] [place] [address] Consulting [facility] Psychology05/19/24 Marcel Olivares MD [address] [facility], [address] [place] [address] [facility]11/09/24Te MemberRelationshipSpecialty Start DateEnd Date Pcp, No No Address PCP [facility]05/19/22 Moose Ellsworth MD [address] [facility], [address] [place] [address] [facility]05/21/22 Jackelyn Hoskins MD [address] [place] [address] ResidentPsychiatry04/29/24 Rodriguez Black V., [facility] [address] [place] [address] Consulting Psychologist[facility] Psychology05/19/24 Marcel Olivares MD [address] [facility], [address] [place] [address] [facility]11/09/24Te MemberRelationshipSpecialty Start DateEnd Date Pcp, No No Address PCP - [facility]05/19/22 Moose Ellsworth MD [address] [facility], [address] [place] [address] [facility]05/21/22 Jackelyn Hoskins MD [address] [place] [address] ResidentPsychiatry04/29/24 Rodriguez Black V., [facility] [address] [place] [address] Consulting Psychologist[facility] Psychology05/19/24 Marcel Olivares MD [address] [facility], [address] [place] [address] [facility]11/09/24Te MemberRelationshipSpecialty Start DateEnd Date Pcp, No No Address [facility] - [facility]05/19/22 Moose Ellsworth MD [address] [facility], [address] [place] [address] [facility]05/21/22 Jackelyn Hoskins MD [address] [place] [address] ResidentPsychiatry04/29/24 Rodriguez Black V., [facility] [address] [place] [address] Consulting Psychologist[facility]05/19/24 Marcel Olivares MD [address] [facility], [address] [place] [address] [facility]11/09/24 Sofy Ferrer, FORM SETTER HELPER [address] [place] [address] [facility]12/09/24Team MemberRelationship SpecialtyStart DateEnd Date Pcp, No No Address PCP - General05/19/22 Moose Ellsworth MD [address] [facility], [address] [place] [address] [facility]05/21/22 Jackelyn Hoskins MD [address] [place] [address] ResidentPsychiatry04/29/24 Rodriguez Black V., [facility] [address] [place] [address] Consulting [facility]ologist[facility]05/19/24 Marcel Olivares MD [address] [facility], [address] [place] [address] [facility]11/09/24 Sofy Ferrer, FORM SETTER HELPER [address] [place] [address] [facility]12/09/24Team MemberRelationship SpecialtyStart DateEnd Date Pcp, No No Address PCP - General05/19/22 Moose Ellsworth MD [address] [facility], [address] [place] [address] [facility]05/21/22 Jackelyn Hoskins MD [address] [place], [place] [address] ResidentPsychiatry04/29/24 Rodriguez Black V., [facility] [address] [place] [address] [facility]05/19/24 Marcel Olivares MD [address] [facility], [address] [place] [address] [facility]11/09/24 Sofy Ferrer, MADDISON [address] [place] [address] [facility]12/09/24Team MemberRelationship SpecialtyStart DateEnd Date Pcp, No No Address PCP - General05/19/22 Moose Ellsworth MD [address] [facility], [address] [place] [address]161 [facility]05/21/22 Jackelyn Hoskins MD [address] [place], [place] [address] ResidentPsychiatry04/29/24 Rodriguez Black V., [facility] [address] [place] [address] Consulting [facility]ologist[facility]05/19/24 Marcel Olivares MD [address] [facility], [address] [place] [phone] [facility]11/09/24 Sofy Ferrer, FORM SETTER HELPER [address] [place] [address] [facility]12/09/24Team MemberRelationship SpecialtyStart DateEnd Date Pcp, No No Address PCP - General05/19/22 Moose Ellsworth MD [address] [facility], [address] [place] [address] [facility]05/21/22 Jackelyn Hoskins MD [address] [place] [address] ResidentPsychiatry04/29/24 Rodriguez Black V., [facility] [address] [place] [address] Consulting Psychologist[facility]05/19/24 Marcel Olivares MD [address] [facility], [address] [place] [address] [facility]11/09/24 Sofy Ferrer, FORM SETTER HELPER [address] [place] [address] [facility]12/09/24Team MemberRelationship SpecialtyStart DateEnd Date Pcp, No No Address PCP - General05/19/22 Moose Ellsworth MD [address] [facility], [address] [place] [address] [facility]05/21/22 Jackelyn Hoskins MD [address] [place] [address] ResidentPsychiatry04/29/24 Rodriguez Black V., [facility] [address] [place] [address] Consulting [facility]ologist[facility]05/19/24 Marcel Olivares MD [address] [facility], [address] [place] [address] [facility]11/09/24 Sofy Ferrer CNP [address] [place] [address] [facility]12/09/24 Team Status: Active Member Role/Relationship Status Dates CHEVY Nam Primary Care Provider Active Team Status: Inactive Member Role/Relationship Status Dates CHEVY Nam Primary Care Provider Active Start: July 18, 2025 End: July 18, 2025Uzma Namtenfinn ProviderActiveStart: July 18, 2025 End: July 18, 2025 Goals (unrecognized section and content) Goals may be documented in a n alternate section FOR RECORDS PERTAINING TO PATIENTS WHO ARE OR HAVE BEEN ENROLLED IN A CHEMICAL DEPENDENCY/SUBSTANCEABUSE PROGRAM, SOME INFORMATION MAY BE OMITTED. This clinical summary was aggregated from multiple sources. Caution should be exercised in using it in the provision of clinical care. This summary normalizes information from multiple sources, and as a consequence, information in this document may materially change the coding, format and clinical context of patient data. In addition, data may be omitted in some cases. CLINICAL DECISIONS SHOULD BE BASED ON THE PRIMARY CLINICAL RECORDS. [facility]. provides no warranty or guarantee of the accuracy or completeness of information in this document.
[2025-07-20 10:55] LABS: Hematocrit 41.2 % (36.0-48.0); Hemoglobin 13.5 g/dL (12.0-16.0); Immature Granulocytes Abs Auto 0.01 10^3/uL (0.00-0.03); Immature Granulocytes Pct Auto 0.1 % (0.0-0.5); Lymphocytes Absolute Auto 1.8 10^3/uL (1.2-3.8); Mean Corpuscular HGB Conc 32.8 g/dL (29.9-35.2); Mean Corpuscular Hemoglobin 28.8 pg (26.7-34.0); Mean Corpuscular Volume 87.8 fL (81.0-99.0); Platelet Count 188 10^3/uL (150-450); Red Blood Count 4.69 10^6/uL (4.20-5.40); White Blood Count 7.9 10^3/uL (4.0-11.0)
[2025-07-20 11:28] LABS: Alanine Aminotransferase 17 U/L (14-59); Albumin Globulin Ratio 1.1; Albumin Level 3.9 g/dL (3.4-5.0); Alkaline Phosphatase 70 U/L (46-116); Anion Gap 14.4; Aspartate Amino Transferase 19 U/L (15-37); Blood Urea Nitrogen 10.0 mg/dL (7.0-18.0); Calcium 8.7 mg/dL (8.5-10.1); Carbon Dioxide 23.7 mmol/L (21.0-32.0); Chloride 106 mmol/L (98-107); Estimated GFR (African America >60 (>=60 mL/min/1.73m^2); Estimated GFR (Non-African Ame >60 (>=60 mL/min/1.73m^2); Globulin 3.6 g/dL; Glucose 82 mg/dL (74-106); Potassium 4.1 mmol/L (3.5-5.1); Sodium 140 mmol/L (136-145); Total Protein 7.5 g/dL (6.4-8.2)
[2025-07-20 11:56] LABS: Cholesterol 157 mg/dL (<=200); HDL Cholesterol 61 mg/dL (40-60); Magnesium 1.8 mg/dL (1.8-2.4); Thyroid Stimulating Hormone 1.028 uIU/mL (0.358-3.740); Triglycerides 52 mg/dL (<=150); VLDL CHOLESTEROL 10.4 mg/dL
[2025-07-20 12:19] LABS: Iron 99.0 ug/dL (50.0-170.0)
[2025-07-20 12:41] LABS: Ferritin 52.0 ng/mL (8.0-252.0); Folate 17.90 ng/mL (8.60-58.90)
[2025-07-20 12:50] LABS: Glucose Urine UA NEGATIVE (NEGATIVE)
[2025-07-20 14:14] LABS: Cast Seen? NONE SEEN #/LPF (NONE SEEN); Crystals Seen? None Seen #/HPF (None Seen)
[2025-07-21 04:07] LABS: Vitamin B12 532 pg/mL (232-1245)
[2025-07-21 08:08] LABS: Transferrin 253 mg/dL (192-364)
[2025-07-21 14:09] LABS: EBV Nuclear Antigen Ab, IgG 52.5 U/mL (0.0-17.9)
== END 2025-07-20 10:19 | disposition home or self-care (01) ==
LOC: LAB 10:21
PROVIDERS: PCP Nurse Practitioner; Visit Provider Nurse Practitioner
DX: F41.9 Anxiety disorder, unspecified (principal); F32.A Depression, unspecified; E55.9 Vitamin D deficiency, unspecified; R14.0 Abdominal distension (gaseous); R10.9 Unspecified abdominal pain; R53.82 Chronic fatigue, unspecified
CPT/HCPCS: 36415; 80048; 80053; 80061; 81001; 82306; 82607; 82728; 82746; 83540; 83735; 84439; 84443; 84466; 84703; 85025; 85652; 86038; 86140; 86364; 86376; 86664; 86665; 86800

== ENCOUNTER 2025-08-15 08:53 | Outpatient (OUT) | payer BC, OTHER, SELFPAY ==
--- OUTSIDE RECORDS SUMMARY | 2025-08-15 08:56 | XMS_ITS | Clinical Summary ---
Author Organization [facility] Address [id number] [place] [address] Care Team Providers Care Outsole Skiver Name Role Phone Genaro Rodriguez MD Primary Care Provider [phone] Allergies Active AllergyReactionsCriticalityNoted DateComments Qqazh-Uslce-Hqihyki-GfmgdlukxBdvoThu16/30/2018 Mom can't remember name of antibiotic Medications MedicationSigDispense QuantityRefillsLast FilledStart DateEnd DateStatus norgestimate-ethinyl estradioL (ORTHO TRI-CYCLEN LO) 0.18/0.215/0.25 mg-25 mcg per tablet Take 1 tablet by mouth in the morning.04/24/2021ctive Active Problems ProblemNoted DateDiagnosed DjnwObszhsomb39/30/2022 Overview (03/20/2022): + 02/18/22 and History of nasal hajjfxo4607/30/2021 Family History Medical HistoryRelationNameCommentsArrhythmiaNeg HxAsthmaNeg HxClotting disorder Neg HxDiabetesNeg HxHeart attackNeg HxHeart defectNeg HxHigh CholesterolNeg Hx HypertensionNeg HxSeizuresNeg HxStrokeNeg HxSudden deathNeg HxThyroid IssuesNeg Hx Social History Tobacco UseTypesPacks/DayYears UsedDateSmoking Tobacco: Passive Smoke Exposure - Never SmokerSmokeless Tobacco: NeverAlcohol UseStandard Drinks/WeekCommentsYes0 (1 standard drink = 0.6 oz pure alcohol)SocialChildcareAnswerDate Recorded PrpkfctjfVjsddxf76/12/2019EmploymentAnswerDate RecordedEmploymentUnknown 03/02/2019Purpose - LifeAnswerDate RecordedPurpose and direction in lifeUnknown 1CommentsNoSex and Gender InformationValueDate RecordedSex Assigned at BirthNot on fileLegal AmuLqbjjc96/06/2015 12:06 PM EDTGender IdentityNot on fileSexual OrientationNot on file Last Filed Vital Signs Vital SignReadingTime TakenCommentsBlood Mmclduty185/6407 8:31 AM EDT Cgfaa3648/30/2018 8:38 AM EDTTemperature--Respiratory Rate--Oxygen Saturation 100%01/18/2018 8:33 AM EDTInhaled Oxygen Concentration--Inxjmp78.2 kg (130 lb 9.6 oz)04/16/2022 8:31 AM HSTVuiczd871 cm (5' 3 )04/16/2022 8:31 AM EDTBody Mass Index23.13004/16/2022 8:31 AM EDT Plan of Treatment Health MaintenanceDue DateLast DoneCommentsDepression Suyyrdqkt29/14/2015Tobacco Rtgiwlxvl97/14/2015dult BMI Dlfvgfzdo14/14/2021Pap Smear2024TaP,Tdap and Td Vaccines (7 - Td or Tdap)/10/2013, 06/19/2009, 08/30/2004, Additional history existsInfluenza Axqshho9705/22/2025 Medical Devices Not on file Insurance Care Teams Team MemberRelationshipSpecialtyStart DateEnd Date Genaro Rodriguez MD PCP - GeneralFamily Medicine01/18/18
--- OUTSIDE RECORDS SUMMARY | 2025-08-15 08:56 | XMS_ITS | Clinical Summary ---
Author Organization [facility] Address [address] [place] [address] Care Team Providers Care Computer Tech Name Role Phone Angie Pike NP Unavailable [phone] Genaro Rodriguez MD Primary Care Provider [phone] Allergies Active AllergyReactionsCriticalityNoted HdxeGapelvfoCpqflqdrlilGiixo85/24/2024 Turns teeth black Medications MedicationSigDispense QuantityRefillsLast FilledStart DateEnd DateStatus norgestimate-ethinyl estradiol (Sprintec 28) 0.25-35 MG-MCG tablet Take 1 tablet by mouth in the morning.09/09/2022ctive phentermine (Adipex-P) 37.5 MG tablet Indications:Weight gain,Overweight (BMI 25.0-29.9)Take 1/2 pill daily 15 tablet 11/19/2023ctive Active Problems ProblemNoted DateDiagnosed DateChronic njkroco2611/19/2023Weight gain11/19/2023 Overweight (BMI 25.0-29.9)10/29/2023 Assessment & Plan [...] pain OARRS reviewed Fu in 4 weeks Jklhcwv1410/29/2023 Assessment & Plan (11/19/2023 4:37 PM EST): [...] EST): Will try to find her a INSURANCE FOLLOW UP REP in [place] area to help with this Xcqicog28/08/2024Chronic ziamrctr44/08/2024Rectal uzswotcg62/08/2024 Assessment & Plan (10/29/2023 4:52 PM EST): [...] InformationValueDate RecordedSex Assigned at BirthNot on fileLegal QrbEralmh74/15/2023 11:45 PM EDTGender IdentityNot on fileSexual OrientationNot on file Last Filed Vital Signs Vital SignReadingTime TakenCommentsBlood Iamrduos283/72011/19/2023 3:07 PM EST Bzmvy563611/19/2023 3:07 PM FSIEpoisxytiry71.1 ??C (98.7 ??F)11/19/2023 3:07 PM ESTRespiratory Eaqq730011/19/2023 3:07 PM ESTOxygen Qizhsduiqe284%11/19/2023 3:07 PM ESTInhaled Oxygen Concentration--Yxybuz03.2 kg (152 lb 9.6 oz)11/19/2023 3:07 PM DWJTiolid088 cm (5' 3 )11/19/2023 3:07 PM ESTBody Mass Index27.03011/19/2023 3:07 PM EST Plan of Treatment [place] [address] Care Teams Team MemberRelationshipSpecialtyStart DateEnd Date Genaro Rodriguez MD [address] [place] [address] PCP - GeneralFamily Medicine10/14/23 Angie Pike NP [address] [place] [address] Referring PhysicianNurse Practitioner7/18/23
--- OUTSIDE RECORDS SUMMARY | 2025-08-15 08:56 | XMS_ITS | Clinical Summary ---
Author Organization [facility] Address [address], [address] [place] [address] Care Team Providers Care Director Network Development Name Role Phone Angei Pike APRN, NP Primary Care Provide r Allergies No known active allergies Medications MedicationSigDispense QuantityRefillsLast FilledStart DateEnd DateStatus Norgestim-Eth Estrad Triphasic 0.18/0.215/0.25 MG-25 MCG TABS Take by mouthActive cetirizine (ZYRTEC) 10 MG tablet Take 1 tablet by mouth dailyActive trospium (SANCTURA) 20 MG tablet Take 1 tablet by mouth daily 60 tablet ctive Active Problems ProblemNoted DateDiagnosed DateS/p Cystoscopy 03/16/2306Urinary nemrycwsjqdr64/25/2023Urethral pain03/15/2023Interstitial ssyyoqda96/25/2023 Family History RelationNameStatusCommentsBrotherAliveFatherAliveMotherAlive Social History Tobacco UseTypesPacks/DayYears UsedDateSmoking Tobacco: NeverSmokeless Tobacco: NeverAlcohol UseStandard Drinks/WeekCommentsNever0 (1 standard drink = 0.6 oz pure alcohol)Interpersonal Safety Domain Source: IP Abuse ScreeningAnswerDate RecordedRead-Only, Retired: Physical SyrkdZlqtva98/26/2023Read-Only, Retired: Verbal BiqliOtfqvm38/26/2023Read-Only, Retired: Emotional qorboPqmenc16/26/2023 Read-Only, Retired: Financial FpsxoRazyhr33/26/2023Read-Only, Retired: Sexual kobmoCwllhi65/26/2023CommentsUnknownSex and Gender InformationValueDate RecordedSex Assigned at BirthNot on fileLegal PnePsybex34/20/2023 7:58 AM EDT Gender IdentityNot on fileSexual OrientationNot on file Last Filed Vital Signs Vital SignReadingTime TakenCommentsBlood Dtooxyey614/7403/16/2023 4:05 PM EDT Vknrz637003/16/2023 4:10 PM HHHXhvuwtgvnjq51.2 ??C (97.2 ??F)03/16/2023 3:23 PM EDTRespiratory Sxnr904603/16/2023 4:10 PM EDTOxygen Geoxavsawj730%03/16/2023 4:10 PM EDTInhaled Oxygen Concentration--Aardks17.5 kg (144 lb 6 oz)03/16/2023 1:21 PM LRNInzfdm283 cm (5' 3 )03/16/2023 1:21 PM EDTBody Mass Index25.57003/16/2023 1:21 PM EDT Plan of Treatment Health MaintenanceDue DateLast DoneCommentsDTaP/Tdap/Td vaccine (1 - Tdap) 2022Flu vaccine (#1)04/21/2025OVID-19 Vaccine ( - season) 2025Polio vaccineAged OutNo longer eligible based on patient's age to complete this topic Insurance Care Teams Team MemberRelationshipSpecialtyStart DateEnd Date DuarteAngie ramirez, RESOURCE RO[employer] SPECIAL EDUCATION TEACHER - PERINATAL TECH [address] [place] [address] PCP - GeneralNzhen Practitioner03/16/23
--- OUTSIDE RECORDS SUMMARY | 2025-08-15 09:00 | XMS_ITS | CCD ---
Author Organization [facility] Care Team Providers Care Boom Master Name Role Phone PHYSICIAN, DEFAULT Unavailable Unavailable PHYSICIAN, DEFAULT Unavailable Unavailable PHYSICIAN, DEFAULT Unavailable Unavailable PHYSICIAN, DEFAULT Unavailable Unavailable Aichholz Angie WASHBURN Primary Care Provider AICHASHLEY MOTORCYCLE SUBASSEMBLY REPAIRER ANGIE Admitting Unavailable AICHHOLMacey MOTORCYCLE SUBASSEMBLY REPAIRER ANGIE Consulting Unavailable AICHHOLMacey, MOTORCYCLE SUBASSEMBLY REPAIRER ANGIE Attending Unavailable AICHASHLEY, MOTORCYCLE SUBASSEMBLY REPAIRER ANGIE Primary Care Unavailable AICHHOLMacey, MOTORCYCLE SUBASSEMBLY REPAIRER ANGIE Consulting Unavailable AICKASEY, MOTORCYCLE SUBASSEMBLY REPAIRER ANGIE Attending Unavailable GLENDY, MADDISON MEIERA Admitting Unavailable JULIETA MAZARIEGOS Admitting Unavailable JULIETA MAZARIEGOS Attending Unavailable AICHASHLEY ANGIE J. Primary Care Unavailable Unavailable Primary Care Provider Unavailabl e ADDI MAANDA Attending Unavailable SELF, A SELF Referring Unavailable NO PCP, [facility] Primary Care Unavailable PETKOVSKA, AMANDA Referring Unavailable NO PCP, [facility] Primary Care Unavailable Aichholz TECHNOLOGY COACH, Angie Unavailable Genaro Rodriguez MD Primary Care Provider AICKASEY ANGIE Attending Unavailable AICKASEY, ANGIE Attending Unavailable Pcp, No Primary Care Provider [phone] Moose Ellsworth MD Unavailable Charis Barrera CNP Unavailable Unavailab Moose Pizano MD Unavailable Jackelyn Hoskins MD Unavailable Nicolas [facility], Radhaingcas V. Unavailable Marcel Olivares MD Unavailable [phone] Sofy Ferrer CNP Unavailable MP LEVIN Attending [...] Primary Care Provider Angie Allen Attending Provider [phone] Allergies Allergy ClassificationReported Allergen(s)Allergy TypeDate of OnsetReaction(s) FacilityBacitracin / Neomycin / Polymyxin B / pramoxine (1 source)Bacitracin / Neomycin / Polymyxin B / pramoxineDrug Deancji25-74-6510 Rash HealthDoxycycline (1 source)DoxycyclineDrug Jbhnnqc28-57-4041Rdieb (See Comments)[facility] (20 sources)Doxycycline; Translations: [DOXYCYCLINE]Drug Saymfjc43-36-2143Djuml, Other (See Comments)[facility] (20 sources)Bacitracin / Neomycin / Polymyxin B / pramoxine; Translations: [STKOO-PVGCJ-LLQJYIT-PRAMOXINE]Drug Kukdmpe59-90-1197CotkYB Health Medications Current Medications MedicationDrug Class(es)DatesSig (Normalized)Sig (Original)clobetasol propionate 0.0005 mg/mg topical ointment (10 sources)CorticosteroidStart: 06-04-2024 End: 84-78-7131mwyxrgfvaZ (TEMOVATE) 0.05 % ointment Apply 0.5 g topically daily for 30 days. 15 g 06/04/2024 07/04/2024 ActiveStart: 06-03-2024 End: 85-31-2621exjldemwhS (TEMOVATE) 0.05 % cream Apply thin layer to vulva/ urethra once daily 30 g 06/03/2024 07/26/2024 Discontinuedestradiol 0.1 mg/ml vaginal cream (20 sources)EstrogenStart: 12-94-8311eyiaoicvM (ESTRACE) 0.01 % (0.1 mg/gram) vaginal cream Indications: Vaginal burning Place 1 g vaginally at bedtime as needed. 42.5 g 01/05/2025 ActiveStart: 06-07-2024 End: 91-90-7104vihkrpbvK (ESTRACE) 0.01 % (0.1 mg/gram) vaginal cream Indications: Vaginal burning PLACE 1 GRAM VAGINALLY EVERY THURSDAY AND THURSDAY 42.5 g 06/07/2024 11/01/2024 DiscontinuedStart: 04-35-6455herxwvvkP (ESTRACE) 0.01 % (0.1 mg/gram) vaginal cream Indications: Vaginal burning Place 1 g vagina lly every Thursday and . 42.5 g 02/29/2024 Activefluconazole 150 mg oral tablet (20 sources)Azole AntifungalStart: 03-11-2025 End: 39-19-4106yzkx 1 tablet by mouth in the morningfluconazole (DIFLUCAN) 150 MG tablet Take 1 tablet (150 mg total) by mouth every 7 days for 4 doses. 4 tablet 03/20/2025 9:39 AM EDT 03/11/2025 04/17/2025 ActiveStart: 12-15-2024 End: 35-91-1443tztj 1 tablet by mouth in the eveningfluconazole (DIFLUCAN) 100 MG tablet Indications: Chronic vulvitis Take 1 tablet (100 mg total) by mouth every 7 days. 4 tablet 12/16/2024 1:54 PM EDT 12/15/2024 02/13/2025 Discontinued Start: 07-26-2024 End: 65-13-3284pwhlpoyyusl (DIFLUCAN) 100 MG tablet Indications: Chronic vulvitis Take 1 tablet (100 mg total) by mouth every 7 days. 4 tablet 11/01/2024 12/13/2024 DiscontinuedStart: 12-15-2023 End: 22-14-7386pvle 1 tablet by mouth every other dayfluconazole (DIFLUCAN) 100 MG tablet Indications: Monilial vaginitis Take 1 tablet (100 mg total) by mouth every other day. 4 tablet 12/15/2023 02/26/2024 DiscontinuedStart: 11-25-2023 End: 21-53-1522lqgo 1 tablet by mouth once dailyfluconazole (DIFLUCAN) [...] tablet (6 sources)Sympathomimetic Amine AnorecticStart: 10-29-2023 End: 03-33-8338dhbl 1 tablet by mouth before mealtimephentermine (Adipex-P) 37.5 MG tablet Indications: Overweight (BMI 25.0-29.9) Take 1 tablet (37.5 mg) by mouth in the morning. Take before meals. 30 tablet 0 10/29/2023 11/28/2023 Activetake 0.5 tablet by mouth once daily before breakfastphentermine (ADIPEX-P) 37.5 mg tablet Take 0.5 tablets (18.75 mg total) by mouth every morning before breakfast. Activepolyethylene glycol 3350 34933 mg powder for oral solution (3 sources)Osmotic LaxativeStart: 10-23-2023 End: 98-64-0222jrilvlkibrbx glycol, PEG, 3350 (Glycolax) 17 GM/SCOOP powder Take 34 g by mouth in the morning. 0 10/23/2023 11/22/2023 Activevitamin b12 1 mg/ml injectable solution (9 sources)Vitamin U47Hqgxr: 02-09-2025 End: 66-03-0430jrrbqbzrewkkvn (VITAMIN B-12) injection 1,000 mcgStart: 01-05-2025 End: 53-82-8642twlrmtatwmafkt (VITAMIN B-12) injection 1,000 mcgStart: 01-05-2025 End: 67-02-6263hcbgzi 1000 ug by intramuscular injection once1,000 mcg, Intramuscular, Once, On Janice 01/05/25 at 1630, For 1 dose Completed/Discontinued Medications MedicationDrug Class(es)DatesSig (Normalized)Sig (Original)ARIPiprazole 2 mg oral tablet (16 sources)Atypical AntipsychoticStart: 07-07-2024 End: 68-16-3909dcde 0.5 tablet by mouth at bedtimeARIPiprazole (ABILIFY) 2 MG tablet Indications: MOOD Take 0.5 tablets (1 mg total) by mouth in the morning and at bedtime. Indications: MOOD 30 tablet 2 07/07/2024 11/09/2024 Discontinued Start: 48-75-6179jynm 0.5 tablet by mouth at bedtimeARIPiprazole (ABILIFY) 2 MG tablet Indications: MOOD Take 0.5 tablets (1 mg total) by mouth in the morning and at bedtime. Indications: MOOD 30 tablet 2 05/20/2024 Activeazelastine hydrochloride 0.137 mg/actuat metered dose nasal spray (1 source)Histamine-1 Receptor AntagonistStart: 23-79-9713wiip 2 spray(s) nasal route twice dailyazelastine (ASTELIN) 0.1% nasal spray Use 2 Sprays in each nostril twice daily. 30 mL 3 06/04/2021 ActiveComment on above:Use 2 Sprays in each nostril twice daily.ciprofloxacin 500 mg oral tablet (1 source)Quinolone Antimicrobial End: 83-04-5464xxfq 1 tablet by mouth twice dailyciprofloxacin HCl (CIPRO) 500 MG tablet Take 1 tablet (500 mg total) by mouth 2 times a day. 0 11/24/2023 DiscontinuedClindamycin (19 sources)Lincosamide AntibacterialStart: 11-24-2023 End: 70-61-4273bkbvhzupjve phosphate 2 % Gel Indications: Subacute and chronic vaginitis Place 1 g vaginally at bedtime as needed. 5 g 11/24/2023 11/09/2024 DiscontinuedStart: 42-44-6373bqbpmdpjefh phosphate 2 % Gel Indications: Subacute and chronic vaginitis Place 1 g vaginally at bedtime as needed. 5 g 11/24/2023 ActiveStart: 13-29-2048ejjngqcnxth phosphate 2 % Gel Indications: Subacute and chronic vaginitis Place 1 g vaginally at bedtime as needed. 5 g 0 11/24/2023 Activeclotrimazole 10 mg/ml topical cream (9 sources)Azole AntifungalStart: 11-25-2023 End: 28-85-8932dwfqmkztknfk (LOTRIMIN) 1 % cream Indications: Monilial vaginitis Apply topically 2 times a day. Around the vagina 45 g 11/25/2023 07/26/2024 Discontinuedethinyl estradiol 0.005 mg / norethindrone acetate 1 mg oral tablet (3 sources)Estrogen End: 31-96-3548ikbdulaifuxdh-ethinyl estradiol (FEMHRT 1/5) 1-5 mg-mcg Tab Take by mouth daily. 02/26/2024 DiscontinuedNorgestimate-Ethinyl Estradiol (7 sources)Progestin, EstrogenStart: 07-14-2025 End: 50-39-8823Pkqhiuflkxco-Ethinyl Estradiol (Sprintec (28)) 0.25-0.035 mg tablet Discontinued 1 TAB PO Daily July 14, 2025 12:00am July 18, 2025 10:12amStart: 97-58-4023curf 1 tablet by mouth in the morningnorgestimate- ethinyl estradiol (Sprintec 28) 0.25-35 MG-MCG tablet Take 1 tablet by mouth in the morning. 0 09/09/2022 ActiveStart: 85-17-7032cwpw 1 tablet by mouth once hikvgYNO-UB-IIFL 0.18/0.215/0.25 mg-25 mcg Take 1 tablet by mouth once daily. 0 04/24/2021 ActiveComment on above:Take 1 tablet by mouth once daily.fluticasone propionate 0.05 mg/actuat metered dose nasal spray (2 sources)CorticosteroidStart: 54-01-0373ruuf 2 spray(s) nasal route once daily fluticasone (FLONASE ALLERGY RELIEF) 50 mcg/actuation nasal spray Use 2 Sprays in each nostril oncedaily. 16 g 5 05/16/2021 ActiveComment on above:Use 2 Sprays in each nostril once daily.hydrOXYzine hydrochloride 25 mg oral tablet (10 sources)AntihistamineStart: 07-25-2024 End: 09-93-7193ktxl 1-2 tablets by mouth twice daily as needed for anxiety hydrOXYzine HCL (ATARAX) 25 MG tablet Take 1 to 2 tablets (25-50 mg total) by mouth 2 times a day as needed for Anxiety. 30 tablet 07/25/2024 12:21 PM EST 07/25/2024 11/09/2024 DiscontinuedoxyCODONE hydrochloride 5 mg oral tablet (1 source)Opioid AgonistStart: 98-46-5625wgjn 1 tablet by mouth every six hours as needed for painoxyCODONE IR (ROXICODONE) 5 mg immediate release tablet Indications: Post-operative pain Take 1 tablet by mouth every 6 hours as needed for pain. 20 tablet 0 08/07/2021 ActiveComment on above:Take 1 tablet by mouth every 6 hours as needed for pain.sodium chloride 0.111 meq/ml nasal spray (1 source)Start: 44-88-4042xycjhy chloride (AYR SALINE) 0.65 % nasal spray Use 2 Sprays in the nose every 2 hours while awake.50 mL 5 08/07/2021 ActiveComment on above:Use 2 Sprays in the nose every 2 hours while awake. Problems Active Problems Problem ClassificationProblemDateDocumented DateEpisodic/ChronicAbdominal pain (11 sources)Periumbilical pain; Translations: [Pain in pelvis]Onset: 10-22-2023 EpisodicAnxiety disorders (20 sources)Anxiety; Translations: [Anxiety disorder, unspecified]Onset: 459534-01-7367TchrsftXovsskeznekqgnkm hemorrhage (9 sources)Melena; Translations: [Blood in stool]Onset: 57-74-7919Knzoygdx Genitourinary symptoms and ill-defined conditions (1 source)Unspecified urinary incontinence; Translations: [Unspecified urinary incontinence]Onset: 85-90-1730FibksfcOvadtirvgibnx symptoms and ill-defined conditions (9 sources)Other symptoms and signs involving the genitourinary system; Translations: [Dysuria]Onset: 999072-07-8319XcuuqvvxDzakandoyctkr and screening for infectious disease (6 sources)Contact with and (suspected) exposure to infections with a predominantly sexual mode of transmission; Translations: [Patient encounter status]Onset: 03-48-0951MwyduzgrKfhsbilpnmdz diseases of female pelvic organs (20 sources)Chronic vulvitis; Translations: [Subacute and chronic vulvitis] Onset: 447506-60-0267TwpoddxcYoualmn and fatigue (3 sources)Fatigue; Translations: [Chronic fatigue, unspecified]02-09-2025 ChronicMenstrual disorders (2 sources)Intermenstrual bleeding - irregular; Translations: [Excessive and frequent menstruation with irregular cycle]98-95-6388FfcogdrSzqt disorders (2 sources)Mood disorder; Translations: [Unspecified mood [affective] disorder] 20-83-7371OzvykjuPlog disorders (20 sources)Mood disorders; Translations: [Depression, unspecified]Onset: 04-22-2024 Resolved: 607404-69-7538Wvlxroq (2 sources)Candidiasis of vagina; Translations: [Monilial vaginitis]12-15-2023 EpisodicNutritional deficiencies (2 sources)Vitamin D deficiency; Translations: [Vitamin D deficiency, unspecified]75-45-9958LhucismToixymubatx deficiencies (1 source)Cobalamin deficiency; Translations: [Deficiency of other specified B group vitamins]47-34-5919UnncpritXhjaw female genital disorders (2 sources)Burning sensation of vagina; Translations: [Unspecified condition associated with female genital organs and menstrual cycle]45-32-5750Dzkvwymu Other gastrointestinal disorders (1 source)Slow transit constipation; Translations: [Slow transit constipation] 68-42-5795YxafbrvcEyumq gastrointestinal disorders (3 sources)Abdominal bloating; Translations: [Abdominal distension (gaseous)] EpisodicOther injuries and conditions due to external causes (1 source)Injury of finger of left hand; Translations: [Unspecified injury of left wrist, hand and finger(s),initial encounter]59-14-7000DwiwxjyvBzsdj injuries and conditions due to external causes (1 source)Unspecified injury of left wrist, hand and finger(s), initial encounter; Translations: [Unspecifiedinjury of left wrist, hand and finger(s), initial encounter]Onset: 03-03-4186QgbnmczuEwwqd nervous system disorders (2 sources)Numbness of finger; Translations: [Anesthesia of skin]11-09-2024 EpisodicOther nutritional; endocrine; and metabolic disorders (5 sources)Body mass index 25-29 - overweight; Translations: [Overweight]Onset: 899983-53-0383SrnwnerkCkydt nutritional; endocrine; and metabolic disorders (1 source)Overweight; Translations: [Overweight]17-80-7262PeyklrbtGrpkv nutritional; endocrine; and metabolic disorders (1 source)Weight increased; Translations: [Abnormal weight gain]07-12-2025 EpisodicOther upper respiratory disease (1 source)Nasal congestion; Translations: [Nasal congestion]EpisodicOther upper respiratory infections (1 source)Chronic maxillary sinusitis; Translations: [Chronic maxillary sinusitis]50-41-8014IjattyaSkixvzrqtvr disorders (2 sources)Borderline personality disorder; Translations: [Borderline personality disorder]Onset: 929986-99-1416NmfcvetVomxctql codes; unclassified (1 source)High sugar diet; Translations: [Other specified health status] 71-52-6213AarluznmBturquigqzgf (2 sources)New Patient Visit/ Consultation; Translations: [New Patient Visit/ Consultation]Onset: 72-12-9345Bhzcqzkhvwkb (2 sources)Sexual Problem; Translations: [Sexual Problem]Onset: 01-05-2025 Unclassified (2 sources)std testOnset: 51-68-6225Kuzyayhrecve (2 sources)Annual Exam; Translations: [Annual Exam]Onset: 03-72-1942Ivmkavscgjyo (2 sources)Injury; Translations: [Injury]Onset: 69-06-9873Gqdvayaojneo (2 sources)Labs Only; Translations: [Labs Only]Onset: 80-89-0625Hnjfaslilfhu (2 sources)Female Problem; Translations: [Female Problem]Onset: 04-22-2024 Unclassified (2 sources)R10.9 - Unspecified abdominal pain,R14.0 - Abdominal distension (gaseous)Urinary tract infections (1 source)Interstitial cystitis (chronic) without hematuria; Translations: [Interstitial cystitis (chronic) without hematuria]Onset: 29-69-6477Tgmhzeo Past or Other Problems Problem ClassificationProblemDateDocumented DateEpisodic/ChronicOther aftercare (1 source)Encounter for therapeutic drug level monitoring; Translations: [Encounter for therapeutic drug level monitoring]Onset: 22-26-9488ExkzoehjKgcoz nutritional; endocrine; and metabolic disorders (20 sources)Abnormal weight gain; Translations: [Abnormal weight gain]Onset: 746718-32-1416CtremnowYjjlq nutritional; endocrine; and metabolic disorders (1 source)Abnormal weight gain; Translations: [Abnormal weight gain]Onset: 47-59-6484QqnpiwlyXmrqa upper respiratory disease (1 source)Nasal obstruction; Translations: [Other specified disorders of nose and nasal sinuses]Onset: 630687-84-9230TitgpycbLfvjo upper respiratory disease (1 source)Stenosis of nasal valve; Translations: [Other specified disorders of nose and nasal sinuses]Onset: 632123-29-3535IvlnobvgYypaq upper respiratory disease (1 source)Deviated nasal septum; Translations: [Deviated nasal septum]Onset: 857439-81-6945XdvaytkgYiken upper respiratory disease (1 source)Perforation of nasal septum; Translations: [Other specified disorders of nose and nasal sinuses]Onset: 219297-58-5469AcealbwqBtxwcwy and strains (20 sources)Sprain of interphalangeal joint of unspecified finger, initial encounter; Translations: [Sprain of interphalangeal (joint) of hand]Onset: 425104-90-7957QjbvafvdZomppwzjv-lmiyqxc disorders (1 source)Cannabis use, unspecified, uncomplicated; Translations: [Cannabis use, unspecified, uncomplicated]Onset: 61-64-6963JqpuxlffStqjyimnckju (1 source)Sprain of proximal interphalangeal (PIP) joint of -02-3942 Urinary tract infections (2 sources)Urinary tract infectious disease; Translations: [Urinary Tract Infection]Onset: 81-83-2640Siyosqkw Results Test NameValueInterpretationReference RangeFacilityCBCon 79-00-7391Rlyjacvwzix distribution width (RBC) [Ratio]13.9 %11.0 - 15.0 % HealthHematocrit (Bld) [Volume fraction]41.4 %35.0 - 45.0 % HealthHemoglobin (Bld) [Mass/Vol]13.8 g/dL11.7 - 15.5 g/dLUC [facility]MCH (RBC) [Entitic mass]29.1 pg27.0 - 33.0 pgUC HealthMCHC (RBC) [Mass/Vol]33.3 g/dL32.0 - 36.0 g/dLUC HealthMCV (RBC) [Entitic vol]87.4 fL80.0 - 100.0 fLUC HealthPlatelet mean volume (Bld) [Entitic vol]10.9 fL7.5 - 11.5 fLUC HealthPlatelets (Bld) [#/Vol]214 10*3/uLUC HealthRBC (Bld) [#/Vol]4.74 10*6/uLUC HealthWBC (Bld) [#/Vol]5.8 10*3/uLUC HealthErythrocyte distribution width (RBC) [Ratio]13.9 %Ztavmd21.0-15.0[facility] HospitalComment on above:Performed By: #### CBC #### Singh Gan ([id number]) [place] [address] USAHematocrit (Bld) [Volume fraction]41.4 %Qmldfj03.0-45.0 [facility] HospitalComment on above:Performed By: #### CBC #### Singh Gan ([id number]) [place] [address] USAHemoglobin (Bld) [Mass/Vol]13.8 g/bRQmsbwl95.7-15.5 [facility] HospitalComment on above:Performed By: #### CBC #### Singh Gan ([id number]) [place] [address] USAMCH (RBC) [Entitic mass]29.1 yoTyrmfz45.0-33.0UnLos Alamitos Medical CenterComment on above:Performed By: #### CBC #### Singh Gan ([id number]) [place] [address] USAMCHC (RBC) [Mass/Vol]33.3 g/oYQohmoo23.0-36.0UnLos Alamitos Medical CenterComment on above:Performed By: #### CBC #### Singh Gan ([id number]) [place] [address] USAMCV (RBC) [Entitic vol]87.4 iXBtfczx13.0-100.0UnLos Alamitos Medical CenterComment on above:Performed By: #### CBC #### Singh Gan ([id number]) [place] [address] USAPlatelet mean volume (Bld) [Entitic vol]10.9 fLNormal 7.5-11.5UnLos Alamitos Medical CenterComment on above:Performed By: #### CBC #### Singh Gan ([id number]) [place] [address] USAPlatelets (Bld) [#/Vol]214 10*3/nTPntapa348-370 [facility] HospitalComment on above:Performed By: #### CBC #### Singh Gan ([id number]) [place] [address] USARBC (Bld) [#/Vol]4.74 10*6/uLNormal3.80-5.10[facility] HospitalComment on above:Performed By: #### CBC #### Singh Gan ([id number]) [place] [address] USAWBC (Bld) [#/Vol]5.8 10*3/uLNormal3.8-10.8UnLos Alamitos Medical CenterComment on above:Performed By: #### CBC #### Singh Gan ([id number]) [place] [address] USADIFFERENTIALon 27-40-7054Rax BASO52 /uLNormal0-108 [facility] HospitalComment on above:Performed By: #### DIFF #### Singh Gan ([id number]) [place] [address] USAAbs TLB494 /uLNormal0-864UnLos Alamitos Medical CenterComment on above:Performed By: #### DIFF #### Singh Gan ([id number]) [place] [address] USAAbs JANN021 /uLNormal0-1296UnLos Alamitos Medical CenterComment on above:Performed By: #### DIFF #### Singh Gan ([id number]) [place] [address] USAAbs VFMH7044 /vXWsimze4390-5161DujsbxkdgpLos Alamitos Medical CenterComment on above:Performed By: #### DIFF #### Singh Gan ([id number]) [place] [address] USABasophils/100 WBC (Bld)0.9 %Normal0.0-1.0UnLos Alamitos Medical CenterComment on above:Performed By: #### DIFF #### Singh Gan ([id number]) [place] [address] USAEosinophils/100 WBC (Bld)2.2 %Normal0.0-8.0UnLos Alamitos Medical CenterComment on above:Performed By: #### DIFF #### Singh Gan ([id number]) [place] [address] USALymphocytes (Bld) [#/Vol]1.572 10*3/oNSkkdqq119-6160 [facility] HospitalComment on above:Performed By: #### DIFF #### Singh Gan ([id number]) [place] [address] USALymphocytes/100 WBC (Bld)27.1 %Xahmcw78.0-45.0UnLos Alamitos Medical CenterComment on above:Performed By: #### DIFF #### Singh Gan ([id number]) [place] [address] USAMonocytes/100 WBC (Bld)6.3 %Normal0.0-12.0UnLos Alamitos Medical CenterComment on above:Performed By: #### DIFF #### Singh Gan ([id number]) [place] [address] USANeutrophils/100 WBC (Bld)63.5 %Pxryli71.0-80.0[facility] HospitalComment on above:Performed By: #### DIFF #### Singh Gan ([id number]) [place] [address] USANucleated RBC0 /100 WBCNormal0-0UnLos Alamitos Medical CenterComment on above:Performed By: #### DIFF #### Singh Gan ([id number]) [place] [address] USADifferentialon 79-64-8129Dllkhpymp (Bld) [#/Vol]0.052 10*3/uL0 - 108 /uLUC HealthBasophils/100 WBC (Bld)0.9 %0.0 - 1.0 % Health Eosinophils (Bld) [#/Vol]0.128 10*3/uL0 - 864 /uLUC HealthEosinophils/100 WBC (Bld)2.2 %0.0 - 8.0 % HealthLymphocytes (Bld) [#/Vol]1.572 10*3/uL570 - 4860 /uLUC HealthLymphocytes/100 WBC (Bld)27.1 %15.0 - 45.0 %UC HealthMonocytes (Bld) [#/Vol]0.365 10*3/uL0 - 1296 /uLUC HealthMonocytes/100 WBC (Bld)6.3 %0.0 - 12.0 % HealthNeutrophils (Bld) [#/Vol]3.683 10*3/mE8978 - 8640 /uLUC Health Neutrophils/100 WBC (Bld)63.5 %40.0 - 80.0 % HealthNucleated RBC/100 WBC (Bld) [Ratio]0 % HealthFERRITINon 75-59-6572Ycpcicya [Mass/Vol]20.9 ng/mLNormal 11.0-306.8[facility] HospitalComment on above:Performed By: #### B12 #### Singh Gan ([id number]) [place] [address] USAFerritinon 14-08-2990Gpfcvplj [Mass/Vol]20.9 ng/mL11.0 - 306.8 ng/mLUC [facility] HealthIRON STUDIESon 02-09-2025%SAT15.8 %Bvaguo99.0-55.0 [facility] HospitalComment on above:Performed By: #### B12 #### Singh Gan ([id number]) [place] [address] USAIron [Mass/Vol]59 ug/eDGoeqez25-962MceqvgnhihLos Alamitos Medical CenterComment on above:Performed By: #### B12 #### Singh Gan ([id number]) [place] [address] ABZJGOI138 ug/eYAvqckk699-947OhwyvktujlLos Alamitos Medical CenterComment on above:Performed By: #### B12 #### Singh Gan ([id number]) [place] [address] USAIron Studies (Iron + TIBC)on 66-29-8281Bucj [Mass/Vol]59 ug/dL50 - 212 ug/dLUC HealthIron binding capacity [Mass/Vol]374 ug/dL265 - 497 ug/dLUC HealthIron saturation [Mass fraction]15.8 %15.0 - 55.0 %[facility] HealthNo Panel Informationon 42-16-7260TK HealthVITAMIN B12on 02-09-2025 Cobalamin (Vitamin B12) [Mass/Vol]471 pg/bJLtsexq604-962IjcwahdrlxLos Alamitos Medical CenterComment on above:Performed By: #### B12 #### Singh Gan ([id number]) [place] [address] USAVitamin B12on 85-54-6910Umvldiwnw (Vitamin B12) [Mass/Vol]471 pg/mL180 - 914 pg/mLUC [facility] HealthChlamydia / Gonorrhoeae DNA Swabon 01-06-2025. trachomatis DNA DALE+probe Ql (Unsp spec)NegativeNegativeUC HealthN. gonorrhoeae DNA DALE+probe Ql (Unsp spec)NegativeNegativeUC Health Comment on above:The presence of Chlamydia trachomatis and Neisseria gonorrhoeae DNA is detected by a U.S. Food and Drug Administration-approved amplification assay.[facility] HospitalUrine cultureon 76-71-1558Enhweogb identified Cx Nom (U)<1,000 cfu/mLUC HealthBacteria identified Cx Nom (U)Skin/Urogenital Bernadette. No Further Workup.[facility] HealthCHLAMYDIA / GONORRHOEAE DNA SWABon 01-05-2025. trachomatis DNA DALE+probe Ql (Unsp spec)NegativeNormalNegativeUnLos Alamitos Medical CenterComment on above:Performed By: #### B12 #### Singh Gan ([id number]) [place] [address] USAN. gonorrhoeae DNA DALE+probe Ql (Unsp spec)Negative NormalNegativeUnLos Alamitos Medical CenterComment on above:Result Comment: The presence of Chlamydia trachomatis and Neisseria gonorrhoeae DNA is detected by a U.S. Food and Drug Administration-approved amplification assay. Performed By: #### B12 #### Singh Gan ([id number]) [place] [address] USAURINALYSIS, MICROSCOPICon 39-10-2165YgspjyxlyMqrelkm AbnormalNone SeenUnLos Alamitos Medical CenterComment on above: Performed By: #### DIFF #### Singh Gan ([id number]) [place] [address] USARBC.1 /HPFNormal0-3UnLos Alamitos Medical CenterComment on above:Performed By: #### DIFF #### Singh Gan ([id number]) [place] [address] USASquamous, Epith1 /HPFNormal0-5UnLos Alamitos Medical CenterComment on above:Performed By: #### DIFF #### Singh Gan ([id number]) [place] [address] USAWBC.<7Oovihm7-3KdpqzdyafnLos Alamitos Medical Center Comment on above:Performed By: #### DIFF #### Singh Gan ([id number]) [place] [address] USAURINALYSIS-MACROSCOPIC W/REFLEX TO MICROSCOPICon 92-85-6880Irahmyrry, UrineNegativeNormalNegativeUnLos Alamitos Medical CenterComment on above:Performed By: #### DIFF #### Singh Gan ([id number]) [place] [address] USAClarity (U)CloudyAbnormalClearUnLos Alamitos Medical CenterComment on above:Performed By: #### DIFF #### Singh Gan ([id number]) [place] [address] USAColor (U)StrawNormalYellow,StrawUnLos Alamitos Medical CenterComment on above:Performed By: #### DIFF #### Singh Gan ([id number]) [place] [address] USAGlucose Ql (U)NegativeNormalNegativeUnLos Alamitos Medical CenterComment on above:Performed By: #### DIFF #### Singh Gan ([id number]) [place] [address] USAHemoglobin Ql (U)NegativeNormalNegativeUnLos Alamitos Medical CenterComment on above:Performed By: #### DIFF #### Singh Gan ([id number]) [place] [address] USAKetoneNegativeNormalNegativeUnLos Alamitos Medical CenterComment on above:Performed By: #### DIFF #### Singh Gan ([id number]) [place] [address] USALeukocyte esterase Test strip Ql (U)NegativeNormal NegativeLos Banos Community HospitalComment on above:Performed By: #### DIFF #### Singh Gan ([id number]) [place] [address] USANitrite Ql (U)NegativeNormalNegativeUnLos Alamitos Medical CenterComment on above:Performed By: #### DIFF #### Singh Gan ([id number]) [place] [address] USApH (U)6.5 [pH]Normal5.0-8.0Los [facility] Community HospitalComment on above:Performed By: #### DIFF #### Singh Gan ([id number]) [place] [address] USAProtein, urineNegativeNormalNegativeUnLos Alamitos Medical CenterComment on above:Performed By: #### DIFF #### Singh Gan ([id number]) [place] [address] USASpecific gravity (U) [Rel density]1.386Hldcjd2.005-1.035 [facility] HospitalComment on above:Performed By: #### DIFF #### Singh Gan ([id number]) [place] [address] USAUrobilinogen (U) [Mass/Vol]mg/dLNormal0.2-1.9UnLos Alamitos Medical CenterComment on above:Performed By: #### DIFF #### Singh Gan ([id number]) [place] [address] USAURINE CULTUREon 13-06-6809Kqzvttmf identified Cx Nom (U) Culture Result: <1,000 cfu/mL Skin/Urogenital Bernadette. No Further Workup.NormalUnLos Alamitos Medical CenterComment on above:Performed By: #### B12 #### Singh Gan ([id number]) [place] [address] USAUreaplasma/Mycoplasma hominis Cultureon 01-05-2025 Mycoplasma hominisNegativeNormalNegativeUnLos Alamitos Medical Center Comment on above:Order Comment: PERFORMED AT: [employer] [id number] DIRECTOR: Mikki Nunez MD PHONE: [phone] By: #### B12 #### Singh Gan ([id number]) [place] [address] USAUreaplasma urealyticumNegativeNormalNegativeUnLos Alamitos Medical CenterComment on above:Order Comment: PERFORMED AT: [employer] [address] [id number] DIRECTOR: Mikki Nunez MD PHONE: [phone] By: #### B12 #### Singh Gan ([id number]) [place] [address] USAUrinalysis-Macroscopic w/Rfx to Microscoon 01-05-2025 Bilirubin Ql [...] mg/dLUC HealthUC HealthVaginitis Panel DNA Amplified Probeon 96-46-8360Sdgeqemus Vaginosis NegativeNegativeUC HealthCandida glabrata/kruseiNot detectedNot DetectedUC HealthCandida [...] an FDA-approved nucleic acid amplification assay. HealthBacterial VaginosisNegativeNormalNegativeLos Banos Community HospitalComment on above:Performed By: #### B12 #### Singh Gan ([id number]) [place] [address] USACandida glabrata/kruseiNot detectedNormalNot Detected [facility] HospitalComment on above:Performed By: #### B12 #### Singh Gan ([id number]) [place] [address] USACandida SpeciesNot detectedNormalNot DetectedUnLos Alamitos Medical CenterComment on above:Performed By: #### B12 #### Singh Gan ([id number]) [place] [address] USATrichomonas vaginalisNot detectedNormalNot Detected [facility] HospitalComment on above:Result Comment: A positive result for [...] Performed By: #### B12 #### Singh Gan ([id number]) [place] [address] USACHLAMYDIA / GONORRHOEAE DNA URINEon 02-06-2740Keknqclkz Trachomatis DNANegativeNormalNegativeUnLos Alamitos Medical Center Comment on above:Performed By: #### DIFF #### Singh Gan ([id number]) [place] [address] USANeisseria Gonorrhoeae DNANegativeNormalNegative [facility] HospitalComment on above:Result Comment: The presence of Chlamydia trachomatis and Neisseria gonorrhoeae DNA is detected by a U.S. Food and Drug Administration-approved amplification assay.Performed By: #### DIFF #### Singh Gan ([id number]) [place] [address] USAVaginitis Panel DNA Amplified Probeon 12-13-2024 Bacterial VaginosisNegativeNormalNegativeUnLos Alamitos Medical Center Comment on above:Performed By: #### DIFF #### Singh Gan ([id number]) [place] [address] USACandida glabrata/kruseiNot detectedNormalNot Detected [facility] HospitalComment on above:Performed By: #### DIFF #### Snigh Gan ([id number]) [place] [address] USACandida SpeciesNot detectedNormalNot DetectedUnLos Alamitos Medical CenterComment on above:Performed By: #### DIFF #### Singh Gan ([id number]) [place] [address] USATrichomonas vaginalisNot detectedNormalNot Detected [facility] HospitalComment on above:Result Comment: A positive result for [...] C. krusei have been detected. For both Ndaya targets, further species differentiation is not possible. A detected result for Trichomonas vaginalis indicates that T. vaginalis was detected in the specimen. For all targets, a negative or not detected result indicates that these organisms were not detected above the limit of detection of the assay. This assay is an FDA-approved nucleic acid amplification assay. Performed By: #### DIFF #### Singh Gan ([id number]) [address] StreetCon 55-71-3837Llzpqenjbbu distribution width (RBC) [Ratio]14.0 %Utvfbh78.0-15.0Los [facility] Community HospitalComment on above:Performed By: #### UC #### Singh Gan ([id number]) [place] [address] USAHematocrit (Bld) [Volume fraction]39.0 %Nsioxw52.0-45.0 [facility] HospitalComment on above:Performed By: #### UC #### Singh Gan ([id number]) [place] [address] USAHemoglobin (Bld) [Mass/Vol]13.0 g/eGXathut09.7-15.5 [facility] HospitalComment on above:Performed By: #### UC #### Singh Gan ([id number]) [place] [address] USAMCH (RBC) [Entitic mass]29.2 gxGzvpvl76.0-33.0[facility] HospitalComment on above:Performed By: #### UC #### Singh Gan ([id number]) [place] [address] USAMCHC (RBC) [Mass/Vol]33.4 g/vMXboepn85.0-36.0UnMyMichigan Medical Center West Branchcinnati Medical CenterComment on above:Performed By: #### #### Singh Gan ([id number]) [place] [address] USAMCV (RBC) [Entitic vol]87.5 bWQlsbmu08.0-100.0UnLos Alamitos Medical CenterComment on above:Performed By: #### #### Singh Gan ([id number]) [place] [address] USAPlatelet mean volume (Bld) [Entitic vol]11.6 fLHigh 7.5-11.5Los [facility] HospitalComment on above:Performed By: #### #### Singh Gan ([id number]) [place] [address] USAPlatelets (Bld) [#/Vol]178 10*3/yXVmmfqw693-363 [facility] HospitalComment on above:Performed By: #### #### Singh Gan ([id number]) [place] [address] USARBC (Bld) [#/Vol]4.46 10*6/uLNormal3.80-5.10Los [facility] HospitalComment on above:Performed By: #### #### Singh Gan ([id number]) [place] [address] USAWBC (Bld) [#/Vol]7.2 10*3/uLNormal3.8-10.8Los [facility] HospitalComment on above:Performed By: #### #### Singh aGn ([id number]) [place] [address] USACOMPREHENSIVE METABOLIC PANELon 47-79-5580Bhxjdmo [Mass/Vol]4.5 g/dLNormal3.5-5.7UnLos Alamitos Medical CenterComment on above:Order Comment: Must the patient be fasting for this test?->YesPerformed By: #### CBC #### Singh Gan ([id number]) [place] [address] USAALP [Catalytic activity/Vol]56 U/ZJltoor41-823WahdmczbhkLos Alamitos Medical CenterComment on above:Order Comment: Must the patient be fasting for this test?->YesPerformed By: #### CBC #### Singh Gan ([id number]) [place] [address] USAALT [Catalytic activity/Vol]13 U/LNormal7-52UnLos Alamitos Medical CenterComment on above:Order Comment: Must the patient be fasting for this test?->YesPerformed By: #### CBC #### Signh Gan ([id number]) [place] [address] USAAnion gap [Moles/Vol]9 mmol/LNormal3-16UnLos Alamitos Medical CenterComment on above:Order Comment: Must the patient be fasting for this test?->YesPerformed By: #### CBC #### Singh Gan ([id number]) [place] [address] USAAST [Catalytic activity/Vol]28 U/LGjfqrd97-33CuuhrzkhhyLos Alamitos Medical CenterComment on above:Order Comment: Must the patient be fasting for this test?->YesPerformed By: #### CBC #### Singh Gan ([id number]) [place] [address] USABILI, Total0.6 mg/dLNormal0.0-1.5UnLos Alamitos Medical CenterComment on above:Order Comment: Must the patient be fasting for this test?->YesPerformed By: #### CBC #### Singh Gan ([id number]) [place] [address] USACalcium [Mass/Vol]8.9 mg/dLNormal8.6-10.3UnLos Alamitos Medical CenterComment on above:Order Comment: Must the patient be fasting for this test?->YesPerformed By: #### CBC #### Singh Gan ([id number]) [place] [address] USAChloride [Moles/Vol]106 mmol/ZXibohk14-365QrljmzcdslLos Alamitos Medical CenterComment on above:Order Comment: Must the patient be fasting for this test?->YesPerformed By: #### CBC #### Singh Gan ([id number]) [place] [address] USACO2 [Moles/Vol]25 mmol/BYsebzd86-33CzwvumkcegLos Alamitos Medical CenterComment on above:Order Comment: Must the patient be fasting for this test?->YesPerformed By: #### CBC #### Singh Gan ([id number]) [place] [address] USACreatinine [Mass/Vol]0.84 mg/dLNormal0.60-1.30UnLos Alamitos Medical CenterComment on above:Order Comment: Must the patient be fasting for this test?->YesPerformed By: #### CBC #### Singh Gan ([id number]) [place] [address] USAGFR/1.73 sq M.predicted among non-blacks MDRD (S/P/Bld) [Vol rate/Area]mL/min/{1.73_m2}NormalUnLos Alamitos Medical Center Comment on above:Order Comment: Must the patient [...] information: [email or web address] By: #### CBC #### Singh Gna ([id number]) [place] [address] USAGlucose [Mass/Vol]78 mg/tXOfexji58-724KeltlsewefLos Alamitos Medical CenterComment on above:Order Comment: Must the patient be fasting for this test?->YesPerformed By: #### CBC #### Singh Gan ([id number]) [place] [address] USAOsmolality [Osmolality]287 mosm/krLuoozt945-725 [facility] HospitalComment on above:Order Comment: Must the patient be fasting for this test?->YesPerformed By: #### CBC #### Singh Gan ([id number]) [place] [address] USAPotassium [Moles/Vol]3.8 mmol/LNormal3.5-5.3UnLos Alamitos Medical CenterComment on above:Order Comment: Must the patient be fasting for this test?->YesPerformed By: #### CBC #### Singh Gan ([id number]) [place] [address] USAProtein [Mass/Vol]6.6 g/dLNormal6.4-8.9UnLos Alamitos Medical CenterComment on above:Order Comment: Must the patient be fasting for this test?->YesPerformed By: #### CBC #### Singh Gan ([id number]) [place] [address] USASodium [Moles/Vol]140 mmol/CExlwfg791-422TshdshitcwLos Alamitos Medical CenterComment on above:Order Comment: Must the patient be fasting for this test?->YesPerformed By: #### [facility] #### Singh Gan ([id number]) [place] [address] USAUrea nitrogen [Mass/Vol]8 mg/dLNormal7-25UnLos Alamitos Medical CenterComment on above:Order Comment: Must the patient be fasting for this test?->YesPerformed By: #### CBC #### Singh Gan ([id number]) [place] [address] USADIFFERENTIALon 54-12-9297Unx BASO36 /uLNormal0-200 [facility] HospitalComment on above:Performed By: #### #### Singh Gan ([id number]) [place] [address] USAAbs KZK162 /lCMpeazm13-473VbfudoxbghLos Alamitos Medical CenterComment on above:Performed By: #### #### Singh Gan ([id number]) [place] [address] USAAbs RRJK756 /lBNaxkfd246-424ApyzqskehdLos Alamitos Medical CenterComment on above:Performed By: #### #### Singh Gan ([id number]) [place] [address] USAAbs DRHV9722 /bQFkjkve6002-9818BprbcozybiLos Alamitos Medical CenterComment on above:Performed By: #### #### Singh Gan ([id number]) [place] [address] USABasophils/100 WBC (Bld)0.5 %Normal0.0-1.0UnLos Alamitos Medical CenterComment on above:Performed By: #### #### Singh Gan ([id number]) [place] [address] USAEosinophils/100 WBC (Bld)1.5 %Normal0.0-8.0UnLos Alamitos Medical CenterComment on above:Performed By: #### #### Singh Gan ([id number]) [place] [address] USALymphocytes (Bld) [#/Vol]1.555 10*3/gLVvzbjy661-5181 [facility] HospitalComment on above:Performed By: #### #### Singh Gan ([id number]) [place] [address] USALymphocytes/100 WBC (Bld)21.6 %Pedfru54.0-45.0UnLos Alamitos Medical CenterComment on above:Performed By: #### #### Singh Gan ([id number]) [place] [address] USAMonocytes/100 WBC (Bld)4.3 %Normal0.0-12.0UnLos Alamitos Medical CenterComment on above:Performed By: #### UC #### Singh Gan ([id number]) [place] [address] USANeutrophils/100 WBC (Bld)72.1 %Fexouy36.0-80.0UnLos Alamitos Medical CenterComment on above:Performed By: #### UC #### Singh Gan ([id number]) [place] [address] USANucleated RBC0 /100 WBCNormal0-0UnLos Alamitos Medical CenterComment on above:Performed By: #### #### Singh Gan ([id number]) [place] [address] USAFSHon 98-83-9347TSA4.3 mIU/mLNormalUnLos Alamitos Medical CenterComment on above:Result Comment: All Adults Females: Mid-Follicular Phase 3.85-8.78 Mid-Cycle Peak 4.54-22.51 Mid-Luteal Phase 1.79-5.12 Post Menopausal 16.74-113.59 Males: 1.27-19.26Performed By: #### DIFF #### Singh Gan ([id number]) [place] [address] USAGLYCOHEMOGLOBIN, A1Con 32-86-5411AvA1v (Bld) [Mass fraction]4.9 %Normal4.0-5.6UnLos Alamitos Medical CenterComment on above:Result Comment: Hemoglobin A1c Interpretation Guidelines: [...] considerations.Performed By: #### DIFF #### Singh Gan ([id number]) [place] [address] USAHEPATITIS C ANTIBODYon 67-12-7177Uzptmlayx C Interp Non-ReactiveNormalNonreactiveLos Banos Community HospitalComment on above:Order Comment: Antibodies to HCV not detected; does not exclude the possibility of exposure to HCV.Result Comment: Health Department notified in accordance with reportable infectious disease guidelines.Performed By: #### HCVAB #### Singh Gan ([id number]) [place] [address] USAHIV 1+2 ANTIBODY/ANTIGEN WITH REFLEXon 67-44-4532AKS 1+2 AB/AGNNon-ReactiveNormalNonreactiveUnLos Alamitos Medical Center Comment on above:Order Comment: HIV-1 p24 Antigen and HIV-1/HIV-2 Antibody not detected.Performed By: #### UC #### Singh Gan ([id number]) [place] [address] USAINSULINon 86-95-2771Xhjdapp0.98 uIU/mLNormal3.20-16.30 [facility] HospitalComment on above:Result Comment: Note: New reference range has been established due to a change in methodology. Please review results with caution and interpret values with the new reference range. Performed By: #### DIFF #### Singh Gan ([id number]) [place] [address] USALUTEINIZING HORMONEon 99-09-6994OE08.1 mIU/mLNormal [facility] Medical CenterComment on above:Result Comment: All Adults Females: Mid-Follicular Phase 2.12-10.89 Mid-Cycle Peak 19.18-103.03 Mid-Luteal Phase 1.20-12.86 Post Menopausal 10.87-58.64 Males: 1.24-8.62Performed By: #### DIFF #### Singh Gan ([id number]) [place] [address] USAMAGNESIUMon 80-85-8309Pdccinflr [Mass/Vol]1.9 mg/dL Normal1.5-2.5Los [facility] Community HospitalComment on above:Performed By: #### CBC #### Singh Gan ([id number]) [place] [address] USAPROLACTINon 36-68-3707Hgazloubx1.80 ng/mLNormal 3.34-26.72UnLos Alamitos Medical CenterComment on above:Order Comment: The testing method for prolactin is a chemiluminescent immunoassay manufactured by [employer] Concentrations of prolactin obtained by different assay methods or kits may varyand cannot be used interchangeably.Prolactin results cannot be interpreted as absolute evidence of the presence or absence of malignant disease.Performed By: #### DIFF #### Singh Gan ([id number]) [place] [address] USAProlactinon 88-72-0680Tgskymvuq [Mass/Vol]7.8 ng/mL3.34 - 26.72 ng/mLAkron Children's HospitalThe testing method for prolactin is a chemiluminescent immunoassay manufactured by [employer] Concentrations of prolactin obtained by different assay methods or kits may vary and cannot be used interchangeably. Prolactin results cannot be interpreted as absolute evidence of the presence or absence of malignant disease.[facility] HealthTESTOSTERONE, TOTALon 86-19-3312Rklhpkypfopm [Mass/Vol]54 ng/dLNormal0-75UnLos Alamitos Medical CenterComment on above:Performed By: #### UC #### Singh Gan ([id number]) [place] [address] USATHYROID FUNCTION CASCADEon 97-58-2709HMV, 3rd Generation 0.64 uIU/mLNormal0.45-4.12UnLos Alamitos Medical CenterComment on above:Performed By: #### UC #### Singh Gan ([id number]) [place] [address] USAVITAMIN B12on 00-27-2912Rfjydilkw (Vitamin B12) [Mass/Vol]281 pg/uUVmxjwk145-664XwfjhbvuqfLos Alamitos Medical CenterComment on above:Performed By: #### DIFF #### Singh Gan ([id number]) [place] [address] USAVITAMIN D 25-HYDROXYon 90-39-6427Fpaoyhf D, 25 Hydroxy 39.5 ng/mNPhvhcd25.0-100.0UnLos Alamitos Medical CenterComment on above:Result Comment: Vitamin D deficiency has been defined by the [employer] (IOM) and an Endocrine Society [...] 96(7):1911-30.Performed By: #### UC #### Singh Gan ([id number]) [place] [address] USAHand Surgeryon 71-28-6235DP HealthXR FINGER LEFT MINIMUM 2-VIEWSon 80-67-5905LB FINGER LEFT MINIMUM 2-VIEWSEXAM: XR FINGER LEFT MINIMUM 2-VIEWS INDICATION: Sprain of proximal interphalangeal (PIP) joint of finger COMPARISON: None available TECHNIQUE: 3 views centered over the left third digit FINDINGS and IMPRESSION: 1. No acute fracture or dislocation. 2. Preserved joint spaces and alignments. Report Verified by: Kaylynn Colon MD at 11/10/2024 4:19 PM ESTNormalUniversFulton County Health CenterHCG URINE, QUALITATIVEon 56-61-9686Dyuy HCG ( test) Ql (U)NegativeNormalNegativeUnLos Alamitos Medical Center Comment on above:Performed By: #### UPREG #### Singh Gan ([id number]) [place] [address] USAUrine cultureon 31-69-4791Kciutplt identified Cx Nom (U) 1,000- <10,000 cfu/mLUC HealthBacteria identified Cx Nom (U)Mixed Gram Negative and Gram Positive Organisms. No Further WorkupUC [facility] HealthVaginitis Panel DNA Amplified Probeon 45-15-2188Uabjbxchw VaginosisNegativeNegativeUC Health Nadya glabrata/kruseiNot detectedNot DetectedUC HealthCandida [...] is an FDA-approved nucleic acid amplification assay. [facility] HospitalURINE CULTUREon 15-73-7757Ynafmqle identified Cx Nom (U)Culture Result: 1,000- <10,000 cfu/mL Mixed Gram Negative and Gram Positive Organisms. No Further WorkupNormal [facility] HospitalComment on above:Performed By: #### UC #### Singh Gan ([id number]) [place] [address] USAVaginitis Panel DNA Amplified Probeon 07-26-2024 Bacterial VaginosisNegativeNormalNegativeUnLos Alamitos Medical Center Comment on above:Performed By: #### UC #### Singh Gan ([id number]) [place] [address] USACandida glabrata/kruseiNot detectedNormalNot Detected [facility] HospitalComment on above:Performed By: #### UC #### Singh Gan ([id number]) [place] [address] USACandida SpeciesNot detectedNormalNot DetectedUnLos Alamitos Medical CenterComment on above:Performed By: #### UC #### Singh Gan ([id number]) [place] [address] USATrichomonas vaginalisNot detectedNormalNot Detected [facility] HospitalComment on above:Result Comment: A positive result for [...] Performed By: #### UC #### Singh Gan ([id number]) [place] [address] USACHLAMYDIA / GONORRHOEAE DNA URINEon 54-14-7589Sgebyyzrb Trachomatis DNANegativeNormalNegativeLos Banos Community Hospital Comment on above:Performed By: #### CTNGUR #### Singh Gan ([id number]) [place] [address] USANeisseria Gonorrhoeae DNANegativeNormalNegative [facility] HospitalComment on above:Result Comment: The presence of Chlamydia trachomatis and Neisseria gonorrhoeae DNA is detected by a U.S. Food and Drug Administration-approved amplification assay.Performed By: #### CTNGUR #### Singh Gan ([id number]) [place] [address] USAURINALYSIS, MICROSCOPICon 70-16-2059GUJ.4 /HPFHigh0-3 [facility] HospitalComment on above:Performed By: #### CTNGUR #### Singh Gan ([id number]) [place] [address] USASquamous, Epith1 /HPFNormal0-5[facility] HospitalComment on above:Performed By: #### CTNGUR #### Singh Gan ([id number]) [place] [address] USAWBC.>389Vkwj1-9WvpukgclogLos Alamitos Medical Center Comment on above:Performed By: #### CTNGUR #### Singh Gan ([id number]) [place] [address] USAURINALYSIS-MACROSCOPIC W/REFLEX TO MICROSCOPICon 40-76-1598Mxvksosgs, UrineNegativeNormalNegativeLos Banos Community HospitalComment on above:Performed By: #### CTNGUR #### Singh Gan ([id number]) [place] [address] USAClarity (U)ClearNormalClearUnLos Alamitos Medical CenterComment on above:Performed By: #### CTNGUR #### Singh Gan ([id number]) [place] [address] USAColor (U)YellowNormalYellow,StrawUnLos Alamitos Medical CenterComment on above:Performed By: #### CTNGUR #### Singh Gan ([id number]) [place] [address] USAGlucose Ql (U)NegativeNormalNegativeLos Banos Community HospitalComment on above:Performed By: #### CTNGUR #### Singh Gan ([id number]) [place] [address] USAHemoglobin Ql (U)TraceAbnormalNegSeton Medical CenterComment on above:Performed By: #### CTNGUR #### Singh Gan ([id number]) [place] [address] USAKetoneNegativeNormalNegativeLos Banos Community HospitalComment on above:Performed By: #### CTNGUR #### Singh Gan ([id number]) [place] [address] USALeukocyte esterase Test strip Ql (U)LargeAbnormal NegativeLos Banos Community HospitalComment on above:Performed By: #### CTNGUR #### Singh Gan ([id number]) [place] [address] USANitrite Ql (U)NegativeNormalNegativeUnLos Alamitos Medical CenterComment on above:Performed By: #### CTNGSYLVESTER #### Singh Gan ([id number]) [place] [address] USApH (U)6.5 [pH]Normal5.0-8.0UnLos Alamitos Medical CenterComment on above:Performed By: #### CTNGSYLVESTER #### Singh Gan ([id number]) [place] [address] USAProtein (U) [Mass/Vol]30 mg/dLAbnormalNegativeUnLos Alamitos Medical CenterComment on above:Performed By: #### CTNGSYLVESTER #### Singh Gan ([id number]) [place] [address] USASpecific gravity (U) [Rel density]1.541Pdozyl9.005-1.035 [facility] HospitalComment on above:Performed By: #### CTNGSYLVESTER #### Singh Gan ([id number]) [place] [address] USAUrobilinogen (U) [Mass/Vol]mg/dLNormal0.2-1.9UnLos Alamitos Medical CenterComment on above:Performed By: #### CTNGUR #### Singh Gan ([id number]) [place] [address] USAURINE CULTUREon 75-07-0325Ewitwfvw identified Cx Nom (U) Culture Result: <10,000 cfu/mL Skin/Urogenital Bernadette. No Further Workup.NormalUnLos Alamitos Medical CenterComment on above:Performed By: #### CTNGUR #### Singh Gan ([id number]) [place] [address] USACHLAMYDIA / GONORRHOEAE DNA SWABon 4C. trachomatis DNA DALE+probe Ql (Unsp spec)NegativeNormalNegativeLos Banos Community HospitalComment on above:Performed By: #### CTNGUR #### Singh Gan ([id number]) [place] [address] USAN. gonorrhoeae DNA DALE+probe Ql (Unsp spec)Negative NormalNegativeLos Banos Community HospitalComment on above:Result Comment: The presence of Chlamydia trachomatis and Neisseria gonorrhoeae DNA is detected by a U.S. Food and Drug Administration-approved amplification assay. Performed By: #### CTNGUR #### Singh Gan ([id number]) [place] [address] USAPOC URINALYSISon 19-26-9221Hllgjalto, UrineNegative NormalNegativeLos Banos Community HospitalComment on above:Performed By: #### CTNGUR #### Singh Gan ([id number]) [place] [address] USAGlucose Ql (U)NegativeNormalNegativeLos Banos Community HospitalComment on above:Performed By: #### CTNGUR #### Singh Gan ([id number]) [place] [address] USAHemoglobin Ql (U)NegativeNormalNegativeLos Banos Community HospitalComment on above:Performed By: #### CTNGUR #### Singh Gan ([id number]) [place] [address] USAKetoneNegativeNormalNegativeLos Banos Community HospitalComment on above:Performed By: #### CTNGSYLVESTER #### Singh Gan ([id number]) [place] [address] USALeukocyte esterase Test strip Ql (U)SmallAbnormal NegativeUnLos Alamitos Medical CenterComment on above:Performed By: #### CTNGSYLVESTER #### Singh Gan ([id number]) [place] [address] USANitrite Ql (U)NegativeNormalNegativeUnLos Alamitos Medical CenterComment on above:Performed By: #### CTNGUR #### Singh Gan ([id number]) [place] [address] USApH (U)6.0 [pH]Normal5.0-8.0UnLos Alamitos Medical CenterComment on above:Performed By: #### CTNGSYLVESTER #### Singh Gan ([id number]) [place] [address] USAProtein, urineNegativeNormalNegativeUnLos Alamitos Medical CenterComment on above:Performed By: #### CTNGSYLVESTER #### Singh Gan ([id number]) [place] [address] USASpecific gravity (U) [Rel density]1.738Vlldxp8.005-1.035 [facility] HospitalComment on above:Performed By: #### CTNGUR #### Singh Gan ([id number]) [place] [address] USAUrobilinogen (U) [Mass/Vol]0.2 mg/dLNormal0.2-1.0 [facility] HospitalComment on above:Performed By: #### CTNGUR #### Singh Gan ([id number]) [place] [address] USAURINALYSIS, MICROSCOPICon 46-63-4926Fvalnqim, Epith2 /HPFNormal0-5[facility] HospitalComment on above:Performed By: #### CTNGUR #### Singh Gan ([id number]) [place] [address] USAWBC.7 /HPFHigh0-UnLos Alamitos Medical Center Comment on above:Performed By: #### CTNGUR #### Singh Gan ([id number]) [place] [address] USAURINALYSIS-MACROSCOPIC W/REFLEX TO MICROSCOPICon 24-98-8014Vlcqzvgmp, UrineNegativeNormalNegativeUnLos Alamitos Medical CenterComment on above:Performed By: #### CTNGUR #### Singh Gan ([id number]) [place] [address] USAClarity (U)ClearNormalClearUnLos Alamitos Medical CenterComment on above:Performed By: #### CTNGUR #### Singh Gan ([id number]) [place] [address] USAColor (U)StrawNormalYellow,StrawUnLos Alamitos Medical CenterComment on above:Performed By: #### CTNGUR #### Singh Gan ([id number]) [place] [address] USAGlucose Ql (U)NegativeNormalNegativeLos Banos Community HospitalComment on above:Performed By: #### CTNGUR #### Singh Gan ([id number]) [place] [address] USAHemoglobin Ql (U)NegativeNormalNegativeUnLos Alamitos Medical CenterComment on above:Performed By: #### CTNGUR #### Singh Gan ([id number]) [place] [address] USAKetoneNegativeNormalNegativeUnLos Alamitos Medical CenterComment on above:Performed By: #### CTNGUR #### Singh Gan ([id number]) [place] [address] USALeukocyte esterase Test strip Ql (U)ModerateAbnormal NegativeUnLos Alamitos Medical CenterComment on above:Performed By: #### CTNGUR #### Singh Gan ([id number]) [place] [address] USANitrite Ql (U)NegativeNormalNegativeUnLos Alamitos Medical CenterComment on above:Performed By: #### CTNGUR #### Singh Gan ([id number]) [place] [address] USApH (U)6.5 [pH]Normal5.0-8.0[facility] HospitalComment on above:Performed By: #### CTNGUR #### Singh Gan ([id number]) [place] [address] USAProtein, urineNegativeNormalNegativeUnLos Alamitos Medical CenterComment on above:Performed By: #### CTNGUR #### Singh Gan ([id number]) [place] [address] USASpecific gravity (U) [Rel density]1.108Tressi2.005-1.035 [facility] HospitalComment on above:Performed By: #### CTNGUR #### Singh Gan ([id number]) [place] [address] USAUrobilinogen (U) [Mass/Vol]mg/dLNormal0.2-1.9UnLos Alamitos Medical CenterComment on above:Performed By: #### CTNGUR #### Singh Gan ([id number]) [place] [address] USAURINE CULTUREon 64-04-6939Qhispefl identified Cx Nom (U) Culture Result: 1,000- <10,000 cfu/mL Skin/Urogenital Bernadette. No Further Workup.NormalUnLos Alamitos Medical CenterComment on above:Performed By: #### CTNGUR #### Singh Gan ([id number]) [place] [address] USAVaginitis Panel DNA Amplified Probeon 04-22-2024 Bacterial VaginosisNegativeNormalNegativeUnLos Alamitos Medical Center Comment on above:Performed By: #### CTNGUR #### Singh Gan ([id number]) [place] [address] USACandida glabrata/kruseiNot detectedNormalNot Detected [facility] HospitalComment on above:Performed By: #### CTNGUR #### Singh Gan ([id number]) [place] [address] USACandida SpeciesNot detectedNormalNot DetectedUnLos Alamitos Medical CenterComment on above:Performed By: #### CTNGUR #### Singh Gan ([id number]) [place] [address] USATrichomonas vaginalisNot detectedNormalNot Detected [facility] HospitalComment on above:Result Comment: A positive result for bacterial vaginosis indicates that Atopobium spp., bacterial vaginosis-associated bacterium 2 (BVAB2), and/or Megasphaera-1 have been detected in relative concentrations consistent with bacterial vaginosis. A detected result for Nadya group indicates that C. albicans, C. tropicalis, C. parapsilosis, and/or C. dubliniensis have been detected. A detected result for Ndaya glabrata/Nadya krusei indicates that C. glabrata and/or [...] Performed By: #### CTVALERIA #### Singh Gan ([id number]) [address] 58-24-1825Raqgabprkmq distribution width (RBC) [Ratio]14.1 %Gnvxwd98.0-15.0UnLos Alamitos Medical CenterComment on above:Performed By: #### CBC #### Singh Gan ([id number]) [place] [address] USAHematocrit (Bld) [Volume fraction]35.7 %Dgqisu09.0-45.0 [facility] HospitalComment on above:Performed By: #### CBC #### Singh Gan ([id number]) [place] [address] USAHemoglobin (Bld) [Mass/Vol]12.6 g/nUNxbntj81.7-15.5 [facility] HospitalComment on above:Performed By: #### CBC #### Singh Gan ([id number]) [address] [address] USAMCH (RBC) [Entitic mass]34.2 beFxky07.0-33.0UnLos Alamitos Medical CenterComment on above:Performed By: #### CBC #### Singh Gan ([id number]) [place] [address] USAMCHC (RBC) [Mass/Vol]35.4 g/oIHhmkhh83.0-36.0UnLos Alamitos Medical CenterComment on above:Performed By: #### CBC #### Singh Gan ([id number]) [address] (RBC) [Entitic vol]96.5 tIAetwvt17.0-100.0UnLos Alamitos Medical CenterComment on above:Performed By: #### CBC #### Singh Gan ([id number]) [place] [address] USAPlatelet mean volume (Bld) [Entitic vol]9.3 fLNormal 7.5-11.5UnLos Alamitos Medical CenterComment on above:Performed By: #### CBC #### Singh Gan ([id number]) [place] [address] USAPlatelets (Bld) [#/Vol]241 10*3/pLXbyqrx544-287 [facility] HospitalComment on above:Performed By: #### CBC #### Singh Gan ([id number]) [place] [address] USARBC (Bld) [#/Vol]3.69 10*6/uLLow3.80-5.10[facility] HospitalComment on above:Performed By: #### CBC #### Singh Gan ([id number]) [place] [address] USAWBC (Bld) [#/Vol]5.9 10*3/uLNormal3.8-10.8UnLos Alamitos Medical CenterComment on above:Performed By: #### CBC #### Singh Gan ([id number]) [place] [address] USACOMPREHENSIVE METABOLIC PANELon 26-18-6102Xhxvxyq [Mass/Vol]4.2 g/dLNormal3.5-5.7UnLos Alamitos Medical CenterComment on above:Order Comment: Must the patient be fasting for this test?->NoPerformed By: #### CBC #### Singh Gan ([id number]) [place] [address] USAALP [Catalytic activity/Vol]58 U/LJyeqij34-048StlzsqnusgLos Alamitos Medical CenterComment on above:Order Comment: Must the patient be fasting for this test?->NoPerformed By: #### CBC #### Singh Gan ([id number]) [place] [address] USAALT [Catalytic activity/Vol]9 U/LNormal7-52UnLos Alamitos Medical CenterComment on above:Order Comment: Must the patient be fasting for this test?->NoPerformed By: #### CBC #### Singh Gan ([id number]) [place] [address] USAAnion gap [Moles/Vol]11 mmol/LNormal3-16UnLos Alamitos Medical CenterComment on above:Order Comment: Must the patient be fasting for this test?->NoPerformed By: #### CBC #### Singh Gan ([id number]) [place] [address] USAAST [Catalytic activity/Vol]15 U/QQldjia77-06VhmpxogrwyLos Alamitos Medical CenterComment on above:Order Comment: Must the patient be fasting for this test?->NoPerformed By: #### CBC #### Singh Gan ([id number]) [place] [address] USABILI, Total0.3 mg/dLNormal0.0-1.5UnLos Alamitos Medical CenterComment on above:Order Comment: Must the patient be fasting for this test?->NoPerformed By: #### CBC #### Singh Gan ([id number]) [place] [address] USACalcium [Mass/Vol]9.1 mg/dLNormal8.6-10.3UnLos Alamitos Medical CenterComment on above:Order Comment: Must the patient be fasting for this test?->NoPerformed By: #### CBC #### Singh Gan ([id number]) [place] [address] USAChloride [Moles/Vol]105 mmol/GPdpcmh80-513BfthnugidqLos Alamitos Medical CenterComment on above:Order Comment: Must the patient be fasting for this test?->NoPerformed By: #### CBC #### Singh Gan ([id number]) [place] [address] USACO2 [Moles/Vol]25 mmol/SYxmniv91-65EgqmsxocakLos Alamitos Medical CenterComment on above:Order Comment: Must the patient be fasting for this test?->NoPerformed By: #### CBC #### Singh Gan ([id number]) [place] [address] USACreatinine [Mass/Vol]0.81 mg/dLNormal0.60-1.30UnLos Alamitos Medical CenterComment on above:Order Comment: Must the patient be fasting for this test?->NoPerformed By: #### CBC #### Singh Gan ([id number]) [place] [address] USAGFR/1.73 sq M.predicted among non-blacks MDRD (S/P/Bld) [Vol rate/Area]mL/min/{1.73_m2}NormalUnLos Alamitos Medical Center Comment on above:Order Comment: Must the patient [...] [email or web address] By: #### CBC #### Singh Gan ([id number]) [place] [address] USAGlucose [Mass/Vol]79 mg/kXJvugat64-643HqboqlkcweLos Alamitos Medical CenterComment on above:Order Comment: Must the patient be fasting for this test?->NoPerformed By: #### CBC #### Singh Gan ([id number]) [place] [address] USAOsmolality [Osmolality]289 mosm/vkYomglr268-844 [facility] HospitalComment on above:Order Comment: Must the patient be fasting for this test?->NoPerformed By: #### CBC #### Singh Gan ([id number]) [place] [address] USAPotassium [Moles/Vol]3.6 mmol/LNormal3.5-5.3UnLos Alamitos Medical CenterComment on above:Order Comment: Must the patient be fasting for this test?->NoPerformed By: #### CBC #### Singh Gan ([id number]) [place] [address] USAProtein [Mass/Vol]6.8 g/dLNormal6.4-8.9UnLos Alamitos Medical CenterComment on above:Order Comment: Must the patient be fasting for this test?->NoPerformed By: #### CBC #### Singh Gan ([id number]) [place] [address] USASodium [Moles/Vol]141 mmol/ACeodhy557-125AzodafuunfLos Alamitos Medical CenterComment on above:Order Comment: Must the patient be fasting for this test?->NoPerformed By: #### CBC #### Singh Gan ([id number]) [place] [address] USAUrea nitrogen [Mass/Vol]7 mg/dLNormal7-25UnLos Alamitos Medical CenterComment on above:Order Comment: Must the patient be fasting for this test?->NoPerformed By: #### CBC #### Singh Gan ([id number]) [place] [address] USADHEA SULFATE, SERUMon 81-86-6227KPTN Pxvsacm131 ug/dL Tvzqjf96-120NjqtuuhhlfLos Alamitos Medical CenterComment on above:Performed By: #### CBC #### Singh Gan ([id number]) [place] [address] USADIFFERENTIALon 04-46-8812Lnj BASO41 /uLNormal0-200 [facility] HospitalComment on above:Performed By: #### DIFF #### Singh Gan ([id number]) [place] [address] USAAbs EOS71 /gFQnembx87-741AbnfwukvmyLos Alamitos Medical CenterComment on above:Performed By: #### DIFF #### Singh Gan ([id number]) [place] [address] USAAbs RNGH034 /bABixukh124-061OyfmdsfarmLos Alamitos Medical CenterComment on above:Performed By: #### DIFF #### Singh Gan ([id number]) [place] [address] USAAbs AZKB7997 /eOOukjlk6523-8576ArcaelawuhLos Alamitos Medical CenterComment on above:Performed By: #### DIFF #### Singh Gan ([id number]) [place] [address] USABasophils/100 WBC (Bld)0.7 %Normal0.0-1.0UnLos Alamitos Medical CenterComment on above:Performed By: #### DIFF #### Singh Gan ([id number]) [place] [address] USAEosinophils/100 WBC (Bld)1.2 %Normal0.0-8.0[facility] CenterComment on above:Performed By: #### DIFF #### Singh Gan ([id number]) [place] [address] USALymphocytes (Bld) [#/Vol]1.64 10*3/uSFdpofd207-5262 [facility] HospitalComment on above:Performed By: #### DIFF #### Singh Gan ([id number]) [place] [address] USALymphocytes/100 WBC (Bld)27.8 %Gvctay66.0-45.0UnLos Alamitos Medical CenterComment on above:Performed By: #### DIFF #### Singh Gan ([id number]) [place] [address] USAMonocytes/100 WBC (Bld)5.6 %Normal0.0-12.0UnLos Alamitos Medical CenterComment on above:Performed By: #### DIFF #### Singh Gan ([id number]) [place] [address] USANeutrophils/100 WBC (Bld)64.7 %Cvyfte23.0-80.0UnLos Alamitos Medical CenterComment on above:Performed By: #### DIFF #### Singh Gan ([id number]) [place] [address] USANucleated RBC0 /100 WBCNormal0-0UnLos Alamitos Medical CenterComment on above:Performed By: #### DIFF #### Singh Gan ([id number]) [place] [address] USAFERRITINon 25-50-0189Hutzsbgy [Mass/Vol]9.7 ng/mLLow 11.0-306.8UnLos Alamitos Medical CenterComment on above:Performed By: #### CBC #### Singh Gan ([id number]) [place] [address] USAFREE T4on 57-20-3989Klvr T4 [Mass/Vol]0.91 ng/dLNormal 0.61-1.76[facility] HospitalComment on above:Result Comment: Biotin megadosing (consumption >300 mcg/day) may falsely elevate free T4. When indicated, discontinue megadosing for 1 week and repeat testing.Performed By: #### CBC #### Singh Gan ([id number]) [place] [address] USAFSHon 11-39-8728MPP5.3 mIU/mLNormalLos Banos Community HospitalComment on above:Result Comment: All Adults Females: Mid-Follicular Phase 3.85-8.78 Mid-Cycle Peak 4.54-22.51 Mid-Luteal Phase 1.79-5.12 Post Menopausal 16.74-113.59 Males: 1.27-19.26Performed By: #### CBC #### Singh Gan ([id number]) [place] [address] USAIRON STUDIESon 02-26-2024%SAT10.5 %Low15.0-55.0 [facility] HospitalComment on above:Performed By: #### IRNS #### Singh Gan ([id number]) [place] [address] USAIron [Mass/Vol]36 ug/iQYjc00-980UccxwgtjlcLos Alamitos Medical CenterComment on above:Performed By: #### IRNS #### Singh Gan ([id number]) [place] [address] IVFGVIE414 ug/wEElskta928-761PkggvkcnghLos Alamitos Medical CenterComment on above:Performed By: #### IRNS #### Singh Gan ([id number]) [place] [address] USALUTEINIZING HORMONEon 57-60-7092WO49.3 mIU/mLNormal [facility] HospitalComment on above:Result Comment: All Adults Females: Mid-Follicular Phase 2.12-10.89 Mid-Cycle Peak 19.18-103.03 Mid-Luteal Phase 1.20-12.86 Post Menopausal 10.87-58.64 Males: 1.24-8.62Performed By: #### CTNGUR #### Singh Gan ([id number]) [place] [address] USAT3 TOTALon 25-27-3864P0, Total95.4 ng/bHFmfagw49.0-220.0 [facility] HospitalComment on above:Result Comment: Biotin megadosing (consumption >300 mcg/day) may falsely elevate total T3. When i ndicated, discontinue megadosing for 1 week and repeat testing.Performed By: #### CBC #### Singh Gan ([id number]) [place] [address] USATESTOSTERONE, TOTALon 41-73-5179Jtrrnahgabff [Mass/Vol] 49 ng/dLNormal0-75UnLos Alamitos Medical CenterComment on above: Performed By: #### B12 #### Singh Gan ([id number]) [place] [address] USATHYROID STIMULATING HORMONEon 76-85-9627RPY, 3rd Generation0.72 uIU/mLNormal0.45-4.12[facility] Comment on above:Performed By: #### B12 #### Singh Gan ([id number]) [place] [address] USAURINALYSIS, MICROSCOPICon 06-36-7942Pdyfbcl Oxal Crystal OccasionalAbnormalNone Seen,FewUnLos Alamitos Medical CenterComment on above:Performed By: #### CBC #### Singh Gan ([id number]) [place] [address] USAMucousPresentAbnormalNone SeenUnLos Alamitos Medical CenterComment on above:Performed By: #### CBC #### Singh Gan ([id number]) [place] [address] USARBC.<6Sblisq7-7DkvzlsiamdLos Alamitos Medical Center Comment on above:Performed By: #### CBC #### Singh Gan ([id number]) [place] [address] USASquamous, Epith8 /HPFHigh0-5UnLos Alamitos Medical CenterComment on above:Performed By: #### CBC #### Singh Gan ([id number]) [place] [address] USAWBC.8 /HPFHigh0UnLos Alamitos Medical Center Comment on above:Performed By: #### CBC #### Singh Gan ([id number]) [place] [address] USAURINALYSIS-MACROSCOPIC W/REFLEX TO MICROSCOPICon 19-02-7303Xbvgcwqkt, UrineNegativeNormalNegativeUnLos Alamitos Medical CenterComment on above:Performed By: #### CBC #### Singh Gan ([id number]) [place] [address] USAClarity (U)CloudyAbnormalClearUniversity of Navarre Medical CenterComment on above:Performed By: #### CBC #### Singh Gan ([id number]) [place] [address] USAColor (U)YellowNormalYellow,StrawUnLos Alamitos Medical CenterComment on above:Performed By: #### CBC #### Singh Gan ([id number]) [place] [address] USAGlucose Ql (U)NegativeNormalNegSeton Medical CenterComment on above:Performed By: #### CBC #### Singh Gan ([id number]) [place] [address] USAHemoglobin Ql (U)NegativeNormalNegSeton Medical CenterComment on above:Performed By: #### CBC #### Singh Gan ([id number]) [place] [address] QBVBzlfod46 mg/dLAbnormalNegSeton Medical CenterComment on above:Performed By: #### CBC #### Singh Gan ([id number]) [place] [address] USALeukocyte esterase Test strip Ql (U)NegativeNormal NegativeLos Banos Community HospitalComment on above:Performed By: #### CBC #### Singh Gan ([id number]) [place] [address] USANitrite Ql (U)NegativeNormalNegSeton Medical CenterComment on above:Performed By: #### CBC #### Singh Gan ([id number]) [place] [address] USApH (U)6.0 [pH]Normal5.0-8.0UnLos Alamitos Medical CenterComment on above:Performed By: #### CBC #### Singh Gan ([id number]) [place] [address] USAProtein (U) [Mass/Vol]50 mg/dLAbnormalNegativeUnLos Alamitos Medical CenterComment on above:Performed By: #### CBC #### Singh Gan ([id number]) [place] [address] USASpecific gravity (U) [Rel density]1.474Baodyn4.005-1.035 [facility] HospitalComment on above:Performed By: #### CBC #### Singh Gan ([id number]) [place] [address] USAUrobilinogen (U) [Mass/Vol]mg/dLNormal0.2-1.9UnLos Alamitos Medical CenterComment on above:Performed By: #### CBC #### Singh Gan ([id number]) [place] [address] USAVITAMIN B12on 64-66-4400Nslhpifdy (Vitamin B12) [Mass/Vol]355 pg/iHMsyywh790-881SrnmmhxfnvLos Alamitos Medical CenterComment on above:Performed By: #### B12 #### Singh Gan ([id number]) [place] [address] USAVaginitis Panel DNA Amplified Probeon 02-26-2024 Bacterial VaginosisNegativeNormalNegativeUnLos Alamitos Medical Center Comment on above:Performed By: #### B12 #### Singh Gan ([id number]) [place] [address] USACandida glabrata/kruseiNot detectedNormalNot Detected [facility] HospitalComment on above:Performed By: #### B12 #### Singh Gan ([id number]) [place] [address] USACandida SpeciesNot detectedNormalNot DetectedLos Banos Community HospitalComment on above:Performed By: #### B12 #### Singh Gan ([id number]) [place] [address] USATrichomonas vaginalisNot detectedNormalNot Detected [facility] HospitalComment on above:Result Comment: A positive result for [...] Performed By: #### B12 #### Singh Gan ([id number]) [place] [address] USAUrine cultureon 30-82-6845Xmvtwsxv identified Cx Nom (U) <10,000 cfu/mL Skin/Urogenital Bernadette. No Further Workup. HealthUC Health Urinalysis-Macroscopic w/Rfx to Microscoon 43-73-9030Acgmqovgg Ql (U)Negative NegativeUC HealthClarity (U)ClearClearUC HealthColor (U)StrawYellow,StrawUC [...] is negative for blood, leukocyte, protein and nitrite.[facility] ColumbusCB WITH DIFFERENTIALon 10-23-2023 AUTOMATED NRBC ABSOLUTE0.00 x10(3)/mcLNormalCStafford HospitalComment on above:Performed By: #### [id number] #### [facility] [address] [place] [address] USAUTOMATED NRBC PERCENTAGE0.0 %[facility] for Women & BabiesComment on above:Performed By: #### [id number] #### [facility] [address] [place] [address] USBASOPHIL ABSOLUTE0.04 x10(3)/mcLNormal0.00-0.10[facility]ain HospitalComment on above:Performed By: #### [id number] #### [facility] [address] [place] [address] USBasophils/100 WBC (Bld)0.5 %Normal0.0-1.0[facility] HospitalComment on above:Performed By: #### [id number] #### [facility] [address] [place] [address] USEOSINOPHIL ABSOLUTE0.28 x10(3)/mcLNormal0.00-0.60 [facility] HospitalComment on above:Performed By: #### [id number] #### [facility] [address] [place] [address] USEosinophils/100 WBC (Bld)3.5 %Normal0.0-5.0[facility] HospitalComment on above:Performed By: #### [id number] #### [facility] [address] [place] [address] USHematocrit (Bld) [Volume fraction]40.0 %Evzesp68.0-47.0 [facility] HospitalComment on above:Performed By: #### [id number] #### [facility] [address] [place] [address] USHemoglobin (Bld) [Mass/Vol]13.5 g/xLThummh50.7-15.7 [facility] HospitalComment on above:Performed By: #### [id number] #### [facility] [address] [place] [address] USIMMATURE GRAN ABS0.01 x10(3)/mcLNormal0.00-0.09[facility] HospitalComment on above:Performed By: #### [id number] #### [facility] [address] [place] [address] USImmature granulocytes/100 WBC (Bld)0.1 %Normal0.0-0.6 [facility] HospitalCommunson healthcare [facility] on above:Performed By: #### [id number] #### [facility] [address] [place] [address] USLYMPHOCYTE ABSOLUTE3.38 x10(3)/mcLNormal1.20-5.20 [facility] HospitalCommunson healthcare [facility] hospital on above:Performed By: #### [id number] #### [facility] [address] [place] [address] USLymphocytes/100 WBC (Bld)41.9 %Jpsxss44.0-42.0[facility] HospitalCommunson healthcare [facility] hospital on above:Performed By: #### [id number] #### [facility] [address] [place] [address] USMCV (RBC) [Entitic vol]84.7 cCGkjiam26.0-96.0[facility] HospitalComment on above:Performed By: #### [id number] #### [facility] [place] [address] USMEAN CELL JOIDIOJWDN35.6 huOkbhjh34.0-34.0[facility] HospitalComment on above:Performed By: #### [id number] #### [facility] [place] [address] USMEAN CELL HEMOGLOBIN MHJAZRELZVATR45.8 gm/dLNormal 31.0-36.0[facility] HospitalComment on above:Performed By: #### [id number] #### [facility] [address] [place] [address] USMONOCYTE ABSOLUTE0.66 x10(3)/mcLHigh0.00-0.60[facility] HospitalCommunson healthcare [facility] hospital on above:Performed By: #### [id number] #### [facility] [address] [place] [address] USMonocytes/100 WBC (Bld)8.2 %High0.0-8.0[facility] HospitalComment on above:Performed By: #### [id number] #### [facility] [address] [place] [address] USNEUTROPHIL ABSOLUTE3.70 x10(3)/mcLNormal1.80-8.00 [facility] HospitalComment on above:Performed By: #### [id number] #### [facility] [address] [place] [address] MBYVHOAFVW066 x10(3)/oiCYbpgaa392-794LysjreuilhMercy Health Lorain HospitalComment on above:Performed By: #### [id number] #### [facility] [place] [address] USPlatelet mean volume (Bld) [Entitic vol]11.4 fLNormal 9.6-12.0[facility] HospitalComment on above:Performed By: #### [id number] #### [facility] [place] [address] USRED BLOOD CELL4.72 x10(6)/mcLNormal3.80-5.20[facility] on above:Performed By: #### [id number] #### [facility] [address] [place] [address] USRED CELL DIAMETER WIDTH13.0 %Normal<=15.2CStafford HospitalCommunson healthcare manistee hospital on above:Performed By: #### [id number] #### [facility] [place] [address] USSegmented neutrophils/100 WBC (Bld)45.8 %Ugeouo02.0-70.0 [facility] on above:Performed By: #### [id number] #### [facility] [place] [address] USWHITE BLOOD CELLS8.07 x10(3)/mcLNormal4.50-13.00 [facility] on above:Performed By: #### [id number] #### [facility] [address] [place] [address] USCRP (C-REACTIVE PROTEIN)on 20-25-8433J-REACTIVE PROTEIN 0.40 mg/dLNormal<=0.40[facility] on above:Order Comment: Values of 0.8 mg/dL or higher are consistent with inflammation/infection.Performed By: #### [id number] #### [facility] [address] [place] [address] USED Provider Noteson 04-03-1887MS Provider NotesHistory of Present Illness Brenda is [...] history is provided by the patient. No speech language pathologist travel was used. HPI Documentation is Complete History [...] Complete Physical Exam Exam conducted with a director inbound sales present. Constitutional: Appearance: Normal appearance. HENT: Mouth/Throat: [...] expresses understanding and agrees with the plan. MDMNormalCincBon Secours Health SystemFECAL CALPROTECTINon 19-43-5383TJSUX CALPROTECTINFECAL CALPROTECTIN 5Normal<=50[facility] on above:Order Comment: 50 ug/g or less: Normal 51-120 ug/g: Borderline elevated 121 ug/g or greater: Abnormal, suggestive of inflammatory bowel disease (IBD) Performed By: #### [id number] #### [facility] [address] [place] [address] USRAD ABDOMEN 1Von 01-44-9793THR ABDOMEN 1VCLINICAL HISTORY: Blood in stool. Patient [...] This may be related to the adjacent rib.NormalMercy Health Lorain HospitalROUTINE BACTERIAL STOOL PATHOGENS - MOLECULARon 86-85-5747DBZXZHMYFVRBW NegativeNormalNegativeCleveland Clinic [facility] on above:Order Comment: This specimen was tested with the BD MAX System, a PCR assay for the detection of nucleic acids from Campylobacter species (jejuni and coli), Salmonella species, Shigella species, and Shiga toxins 1 and 2.Performed By: #### [id number] #### [facility] [address] [place], [place] [address]UZUSUZPMHEKbppvvinUvvmweFqxrilurYfcgfgdsof Childrens HospitalComment on above:Order Comment: This specimen was tested with the BD MAX System, a PCR assay for the detection of nucleic acids from Campylobacter species (jejuni and coli), Salmonella species, Shigella species, and Shiga toxins 1 and 2.Performed By: #### [id number] #### [address] [address]CZGRAJUIEvjfchdyHfbnhkBtzrrrwzUkjcbfhqrj [facility] Comment on above:Order Comment: This specimen was tested with the BD MAX System, a PCR assay for the detection of nucleic acids from Campylobacter species (jejuni and coli), Salmonella species, Shigella species, and Shiga toxins 1 and 2.Performed By: #### [id number] #### [address] [address]WIENDQFBX E. COLI (SHIGA TOXIN)NegativeNormalNegSt. Luke's Health – Memorial LufkinComment on above:Order Comment: This specimen was tested with the BD MAX System, a PCR assay for the detection of nucleic acids from Campylobacter species (jejuni and coli), Salmonella species, Shigella species, and Shiga toxins 1 and 2.Performed By: #### [id number] #### [address] [address]HIHGDXV VIRAL STOOL PATHOGENS - MOLECULARon 10-23-2023 ADENOVIRUSNegativeNormpaNegBellville Medical CenterComment on above: Order Comment: This specimen was tested on the BD MAX system, a PCR assay for the detection of nucleic acids from Adenovirus, Astrovirus, Norovirus, Rotavirus, and Sapovirus.Performed By: #### [id number] #### [address] [address]BSXJJWPKUFSofcjjbjWwzkkpJayqtzbpCersqaafpx Childrens HospitalComment on above:Order Comment: This specimen was tested on the BD MAX system, a PCR assay for the detection of nucleic acids from Adenovirus, Astrovirus, Norovirus, Rotavirus, and Sapovirus.Performed By: #### [id number] #### [address] [address]RZMACUITHKtgingilEevkfmPjtmyjngRuxafbadtu [facility] Comment on above:Order Comment: This specimen was tested on the BD MAX system, a PCR assay for the detection of nucleic acids from Adenovirus, Astrovirus, Norovirus, Rotavirus, and Sapovirus.Performed By: #### [id number] #### [facility] [address] [place], [place] [address]SQHENISEIWvqbvlblRlfjutTocwjxarOzpxbcscnx [facility] Comment on above:Order Comment: This specimen was tested on the [employer] system, a PCR assay for the detection of nucleic acids from Adenovirus, Astrovirus, Norovirus, Rotavirus, and Sapovirus.Performed By: #### [id number] #### [facility] [address] [place] [address]ZSJIVBHNWSjvhkkkxUfyodfVlpmkgmeRnkqjlicqh [facility] Comment on above:Order Comment: This specimen was tested on the BD MAX system, a PCR assay for the detection of nucleic acids from Adenovirus, Astrovirus, Norovirus, Rotavirus, and Sapovirus.Performed By: #### [id number] #### [facility] [address] [place] [address]GJD RATEon 02-97-5264KML (Bld) [Velocity]16 mm/hNormal0-20 [facility] HospitalComment on above:Performed By: #### [id number] #### [facility] [address] [place] [address] USEDPCPon 05-14-2951PPLMTNcvddstBrenda Duran/Female/[id number]/Triage Level 3//Blood in stool []; Periumbilical abdominal pain []/Discharge Home/Attending: Parker Michelle/Registered Nurse: Rhoda Borrero Provider Department Center 10/22/2023 None-None ED [facility] Primary Care Provider: No Pcp, [facility] Myco/Ureaplasma Culton 53-70-1224Ufws/Ureaplasma Cult(NOTE)NormalMerLos Robles Hospital & Medical CenterComment on above:Result Comment: Ureaplasma Species and Mycoplasma hominis Culture ARUP test code [id number] Collected: 03/16/2023 15:09 MT Started: 03/18/2023 12:01 MT Source: Genital Body Site: Urethral Free Text Sources: Genital Final Report Culture negative for Mycoplasma hominis Culture negative for Ureaplasma spp Ureaplasma Species and Mycoplasma hominis Culture COLLECTED 03/16/2023 15:09 S=Susceptible, NonS=Nonsusceptible, IND=Indeterminate, I=Intermediate, SDD=Susceptibility is dose dependent, R=Resistant, None=Interpretive guidelines are not availablePerformed By: #### AUREMY #### [place] [id number] Web Marketing Manager: Richmond Ayala MDOPERATIVE REPORTon 29-18-6073WVSBFBCYT REPORT [address] [address] OPERATIVE REPORT PATIENT NAME: BRENDA KIM : 2005 MED REC NO: [id number] ROOM: ACCOUNT NO: [id number] ADMIT DATE: 03/16/2023 PROVIDER: Julieta Mazariegos DO DATE OF PROCEDURE: 03/16/2023 INDICATIONS FOR SURGERY: Dysuria, painful urination, urethral pain. PREOPERATIVE DIAGNOSES: Dysuria, painful urination, urethral pain. POSTOPERATIVE DIAGNOSES: No evidence for interstitial cystitis, suspect nongonococcal urethritis, bladder trabeculations grade 2 with overactive bladder wet. OPERATIONS PERFORMED: Ureaplasma, mycoplasma urethral cultures and cystourethroscopy with hydrodistention. SURGEON: Julieta Mazariegos DO WARP BLEACHING VAT TENDER: Kalie Barlow DO and Rosanna Burgess DO [...] mycoplasma cultures were taken. Then using a 17-Eritrean 30-degree cystourethroscope, the urethra was cannulated and [...] the office. JULIETA MAZARIEGOS DO /[id number] Doc#: [id number] CC: Julieta Mazariegos, [facility] InstituteCHLAMYDIA/GONOCOCCUS DALE (SWAB/URINE/PAPon 64-32-6127Ahqjssisr trachomatis, NAANegativeNormal NegativeThe [facility] Allen HospitalComment on above:Performed By: #### CT/NGNA #### [facility] [address] [place] [address] Dr. Yilan ChangNeisseria gonorrhoeae, NAANegativeNormalNegativeThe [facility] Allen HospitalComment on above:Performed By: #### CT/NGNA #### [facility] [address] [address] [address] Matthew Baldwin [id number] Visit (OTPLIN) BRENDA MARROQUIN ([id number]) 1 F Date Time Provider Department 12/12/21 5:15 PM PATEL BAR OTTHEE During your visit today, we recorded the following information about you: Patel Bar MD 12/12/2021 8:53 PM Signed SECTION OF FACIAL PLASTIC AND RECONSTRUCTIVE SURGERY Head [facility] [place] [place], [facility] Follow up Visit Date of service: 12/12/2021 [...] MD, FACS Facial Plastic and Reconstructive Surgery [facility], [facility] [place] I spent a total of 20 minutes on the date of the service which included preparing to see the patient, cchs-ao-cndn patient care, completing clinical documentation, performing a medically appropriate examination and counseling and educating the patient/family/caregiver. Referring Provider: SELF [200] Allergies As of Date: 12/12/2021 (No Known Allergies) Date Reviewed: 12/12/2021 Reviewed by: Patel Bar MD - Fully Assessed Reason for Visit: Established Patient Follow-Up [[id number]] Cmt: 3-4 month follow up Primary Visit [...] 07/30/2021 Encounter Status:Closed by PATEL BAR on 12/12/21[facility] CenterPES SIMPLEX VIRUS (HSV) CULTUREon 50-44-6554UHE Culture/TypeComment NormalMetrohealth Cleveland Heights Medical CenterComment on above:Result Comment: Negative No Herpes simplex virus isolated.Performed By: #### HSVCUL #### [facility] [address] [place] [address] Dr. Matthew HsiehCHLAMYDIA/GONOCOCCUS DALE (SWAB/URINE/PAPon 66-59-4530Wlypqdsrr trachomatis, NAANegativeNormalNegativeThe [facility] HospitalComment on above: Performed By: #### CT/NGNA #### [facility] [address] [place] [address] Dr. Matthew HsiehNeisseria gonorrhoeae, NAANegativeNormalNegativeMetrohealth Cleveland Heights Medical CenterComment on above:Performed By: #### CT/NGNA #### [facility] [address] [place] [address] Dr. Matthew HsiehVAGINITIS/VAGINOSIS DNA PROBEon 75-61-8884Gknombk speciesNegative NormalNegativeMetrohealth Cleveland Heights Medical CenterComment on above:Performed By: #### VAGINT #### [facility] [address] [place] [address] Dr. Matthew Fergusonerellcarlos vaginalisPositiveAbnormalNegativeMetrohealth Cleveland Heights Medical CenterComment on above:Performed By: #### VAGINT #### [facility] [address] [place] [address] Dr. Matthew Arias vaginalisNegativeNormalNegativeMetrohealth Cleveland Heights Medical Center Comment on above:Performed By: #### VAGINT #### [facility] [address] [place] [address] Dr. Matthew Baldwin 41-54-8650TQGQPbwris Visit (OTOLMN) BRENDA MARROQUIN ([id number]) 1 F Date Time Provider Department 08/13/21 3:45 PM PATEL BAR OTFRANCINE During your visit today, we recorded the following information about you: Patel Bar MD 08/13/2021 4:44 PM Signed SECTION OF FACIAL PLASTIC AND RECONSTRUCTIVE SURGERY [facility] Visit Date of service: 08/13/2021 Brenda [...] for the service of Patel Bar MD, [facility] Facial Plastic and Reconstructive Surgery [facility] [place] Attending attestation: I personally evaluated and examined the patient with Dr. Rivera. Within the resident's note, I have edited the history, physical exam, assessment, and plan to reflect my own findings. Patel Bar MD, [facility] Facial Plastic and Reconstructive Surgery [facility] [place] Luciano Gonzalez 08/13/2021 3:24 PM Signed Tobacco Use: Never Was smoking cessation packet given? N/A - Patient is a non-smoker or quit >1 year ago. Was a referral initiated?N/A Patient is a non-smoker Referring Provider: PATEL BAR [[id number]] Allergies As of Date: 08/13/2021 (No Known [...] for Encounter Date Provider Department Center 08/13/2021 [id number] BAR Bldg Encounter Status:Closed by PATEL BAR on 08/13/21[facility] POSTPROC EVALon 54-92-1515MAJM POSTPROC EVALHNO ID: [id number] Author: Saqib Dobson MD Service: Anesthesiology Author Type: Anesthesiologist Type: Anesthesia Postprocedure Evaluation Filed: 08/07/2021 3:03 PM Note Text: POST ANESTHESIA EVALUATION NOTE : 2005 Procedure Summary Date: 08/07/21 Room / Location: [address] OR Anesthesia Start: 837 Anesthesia Stop: [...] August 07, 2021 TIME: 3:03 PM CSN: [id number] Hospital PRE-OPon 84-31-2698OIRJ PRE-OPHNO ID: [id number] Author: Saqib Dobson MD Service: Anesthesiology Author [...] within 48 hours of Surgery/Procedure. SIGNATURE: Saqib oDbson MD PATIENT NAME: Brenda Marroquin DATE: August 07, 2021 TIME: 8:05 AM CSN: [id number] Health [facility] OP NOTon 73-44-1226MZYLF OP NOTHNO ID: [id number] Author: Joe Rivera MD Service: Otolaryngology Author Type: Resident Type: Brief Op Note Filed: 08/07/2021 12:49 PM Note Text: BRIEF OP NOTE LOG ID: [id number] Surgery/Procedure Date: 08/07/2021 Incision/Procedure Start Time: 9:08 AM Incision Close/Procedure End Time: Surgeon(s) and Role: * Patel Bar MD - Primary * Joe Rivera MD - Resident - Assisting Pre Operative Diagnoses: Refractory nasal obstruction, nasal deformity, nasal septal deviation Post Operative Diagnoses: Same as pre-op Procedure(s): 1. REPAIR NASAL VESTIBULAR STENOSIS: 01031 (CPT?) 2. SEPTOPLASTY: 00316 (CPT?) 3. GRAFT EAR CARTILAGE TO NOSE AUTOGENOUS: 84189 (CPT?) 4. GRAFT AUTOGENOUS RIB CARTILAGE TO NOSE: 21704 (CPT?) Anesthesia: General Procedure Indications: Brenda Marroquin is an 16 year old female with the above preoperative diagnosis and as such was taken to operating room for above listed procedure Operative Findings: 1. See op note Estimated Blood Loss: 15ml Specimens: * No specimens in log * Implants: Implant Name Type Inv. Item Serial No. Detector Car Operator Lot No. LRB Model Num No. Used GRFT COSTAL CARTILAGE 5-8CM - [id number] Graft GRFT COSTAL CARTILAGE 5-8CM [id number] [facility] [id number] N/A 1216-25 1 MATRIX ALLODERM THIN ACELLULAR DERMIS 7X4CM TISSUE ALLOGRAFT REGENERATIVE - [id number] Graft MATRIX ALLODERM THIN ACELLULAR DERMIS 7X4CM TISSUE ALLOGRAFT REGENERATIVE LIFECELL [id number] N/A 835160 1 Complications: None Drains: None Counts: Correct SIGNATURE: Joe Rivera MD PATIENT NAME: Brenda Marroquin DATE: August 07, 2021 TIME: 12:48 PM PAGER/CONTACT #: [phone] Medical Centerkatina [id number] (OTOLMN) BRENDA MARROQUIN ([id number]) 1 F Date Time Provider Department 08/07/21 [...] Head and Neck Surgery PGY 3 Pager: [phone] Service pager: [phone] (page after 5pm and on weekends) Reid [...] 07/30/2021 Encounter Status:Closed by RICHY VILLALOBOS on 08/07/21NoParkwood HospitalHISTORY PHYSICALon 79-62-7138YQWORJT PHYSICALHNO ID: [id number] Author: Patel Bar MD Service: Otolaryngology Author Type: Physician Type: HANDP Filed: 08/07/2021 8:31 AM Note Text: History and Physical Update Day of Surgery DOS: 08/07/21 Interval History: No changes to condition Exam: Unchanged Assessment/Plan: Ready for surgery as planned Patel Bar MDNoParkwood HospitalNURSING PROGon 16-93-6472EXKCXRI PROGHNO ID: [id number] Author: Karolina Lott RN Service: ? Author Type: Registered Nurse Type: Nursing Progress Note Filed: 08/08/2021 12:55 PM Note Text: Mom reports pt had some bleeding from bridge of nose, getting splint bloody last night. She called electronic commerce specialist ENT doctor. Bleeding now stopped except for slight ooze. Mom reports she will check daughter again this afternoon and will call Dr. Bar's office if bleeding continues.Normal Bellevue HospitalOPERATIVE NOon 18-89-5943MPEUQKOEB NOHNO ID: [id number] Author: Patel Bar MD Service: Otolaryngology Author Type: Physician Type: Operative Report Filed: 08/08/2021 1:40 PM Note Text: Date: 08/07/2021 Incision/Procedure Start Time: 9:08 AM Incision Close/Procedure End Time: 12:45 PM Attending Surgeon: Patel Bar MD Commercial Escrow Officer: Joe Rivera MD (resident) Preoperative Diagnosis: 1. [...] bony septum. For nasal valve reconstruction, bilateral survey associate grafts and a columellar strut graft were planned. Donor rib cartilage was obtained and carved into appropriately size grafts. Each survey associate graft was secured to the septum and [...] Plastic and Reconstructive Surgery [facility] NOHNO ID: [id number] Author: Patel Bar MD Service: Otolaryngology Author Type: Physician Type: Operative Report Filed: 08/08/2021 1:41 PM Note Text: Date: 08/07/2021 Incision/Procedure Start Time: 9:08 AM Incision Close/Procedure End Time: 12:45 PM Attending Surgeon: Patel Bar MD Commercial Escrow Officer: Joe Rivera MD (resident) Preoperative Diagnosis: 1. [...] Plastic and Reconstructive Surgery [facility]NoParkwood HospitalPreOp/PreProc COVIDon 08-04-2021 SARS-CoV-2 (COVID-19) RNA DALE+probe Ql (Unsp spec)UPPER RESPIRATORY TRACT SWAB NormalBellevue HospitalComment on above:Performed By: #### POCOVD ####[facility] [address] [place], [place] [address]Fmcmnsuri [address] [id number] (COVID-19) RNA DALE+probe Ql (Unsp spec)Negative for COVID19 (SARS CoV2) by RT- PCR or equivalent method.NormalNegative for COVID19 (SARS CoV2) by RT-PCR or equivalent method.[facility] on above:Result Comment: This test was developed and its performance characteristics determined by [facility] Pathology and Laboratory Medicine [place]. This test has been authorized by FDA under an Emergency Use Authorization (EUA). This test has been validated in accordance with the FDA's Guidance Document Policy for DiagnosticsTesting in Laboratories Certified to Perform High Complexity Testing under CLIA prior to Emergency use Authorization for Coronavirus Disease 2019 during the Public Health Emergency issued on November 19, 2019. Test performed by [facility], [facility] and Laboratory Medicine [place], [address], [place] [address].Performed By: #### POCOVD ####[facility] [address] [place] [address] [phone] PHYSICALon 29-15-3839YIEQFJD PHYSICALHNO ID: [id number] Author: Malka Taylor APRN.MADDISON Service: ? Author Type: Nurse Practitioner Type: HANDP Filed: 07/30/2021 3:17 PM Note Text: HISTORY AND PHYSICAL EXAMINATION SERVICE DATE: 07/30/2021 SERVICE TIME: 2:59 PM PRIMARY CARE PHYSICIAN: Angie Pike, MADDISON, MOTORCYCLE SUBASSEMBLY REPAIRER REASON FOR VISIT: Brenda Marroquin is a [...] mouth when sleeping. She works out doing [employer] a couple times per week. REVIEW OF [...] nephrolithiasis, renal failure and urinary tract infection. VIROLOGIST: Negative for abnormal vaginal bleeding, abnormal vaginal [...] PAST SURGICAL HISTORY Procedure Laterality Date - AL ANESTH,LOWER ARM SURGERY 2005 - SEPTOPLASTY 10/2020 [...] Low HB No re (more content not included)...[facility] 06-27-2021 CNOVOffice Visit (OTPLIN) BRENDA MARROQUIN ([id number]) 1 F Date Time Provider Department 06/27/21 10:30 AM GENTHER, PATEL OTPLIN During your visit today, we recorded the following information about you: Patel Bar MD 06/27/2021 5:32 PM Signed SECTION OF FACIAL PLASTIC AND RECONSTRUCTIVE SURGERY Head [facility] [place]ck [place], [facility] Follow-up Visit Date of service: 06/27/2021 Brenda [...] correction with septoplasty and nasal valve reconstruction (survey associate grafts and moises grafts). She would like [...] MD, FACS Facial Plastic and Reconstructive Surgery [facility], Head and Neck [place] I spent a total of 40 minutes on the date of the service which included preparing to see the patient, lzmz-te-fawv patient care, completing clinical documentation, obtaining and/or [...] surgery [Z98.890] Order(s):SURGICAL REQUEST - ELECTIVE (04/2020) [7202218] Order #: [id number]: 1 REFER TO PACC - PRE ANESTHESIA CONSULTATION CLINIC [7991287] Order #: [id number]: 1 FUTURE PRE-PROCEDURE AND PRE-OPERATIVE COVID [SQPOCOVD] Order #: [id number] FUTURE Prescriptions as of 06/27/2021 - azelastine (ASTELIN) 0.1% nasal spray Use 2 Sprays in each nostril twice daily. - TRI-LO-CHARITY 0.18/0.215/0.25 mg-25 mcg Take 1 tablet by mouth once daily. - fluticasone (FLONASE ALLERGY RELIEF) 50 mcg/actuation nasal spray Use 2 Sprays in each nostril once daily. Problem List As Of Date: 06/27/2021 (None) Encounter N (more content not included)...NormalBellevue HospitalHOSPon 02-56-1371AMXCXcuwsxs:Brenda Marroquin MRN: Height:5' 3 (1.6 m) Weight:137 [...] progress notes entered within the past 30 daysNoGalion Community Hospital 97-00-9859YCRBEagajr Visit (OTOLMM) CARABRENDA ([id number]) 1 F Date Time Provider Department 06/04/21 [...] 06/04/2021 (No Known Allergies) (more content not included)...[place]Cent[place] SINUS STEREO WO IVCONon 86-82-5704UC SINUS STEREO WO IVCON* * *Final Report* * * DATE OF EXAM: May 28 2021 3:41PM [facility] 2075 - CT SINUS STEREO WO IVCON [...] limits within the limitations of the study. Sash Repairer (topogram) images: No additional findings. IMPRESSION: Mild inflammatory and localized postoperative changes as discussed above. Relatively prominent nasal septal deviation towards the right. Deicer Inspector Pneumatic: PSCB Transcribe Date/Time: May 28 2021 4:46P Dictated by : ROBERT LÓPEZ MD This examination was interpreted and the report reviewed and electronically signed by: ROBERT LÓPEZ MD on May 28 2021 4:52PM EST [id number] Valley HospitalCNOVon 75-94-0076VJQBQqeyhz Visit (OTPLIN) BRENDA MARROQUIN ([id number]) 1 F Date Time Provider Department 05/16/21 [...] PLASTIC AND RECONSTRUCTIVE SURGERY Head and Neck [place], [facility] New Patient Evaluation Date of service: 05/16/2021 [...] surgical correction with nasal valve reconstruction with survey associate and moises grafts and revision (likely extracorporeal) [...] MD, FACS Facial Plastic and Reconstructive Surgery [facility], Head and Neck [place] Medical Decision Making: Problems: Moderate: 1+ chronic [...] nasal septum [J34.2] Order(s):CT SINUS WO IVCON [5109227] Order #: [id number] FUTURE fluticasone (FLONASE ALLERGY RELIEF) 50 mcg/actuation nasal sprayUse 2 Sprays in each nostril once daily.Disp: 16 gRfl: 5 CONSULT TO ENT [9008] Order #: [id number]: 1 FUTURE Prescriptions as of 05/16/2021 - TRI-LO-CHARITY 0.18/0.215/0. (more content not included)...[facility] 11-19-2020 Specimen: [id number] Received: 11/19/20 Status: MALLORY Amaya Num: [id number] Spec Type: Surgical Subm Dr: Elbert Lakhani DO Tissues: A Sinus Contents/Biopsy (SINUS CONTENTS) Procedures: HE Stain, Gross/Micro L4 Patient Age/Sex Location Account Attending Physician Brenda Marroquin / [place] [id number] Elbert Lakhani DO SPEC NUM: [id number] RECD: 11/19/20 STATUS: MALLORY AMAYA NUM: [id number] FAITH: 11/19/20- SUBM DR: Elbert Lakhani DO ENTERED: 11/19/20-1252 [facility] DR: [facility] SPEC TYPE: Surgical DEPT: S ORDERED: HE [...] support the above pathologic diagnosis. CPT Codes 25236 Specimen: [id number] Received: 11/19/20 Status: MALLORY Amaya Num: [id number] Spec Type: Surgical Subm Dr: Elbert Lakhani DO Tissues: A Sinus Contents/Biopsy (SINUS CONTENTS) Procedures: HE Stain, Gross/Micro L4 Patient: Brenda Marroquin [id number] (Continued) Signed (signature on file) Alf Heredia MD 11/20/20 1529 [facility] HospitalCOVID-19 [facility] [id number]- [facility] [place] NegativeNormalNegativeBarberton Citizens HospitalComment on above:Order Comment: Comment OR at [facility] Worker?: NResult Comment: Testing for SARS-CoV-2 by RT-PCR This test was developed and its performance characteristics determined by [employer]) and validated at the [facility]. This test has not been FDA [...] is terminated or revoked sooner. PERFORMED BY: [facility] [place] [address] PATHOLOGIST SPECIAL EVENTS PLANNER MURRAY HERRING M.D.Performed By: #### COVID-19 [facility] #### [facility] [address] Vital Signs Date TimeVital SignValuePerforming GdkdoldemBgcklnpc41-85-0324 09:55-0400Body arjrjr884.02 cmLisa Aichholz TECHNOLOGY COACH-C Work Phone: [phone]10-28-2025 09:55-0400 Body mass index (BMI) [Ratio]26 kg/m2Lisa Aichholz TECHNOLOGY COACH-C Work Phone: [phone] [place], [place] 4273310-28-2025 09:55-0400 Body fevepuluarn71.8 [degF]Angie Aichholz TECHNOLOGY COACH-C Work Phone: [phone] [place], [place] 4273310-28-2025 09:55-0400 Body ydsuho00.73 kgLisa Aichholz TECHNOLOGY COACH-C Work Phone: [phone] [place], [place] 4273310-28-2025 09:55-0400 Diastolic blood mm[Hg]Angie Aichholz TECHNOLOGY COACH-C Work Phone: [phone] [place], [place] 4273310-28-2025 09:55-0400 Heart rate92 /minLisa Aichholz TECHNOLOGY COACH-C Work Phone: [phone] [place], [place] 4273310-28-2025 09:55-0400 Respiratory rate18 /minLisa Aichholz TECHNOLOGY COACH-C Work Phone: [phone] [place], [place] 4273310-28-2025 09:55-0400 SaO2% (BldA) [Mass fraction]98 %Angie Aichholz TECHNOLOGY COACH-C Work Phone: [phone]10-28-2025 09:55-0400 Systolic blood mm[Hg]Angie Aichholz TECHNOLOGY COACH-C Work Phone: [phone]05-22-2025 09:05-0400 Body korpdt597 Aditya Ellsworth MD Work Phone: [facility] HospitalUwoism06-02-4479 09:05-0400Body mass index (BMI) [Ratio]26.15 kg/g6MhvmeMoose Ellsworth MD Work Phone: [facility] HospitalYmkdpy64-99-0755 09:05-0400Body aneycfuerws16.5 [degF]Moose Ellsworth MD Work Phone: [facility] HospitalOnegcc51-05-9352 09:05-0400Body .95 kgMoose Ellsworth MD Work Phone: [facility] HospitalVrqhuo04-60-8554 09:05-0400Diastolic blood pressure 74 mm[Hg]Moose Ellsworth MD Work Phone: [facility] HospitalIrdeok39-79-8549 09:05-0400Heart rate82 /minMoose Ellsworth MD Work Phone: [facility] HospitalGdmjak99-23-5593 09:05-0400Inhaled oxygen %Moose Ellsworth MD Work Phone: [facility] HospitalEyqlam29-36-1590 09:05-0400Respiratory rate18 /min Moose Ellsworth MD Work Phone: [facility] HospitalGebtje34-71-4792 09:05-1724YlR7% (BldA) [Mass fraction]99 %Moose Ellsworth MD Work Phone: [facility] HospitalKiejqi32-02-3644 09:05-0400Systolic blood pressure 108 mm[Hg]Moose Ellsworth MD Work Phone: [facility] HospitalJzlzep15-60-9756 16:13-0400Body xrajcw702 cmLlibia Ellsworth MD Work Phone: [facility] HospitalYfufbs22-96-1304 16:13-0400Body mass index (BMI) [Ratio]25.51 kg/o4YfumvMoose Ellsworth MD Work Phone: [facility] HospitalPizshq20-45-5681 16:13-0400Body .5 [degF]Moose Ellsworth MD Work Phone: [place] [address]Jgkwxm72-20-0243 16:13-0400Body clrdev15.32 kgMoose Ellsworth MD Work Phone: [facility] Onspmk18-37-1074 16:13-0400Diastolic blood pressure 72 mm[Hg]Moose Ellsworth MD Work Phone: [place] [address]Oylwku56-19-6533 16:13-0400Heart rate82 /minMoose Ellsworth MD Work Phone: [place] [address]Revmnj03-70-6411 16:13-0400Inhaled oxygen pzmvnhpqajfor06 %Moose Ellsworth MD Work Phone: [place] [address]Zwsuvd34-87-1458 16:13-0400Respiratory rate14 /min Moose Ellsworth MD Work Phone: [place] [address]Dhnacj00-68-2579 16:13-5842PiX8% (BldA) [Mass fraction]99 %Moose Ellsworth MD Work Phone: [place] [address]Htcgmi56-30-0440 16:13-0400Systolic blood pressure 105 mm[Hg]Moose Ellsworth MD Work Phone: [place] [address]Nhvdyi46-98-7863 15:54-0400Body ahxdvo048 cmLritu Ferrer CNP Work Phone: [place] [address]Sjyjks65-88-9116 15:54-0400Body mass index (BMI) [Ratio]25.86 kg/m2Sofy Ferrer CNP Work Phone: [place] [address]Lpodvf28-82-7145 15:54-0400Body cnwjtqztyvs28.7 [degF]Sofy Ferrer CNP Work Phone: [place] [address]Disxbj39-82-3547 15:54-0400Body tmzpui80.22 kgSofy Ferrer CNP Work Phone: [facility] Uyuvme97-66-8013 15:54-0400Diastolic blood pressure 74 mm[Hg]Sofy Ferrer CNP Work Phone: [place] [address]Hurxoj01-69-5739 15:54-0400Heart rate71 /minSofy Ferrer CNP Work Phone: [facility] Uytynp77-35-5745 15:54-0400Inhaled oxygen hooxbogweayhs48 %Sofy Ferrer CNP Work Phone: [facility] Npeblk60-22-2152 15:54-0400Respiratory rate18 /min Sofy Ferrer CNP Work Phone: [facility] Qmrlnc64-52-0753 15:54-0916PgF1% (BldA) [Mass fraction]98 %Sofy Ferrer CNP Work Phone: [facility] Nhlwem78-01-0911 15:54-0400Systolic blood pressure 108 mm[Hg]Sofy Ferrer CNP Work Phone: [facility] HospitalHyuezq40-26-0651 10:35-0500Body Aditya Ellsworth MD Work Phone: [facility] HospitalJafncr64-00-6230 10:35-0500Body mass index (BMI) [Ratio]26.22 kg/e0JbqwlMoose Ellsworth MD Work Phone: [facility] HospitalGvlone18-27-7409 10:35-0500Body wqzfjnbzucg25.3 [degF]Moose Ellsworth MD Work Phone: [facility] HospitalNwfblt09-98-8351 10:35-0500Body fiqixj57.13 kgMoose Ellsworth MD Work Phone: [facility] HospitalZefkfv81-10-2645 10:35-0500Diastolic blood pressure 70 mm[Hg]Moose Ellsworth MD Work Phone: [facility] Dutpsw61-92-3287 10:35-0500Heart rate83 /minMoose Ellsworth MD Work Phone: [facility] Ypjimo04-68-0231 10:35-0500Inhaled oxygen jsiddhcrcoyeg24 %Moose Ellsworth MD Work Phone: [facility] HospitalPzgdoa93-54-0499 10:35-0500Respiratory rate14 /min Moose Ellsworth MD Work Phone: [facility] HospitalDhgptq42-33-2026 10:35-7868MyL8% (BldA) [Mass fraction]98 %Moose Ellsworth MD Work Phone: [facility] HospitalJqhayc27-13-4200 10:35-0500Systolic blood pressure 100 mm[Hg]Moose Ellsworth MD Work Phone: [facility] HospitalRaylre88-10-7862 12:57-0500Body zewawk076 cmMp Levin MD Work Phone: [facility] HospitalZdtevr93-06-2793 12:57-0500Body mass index (BMI) [Ratio]25.69 kg/y3EwkcrMp Levin MD Work Phone: [facility] HospitalYyyaaf86-78-5449 12:57-0500Body lmvfeo95.77 kgMp Levin MD Work Phone: [facility] HospitalOxfejf21-03-2871 13:07-0500Body fhndli147 cmMarcel Olivares MD Work Phone: [facility] HospitalOptxxx93-54-7428 13:07-0500Body mass index (BMI) [Ratio]26.22 kg/w6LfblvvnMarcel Olivares MD Work Phone: [facility] HospitalNrewan37-97-0722 13:07-0500Body xltjothpvok31.3 [degF]Marcel Olivares MD Work Phone: [facility] HospitalQwukxg33-21-8799 13:07-0500Body egqnza38.13 kg Marcel Olivares MD Work Phone: [facility] HospitalVdkizl35-33-3212 13:07-0500Diastolic blood pressure 82 mm[Hg]Marcel Olivares MD Work Phone: [facility] HospitalBxjhto02-62-0477 13:07-0500Heart rate93 /minMarcel Olivares MD Work Phone: [facility] HospitalAsuiua07-12-2931 13:07-0500Inhaled oxygen rsmagkdhlmzll01 %Marcel Olivares MD Work Phone: [facility] HospitalDejpyz59-89-7940 13:07-0500Respiratory rate18 /min Marcel Olivares MD Work Phone: [facility] Qymtqx18-17-7866 13:07-8242CwK3% (BldA) [Mass fraction]99 %Marcel Olivares MD Work Phone: [facility] HospitalAykscg13-74-9679 13:07-0500Systolic blood pressure 119 mm[Hg]Marcel Olivares MD Work Phone: [facility] HospitalHtwroc55-98-9999 16:20-0500Body tlshky696 cmLlibia Ellsworth MD Work Phone: [facility] HospitalNobgix09-96-6215 16:20-0500Body mass index (BMI) [Ratio]26.93 kg/f3VklrzMoose Ellsworth MD Work Phone: [facility] HospitalZxvsoz14-05-7355 16:20-0500Body jagucaivgfr11.7 [degF]Moose Ellsworth MD Work Phone: [facility] HospitalYglael64-16-7832 16:20-0500Body .95 kgMoose Ellsworth MD Work Phone: [facility] HospitalIukqdi78-76-3199 16:20-0500Diastolic blood pressure 82 mm[Hg]Moose Ellsworth MD Work Phone: [facility] HospitalPmqomx10-84-8584 16:20-0500Heart rate85 /minMoose Ellsworth MD Work Phone: [facility] HospitalMnnyna97-05-1133 16:20-0500Inhaled oxygen zlctgjztfwlay11 %Moose Ellsworth MD Work Phone: [facility] Qgrlbk53-81-2224 16:20-0500Respiratory rate18 /min Moose Ellsworth MD Work Phone: [facility] HospitalKvxozh90-34-6990 16:20-6996QqH0% (BldA) [Mass fraction]99 %Moose Ellsworth MD Work Phone: [facility] Edifik42-58-2814 16:20-0500Systolic blood pressure 133 mm[Hg]Moose Ellsworth MD Work Phone: [facility] Enmqfm92-84-3605 10:48-0500Body mass index (BMI) [Ratio]26.04 kg/v1FidelJackelyn Hoskins MD Work Phone: [facility] HospitalHiitnx65-34-9897 10:48-0500Body zbqxyp58.68 kgaJckelyn Hoskins MD Work Phone: [facility] Msoalz03-13-9319 10:48-0500Diastolic blood pressure 77 mm[Hg]Jackelyn Hoskins MD Work Phone: [facility] HospitalHpsuso65-96-3023 10:48-0500Heart rate73 /minJcakelyn Hoskins MD Work Phone: [facility] HospitalCpisda92-54-9131 10:48-0500Systolic blood pressure 112 mm[Hg]Jackelyn Hoskins MD Work Phone: [facility] HospitalHqecrl30-64-5637 16:06-0500Body cmLlibia Ellsworth MD Work Phone: [facility] Iyxqut27-80-3164 16:06-0500Body mass index (BMI) [Ratio]25.86 kg/h1TkdtvMoose Ellsworth MD Work Phone: [facility] HospitalOhaozz69-00-1511 16:06-0500Body symjchbiysw57.7 [degF]Moose Ellsworth MD Work Phone: [facility] Vgjady61-07-0992 16:06-0500Body xcedtu39.22 kgMoose Ellsworth MD Work Phone: [facility] Ippsug82-83-8300 16:06-0500Diastolic blood pressure 74 mm[Hg]Moose Ellsworth MD Work Phone: [facility] Hfzorp73-04-2763 16:06-0500Heart rate77 /minMoose Ellsworth MD Work Phone: [facility] Fvajwm01-32-1121 16:06-0500Inhaled oxygen sirlnjorjolpz52 %Moose Ellsworth MD Work Phone: [facility] Edyscz19-91-3665 16:06-0500Respiratory rate18 /min Moose Ellsworth MD Work Phone: [facility] Rfhsmz73-82-1114 16:06-9760AmA2% (BldA) [Mass fraction]98 %Moose Ellsworth MD Work Phone: [facility] Hkfgqg29-17-3128 16:06-0500Systolic blood pressure 108 mm[Hg]Moose Ellsworth MD Work Phone: [facility] Ejclzv40-86-6975 16:08-0400Body rulzow724 cmLlibia Ellsworth MD Work Phone: [facility] Uuaymn29-62-6507 16:08-0400Body mass index (BMI) [Ratio]25.33 kg/e2OnujkMoose Ellsworth MD Work Phone: Rgcspn98-00-2266 16:08-0400Body oicnkw98.86 kgMoose Ellsworth MD Work Phone: [facility] Aumzpk27-09-5654 16:08-0400Diastolic blood pressure 78 mm[Hg]Moose Ellsworth MD Work Phone: [facility] Ibhrqj64-59-1704 16:08-0400Heart rate91 /minMoose Ellsworth MD Work Phone: [facility] Btcpfo12-79-3602 16:08-0400Inhaled oxygen zleesaqvpstaf95 %Moose Ellsworth MD Work Phone: [facility] Lmchvw35-19-9651 16:08-6667VhL2% (BldA) [Mass fraction]97 %Moose Ellsworth MD Work Phone: [facility] Wwupof13-59-5641 16:08-0400Systolic blood pressure 113 mm[Hg]Moose Ellsworth MD Work Phone: [facility] Akjoqw44-79-6877 10:11-0400Body abwrcl002 Aditya Ellsworth MD Work Phone: [facility] HospitalXvipvw90-87-1020 10:11-0400Body mass index (BMI) [Ratio]26.57 kg/t2DquviMoose Ellsworth MD Work Phone: [facility] HospitalBklxnj86-02-1671 10:11-0400Body chpvnbpskdu05.4 [degF]Moose Ellsworth MD Work Phone: [facility] HospitalIlqofw50-13-6286 10:11-0400Body jsreof83.04 kgMoose Ellsworth MD Work Phone: [facility] HospitalHocohp88-49-8967 10:11-0400Diastolic blood pressure 71 mm[Hg]Moose Ellsworth MD Work Phone: [facility] HospitalNrukmm71-59-2895 10:11-0400Heart rate83 /minMoose Ellsworth MD Work Phone: [facility] HospitalFrdvuf91-33-9940 10:110400Respiratory rate18 /min Moose Ellsworth MD Work Phone: [facility] HospitalLimzjo88-27-5959 10:11-0400Systolic blood pressure 110 mm[Hg]Moose Ellsworth MD Work Phone: [facility] HospitalUxmdgy89-83-6761 10:41-0500Body arimxm474 Aditya Ellsworth MD Work Phone: [facility] HospitalDadliw01-96-9812 10:41-0500Body mass index (BMI) [Ratio]26.75 kg/z2BncnpMoose Ellsworth MD Work Phone: [facility] HospitalYmetso92-25-5264 10:41-0500Body mhdtwhmckke96.4 [degF]Moose Ellsworth MD Work Phone: [facility] HospitalUryqnv11-30-0240 10:41-0500Body uekmis55.49 kgMoose Ellsworth MD Work Phone: [facility] Cbepjl39-25-5128 10:41-0500Diastolic blood pressure 78 mm[Hg]Moose Ellsworth MD Work Phone: [facility] Tsaiin90-80-3836 10:41-0500Heart rate94 /minMoose Ellsworth MD Work Phone: [facility] HospitalIjsblx40-46-0027 10:41-0500Inhaled oxygen pjbiuxqxdhcwf31 %Moose Ellsworth MD Work Phone: [facility] HospitalJqktxq42-67-4676 10:41-1983KjA2% (BldA) [Mass fraction]97 %Moose Ellsworth MD Work Phone: [place] [address]Mrwbjd19-13-8109 10:41-0500Systolic blood pressure 114 mm[Hg]Moose Ellsworth MD Work Phone: [facility] HospitalTwolyh14-77-3972 13:45-0500Body ysalpa257 cmLisa Glendy TECHNOLOGY COACH Work Phone: [facility] CenterWkbhclyxjg54-32-0153 13:45-0500Body mass index (BMI) [Ratio]27.88 kg/m2Marlenesa Glendy TECHNOLOGY COACH Work Phone: [facility] CenterZsksxjytno27-40-4498 13:45-0500Body temperature 97.81 [degF]Angie Pike TECHNOLOGY COACH Work Phone: [facility] CenterPoazmzdifi31-30-8748 13:45-0500Body ljwrdo70.4 kg Angie Glendy TECHNOLOGY COACH Work Phone: [facility] CenterQhnkfhxknt05-28-2835 13:45-0500Diastolic blood mm[Hg]Angie Glendy TECHNOLOGY COACH Work Phone: [facility] CenterEiupfshyxz87-57-5460 13:45-0500Heart rate80 /min Angie Pike TECHNOLOGY COACH Work Phone: noS[facility] CenterBtqnwhlger55-10-6327 13:45-0500Respiratory rate18 /minAngie Pike TECHNOLOGY COACH Work Phone: noSC Xetratxont83-48-2958 13:45-4719BiZ0% (BldA) [Mass fraction]96 %Angie Glendy TECHNOLOGY COACH Work Phone: [facility] Vchbruvktq13-80-1680 13:45-0500Systolic blood bgumxihf679 mm[Hg]Angie Glendy TECHNOLOGY COACH Work Phone: [facility] Encounters Encounter DateEncounter TypeCare ProviderFacilityStart: 07-18-2025 End: 97-38-9913chitshrlvsWxti J Aichholz TECHNOLOGY COACH-C Work Phone: -[facility] ClydeStart: 07-18-2025 End: 25-93-2133Cmdzqur encounter procedureLisa Yonatan Pike TECHNOLOGY COACH-C-[facility] [place] Work Phone: Start: 37-91-3897xotdjotgerGZCXEUR [facility] PhysiciansStart: 03-28-8911euwteqxwmlAHCUGNE [facility] PhysiciansStart: 92-41-1632xfxcuejwsoMXXKPTF [facility] PhysiciansStart: 91-16-7749pluiktokpxWOCKURZ [facility] PhysiciansStart: 77-31-5671kspsuirwnqVUJZJVB [facility] PhysiciansStart: 15-32-9607foazouutidOIPKRSF [facility] PhysiciansStart: 02-09-2025 End: 07-31-9802Etbsve outpatient visit 15 minutesMoose Ellsworth MD Work Phone: [facility] HospitalComment on above:Chronic fatigue (Primary Dx); Slow transit constipationStart: 68-54-6706dbyblqqiryRPLBH [facility] PhysiciansStart: 08-83-4617iifjopooxvMFTOUYL [facility] PhysiciansStart: 46-88-5725ertlzdhdkiCHFDVCE [facility] PhysiciansStart: 19-35-6884aklmhqheazMKYZQHN [facility] PhysiciansStart: 01-05-2025 End: 96-11-1575Psgnwn outpatient visit 25 minutesMoose Ellsworth MD Work Phone: [facility] HospitalComment on above:Vaginal burning (Primary Dx); B12 deficiencyStart: 53-29-9843ozjlbbgwmgFIJLMFormerly [facility] PhysiciansStart: 78-64-9230hgzpabrwicJJBIQPM [facility] PhysiciansStart: 87-79-8945uldytmeambNLSCLRL [facility] PhysiciansStart: 93-14-5547canukikbqqUNPIRCT [facility] PhysiciansStart: 12-13-2024 End: 73-80-7587Whziym outpatient visit 15 minutesSofy Ferrer CNP Work Phone: [facility] HospitalComment on above:Routine screening for STI (sexually transmitted infection) (Primary Dx); Chronic vulvitisStart: 13-20-5055hnhrdmxvdoOPFYNovant [facility] PhysiciansStart: 24-66-0335ngppeeeqliEMHLZQR [facility] PhysiciansStart: 11-24-2024 End: 42-19-8703Pwbmwv outpatient visit 15 minutesMoose Elslworth MD Work Phone: [facility] HospitalComment on above:Abnormal weight gain (Primary Dx); Monilial vaginitis; Anxiety and depressionStart: 17-26-8010xrofcwmwfhTRGSHFormerly [facility] PhysiciansStart: 55-36-9624xxeubkmisfMCORZRT [facility] PhysiciansStart: 11-17-2024 End: 47-94-9541Qyrcgu outpatient new 30 minutesMp Levin MD Work Phone: [facility] HospitalComment on above:Injury of finger of left hand, initial encounter (Primary Dx)Start: 15-28-6941tjcmspqnuzYSGYO [facility] Start: 36-61-6024zdndmpsdccMNGFGCS VCarmencita [facility] Physicians Start: 11-09-2024 End: 63-54-7712Qqdfdb outpatient visit 25 minutesMarcel Olivares MD Work Phone: [facility] HospitalComment on above:Sprain of proximal interphalangeal (PIP) joint of finger (Primary Dx); Numbness of fingerStart: 11-09-2024 End: 57-35-6964iaqngdhyglKHIEJTRCNChippewa City Montevideo Hospitaltart: 82-90-1638vrjazxcnnjPUKRQ [facility] PhysiciansStart: 11-01-2024 End: 47-41-0658Xhuazc outpatient visit 15 minutesMoose Ellsworth MD Work Phone: [facility] HospitalComment on above:Irregular periods (Primary Dx); Chronic vulvitis; Screen for sexually transmitted diseasesStart: 44-51-5497xlmhqwbwlgRKOHEFA [facility] PhysiciansStart: 13-26-5809kpvpglieezZQVPMUZ [facility] PhysiciansStart: 26-94-9874vqrjyzchnfMLSOLBL [facility] PhysiciansStart: 64-49-7454miwabtbrvvTUBSNDR [facility] PhysiciansStart: 09-02-2024 End: 36-42-7033Qpbvzw outpatient visit 25 minutesJackelyn Hoskins MD Work Phone: [facility] CenterComment on above:Borderline personality disorder (CMS-HCC) (Primary Dx); ISABELL (generalized anxiety disorder); Other depressionStart: 00-22-8941zbldtmdxyiFMADI [facility] PhysiciansStart: 69-97-3201eeohuxyiekEKYZIUC [facility] PhysiciansStart: 39-90-6028evlfmmkattESQNXST [facility] PhysiciansStart: 59-12-6266dzobnicyvzRELTMPE [facility] PhysiciansStart: 57-75-2966insaebuvoiZFVFEHZ [facility] PhysiciansStart: 07-26-2024 End: 29-86-3964Bfabcs outpatient visit 25 minutesMoose Ellsworth MD Work Phone: [facility] HospitalComment on above:Chronic vulvitis (Primary Dx); Mood disorder (CMS-HCC); Diet is high in sugarStart: 76-67-1383rcmkmmvcnmENAHFFormerly [facility] PhysiciansStart: 65-49-1898czihestfitMRTLPZE [facility] PhysiciansStart: 53-70-7146vgvfnusfeiIZEQCBT [facility] PhysiciansStart: 71-20-0010mshekvgpsqEDJGHLI [facility] PhysiciansStart: 00-19-0368uuafzzwlopYZGQGVT [facility] PhysiciansStart: 47-60-7609esgxblqakbPTDKDAX [facility] PhysiciansStart: 38-07-9752ptfomerozrQFIRQKG [facility] PhysiciansStart: 72-43-9896ufgxqkmygyIAWBVQG [facility] PhysiciansStart: 82-83-0470dzfvxljhugSDIMNLH [facility] PhysiciansStart: 10-80-0040zsiuebqwqlAVRYBGF [facility] PhysiciansStart: 44-68-8807ccdocuwifiZTHYGIP [facility] PhysiciansStart: 76-94-6765yuygxutfryHREUYNovant [facility] PhysiciansStart: 09-25-8916olhojhyoxpQGEJHIS [facility] PhysiciansStart: 72-49-5754rloqovpbleTWZRF JOHNFormerly [facility] PhysiciansStart: 56-56-0110efdbxbopvoDIXZJIK [facility] PhysiciansStart: 42-68-3823mlcqoxkijvXNXTEMJ [facility] PhysiciansStart: 92-26-2148exrzxgzrsjUSZPFBrighton Hospital PhysiciansStart: 46-10-0503xfznqrbgrlUCWBZ [facility] PhysiciansStart: 02-26-2024 End: 31-19-8311Unmctn outpatient visit 25 Marshal Ellsworth MD Work Phone: [facility] HospitalComment on above:Dysuria (Primary Dx); Metrorrhagia; Vaginal burningStart: 12-15-2023 End: 25-83-5297Mcsrwj outpatient visit 25 Marshal Ellsworth MD Work Phone: [facility] HospitalComment on above:Dysuria (Primary Dx); Monilial vaginitis; Abnormal weight gainStart: 11-24-2023 End: 04-19-0999Dxqhoq outpatient visit 25 minutesMoose Ellsworth MD Work Phone: [facility] HospitalComment on above:Subacute and chronic vaginitis (Primary Dx); Acute vulvitis; Abnormal weight gainStart: 11-19-2023 End: 81-70-4789ihcrtcddipFEDG AICHHOLZNot AvailableStart: 91-04-4044Zhhbhxrla encounterLisa Aichholz TECHNOLOGY COACH Work Phone: [facility] C[facility] FMStart: 10-29-2023 End: 89-50-3495ggniqjjvsgAGXD AICHHOLZNot AvailableStart: 74-33-6359Crjvgp flowsheetLisa Aichholz TECHNOLOGY COACH Work Phone: [facility] FMStart: 67-17-0849Msjirq flowsheetLisa Aichholz TECHNOLOGY COACH Work Phone: [facility] CWM FMStart: 10-29-2023 End: 55-46-6694Dkrzms outpatient visit 25 minutesAngie Glendy TECHNOLOGY COACH Work Phone: [facility] CWM FMComment on above:Overweight (BMI 25.0-29.9) (Primary Dx); Pelvic pain; Dysuria; Anxiety; Rectal bleedingStart: 10-23-2023 End: 15-79-4601fywvrimhevSNMJEMcLaren Greater Lansing Hospitaltart: 10-22-2023 End: 93-28-6275Jgpswmnbr department patient visitMcLaren Greater Lansing Hospitaltart: 03-16-2023 End: 01-20-8922pfoebhetksNQTNTX J CROAKMerMad River Community Hospitaltart: 04-29-2022 End: 53-82-8862yxkplywzrfWBW ANGIE PIKEFacility:W0Lxqmj: 12-12-2021 End: 00-10-5656Pksfavu encounter procedureDacortes Bar MD Work Phone: Plastic SurgeryComment on above:History of nasal surgery (Primary Dx); Nasal congestionStart: 10-02-2021 End: 02-75-2119zolfoyuvkzRMF LISA AICHHOLZFacility:I3Jwoff: 05-28-2021 End: 65-30-1007Ldlyoixlzc hospital [facility] by physicianW[facility] Rad[facility] Ct ScanStart: 10-13-2017 End: 18-87-2332JttguypqqhNRFLVFM PHYSICIANFacility:UTMCStart: 10-07-2017 End: 62-39-9018JmechbjytmWIUFPRF PHYSICIANFacility:[facility] Procedures DateProcedureProcedure DetailPerforming ClinicianStart: 03-20-2025 End: 26-45-7180Frjyuvkkvcxfk w/patient 60 minutesAnxiety and depressionNzingcas Black [facility] Work Phone: Comment on above:Anxiety and depression (Primary Dx) Start: 03-13-2025 End: 44-42-4089Qrtmuyumzaetl w/patient 60 minutesAnxiety and depressionNzingha V. Nicolas LPCC Work Phone: Comment on above:Anxiety and depression (Primary Dx) Start: 03-06-2025 End: 77-77-1160Jzjyjqvvbwlga w/patient 60 minutesAnxiety and depressionNzingha V. Nicolas LPCC Work Phone: Comment on above:Anxiety and depression (Primary Dx) Start: 02-27-2025 End: 62-11-4101Dtsdwducgtbyk w/patient 60 minutesAnxiety and depressionNzingha V. Nicolas LPCC Work Phone: Comment on above:Anxiety and depression (Primary Dx) Start: 02-20-2025 End: 77-25-5698Pzqvahbttgdbn w/patient 60 minutesAnxiety and depressionNzingha V. Nicolas LPCC Work Phone: Comment on above:Anxiety and depression (Primary Dx) Start: 01-30-2025 End: 79-23-4346Jufqhliqmrzmj w/patient 60 minutesAnxiety and depressionNzingha V. Nicolas LPCC Work Phone: Comment on above:Anxiety and depression (Primary Dx) Start: 01-23-2025 End: 58-70-3714Htubfgceqifki w/patient 60 minutesAnxiety and depressionNzingha V. Nicolas LPCC Work Phone: Comment on above:Anxiety and depression (Primary Dx) Start: 01-09-2025 End: 48-49-1239Vliawwhjfifll w/patient 60 minutesAnxiety and depressionNzingha V. Nicolas LPCC Work Phone: Comment on above:Anxiety and depression (Primary Dx) Start: 01-02-2025 End: 02-94-2245Bswoxwbrmcqah w/patient 60 minutesAnxiety and depressionNzingha V. Nicolas LPCC Work Phone: Comment on above:Anxiety and depression (Primary Dx) Start: 12-26-2024 End: 46-93-1030Pbntmjdrkmxam w/patient 60 minutesAnxiety and depressionNzingha V. Nicolas LPCC Work Phone: Comdnwx on above:Anxiety and depression (Primary Dx) Start: 12-19-2024 End: 35-49-9136Mvmzoegrwelnx w/patient 60 minutesAnxiety and depressionNzingha V. Nicolas LPCC Work Phone: Comment on above:Anxiety and depression (Primary Dx) Start: 11-28-2024 End: 16-32-7039Bgzewnjmxbdkv w/patient 60 minutesAnxiety and depressionNzingha V. Nicolas LPCC Work Phone: Comment on above:Anxiety and depression (Primary Dx) Start: 11-21-2024 End: 09-26-2572Biossdrstwbdo w/patient 60 minutesAnxiety and depressionNzingha V. Nicolas LPCC Work Phone: Comment on above:Anxiety and depression (Primary Dx) Start: 15-74-8953UPS REFERRAL TO HAND SURGERYMarcel Olivares MD Work Phone: Start: 11-14-2024 End: 11-23-3725Klcxpiolwejha w/patient 60 minutesAnxiety and depressionNzingha V. Nicolas LPCC Work Phone: Comgihk on above:Anxiety and depression (Primary Dx) Start: 10-17-2024 End: 63-85-4434Simfbsgmigzmk w/patient 60 minutesAnxiety and depressionNzingha V. Nicolas LPCC Work Phone: Cominpk on above:Anxiety and depression (Primary Dx) Start: 10-03-2024 End: 83-51-7083Cddvmywimbvmv w/patient 60 minutesAnxiety and depressionNzingha V. Nicolas LPC Work Phone: Comahpo on above:Anxiety and depression (Primary Dx) Start: 09-19-2024 End: [id number] w/patient 60 minutesAnxiety and depressionNzingha V. Nicolas LPCC Work Phone: Comment on above:Anxiety and depression (Primary Dx) Start: 08-15-2024 End: [id number] w/patient 60 minutesAnxiety and depressionNzingha V. Nicolas LPCC Work Phone: Comment on above:Anxiety and depression (Primary Dx) Start: 08-08-2024 End: [id number] w/patient 60 minutesAnxiety and depressionNzingha V. Nicolas LPCC Work Phone: Comment on above:Anxiety and depression (Primary Dx) Start: 08-01-2024 End: [id number] w/patient 60 minutesAnxiety and depressionNzingha V. Nicolas LPCC Work Phone: Comment on above:Anxiety and depression (Primary Dx) Start: 07-25-2024 End: 98-03-0253Zwzornwxqsdvp w/patient 60 minutesAnxiety and depressionNzingha V. Nicolas LPCC Work Phone: Comment on above:Anxiety and depression (Primary Dx) Start: 07-18-2024 End: [id number] w/patient 60 minutesAnxiety and depressionNzingha V. Nicolas LPCC Work Phone: Comxbnd on above:Anxiety and depression (Primary Dx) Start: 07-11-2024 End: 98-94-0007Kvrcaxrvzxwnf w/patient 60 minutesAnxiety and depressionNzingha [facility]. [facility] Work Phone: Comment on above:Anxiety and depression (Primary Dx) Start: 07-04-2024 End: 04-60-5418Tsrbhxcuhontq w/patient 45 minutesAnxiety and depressionNzingha V. [facility] Work Phone: Comdouj on above:Anxiety and depression (Primary Dx) Start: 06-27-2024 End: 75-32-0934Vkmpfyazkytwz w/patient 60 minutesAnxiety and depressionNzingha V. [facility] Work Phone: Comment on above:Anxiety and depression (Primary Dx) Start: 06-20-2024 End: 63-41-5759Cvtahlbbqsxrp w/patient 60 minutesAnxiety and depressionNalexandr Black [facility] Work Phone: Comment on above:Anxiety and depression (Primary Dx) Start: 43-62-1330Brxmgv-up visitFollow-upLAURI NANDYALStart: 07-30-2021H/O: surgeryHistory of nasal surgeryPatel Bar MD Work Phone: Start: 17-83-7853Tv maxillofacial w/o contrast materialPatel Bar MD Work Phone: H/O: surgeryHistory of nasal surgeryPatel Bar MD Work Phone: Plan of Treatment DateCare ActivityDetailAuthorStart: 81-28-8017Ipbdjzsjojeo: Influenza (MyChart) (Season Ended) HealthStart: 39-76-3920Yvnawiayeaqu: Influenza (MyChart) (#1) Immunization: Influenza (MyChart) (#1)[facility]Comment [facility] above:Postponed from 05/22/2024 (Declined by patient)Start: 91-63-3881Uhkjcpwhej Monitoring (PHQ-9) Depression Monitoring (PHQ-9)[facility] HospitalStart: 58-00-4912Pgxaaffffy A1c measurementDiabetes Screening HealthStart: 68-83-3378Inbvkftcnd Monitoring (PHQ-9)Depression Monitoring (PHQ-9) HealthStart: 35-55-5206Mjjeygkfdlod: DTaP/Tdap/Td (7 - Td or Tdap)Immunization: DTaP/Tdap/Td (7 - Td or Tdap) HealthStart: 74-00-1237Bnjazqixqogf: COVID-19 ( season)Immunization: COVID-19 ( season) HealthStart: 66-06-1949Pmolvyyrxseh: Influenza (MyChart) (#1)Immunization: Influenza (MyChart) (#1) HealthStart: 05-22-2024 Influenza vaccinationImmunization: Influenza (MyChart) (Season Ended)[facility] Start: 79-17-0449Udxpuivfh for malignant neoplasm of cervixCervical Cancer Screening/Pap Smear (MyChart)[facility]Start: 11-19-2023 End: 87-68-2879Kxgiqxk encounter /29/2024 3:00 PM EST Office Visit [facility] [address] [place] [phone] Genaro Rodriguez MD [address] [place] [phone] [facility] FMStart: 10-29-2023 End: 40-25-3080Mxgtofz encounter luefeksrx16/08/2024 1:40 PM EST Office Visit [facility] [address] [place] [phone] Angie Pike NP [address] [place] [phone] ArrivedNOMS CW FMComment on above:ArrivedStart: 05-22-2023 Immunization: COVID-19 ( season)Immunization: COVID-19 ( season)[facility] HospitalStart: 02-57-6273Jryavooyb vaccinationKindred Hospital Daytontart: 53-82-3738Stexnsdwma AssessmentDepression AssessmentKindred Hospital Daytontart: 10-47-4680Xijoszseeerm: DTaP/Tdap/Td (1 - Tdap)Immunization: DTaP/Tdap/Td (1 - Tdap) HealthStart: 68-77-4990Gudkxxfkbovm: Hepatitis A (1 of 2 - Risk 2-dose series)Immunization: Hepatitis A (1 of 2 - Risk 2-dose series)[facility] HospitalStart: 90-61-0989Ihbfwpksrjsc: Hepatitis B (1 of 3 - 19+ 3-dose series)Immunization: Hepatitis B (1 of 3 - 19+ 3-dose series)[facility] HospitalStart: 00-05-4312Vluhq microalbumin profileDTaP,Tdap,Td Vaccine (1 - Tdap)[facility]: 50-11-0354Tylkminac vaccinationINFLUENZA (#1)[facility]: 2021 Alcohol consumption screeningAlcohol Misuse ScreeningUC HealthStart: 2021 CHLAMYDIA SCREENING (18-24)CHLAMYDIA SCREENING (18-24)[facility]: 95-38-9660Gmkntptnvy screeningDepression ScreeningUC HealthStart: 60-72-6678PE (GONORRHEA) SCREENING (18-24)GC (GONORRHEA) SCREENING (18-24)[facility] Start: 49-90-8078TIIVURJJB C SCREENINGHEPATITIS C SCREENINGPeoples Hospital Start: 70-86-9050KQX SCREENINGHIV SCREENINGKindred Hospital Daytontart: 68-02-9288LBZ screeningHIV ScreeningUC HealthStart: 28-06-0035Gbcwcgwjosyhp B Vaccine: Consider Based On Risk (1 of 2 - Patient Seeks Protection)Meningococcal B Vaccine: Consider Based On Risk (1 of 2 - Patient Seeks Protection)[facility]: 25-68-8513UGUORAXCDUBUF CONJUGATE (1 - 2-dose series)MENINGOCOCCAL CONJUGATE (1 - 2-dose series)[facility]: 16-26-7491Fbfghsjnivwl: HPV (1 - 3-dose series)Immunization: HPV (1 - 3-dose series)[facility] HospitalStart: 84-35-2066VZHW TO ADULT TRANSITION ANNUAL ASSESSMENTPEDS TO ADULT TRANSITION ANNUAL ASSESSMENTKindred Hospital Daytontart: 11-89-1080Igrtx depression screening assessmentDEPRESSION SCREENINGKindred Hospital Daytontart: 94-20-0755ZYCN TO ADULT TRANSITION INITIAL DISCUSSIONPEDS TO ADULT TRANSITION INITIAL DISCUSSION [facility]: 98-41-7419ZVQ VACCINE (1 - 2-dose series)HPV VACCINE (1 - 2-dose series)[facility]: 30-20-5317Dlvzautyz Hearing TestPediatric Hearing TestUC HealthStart: 08-92-4506FOIUIILTKKZMA B: Consider based on risk (1 of 2 - Risk Bexsero 2-dose series)MENINGOCOCCAL B: Consider based on risk (1 of 2 - Risk Bexsero 2-dose series)[facility]: 17-27-8244MCV Vaccine (1 - 2-dose series)HPV Vaccine (1 - 2-dose series)[facility] Urine microalbumin profileDTAP,TDAP,TD (1 - Tdap)[facility]: 89-50-2908KWRYT-19 VACCINE (1)COVID-19 VACCINE (1)[facility]: 71-71-3509Ovjjn-19 Vaccine (#1)Covid-19 Vaccine (#1)[facility]: 62-01-9690Zycybkjwe B Vaccine (1 of 3 - 3-dose series)Hepatitis B Vaccine (1 of 3 - 3-dose series)[facility]: 78-91-9224Qbqcdczse C screening Hepatitis C Screening (MyChart)[facility] HospitalStart: 17-45-5835Hhuln panelLipid Panel [facility] HospitalStart: 80-18-5570Yxfwonux examinationComprehensive Physical ExamUC Health End: 71-75-7302DVM panel - Blood by Automated countCBC Lab Routine Metrorrhagia 1 Occurrences starting 02/26/2024 until 02/25/2025UC HealthComment on above:1 Occurrences starting 02/26/2024 until 5CBC panel - Blood by Automated countCBC Lab Routine Metrorrhagia 02/26/2024 4:51 PM EDTUC Health End: 94-44-3242UQB panel - Blood by Automated countCBC Lab Routine Irregular periods 1 Occurrences starting 11/01/2024 until 11/01/2025UC HealthComment on above:1 Occurrences starting 11/01/2024 until 6Cefuroxime free [Mass/volume] in Serum or PlasmaBarberton Citizens Hospital End: 45-78-0841Steqwwflj / Gonorrhoeae DNA SwabChlamydia / Gonorrhoeae DNA Swab Lab Routine Subacute and chronic vaginitis Acute vulvitis 1 Occurrences starting 11/24/2023 until 11/23/2024UC HealthComment on above:1 Occurrences starting 11/24/2023 until 5Chlamydia / Gonorrhoeae DNA SwabChlamydia / Gonorrhoeae DNA Swab Lab Routine Subacute and chronic vaginitis Acute vulvitis 11/24/2023 3:33 PM ESTUC Health End: 67-84-3383Ryhmletwc / Gonorrhoeae DNA UrineChlamydia / Gonorrhoeae DNA Urine Lab Routine Routine screening for STI (sexually transmitted infection) 1 Occurrences starting 12/13/2024 until 12/13/2025[facility] Work Phone: comment on above:1 Occurrences starting 12/13/2024 until 6Chlamydia / Gonorrhoeae DNA UrineChlamydia / Gonorrhoeae DNA Urine Lab Routine Routine screening for STI (sexually transmitted infection) 12/13/2024 4:12 PM EDTUC Health End: 19-19-0285Xciddajqzengu metabolic 2000 panel - Serum or PlasmaComprehensive metabolic panel Lab Routine Metrorrhagia 1 Occurrences starting 02/26/2024 until 02/25/2025UC HealthComment on above:1 Occurrences starting 02/26/2024 until 5Comprehensive metabolic 1999 panel - Serum or Plasma Comprehensive metabolic panel Lab Routine Metrorrhagia 02/26/2024 4:51 PM EDTUC Health End: 82-10-9995Xakutqpzdgajx metabolic 1999 panel - Serum or PlasmaComprehensive metabolic panel Lab Routine Irregular periods 1 Occurrences starting 11/01/2024 until11/01/2025UC HealthComment on above:1 Occurrences starting 11/01/2024 until 6Comprehensive metabolic 2000 panel - Serum or PlasmaBarberton Citizens Hospital End: 33-51-5613Yrwctwfmqlvnay vitamin b-12Vitamin B12 Lab Routine Subacute and chronic vaginitis 1 Occurrences starting 11/24/2023 until 11/23/2024[facility] Comment on above:1 Occurrences starting 11/24/2023 until 11/23/2024 End: 73-08-8212Ynzcqxptffnmaa vitamin b-12Vitamin B12 Lab Routine Metrorrhagia 1 Occurrences starting 02/26/2024 until 02/25/2025UC HealthComment on above:1 Occurrences starting 02/26/2024 until 5Cyanocobalamin vitamin b-12 Vitamin B12 Lab Routine Metrorrhagia 02/26/2024 4:51 PM EDTUC Health End: 36-18-0974Fkzqztwzeyzwid vitamin b-12Vitamin B12 Lab Routine Irregular periods 1 Occurrences starting 11/01/2024 until 11/01/2025UC HealthComment on above:1 Occurrences starting 11/01/2024 until 11/01/2025 End: 73-91-1536ZXXA-sulfate, serumDHEA-sulfate, serum Lab Routine Metrorrhagia 1 Occurrences starting 02/26/2024 until 02/25/2025UC HealthComment on above:1 Occurrences starting 02/26/2024 until 02/25/2025DHEA-sulfate, serumDHEA-sulfate, serum Lab Routine Metrorrhagia 02/26/2024 4:51 PM EDTUC Health End: 55-45-4132JiqzdonjgniuPocoqzlpkems Lab Routine Metrorrhagia 1 Occurrences starting 02/26/2024 until 02/25/2025UC HealthComment on above:1 Occurrences starting 02/26/2024 until 02/25/2025DifferentialDifferential Lab Routine Metrorrhagia 02/26/2024 4:51 PM EDTUC Health End: 48-10-8219CtrbfvhhrlnvQcjtzscovsom Lab Routine Irregular periods 1 Occurrences starting 11/01/2024 until 11/01/2025UC HealthComment on above:1 Occurrences starting 11/01/2024 until 11/01/2025Epstein Riley virus capsid IgG Ab [Units/volume] in SerumBarberton Citizens Hospital End: 71-92-6190Ncmphssm [Mass/volume] in Serum or PlasmaFerritin Lab Routine Metrorrhagia 1 Occurrences starting 02/26/2024 until 02/25/2025UC HealthComment on above:1 Occurrences starting 02/26/2024 until 02/25/2025Ferritin [Mass/volume] in Serum or PlasmaFerritin Lab Routine Metrorrhagia 02/26/2024 4:51 PM EDTUC Health End: 94-67-7695JWI (Follicle stimulating hormone)FSH (Follicle stimulating hormone) Lab Routine Metrorrhagia 1 Occurrences starting 02/26/2024 until 02/25/2025UC HealthComment on above:1 Occurrences starting 02/26/2024 until 02/25/2025FSH (Follicle stimulating hormone)FSH (Follicle stimulating hormone) Lab Routine Metrorrhagia 02/26/2024 4:51 PM EDTUC Health End: 46-35-9710GGB (Follicle stimulating hormone)FSH (Follicle stimulating hormone) Lab Routine Irregular periods 1 Occurrences starting 11/01/2024 until 11/01/2025UC HealthComment on above:1 Occurrences starting 11/01/2024 until 11/01/2025 End: 85-87-3904MIS Urine, QualitativeHCG Urine, Qualitative Lab Routine Chronic vulvitis 1 Occurrences starting 11/01/2024 until 11/01/2025[facility] Work Phone: Comment on above:1 Occurrences starting 11/01/2024 until 11/01/2025HCG Urine, QualitativeHCG Urine, Qualitative Lab Routine Chronic vulvitis 11/01/2024 4:54 PM ESTUC Health End: 85-37-3341Ftmmdqsewy A1c/Hemoglobin.total in BloodHemoglobin A1c Lab Routine Subacute and chronic vaginitis 1 Occurrences starting 11/24/2023 until 11/23/2024UC HealthComment on above:1 Occurrences starting 11/24/2023 until 11/23/2024 End: 66-87-3790Dcrajhccmk A1c/Hemoglobin.total in BloodHemoglobin A1c Lab Routine Irregular periods 1 Occurrences starting 11/01/2024 until 11/01/2025UC HealthComment on above:1 Occurrences starting 11/01/2024 until 11/01/2025 End: 04-51-4478Dmmrmlsju C AntibodyHepatitis C Antibody Lab Routine Screen for sexually transmitted diseases 1 Occurrences starting 11/01/2024 until 05/16/2025 UC HealthComment on above:1 Occurrences starting 11/01/2024 until 05/16/2025 End: 57-01-6456CGH 1+2 Antibody/Antigen with ReflexHIV 1+2 Antibody/Antigen with Reflex Lab Routine Screen for sexually transmitted diseases 1 Occurrences starting 11/01/2024 until 05/16/2025UC HealthComment on above:1 Occurrences starting 11/01/2024 until 05/16/2025 End: 30-33-8782HacboxiPtcafjb Lab Routine Irregular periods 1 Occurrences starting 11/01/2024 until 11/01/2025UC HealthComment on above:1 Occurrences starting 11/01/2024 until 11/01/2025 End: 98-35-6299Jdti Studies (Iron + TIBC)Iron Studies (Iron + TIBC) Lab Routine Metrorrhagia 1 Occurrences starting 02/26/2024 until 02/25/2025UC HealthComment on above:1 Occurrences starting 02/26/2024 until 02/25/2025Iron Studies (Iron + TIBC)Iron Studies (Iron + TIBC) Lab Routine Metrorrhagia 02/26/2024 4:51 PM EDT Health End: 12-54-0405Ehwqxcjcfac hormoneLuteinizing hormone Lab Routine Metrorrhagia 1 Occurrences starting 02/26/2024 until 02/25/2025UC HealthComment on above:1 Occurrences starting 02/26/2024 until 02/25/2025Luteinizing hormoneLuteinizing hormone Lab Routine Metrorrhagia 02/26/2024 4:51 PM EDTUC Health End: 34-46-2189Xprfzokmujg hormoneLuteinizing hormone Lab Routine Irregular periods 1 Occurrences starting 11/01/2024 until 11/01/2025UC HealthComment on above:1 Occurrences starting 11/01/2024 until 11/01/2025 End: 42-55-2222Ezdbkajbt [Mass/volume] in Serum or PlasmaMagnesium Lab Routine Subacute and chronic vaginitis 1 Occurrences starting 11/24/2023 until [facility] HealthComment on above:1 Occurrences starting 11/24/2023 until 11/23/2024 End: 33-03-5584Mpzdjvtet [Mass/volume] in Serum or PlasmaMagnesium Lab Routine Irregular periods 1 Occurrences starting 11/01/2024 until 11/01/2025[facility] Comment on above:1 Occurrences starting 11/01/2024 until 11/01/2025 End: 65-89-7610H0, TotalT3, Total Lab Routine Metrorrhagia 1 Occurrences starting 02/26/2024 until 02/25/2025UC HealthComment on above:1 Occurrences starting 02/26/2024 until 02/25/2025T3, TotalT3, Total Lab Routine Metrorrhagia 02/26/2024 4:51 PM EDT Health End: 25-24-3539Useserkcyije [Mass/volume] in Serum or PlasmaTestosterone, Total Lab Routine Metrorrhagia 1 Occurrences starting 02/26/2024 until 02/25/2025UC HealthComment on above:1 Occurrences starting 02/26/2024 until 02/25/2025 Testosterone [Mass/volume] in Serum or PlasmaTestosterone, Total Lab Routine Metrorrhagia 02/26/2024 4:51 PM EDTUC Health End: 54-69-8440Tqjszqpplflz [Mass/volume] in Serum or PlasmaTestosterone, Total Lab Routine Irregular periods 1 Occurrences starting 11/01/2024 until 11/01/2025 HealthComment on above:1 Occurrences starting 11/01/2024 until 11/01/2025 End: 07-04-3948Frugiyn Function CascadeThyroid Function [place] Lab Routine Irregular periods 1 Occurrences starting 11/01/2024 until 05/16/2025[facility] Comment on above:1 Occurrences starting 11/01/2024 until 05/16/2025 End: 14-34-2103Hocsztogmvt [Units/volume] in Serum or PlasmaTSH (Thyroid Stimulating Hormone) Lab Routine Metrorrhagia 1 Occurrences starting 02/26/2024 until 02/25/2025UC HealthComment on above:1 Occurrences starting 02/26/2024 until 02/25/2025Thyrotropin [Units/volume] in Serum or PlasmaTSH (Thyroid Stimulating Hormone) Lab Routine Metrorrhagia 02/26/2024 4:51 PM EDTUC Health End: 22-89-8426Ssatacvbd (T4) free [Mass/volume] in Serum or PlasmaT4, free Lab Routine Metrorrhagia 1 Occurrences starting 02/26/2024 until 02/25/2025[facility] Comment on above:1 Occurrences starting 02/26/2024 until 02/25/2025Thyroxine (T4) free [Mass/volume] in Serum or PlasmaT4, free Lab Routine Metrorrhagia 02/26/2024 4:51 PM EDTUC HealthTissue transglutaminase IgA Ab [Units/volume] in [facility] transglutamin[facility] IgG Ab [Units/volume] in [facility] End: 18-74-3539Omyck [Mass/volume] in Serum or PlasmaUric acid Lab Routine Abnormal weight gain 1 Occurrences starting 11/24/2023 until 11/23/2024[facility] Comment on above:1 Occurrences starting 11/24/2023 until 11/23/2024 End: 26-55-8351Jgceprhdll/Mycoplasma hominis CultureUreaplasma/Mycoplasma hominis Culture Microbiology Routine Vaginal burning 1 Occurrences starting until 01/05/2026 Health Work Phone: comment on above:1 Occurrences starting 01/05/2025 until 01/05/2026Ureaplasma/Mycoplasma hominis CultureUreaplasma/Mycoplasma hominis Culture Microbiology Routine Vaginal burning 01/05/2025 4:[address] [facility] End: 72-69-0057Llxfinrpdg Macroscopic OnlyUrinalysis Macroscopic Only Lab Routine Dysuria 1 Occurrences starting 12/15/2023 until 12/14/2024 Health Work Phone: comgbyz on above:1 Occurrences starting 12/15/2023 until 12/14/2024 End: 82-09-7077Dclxbowwlg-Macroscopic w/Rfx to MicroscoUrinalysis-Macroscopic w/Rfx to Microsco Lab Routine Dysuria 1 Occurrences starting 02/26/2024 until 02/25/2025 Health Work Phone: comment on above:1 Occurrences starting 02/26/2024 until 02/25/2025Urinalysis-Macroscopic w/Rfx to MicroscoUrinalysis-Macroscopic w/Rfx to Microsco Lab Routine Dysuria 02/26/2024 4:[address] [facility]: 80-06-1318Ncrzmrean Panel DNA Amplified ProbeVaginitis Panel DNA Amplified Probe Microbiology Routine Subacute and chronic vaginitis Acute vulvitis 1 Occurrences starting 11/24/2023 until 11/23/2024UC HealthComment on above:1 Occurrences starting 11/24/2023 until 11/23/2024Vaginitis Panel DNA Amplified ProbeVaginitis Panel DNA Amplified Probe Microbiology Routine Subacute and chronic vaginitis Acute vulvitis 11/24/2023 3:33 PM [facility] Health End: 16-73-7968Hpusvursk Panel DNA Amplified ProbeVaginitis Panel DNA Amplified Probe Microbiology Routine Dysuria Vaginal burning 1 Occurrences starting 02/26/2024 until 02/25/2025UC HealthComment on above:1 Occurrences starting 02/26/2024 until 02/25/2025Vaginitis Panel DNA Amplified ProbeVaginitis Panel DNA Amplified Probe Microbiology Routine Dysuria Vaginal burning 02/26/2024 4:59 PMEDTUC Health End: 62-28-7686Iskwgyvhd Panel DNA Amplified ProbeVaginitis Panel DNA Amplified Probe Microbiology Routine Chronic vulvitis 1 Occurrences starting 12/13/2024 until 12/13/2025UC HealthComment on above:1 Occurrences starting 12/13/2024 until 12/13/2025Vaginitis Panel DNA Amplified ProbeVaginitis Panel DNA Amplified Probe Microbiology Routine Chronic vulvitis 12/13/2024 4:12 PM EDTUC Health End: 76-04-2928Nyoariw D 25 hydroxyVitamin D 25 hydroxy Lab Routine Subacute and chronic vaginitis 1 Occurrences starting 11/24/2023 until 11/23/2024[facility] Work Phone: comment on above:1 Occurrences starting 11/24/2023 until 11/23/2024 End: 57-62-4678Unlzmbe D 25 hydroxyVitamin D 25 hydroxy Lab Routine Irregular periods 1 Occurrences starting 11/01/2024 until 11/01/2025UC HealthComment on above:1 Occurrences starting 11/01/2024 until 11/01/2025 End: 73-24-5286YL Finger - left 2 ViewsX-ray Finger Left min 2-views Imaging Routine Sprain of proximal interphalangeal (PIP) joint of finger 1 Occurrences starting 11/09/2024 until 05/24/2025[facility] Work Phone: comment on above:1 Occurrences starting 11/09/2024 until 05/24/2025XR Finger - left 2 ViewsX-ray Finger Left min 2-views Imaging Routine Sprain of proximal interphalangeal (PIP) joint of finger 11/09/2024 1:43 PM [facility] Immunizations Immunization DateImmunizationNotesCare OxrvkdunVxipxqdl71-97-4161OAH, unspecified formulationNzingha Nicolas [facility] Work Phone: uc Jfkylx40-34-1431qjurzdtwx virus vaccineNzingha Nicolas [facility] Work Phone: uc Musngu63-42-7326OMF, unspecified formulationNzingha Nicolas [facility] Work Phone: uc Bbgepj14-43-2220hcvxdxj toxoid, reduced diphtheria toxoid, and acellular pertussis vaccine, adsorbedNEastern [facility] Work Phone: uc Bqmxvv80-47-6796encldibvtr, tetanus toxoids and acellular pertussis vaccine, 5 pertussis antigensNEastern New Mexico Medical Center Work Phone: uc Vhxinh89-48-3544hxkwmpm, mumps and rubella virus vaccineNEastern New [facility] Work Phone: WD Jhbhhl49-47-0104ltmdcoxjgh vaccine, inactivated [facility] Work Phone: uc Pfjgom40-46-7066bcbuvatyl virus vaccineNEastern New [facility] Work Phone: uc Hdzhoj69-33-9249ljknfwkwsn, tetanus toxoids and acellular pertussis vaccine, 5 pertussis antigensNEastern New [facility] Work Phone: uc Dmzcez50-24-3629zcdvqijlyvg influenzae type b vaccine, conjugate unspecified formulationGallup Indian Medical Center Work Phone: uc Htsupc49-27-2083dmkkspy, mumps and rubella virus vaccineNEastern New [facility] Center Work Phone: uc Muxpuh87-24-0028cqbhwqksdj, tetanus toxoids and acellular pertussis vaccine, 5 pertussis antigensNEastern New [facility] Work Phone: XQ Xlkxfp94-34-2652yqdxmthrkxx influenzae type b vaccine, conjugate unspecified formulationGallup [facility] Medical Center Work Phone: uc Lbmbwb47-12-1657tguffvvxe B vaccine, pediatric or pediatric/adolescent dosageNEastern New [facility] Center Work Phone: uc Jkhvfg26-58-1702hhfcfkqpyz vaccine, inactivated [facility] Work Phone: uc Kqlojk82-02-0856agiydihkop, tetanus toxoids and acellular pertussis vaccine, 5 pertussis antigensNzingcas Black [facility] Work Phone: uc Eghapq43-43-6786nktlsrugtvb influenzae type b vaccine, conjugate unspecified formulationNzingcas Black [facility] Work Phone: YV Nowewj51-38-2299gpkwznfbo B vaccine, pediatric or pediatric/adolescent dosageNzingcas Black [facility] Work Phone: VD Rsidhr51-42-6863goefjqywfm vaccine, inactivated Nzingcas Black [facility] Work Phone: IU Qxkfst69-65-0510rqgumggyei, tetanus toxoids and acellular pertussis vaccine, 5 pertussis antigensNzingcas Black [facility] Work Phone: AH Crglky15-00-4633zxchrobxkwe influenzae type b vaccine, conjugate unspecified formulationNzingcas Black [facility] Work Phone: DW Qoqikk41-16-2122hvhhzcgue B vaccine, pediatric or pediatric/adolescent dosageNzingcas Black [facility] Work Phone: QT Hmjont37-58-5808jxpklelgoc vaccine, inactivated Nzingcas Black [facility] Work Phone: [facility] Payers DatePayer CategoryPayerPolicy [id number] [id number] Health InsuranceUNC[facility] [id number] 2020-Present [phone] [address] [place] [address] [id number] Private Health InsuranceUNC[facility] [id number] 2020- Present [phone] [address] [place] [address] HMO [id number] BLUE CARD PPO OOS [id number] 2019-Present [phone] [address] [place] [address] [id number] [id number] 2.16.840.1.694934.3.57[id number] 2.16.840.1.153140.3.57[id number] 2.16.840.1.223593.3.57[id number] 2.16.840.1.962785.3.57[id number] 2.16.840.1.002041.3.57[id number] 2.16.840.1.255426.3.57[id number] 2.16.840.1.538247.3.57[id number] 2.16.840.1.356669.3.57[id number] 2.16.840.1.578813.3.57[id number] 2.16.840.1.173920.3.57[id number] 2.16.840.1.135358.3.57[id number] 2.16840.1.419421.3.57[id number] 2.16840.1.836039.3.57[id number] 2.840.1.980230.3.57[id number] 2.840.1.870424.3.57[id number] 2.0.1.201506.3.57[id number] 2.840.1.471531.3.57[id number] 2.0.1.037341.3.579.2.871636-12-1697Zwtbmca77785046 2.840.1.459422.3.579.2.482950-70-4980Hgfhnhm78999452 2.840.1.105094.3.579.2.390043-31-7941Uhfagxc16175315 2.840.1.345282.3.579.2.155051-44-6138Gwkdfux28624454 2.840.1.844118.3.579.2.696507-18-8982Dhpjdnu87855674 2.840.1.227778.3.579.2.835712-85-3887Mribmcj18357540 2.840.1.186901.3.579.2.453314-78-4545Ueecwma53672841 2.840.1.475409.3.579.2.019897-73-8792Gsnqorb01501718 2.840.1.456946.3.579.2.686620-90-8029Wsrpjax38765765 2.840.1.602017.3.579.2.960982-00-2259Jdxlbsy57897606 2.840.1.375816.3.579.2.698630-78-7781Bzubwbq61343461 2.840.1.823984.3.579.2.659206-76-1522Dbeaahf87166948 2.0.1.745761.3.579.2.676109-40-6769Ndpolqh27441951 2..1.274140.3.579.2.375370-01-6401Bcdxtbi19816174 2.0.1.030547.3.579.2.336321-12-0946Zijxzuy28971420 2.840.1.763687.3.57[id number] 2.0.1.818823.3.57[id number] 2..1.377620.3.579.2.516543-68-1349Wmcchih79658553 2.840.1.606167.3.579.[id number] 2.0.1.711483.3.579.[id number] 2.840.1.594074.3.579.2.798750-21-4129Wnpaivj13345310 2.840.1.939407.3.579.2.939[id number] 2.16840.1.611570.3.579.2.[id number] 2.16.840.1.165532.3.579.2.837478-09-7095Xtrjosk82085516 2.16.840.1.536292.3.579.2.776997-48-9625Wqadxmj93510872 2.16840.1.259485.3.579.2.682044-92-1807Uzevtjn43094137 2.16840.1.964767.3.579.2.032991-55-1480Jmfkpdt15998080 2.840.1.153973.3.579.2.[id number] 2.840.1.139130.3.579.2.946555-29-9960Fyjvftt74214304 2.840.1.074509.3.579.2.[id number] 2.840.1.283725.3.579.2.012295-74-3732Lmlwzcf29363558 2.840.1.150427.3.579.[id number] 2.840.1.182420.3.579.2.8[id number] 2.840.1.095855.3.579.2.[id number] 2.840.1.015533.3.579.2.[id number] 2.16840.1.851587.3.579.2.011137-75-4346Dbtdagf63495021 2.840.1.547440.3.579.2.346196-66-4029Ynezfcw73847219 2.16.840.1.130257.3.579.2.[id number] 2.16.840.1.000924.3.579.2.187039-30-9799Ypfyyrx32897629 2.16.840.1.395921.3.579.2.617055-04-5920Xsdg-[id number] Social History DateTypeDetailFacilityStart: 06-04-2021 End: 10-28-7627Ovrcazs smoking status NHISNever smoked tobaccoPeoples Hospital Start: 06-04-2021 End: 58-22-8651Iovxnwn use and exposureSmokeless tobacco non-userKindred Hospital Daytontart: 33-21-8827Yufzyqr intakeLifetime non-drinker (finding)[facility] Daytontart: 95-14-4245Rqsffzr SDOH Alcohol Xvhdbiagx1Yjcscoxet ClinicStart: 00-29-4695Myt Assigned At BirthNot on fileLoganville ClinicStart: 12-02-2021 End: 81-68-8678Lsfqmgim to SARS-CoV-2 (event)Not surePeoples HospitalTohospital for special care smoking status NHISTobacco smoking consumption unknownKindred Hospital Daytontart: 05-16-2021 End: 82-46-4797Veoafbl of Social functionNOSC HealthcareStart: 05-16-2021 End: 28-97-6729Ojdg Deprivation IndexNOSC HealthcareNational Score (1-100), lower number is lower riskNot on file HealthStart: 10-27-2023 End: 15-10-6620Ucunnaq intakeEx-drinker (finding)NOMS HealthcareStart: 12-13-2024 End: 19-19-9633Ihetairlu beverage intakeCurrent drinker of alcohol (finding) HealthStart: 85-27-4178Wxcfsxu CommentoccUC HealthSexFemale (finding)[facility] Centertart: 69-48-7189Kzd Assigned At BirthFeCleveland Clinic Foundation Medical Equipment Procedure CodeEquipment CodeEquipment Original TextEquipment IdentifierDatesGrft Costal Cartilage 5-8cm - [id number]: 22-59-3195Buohyd Alloderm Thin Acellular Dermis 7x4cm Tissue Allograft Regenerative - [id number]: 08-07-2021 Clinical Notes 05-16-2021 to 06-21-2025 Note Date & PigmLbaaMivoogcm63-39-4230 Evaluation note* Diagnosis Onset Date Resolution Status Admit Date Abdominal pain acuteOctober 2024 9:33amAnxiety and depressionacuteOctober 2024 9:33amBloatingacuteOctober 2024 9:33amChronic fatigueacuteOctober 2024 9:33amVitamin D deficiencyacuteOctober 2024 9:33am [facility] Work Phone: 1(858) 315-963806-30-2025 History of Present illness Narrative* Rodriguez Black [facility] - 03/20/2025 10:00 AM EDT The HPI, ROS, and assessment & plan were reviewed and copied forward (with edits) from a note written by business writer on 03/13/2025. I have reviewed and [...] is getting ready for a trip to [place], then back to [place], and finally her move to [place] with Javi. Discussed client feeling too overwhelmed [...] Disposition Continue individual therapy. documented in this encounterAkron Children's HospitalCbqbox20-50-5864 History of Present illness Narrative* MEÑO Sharp - 03/13/2025 10:00 AM EDT The HPI, ROS, and assessment & plan were reviewed and copied forward (with edits) from a note written by business writer on 03/06/2025. I have reviewed and [...] things there, then taking a trip to [place], April 03 will be client's last therapy [...] Continue individual therapy. documented in this encounterUC [id number] History of Present illness Narrative* MEÑO Sharp - 03/06/2025 10:00 AM EDT The HPI, ROS, and assessment & plan were reviewed and copied forward (with edits) from a note written by business writer on 02/27/2025. I have reviewed and [...] pool. 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 Impressions Client is making some progress. Goals: 1. Be able to leave an unhealthy relationship. 2. Cease obsessive stalking behavior 3. Develop confidence in her ability to manage everyday life stressors related to living independently. Diagnosis Anxiety and Depression Follow up on Treatment Plan Next session is scheduled for Thursday, March 13, 2025 RECOMMENDATIONS/PLANS Disposition Continue individual therapy. documented in this encounterUC [id number] History of Present illness Narrative* MEÑO Sharp - 02/27/2025 10:00 AM EDT The HPI, ROS, and assessment & plan were reviewed and copied forward (with edits) from a note written by business writer on 02/20/2025. I have reviewed and updated the history, physical exam, data, assessment, and plan of the note so that it reflects my evaluation and management of the patient. THERAPY SESSION NOTE Session #: 31 Start Time: 10:00 AM End Time: 11:00 AM Session Length: 60 minutes Focal Issues April 02, 2025 client is moving to [place] to be with Javi. Client will move her things to her family's home, including her car, and stay with Javi temporarily while she looks for a job in [place]. Discussed client's mother's concern that client will [...] to make connections, as she did in [place]. This counselor also mentioned [facility]. Also discussed the importance of continuing therapy. 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 documented in this encounterAkron Children's HospitalHjvomj15-09-7584 History of Present illness Narrative* MEÑO Sharp - 02/20/2025 10:00 AM EDT The HPI, ROS, and assessment & plan were reviewed and copied forward (with edits) from a note written by business writer on 01/30/2025. I have reviewed and [...] a job and is considering moving to [place] and staying with Javi. 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 Client's lease ends in March and currently client is planning on moving to [place] with Javi and that client will continue to look for work in [place]. When Javi's lease ends in September, they are both talking about Javi joining client in [place]. Discussed client's work in her self love [...] Disposition Continue individual therapy. documented in this encounterAkron Children's HospitalSoqkwp27-41-9627 History of Present illness Narrative* Moose Ellsworth MD - 02/09/2025 9:15 AM EDT [facility] Brenda Kim : 2005 IN-PERSON VISIT [...] Recurrent Seen over ^ 6 times by Exhibit Designer and Uro w/o def dx Wants to [...] summer 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 , working at [employer], has cut out sugar, Working out daily More greens, spinach / lettuce Good fruits On mB12 ggt 1K every other day PLAN >Tritest >uCT/NG (neg) >HIV/RPR RX fluconazole After visit Cx > strep ag (rx Keflex #10) >CT/NG >BV (+Nadya) Declines UA Rx Clinda vag gel JIC >labs later for D, Mag, B12, A1c ?Vag pH testing, ?boric acid ?Dr Santos at [facility] 12/15/23 >Reduce fructose >Umicro >UCx (-) [...] ON SOFT DIET ONLY NOW RECENTLY SAW STEAMBOAT INSPECTOR, WHO RECOMMENDED A FULL HORMONE W/UP FOR [...] WEEKEND, AFTER HALLOWEEN AND WHILE/AFTER WORKING AT [employer] WHERE SHE HAD HAD SEVERAL PANCAKES; REPORTS [...] FOR THE NEAR FUTURE, WALKED HER TO TELECOMMUNICATIONS PROFESSIONAL FOR SOON APPT WITH PSYCHIATRY TEAM PHQ-9 [...] SPERMACIDE, LATEX ALLERGY? HAS BEEN TO 7 VIROLOGIST IN PAST 12 MONTHS, 2 ULTRASOUNDS, 2 LAP EXPLOR HAS BEEN TO UROGYN ALSO WT UP 50# IN YEAR, NO TPO AB MANY LABS FROM [facility] EVERYWHERE OVER PAST 2 WEEKS [...] AM 04/22/2024 6:27 PM 11/01/2024 4:56 PM XOB3Wxogq Score ISABELL-7 Total Score 16 15 6 [...] Other Reaction(s): Tooth Discoloration Turns teeth black Gubvt-Klrvd-Qpuetva-Pramoxine Rash Mom can't remember name of antibiotic [...] TM COR: RRR LUNGS: EASY RESP ABD: VIROLOGIST Exam: DONE 04/22/24 EXTR: NL CODE CLERK/PNS: symmetric movement of extremities, ambulates independently, even [...] dark chocolate with a high content of [place], 80+% or more is great! Here are some high quality magnesium supplement brands: Magnesium Glycinate by NOW Brands or Nature Made, more easily found on the shelf at local pharmacies but... Prefer online ordering for..... Magnesium Glycinate by Vital Nutrients (magnesium glycinate ,and malate) Magnesium Glycinate by Pure Encapsulations (120mg per capsule, 1-2 daily, best at bedtime) Mag Glycinate by Stratos - This highly absorbable and znga-xq-kzbbgw formula promotes relaxation and restful sleep. Gluten, [...] YOU'VE GONE TOO FAR documented in this encounterAkron Children's HospitalAjblsf63-73-1496 Instructions* Patient Instructions* Moose Ellsworth MD - [...] dark chocolate with a high content of [place], 80+% or more is great! Here are some high quality magnesium supplement brands: Magnesium Glycinate by NOW Brands or Nature Made, more easily found on the shelf at local pharmacies but... Prefer online ordering for..... Magnesium Glycinate by V[employer] Nutrients (magnesium glycinate ,and malate) Magnesium Glycinate by Pure Encapsulations (120mg per capsule, 1-2 daily, best at bedtime) Mag Glycinate by Stratos - This highly absorbable and atjh-ji-wgyxub formula promotes relaxation and restful sleep. Gluten, [...] YOU'VE GONE TOO FAR documented in this encounterAkron Children's HospitalCguoas34-20-7142 History of Present illness Narrative* Rodriguez FranklinCarmencita Black, [facility] - 01/30/2025 10:00 AM EDT The HPI, ROS, and assessment & plan were reviewed and copied forward (with edits) from a note written by business writer on 01/23/2025. I have reviewed and [...] on looking for a corporate job in [place] and stay in an [employer] in [place] while she is waiting for a while. Javi is coming to [place] to visit next weekend. Client sing going to work until the end of February while she is looking for a job in [place]. Javi is willing to move to [place] when his lease is up on his apartment. Client catches herself stalking Javi on [employer] and tracking his movements on his phone. [...] Disposition Continue individual therapy. documented in this encounterAkron Children's HospitalVdlllc62-88-2501 History of Present illness Narrative* MEÑO Sharp - 01/23/2025 10:00 AM EDT The HPI, ROS, and assessment & plan were reviewed and copied forward (with edits) from a note written by business writer on 01/09/2025. I have reviewed and updated the history, physical exam, data, assessment, and plan of the note so that it reflects my evaluation and management of the patient. THERAPY SESSION NOTE Session #: 28 Start Time: 10:00 AM End Time: 11:00 AM Session Length: 60 minutes Focal Issues Client went on trip for Javi's birthday. Her friend, Nilda, lives in [place], came to join them. Discussed her relationship with Javi. Client felt proud of herself for resisting taking his [employer] password when he offered it because she [...] any job. Client wants to be a wuvy-bw-igze mother and Javi is supportive of that [...] Disposition Continue individual therapy. documented in this encounterAkron Children's HospitalPpzzoy57-41-5193 History of Present illness Narrative* MEÑO Sharp [...] him. This week client is driving to [place] to hang out with Javi and his friends for his birthday. Javi is graduating on January 21 with a degree in [employer]. Discussed client's nervousness about graduation and no longer having the structure of being in school, especially because she does not have her future plans settled. Client will apply to [employer] after graduation, although her first choice is [...] Disposition Continue individual therapy. documented in this encounterAkron Children's [id number] History of Present illness Narrative* Moose Ellsworth MD - 01/05/2025 4:15 PM EDT [facility] Brenda Kim : 2005 IN-PERSON VISIT Time [...] Recurrent Seen over ^ 6 times by Exhibit Designer and Uro w/o def dx Wants to [...] summer 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 , working at [employer], has cut out sugar, Working out daily PLAN >Tritest >uCT/NG (neg) >HIV/RPR RX fluconazole After visit Cx > strep ag (rx Keflex #10) >CT/NG >BV (+Nadya) Declines UA Rx Clinda vag gel JIC >labs later for D, Mag, B12, A1c ?Vag pH testing, ?boric acid ?Dr Santos at [facility] 12/15/23 >Reduce fructose >Umicro >UCx (-) [...] ON SOFT DIET ONLY NOW RECENTLY SAW STEAMBOAT INSPECTOR, WHO RECOMMENDED A FULL HORMONE W/UP FOR [...] FOR THE NEAR FUTURE, WALKED HER TO TELECOMMUNICATIONS PROFESSIONAL FOR SOON APPT WITH PSYCHIATRY TEAM PHQ-9 [...] SPERMACIDE, LATEX ALLERGY? HAS BEEN TO 7 VIROLOGIST IN PAST 12 MONTHS, 2 ULTRASOUNDS, 2 LAP EXPLOR HAS BEEN TO UROGYN ALSO WT UP 50# IN YEAR, NO TPO AB MANY LABS FROM [facility] EVERYWHERE OVER PAST 2 WEEKS [...] AM 04/22/2024 6:27 PM 11/01/2024 4:56 PM [id number] Score ISABELL-7 Total Score 16 15 6 [...] Other Reaction(s): Tooth Discoloration Turns teeth black Kvdcx-Bdijr-Pcbjydk-Pramoxine Rash Mom can't remember name of antibiotic [...] TM COR: RRR LUNGS: EASY RESP ABD: VIROLOGIST Exam: DONE 04/22/24 EXTR: NL CODE CLERK/PNS: symmetric movement of extremities, ambulates independently, even [...] SUN CAUTIOUS, EAT SUNSHINE DAILY VIA PILL [phone] UNITS DAILY OR 7-10K UNITS WEEKLY REORDERED THE ESTRACE JUST IN CASE NOTHING IS PROVEN documented in this encounterAkron Children's [id number] Instructions* Patient Instructions* Moose Ellsworth MD - [...] SUN CAUTIOUS, EAT SUNSHINE DAILY VIA PILL [phone] UNITS DAILY OR 7-10K UNITS WEEKLY REORDERED THE ESTRACE JUST IN CASE NOTHING IS PROVEN documented in this encounterAkron Children's HospitalBwcrfv58-48-3927 History of Present illness Narrative* Rodriguez Black, [facility] - 01/02/2025 10:00 AM EDT THERAPY SESSION NOTE Session #: 26 Start Time:10:00 AM End Time: 11:00 AM Session Length: 60 minutes Focal Issues Discussed having an argument with Javi because of a post of client with Ru on [employer]. Client told Javi everything about being with [...] Continue individual therapy. documented in this encounterUC [id number] History of Present illness Narrative* MEÑO Sharp [...] Continue individual therapy. documented in this encounterUC [id number] History of Present illness Narrative* MEÑO Sharp - 12/19/2024 10:00 AM EDT THERAPY SESSION NOTE Session #: 24 Start Time: 10:00 AM End Time: 11:00 AM Session Length: 60 minutes Focal Issues Client discussed her trip to [place] for spring, during which she drank heavily, including blacking out and passing out several times. Client stated that she spent every evening with a man that she met there, named Ru, who lives in [place] and appears to be in a relationship with woman there. Client shared that on her way back from [facility] [place], client was texting a former boyfriend and [...] Disposition Continue individual therapy. 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 Discussed that client may benefit from looking at online therapy services when she graduates because she may be traveling a lot at different times of the day. Discussed how big changes may create stress and that ongoing therapy may help to prevent client from falling into bad habits. 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 documented in this encounterAkron Children's HospitalWbsikc72-13-3313 History of Present illness Narrative* Moose Ellsworth MD - 11/24/2024 10:15 AM EST [facility] : 2005 IN-PERSON VISIT Time spent on [...] Recurrent Seen over ^ 6 times by Exhibit Designer and Uro w/o def dx Wants to [...] 2 classes over summer 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 [employer], working at [employer], has cut out sugar, Working out daily PLAN >Tritest >uCT/NG (neg) >HIV/RPR RX fluconazole After visit Cx > strep ag (rx Keflex #10) >CT/NG >BV (+Nadya) Declines UA Rx Clinda vag gel JIC >labs later for D, Mag, B12, A1c ?Vag pH testing, ?boric acid ?Dr Santos at [facility] 12/15/23 >Reduce fructose >Umicro >UCx (-) [...] ON SOFT DIET ONLY NOW RECENTLY SAW STEAMBOAT INSPECTOR, WHO RECOMMENDED A FULL HORMONE W/UP FOR [...] WEEKEND, AFTER HALLOWEEN AND WHILE/AFTER WORKING AT [employer] WHERE SHE HAD HAD SEVERAL PANCAKES; REPORTS [...] FOR THE NEAR FUTURE, WALKED HER TO TELECOMMUNICATIONS PROFESSIONAL FOR SOON APPT WITH PSYCHIATRY TEAM PHQ-9 [...] SPERMACIDE, LATEX ALLERGY? HAS BEEN TO 7 VIROLOGIST IN PAST 12 MONTHS, 2 ULTRASOUNDS, 2 LAP EXPLOR HAS BEEN TO UROGYN ALSO WT UP 50# IN YEAR, NO TPO AB MANY LABS FROM [facility] EVERYWHERE OVER PAST 2 WEEKS [...] AM 04/22/2024 6:27 PM 11/01/2024 4:56 PM [id number] Score ISABELL-7 Total Score 16 15 6 [...] Other Reaction(s): Tooth Discoloration Turns teeth black Vexvo-Keeup-Keqgchf-Pramoxine Rash Mom can't remember name of antibiotic [...] TM COR: RRR LUNGS: EASY RESP ABD: VIROLOGIST Exam: DONE 04/22/24 EXTR: NL CODE CLERK/PNS: symmetric movement of extremities, ambulates independently, even gait A: Assessment / P: Plan: 1. Abnormal weight gain Prolactin 2. Monilial vaginitis 3. Anxiety and depression SUMMARY: No LOS data to display Patient Instructions LABS TODAY FASTING I'LL SEND MESSAGE SOON I CAN CONSIDER ALLULOSE, A SWEETENER RX SUGAR documented in this encounterUC [id number] Instructions* Patient Instructions* Moose Ellsworth MD - 11/24/2024 10:15 AM EST LABS TODAY FASTING I'LL SEND MESSAGE SOON I CAN CONSIDER ALLULOSE, A SWEETENER RX SUGAR documented in this encounterUC [id number] History of Present illness Narrative* Rodriguez Black, [facility] - 11/21/2024 10:00 AM EST THERAPY SESSION [...] Disposition Continue individual therapy. documented in this encounterAkron Children's HospitalTmswlo18-24-4349 History of Present illness Narrative* Mp Levin [...] Other Reaction(s): Tooth Discoloration Turns teeth black Smmtr-Nnndu-Ipbmhso-Pramoxine Rash Mom can't remember name of antibiotic [...] on either side of the digit Assessment Bredna Kim is a 19 y.o. female with LMF injury due to dog collar Plan I shared that she has protective sensation with no signs of nerve disruption at this point. I recommended monitoring the progress of her recovery in the next few months. She agrees with this plan. All questions were answered in the office today. Mp Levin MD Reporter, Hand and Upper Extremity Surgery Professor, Department of Orthopaedic Surgery [facility] Please note that some or all of this record was generated using voice recognition software.If thereare any questions about the content of this document, please contact me as some errors in hall clerk may have occurred. documented in this encounterUC [id number] History of Present illness Narrative* MEÑO Sharp - 11/14/2024 10:00 AM EST THERAPY SESSION NOTE Session #: 21 Start Time: 10:00 AM End Time: 11:00 AM Session Length: 60 minutes Focal Issues Discussed client feeling devastated because her family will either have to put her dog, Natividad, down,or give them away to the computer technology trainer. Client may have to have surgery [...] Continue individual therapy. documented in this encounterUC [id number] History of Present illness Narrative* Marcel Olivares [...] -Patient has a scheduled appointment with a laundry marker supervisor for a Pap smear. -Patient reports normal hearing. Attestation documented in this encounterUC [id number] Instructions* Patient Instructions* Marcel Olivares MD - [...] You have an upcoming appointment with your laundry marker supervisor for a Pap smear, and you reported normal hearing. INSTRUCTIONS: Please follow up with the orthopedic surgeon as soon as possible for further evaluation of your finger. If you notice any changes in color or increased discomfort in your finger, contact us immediately. Contains text generated by Marina. documented in this encounterUC [id number] History of Present illness Narrative* Moose Ellsworth MD - 11/01/2024 4:15 PM EST [facility] 2005 IN-PERSON VISIT Time [...] Recurrent Seen over ^ 6 times by Exhibit Designer and Uro w/o def dx Wants to [...] summer 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 , working at [employer] PLAN >Tritest >uCT/NG (neg) >HIV/RPR RX fluconazole After visit Cx > strep ag (rx Keflex #10) >CT/NG >BV (+Nadya) Declines UA Rx Clinda vag gel JIC >labs later for D, Mag, B12, A1c ?Vag pH testing, ?boric acid ?Dr Santos at [facility] 12/15/23 >Reduce fructose >Umicro >UCx (-) [...] ON SOFT DIET ONLY NOW RECENTLY SAW STEAMBOAT INSPECTOR, WHO RECOMMENDED A FULL HORMONE W/UP FOR [...] WEEKEND, AFTER HALLOWEEN AND WHILE/AFTER WORKING AT [employer] WHERE SHE HAD HAD SEVERAL PANCAKES; [...] FOR THE NEAR FUTURE, WALKED HER TO TELECOMMUNICATIONS PROFESSIONAL FOR SOON APPT WITH PSYCHIATRY TEAM PHQ-9 [...] SPERMACIDE, LATEX ALLERGY? HAS BEEN TO 7 VIROLOGIST IN PAST 12 MONTHS, 2 ULTRASOUNDS, 2 LAP EXPLOR HAS BEEN TO UROGYN ALSO WT UP 50# IN YEAR, NO TPO AB MANY LABS FROM [facility] EVERYWHERE OVER PAST 2 WEEKS [...] AM 04/22/2024 6:27 PM 11/01/2024 4:56 PM [id number] Score ISABELL-7 Total Score 16 15 6 [...] Other Reaction(s): Tooth Discoloration Turns teeth black Nylsj-Etacf-Etgbgsn-Pramoxine Rash Mom can't remember name of antibiotic [...] TM COR: RRR LUNGS: EASY RESP ABD: VIROLOGIST Exam: DONE 04/22/24 EXTR: NL CODE CLERK/PNS: symmetric movement of extremities, ambulates independently, even gait A: Assessment / P: Plan: 1. Irregular periods FSH (Follicle stimulating hormone) Luteinizing hormone Insulin Hemoglobin A1c Comprehensive metabolic panel CBC Differential Vitamin D 25 hydroxy Vitamin B12 Magnesium Testosterone, Total Thyroid Function [place] 2. Chronic vulvitis HCG Urine, Qualitative fluconazole [...] PLAN OF ACTION POSSIBLE. documented in this encounterAkron Children's [id number] Instructions* Patient Instructions* Moose Ellsworth MD - [...] PLAN OF ACTION POSSIBLE. documented in this encounterAkron Children's [id number] History of Present illness Narrative* Rodriguez Black, [facility] - 10/17/2024 10:00 AM EST THERAPY SESSION NOTE Session #: 19 Start Time: 10:00 AM End Time: 11:00 AM Session Length: 60 minutes Focal Issues Client is waiting for Spring Break so that she and her friend can take a cruise to [place] [employer]. I'm just ready to be done. Client is a part of a girl chat and met a woman who is a blending line attendant for [employer]. Client found out that this might be [...] be able to geta job at an [employer] while she is on psychotropic medication, her [...] Disposition Continue individual therapy. documented in this encounterAkron Children's HospitalGwncpz51-39-6363 History of Present illness Narrative* MEÑO Sharp [...] Disposition Continue individual therapy. documented in this encounterAkron Children's [id number] History of Present illness Narrative* MEÑO Sharp [...] coarse work. 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 She doesn't know when she will [...] Disposition Continue individual therapy. documented in this encounterAkron Children's [id number] History of Present illness Narrative* Jackelyn Hoskisn MD - 09/02/2024 10:45 AM EST [facility] PSYCHIATRY, FOLLOW-UP VISIT CC: Follow-up HPI: Brenda Kim is a 19 y.o. female with history of anxiety, depression, chronic vaginitis who presented to [facility] Psychiatry on 09/02/2024 follow-up. Patient was last seen in [facility] Psychiatry clinic by Dr. Hoskins [...] wants to do, thinking of going to blending line attendant school after graduating from college next semester. Knows she will need to be off all medication for mental health in order to go, s o does not want to start any regular medications and does not think she needs anything right now. 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 Unsure what she plans to do with [...] Other Reaction(s): Tooth Discoloration Turns teeth black Hhxfq-Lcgqf-Tubdazq-Pramoxine Rash Mom can't remember name of antibiotic [...] Dr. Black since 04/2024 -Expressed interest in [facility] DBT groups. Information provided in AVS [...] below. Jeyson Harmon MD documented in this encounterAkron Children's HospitalQugxkz14-05-5235 Instructions* Patient Instructions* Jackelyn Hoskins MD - 09/02/2024 10:45 AM EST Good seeing you in clinic today! -Let me know if you experience worsening symptoms -DBT Therapy through [facility]: [email or web address] Adult DBT Skills Group Scheduled weekly Patients are expected to make a commitment to 24 consecutive weeks of attendance, not missing more than 4 sessions in a row Call to schedule [phone] Please return for your next appointment in ~2 months Contact us: Please reach out to Dr. Hoskins or Dr. Harmon via [employer] system with questions or concerns.If you need to reschedule an appointment, then call the [facility] clinic phone #[phone]. For emergencies: If you ever feel you are in a mental health crisis or worried about the safety of yourself or others, call [phone], or [phone], or go to the nearest emergency room. For low-level crisis, help with daily living activities, and/or peer support, you can also call [facility] Warmline at [phone] ([phone]) at any time, available 13/04. Suicide Prevention Resources: [facility]: 890-413-JXFV (4631) hotline Psychiatric Emergency Services: [phone] Mobile Crisis Team [phone] [facility]: [facility] Consultation & Crisis: [phone] [facility]:Emergency Crisis Hotline: 262-621-SYJS (4732) [facility] Emergency Crisis Line: [phone] National: National Suicide Prevention Lifeline, now known as 988 Suicide & Crisis Lifeline: Dial 988 OR 9-407-450-TALK (1151) www.[facility] Consumer Servicesline.org This is a 13/04 free, confidential phone line that connects individuals in crisis with trained counselors across the [facility]. People do not have to be suicidal to call - reasons to call include:substance abuse, economic worries, relationships, sexual identity, illness, getting over abuse, depression mental and physical illness, and loneliness. documented in this encounterAkron Children's HospitalQzuqhz18-92-5427 History of Present illness Narrative* NzingMEÑO Rice [...] setting. Client felt inpatient and frustrated with Ina , got very angry and told him to get over it . Discussed client comparing Ian, a 17 year old virgin male, to PAUL, who is a 28 year old. Sexually experienced man. Discussed client trying to be empathetic and supporting Ian in his development and focusing on the character of man. 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 documented in this encounterAkron Children's HospitalImvycm45-43-4152 History of Present illness Narrative* MEÑO Sharp - 08/08/2024 11:00 AM EST THERAPY SESSION [...] her mother about studying to be a blending line attendant and her motherhelped client to find information about [employer] programs where client can get paid and [...] 7 components of self-love. documented in this encounterAkron Children's HospitalJxffft05-47-6884 History of Present illness Narrative* MEÑO Sharp [...] toher. Discussed client's interest in becoming a blending line attendant and her not having any idea about what she might want to do when she graduates. Client agreed that she would work on thinking about the possibility of her future as a blending line attendant and agreed work on creating collage images [...] in a DBT group. documented in this encounterAkron Children's HospitalXfcpxe92-43-4193 History of Present illness Narrative* Moose Ellsworth MD - 07/26/2024 4:15 PM EST [facility] Brenda Kim : 2005 IN-PERSON VISIT Time [...] Recurrent Seen over ^ 6 times by Exhibit Designer and Uro w/o def dx Wants to [...] summer 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 , working at [employer] >Tritest >uCT/NG (neg) >HIV/RPR RX fluconazole After visit Cx > strep ag (rx Keflex #10) >CT/NG >BV (+Nadya) Declines UA Rx Clinda vag gel JIC >labs later for D, Mag, B12, A1c ?Vag pH testing, ?boric acid ?Dr Santos at [facility] 12/15/23 >Reduce fructose >Umicro >UCx (-) [...] cream Ref psychiatry soon Ref Counseling >home [place]: LD Abilify Rx Adipex 18 #15 [...] WEEKEND, AFTER HALLOWEEN AND WHILE/AFTER WORKING AT [employer] WHERE SHE HAD HAD SEVERAL PANCAKES; REPORTS [...] FOR THE NEAR FUTURE, WALKED HER TO TELECOMMUNICATIONS PROFESSIONAL FOR SOON APPT WITH PSYCHIATRY TEAM PHQ-9 Scores: 04/22/2024 10:57 AM 04/22/2024 6:28 PM PHQ Total Score PHQ-9 Total Score 12 14 GAD7 Scores: 04/22/2024 10:58 AM 04/22/2024 6:27 PM NZE5Uomyy Score ISABELL-7 Total Score 16 15 NOTES [...] SPERMACIDE, LATEX ALLERGY? HAS BEEN TO 7 VIROLOGIST IN PAST 12 MONTHS, 2 ULTRASOUNDS, 2 LAP EXPLOR HAS BEEN TO UROGYN ALSO WT UP 50# IN YEAR, NO TPO AB MANY LABS FROM [facility] EVERYWHERE OVER PAST 2 WEEKS [...] Other Reaction(s): Tooth Discoloration Turns teeth black Lcqsz-Psemc-Bzvxtpz-Pramoxine Rash Mom can't remember name of antibiotic [...] TM COR: RRR LUNGS: EASY RESP ABD: VIROLOGIST Exam: DONE 04/22/24 EXTR: NL CODE CLERK/PNS: symmetric movement of extremities, ambulates independently, even [...] YOUR THOUGHTS OR CONCERNS. documented in this encounterAkron Children's HospitalCzwrhm81-65-1082 Instructions* Patient Instructions* Moose Ellsworth MD - [...] YOUR THOUGHTS OR CONCERNS. documented in this encounterAkron Children's [id number] History of Present illness Narrative* Rodriguez Black, [facility] - 07/25/2024 11:00 AM EST THERAPY SESSION [...] Disposition Continue individual therapy. documented in this encounterAkron Children's HospitalNkfbsu52-76-6357 History of Present illness Narrative* MEÑO Sharp [...] Disposition Continue individual therapy. 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 Discussed [...] 11:00 AM RECOMMENDATIONS/PLANS Disposition documented in this encounterAkron Children's HospitalOsiwkq33-93-2491 History of Present illness Narrative* MEÑO Sharp [...] reviewing Self Love excerpts. documented in this encounterAkron Children's HospitalTwqslk90-49-8421 History of Present illness Narrative* MEÑO Sharp [...] that even though she is going to [place] in July to talk to to explore their relationship, she will probably get back with him again. 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 Impressions [...] to do after graduation. documented in this encounterAkron Children's HospitalPzrvsa12-73-4984 History of Present illness Narrative* MEÑO Sharp [...] client looking at a opportunity with a [employer] internship to help her to decide if she would like to pursue marketing with that company and perhaps eventually moving to [place]. 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 documented in this encounterAkron Children's HospitalEiqfjs97-37-3982 History of Present illness Narrative* Moose Ellsworth MD - 02/26/2024 4:15 PM EDT Images from the original note were not included. [facility] Brenda Kim : 2005 IN-PERSON VISIT Time [...] Recurrent Seen over ^ 6 times by Exhibit Designer and Uro w/o def dx Wants to [...] pH testing, ?boric acid ?Dr Santos at [facility] 12/15/23 >Reduce fructose >Umicro >UCx (-) [...] SPERMACIDE, LATEX ALLERGY? HAS BEEN TO 7 VIROLOGIST IN PAST 12 MONTHS, 2 ULTRASOUNDS, 2 LAP EXPLOR HAS BEEN TO UROGYN ALSO WT UP 50# IN YEAR, NO TPO AB MANY LABS FROM [facility] EVERYWHERE OVER PAST 2 WEEKS [...] Other Reaction(s): Tooth Discoloration Turns teeth black Ylybx-Guhha-Gyjhsdp-Pramoxine Rash Mom can't remember name of antibiotic [...] NECK: FROM COR: LUNGS: EASY RESP ABD: VIROLOGIST Exam: DONE 11/24/23 EXTR: NL CODE CLERK/PNS: symmetric movement of extremities, ambulates independently, even [...] IN A FEW WEEKS documented in this encounterAkron Children's HospitalBfzbiy26-53-1280 Instructions* Patient Instructions* Moose Ellsworth MD - [...] IN A FEW WEEKS documented in this encounterAkron Children's HospitalCxiyeh03-61-8290 History of Present illness Narrative* Moose Ellsworth MD - 12/15/2023 10:15 AM EDT [facility] Brenda Kim : 2005 IN-PERSON VISIT Time [...] Recurrent Seen over ^ 6 times by Exhibit Designer and Uro w/o def dx Wants to [...] pH testing, ?boric acid ?Dr Santos at [facility] 12/15/23 >Reduce fructose >Umicro >UCx (-) [...] SPERMACIDE, LATEX ALLERGY? HAS BEEN TO 7 VIROLOGIST IN PAST 12 MONTHS, 2 ULTRASOUNDS, 2 LAP EXPLOR HAS BEEN TO UROGYN ALSO WT UP 50# IN YEAR, NO TPO AB MANY LABS FROM [facility] EVERYWHERE OVER PAST 2 WEEKS [...] Constipation 2017 Depression 2021 Allergies Allergen Reactions Lmbwq-Uxuiu-Oftjqyw-Pramoxine Rash Mom can't remember name of antibiotic [...] NECK: FROM COR: LUNGS: EASY RESP ABD: VIROLOGIST Exam: DONE 11/24/23 EXTR: NL CODE CLERK/PNS: symmetric movement of extremities, ambulates independently, even [...] CHECK FOR COUPON or COMPARE PRICES AT [employer] WITH [employer]. AND, maybe even... 4) ANTIFUNGAL RX: if the above aren't working, then we may want to add a few doses of a strong antifungal like Fluconazole (DIFLUCAN) 100-150 mg once daily for 1-4 doses SENT OVER ANOTHER 4 DOSES, ORfor some cases, for several weeks or months LET ME KNOW YOUR THOUGHTS OR CONCERNS. documented in this encounterAkron Children's HospitalCbgego75-04-7848 Instructions* Patient Instructions* Moose Ellsworth MD - [...] CHECK FOR COUPON or COMPARE PRICES AT [facility] WITH [employer]. AND, maybe even... 4) ANTIFUNGAL RX: if the above aren't working, then we may want to add a few doses of a strong antifungal like Fluconazole (DIFLUCAN) 100-150 mg once daily for 1-4 doses SENT OVER ANOTHER 4 DOSES, ORfor some cases, for several weeks or months LET ME KNOW YOUR THOUGHTS OR CONCERNS. documented in this encounterAkron Children's HospitalGjhpqb37-72-9363 History of Present illness Narrative* Moose Ellsworth MD - 11/24/2023 10:45 AM EST [facility] Brenda Kim : 2005 IN-PERSON VISIT Time [...] Recurrent Seen over ^ 6 times by Exhibit Designer and Uro w/o def dx Wants to [...] pH testing, ?boric acid ?Dr Santos at [facility] 12/15/23 >Reduce fructose Mejia: >>: POC; [...] SPERMACIDE, LATEX ALLERGY? HAS BEEN TO 7 VIROLOGIST IN PAST 12 MONTHS, 2 ULTRASOUNDS, 2 LAP EXPLOR HAS BEEN TO UROGYN ALSO WT UP 50# IN YEAR, NO TPO AB MANY LABS FROM [facility] EVERYWHERE OVER PAST 2 WEEKS [...] Constipation 2017 Depression 2021 Allergies Allergen Reactions Drdch-Zksok-Pcbkkks-Pramoxine Rash Mom can't remember name of antibiotic [...] NECK: FROM COR: LUNGS: EASY RESP ABD: VIROLOGIST Exam: Veterinary Laboratory Diagnostician: with RADHA Gatse Breasts: DEF Vulva: hyperemic, Introitus: raw w/o blood Vagina: no spec exam Cervix: Uterus: NOT EVAL Adnexa: NOT EVAL Pelvic floor tone: Anus: unremarkable Sampling: Fungal, BV, Trich sampling, CT/NG sampling EXTR: NL CODE CLERK/PNS: symmetric movement of extremities, ambulates independently, even [...] CAN'T PROCESS FRUCTOSE WELL!) documented in this encounterAkron Children's HospitalYphpdk31-92-5034 Instructions* Patient Instructions* Moose Ellsworth MD - 11/24/2023 10:45 AM EST GETTING STI TESTS ALONG WITH BV/ YEAST/ TRICH NO TESTING FOR BLADDER INFECTION TODAY, SINCE MOST SYMPTOMS ARE VAGINAL/ EXTERNAL VULVA WILL SEND OVER RX FOR CLINDAMYCIN GEL COME BACK FOR SOME NUTRIENT ASSESSMENT LABS WHICH HAVEN'T BEEN DONE BEFORE. DIAL DOWN FRUIT (SOME FOLKS CAN'T PROCESS FRUCTOSE WELL!) documented in this [facility]02-14-2024 Telephone encounter Note* Telephone Encounter - Angie Pike NP - 11/04/2023 11:57 AM EST Please tell pt that I sent a referral for Gynecology Dr Betty Mathew at [place] [address] . I just placed the referral on 11/04/23. She should be getting a call from them, if after a week if she does not get called, let me know [facility] [id number] Miscellaneous Notes* Telephone Encounter - Angie Pike NP - 11/04/2023 11:57 AM EST Please tell pt that I sent a referral for Gynecology Dr Betty Mathew at [place] [address] . I just placed the referral on 11/04/23. She should be getting a call from them, if after a week if she does not get called, let me know [place] documented in this encounterSt. Louis VA Medical CenterTzkvwdnroh09-48-4725 History of Present illness Narrative* Angie Pike [...] pain Will [place] to [place] * Angie [...] 25.0-29.9) - Primary Pt meets qualifications of [facility] 4731-07-25 for weight loss. BMI>30 or [...] time Pelvic pain Dysuria documented in this encounterSt. Louis VA Medical [id number] NoteHNO ID: [id number] Author: Patel Bar MD Service: ? Author Type: Physician Type: Progress Notes Filed: 12/12/2021 8:53 PM Note Text: SECTION OF FACIAL PLASTIC AND RECONSTRUCTIVE SURGERY [facility], [facility] Follow up Visit Date of service: 12/12/2021 [...] MD, FACS Facial Plastic and Reconstructive Surgery [facility], [facility] Butler I spent a total of 20 minutes on the date of the service which included preparing to see the patient, jvjj-ct-dqyt patient care, completing clinical documentation, performing a medically appropriate examination and counseling and educating the patient/family/caregiver.[facility] 12-12-2021 History of Present illness Narrative* Patel Bar MD - 12/12/2021 5:09 PM EDT Images from the original note were not included. SECTION OF FACIAL PLASTIC AND RECONSTRUCTIVE SURGERY [facility], [facility] Follow up Visit Date of service: 12/12/2021 [...] MD, FACS Facial Plastic and Reconstructive Surgery [facility], [facility]ck Butler I spent a total of 20 minutes on the date of the service which included preparing to see the patient, buri-xk-emfj patient care, completing clinical documentation, performing a medically appropriate examination and counseling and educating the patient/family/caregiver. documented in this encounterPeoples Hospital01-06-2022 NoteHNO ID: [id number] Author: Patel Bar MD Service: ? Author Type: Physician Type: Progress Notes Filed: 09/26/2021 9:54 PM Note Text: SECTION OF FACIAL PLASTIC AND RECONSTRUCTIVE SURGERY [facility], [facility] Post-operative Visit, Virtual Zoom Date of service: [...] as scheduled in person. Patel Bar MD, [facility] Facial Plastic and Reconstructive Surgery [facility] Neck [facility]11-23-2021 NoteHNO ID: [id number] Author: Patel Bar MD Service: ? Author Type: Physician Type: Progress Notes Filed: 08/13/2021 4:44 PM Note Text: SECTION OF FACIAL PLASTIC AND RECONSTRUCTIVE SURGERY [facility] Neck [facility] Post-operative Visit Date of service: 08/13/2021 Brenda [...] for the service of Patel Bar MD, [facility] Facial Plastic and Reconstructive Surgery [facility] Attending attestation: I personally evaluated and examined the patient with Dr. Rivera. Within the resident's note, I have edited the history, physical exam, assessment, and plan to reflect my own findings. Patel Bar MD, [facility] Facial Plastic and Reconstructive Surgery [facility] Neck [facility]11-17-2021 NoteHNO ID: [id number] Author: PRESLEY Morales Service: Anesthesiology Author Type: Cosmetic Chemist Type: Anesthesia Procedure Notes Filed: 08/07/2021 9:14 AM Note Text: ANESTHESIOLOGY PROCEDURE NOTE Airway General Information Procedure Start Time/Medication Administration: 08/07/2021 8:44 AM Patient location during procedure: OR Timeout Performed Pre-procedure: timeout performed Consent Obtained: Yes Patient identity confirmed: arm band, care store team leader and patient Staffing CAA: PRESLEY Morales Performed [...] August 07, 2021 TIME: 9:13 AM CSN: [id number] Hospital10-07-2021 NoteHNO ID: [id number] Author: Patel Bar MD Service: ? Author Type: Physician Type: Progress Notes Filed: 06/27/2021 5:32 PM Note Text: SECTION OF FACIAL PLASTIC AND RECONSTRUCTIVE SURGERY [facility], [facility] Follow-up Visit Date of service: 06/27/2021 Brenda [...] correction with septoplasty and nasal valve reconstruction (survey associate grafts and moises grafts). She would like [...] MD, FACS Facial Plastic and Reconstructive Surgery [facility], Head and Neck Butler I spent a total of 40 minutes on the date of the service which included preparing to see the patient, vfef-zi-pxip patient care, completing clinical documentation, obtaining and/or reviewing separately obtained history, performing a medically appropriate examination, counseling and educating the patient/family/caregiver and ordering medications, tests, or procedures.[facility]09-14-2021 NoteHNO ID: [id number] Author: Elis Rosario MD Service: ? Author [...] management Medical Decision Making Level: 4 - ModerateBellevue Hospital09-07-2021 NoteHNO ID: [id number] Author: RT Tre(R) Service: ? Author Type: [...] BY: RT Tre(R) May 28, 2021 3:49 [facility]08-26-2021 NoteHNO ID: [id number] Author: Patel Bar MD Service: ? Author Type: Physician Type: Progress Notes Filed: 05/16/2021 11:31 AM Note Text: SECTION OF FACIAL PLASTIC AND RECONSTRUCTIVE SURGERY [facility]ck Butler, [facility] Patient Evaluation Date of service: 05/16/2021 [...] surgical correction with nasal valve reconstruction with survey associate and moises grafts and revision (likely extracorporeal) [...] MD, FACS Facial Plastic and Reconstructive Surgery [facility], Head and Neck Butler Medical Decision Making: Problems: Moderate: 1+ chronic illnesses with change Risk: Moderate: Drug management Medical Decision Making Level: 4 - ModerateBellevue HospitalEvaluation note* Diagnosis History of nasal surgery- Primary Other postprocedural status Nasal congestion Other diseases of nasal cavity and sinuses [facility] Chronic maxillary sinusitis [facility] Diagnosis Overweight (BMI 25.0-29.9)- Primary Overweight Pelvic pain Dysuria Anxiety Anxiety state, unspecified Rectal bleeding Hemorrhage of rectum and anus documented in this encounter [facility]* Diagnosis Subacute and chronic vaginitis- Primary Unspecified vaginitis and vulvovaginitis Acute vulvitis Unspecified vaginitis and vulvovaginitis Abnormal weight gain documented in this encounter [facility]Evaluation [facility]* Diagnosis Dysuria- Primary Monilial vaginitis Abnormal weight gain Subacute and chronic vaginitis Unspecified vaginitis and vulvovaginitis Abnormal weight gain Dysuria documented in this encounter [facility]* Diagnosis Dysuria- Primary Metrorrhagia Vaginal burning Other specified symptom associated with female genital organs documented in this encounter [facility]* Diagnosis Anxiety and depression- Primary documented in this encounter [facility]* Diagnosis Anxiety and depression- Primary documented in this encounter [facility]* Diagnosis Anxiety and depression- Primary documented in this encounter [facility]* Diagnosis Chronic vulvitis- Primary Unspecified vaginitis and vulvovaginitis Mood disorder [place] Unspecified episodic mood disorder Diet is high in sugar documented in this encounter [facility]* Diagnosis Anxiety and depression- Primary documented in this encounter [facility]* Diagnosis Anxiety and depression- Primary documented in this encounter [facility]* Diagnosis Borderline personality disorder ([facility])- Primary Borderline personality disorder ISABELL (generalized anxiety disorder) Generalized anxiety disorder Other depression documented in this encounter [facility]* Diagnosis Irregular periods- Primary Chronic vulvitis Unspecified vaginitis and vulvovaginitis Screen for sexually transmitted diseases Screening examination for venereal disease documented [facility] this [facility]* Diagnosis Sprain of proximal interphalangeal (PIP) joint of finger- Primary Numbness of finger Disturbance of skin sensation documented in this encounter [facility]* Diagnosis Anxiety and depression- Primary documented [facility] this [facility]* Diagnosis Injury of finger of left hand, initial encounter- Primary documented in this encounter [facility]* Diagnosis Abnormal weight gain- Primary Monilial vaginitis Anxiety and depression Irregular periods Screen for sexually transmitted diseases Screening examination for venereal disease Abnormal weight gain documented [facility] this [facility]* Diagnosis Routine screening for STI (sexually transmitted infection)- Primary Screening examination for venereal disease Chronic vulvitis Unspecified vaginitis and vulvovaginitis documented in this encounter [facility] Vaginal burning- Primary Other specified symptom associated with female genital organs B12 deficiency documented in this encounter [facility] Diagnosis Anxiety and depression- Primary [facility] Diagnosis Chronic fatigue- Primary Other malaise and fatigue Slow transit constipation documented in this encounter HealthEvaluation note* Diagnosis Anxiety and depression- Primary documented in this encounter [facility] Discharge instructionsAmbulatory Orders* Referral to Gastroenterology Time Frame: 07/18/25, Location: None [facility] Work Phone: Instructions* Attachments The following attachments cannot be sent through Care Everywhere. * Sexually Transmitted Infection (Maltese) documented in this encounter HealthReason for visit Narrative* Auth/Cert (Routine)SpecialtyDiagnoses / ProceduresReferred By ContactReferred To Contact Family Medicine [facility] at [address], [address] [place] [address] Phone: tel: fax: Referral IDStatusReasonStart DateExpiration DateVisits RequestedVisits [id number] [facility] Summary Purpose Family History No Family [...] (BMI 25.0-29.9) Angie Pike, DONTE [address] [place] [address] Referral IDStatusReasonStart DateExpiration DateVisits RequestedVisits [id number] Chief Complaint and Reason for Visit Chief [...] section and content) DATE CREATED AUTHOR 03/15/2018 [facility] DATE CREATED AUTHOR AUTHOR'S ORGANIZ ATION 12/01/2020 [facility] DATE CREATED AUTHOR AUTHOR'S ORGANIZ ATION 07/31/2021 [facility] DATE CREATED AUTHOR AUTHOR'S ORGANIZ ATION 12/16/2021 [facility] DATE CREATED AUTHOR AUTHOR'S ORGANIZ ATION 05/31/2022 [facility] DATE CREATED AUTHOR AUTHOR'S ORGANIZ ATION 03/22/2023 [facility] DATE CREATED AUTHOR AUTHOR'S ORGANIZ ATION 10/26/2023 [facility] DATE CREATED AUTHOR AUTHOR'S ORGANIZ ATION 11/22/2023 [facility] DATE CREATED AUTHOR AUTHOR'S ORGANIZ ATION 02/16/2025 [facility] DATE CREATED AUTHOR AUTHOR'S ORGANIZ ATION 04/12/2025 [facility] Physicians Source Comments (unrecognize d section and content) In the event this informatio n is protected by the Federal Confidentiality of Alcohol and Drug Abuse Patient Records regulations: The Federal rules restrict any use of the information to criminally investigate or prosecute any alcohol or drug abuse patient.Peoples HospitalIn the event this information is protected by the Federal Confidentiality of Alcohol and Drug Abuse Patient Records regulations: The Federal rules restrict any use of the information to criminally investigate or prosecute any alcohol or drug abuse patient.Peoples HospitalThis information has been disclosed to you [...] release of HIV test results or diagnoses. BOU4136.24[facility] HealthThis information has been disclosed to you [...] release of HIV test results or diagnoses. XSX1002.24[facility] HealthThis information has been disclosed to you [...] release of HIV test results or diagnoses. BBL4667.24[facility] HealthThis information has been disclosed to you [...] release of HIV test results or diagnoses. NPO4552.24[facility] HealthThis information has been disclosed to you [...] release of HIV test results or diagnoses. EUJ2499.24[facility] HealthThis information has been disclosed to you [...] release of HIV test results or diagnoses. NHU0619.24[facility] HealthThis information has been disclosed to you [...] release of HIV test results or diagnoses. GCY5562.24[facility] HealthThis information has been disclosed to you [...] release of HIV test results or diagnoses. KAT9670.24[facility] HealthThis information has been disclosed to you [...] release of HIV test results or diagnoses. TFC2622.24[facility] HealthThis information has been disclosed to you [...] release of HIV test results or diagnoses. EPK3640.24[facility] HealthThis information has been disclosed to you [...] release of HIV test results or diagnoses. FYH9357.24[facility] HealthThis information has been disclosed to you [...] release of HIV test results or diagnoses. XCR1391.24[facility] HealthThis information has been disclosed to you [...] release of HIV test results or diagnoses. AUT7450.24[facility] HealthThis information has been disclosed to you [...] release of HIV test results or diagnoses. HZC2892.24[facility] HealthThis information has been disclosed to you [...] release of HIV test results or diagnoses. HFN7858.24[facility] HealthThis information has been disclosed to you [...] release of HIV test results or diagnoses. IXG5887.24[facility] HealthThis information has been disclosed to you [...] release of HIV test results or diagnoses. JQB4707.24[facility] HealthThis information has been disclosed to you [...] release of HIV test results or diagnoses. GJA6771.24[facility] HealthThis information has been disclosed to you [...] release of HIV test results or diagnoses. ZQC3154.24[facility] HealthThis information has been disclosed to you [...] release of HIV test results or diagnoses. ZNV9475.24[facility] HealthThis information has been disclosed to you [...] release of HIV test results or diagnoses. CGI3256.24[facility] HealthThis information has been disclosed to you [...] release of HIV test results or diagnoses. NRZ5259.24[facility] HealthThis information has been disclosed to you [...] release of HIV test results or diagnoses. XOR9565.24[facility] HealthThis information has been disclosed to you [...] release of HIV test results or diagnoses. MZK0102.24[facility] HealthThis information has been disclosed to you [...] release of HIV test results or diagnoses. RNU3989.24[facility] HealthThis information has been disclosed to you [...] release of HIV test results or diagnoses. KMK2035.24[facility] HealthThis information has been disclosed to you [...] release of HIV test results or diagnoses. QLG9305.24[facility] HealthThis information has been disclosed to you [...] release of HIV test results or diagnoses. EDY4453.24[facility] HealthThis information has been disclosed to you [...] release of HIV test results or diagnoses. OOL3739.24[facility] HealthThis information has been disclosed to you [...] release of HIV test results or diagnoses. OEX5058.24[facility] HealthThis information has been disclosed to you [...] release of HIV test results or diagnoses. XKD4952.24[facility] HealthThis information has been disclosed to you [...] release of HIV test results or diagnoses. UFU7811.24[facility] HealthThis information has been disclosed to you [...] release of HIV test results or diagnoses. RJE4143.24[facility] HealthThis information has been disclosed to you [...] release of HIV test results or diagnoses. YOX0618.24[facility] HealthThis information has been disclosed to you [...] release of HIV test results or diagnoses. VBN4273.24[facility] HealthThis information has been disclosed to you [...] release of HIV test results or diagnoses. PEU5121.24[facility] HealthThis information has been disclosed to you [...] release of HIV test results or diagnoses. KWG0035.24[facility] HealthThis information has been disclosed to you [...] release of HIV test results or diagnoses. APS4300.[facility] Reason for Visit (unrecogniz ed section and content) ReasonCommentsEstablished Patient Mrfvgu-Af5-1 month follow upSpecialtyDiagnoses / ProceduresReferred By ContactReferred To ContactCT IMAGING Diagnoses Chronic maxillary sinusitis Procedures CT SINUS WO IVCON CT MAXLFCL AREA C-MATRL Patel Bar MD [address] [place] [address] Ct Imaging [place] [address] Referral IDStatusReasonStart DateExpiration DateVisits RequestedVisits [id number] Auto-Generated Referral /[id number] ProblemVaginal swelling. Abnormal discharge possibly yellow x 2 weeksReasonCommentsSexual ProblemFollow up for chronic vaginitis.ReasonCommentsFemale ProblemMenstrual issuesSpecialty Diagnoses / ProceduresReferred By ContactReferred To Contactmily Medicine [facility] [place] [address] Referral IDStatusReasonStrandle DateExpiration DateVisits RequestedVisits [id number] Tract InfectionBurning while peeing. 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 Is not currently s exually active.ReasonCommentsMental Health ProblemSpecialtyDiagnoses / ProceduresReferred By ContactReferred To ContactPsychiatry [facility] at [facility] [address] [address] [place] [address] Phone: tel: fax: Referral IDStatusReasonStart DateExpiration DateVisits RequestedVisits [id number] OnlyReasonCommentsInjuryFinger feels numb ReasonCommentsNew Patient Visit/ ConsultationLeft hand- middle finger numbness SpecialtyDiagnoses / ProceduresReferred By ContactReferred To ContactUCH Orthopedic Surgery Diagnoses Sprain of proximal interphalangeal (PIP) joint of finger Numbness of finger Marcel Olivares MD [address] [facility], [address]rd [place] [address] Phone: tel: fax: Referral IDStatusReasonStart DateExpiration DateVisits RequestedVisits [id number]/19/20258/[id number] ExamPt. Would like lab workReasonCommentsstd testNo exposure or symptoms. Burning during pee but has chronic yeast infections. Just wants to be safeand get checked.Reason CommentsSexual ProblemSTD testing pt states no symptomsReasonCommentsFollow-up Wants another B-12 shot Care Teams (unrecognized sec tion and content) Team MemberRelationshipSpecialtyStart DateEnd Date Angie Pike, MOTORCYCLE SUBASSEMBLY REPAIRER [address] [place] [address] PCP - GeneralFamily Wvzgzfzf73/3/21Team MemberRelationshipSpecialtyStart DateEnd Date Genaro Rodriguez MD [address] [place] [address] PCP - GeneralFamily Medicine10/14/23 Angie Pike NP [address] [place] [address] Referring PhysicianNurse Practitioner04/07/23Team MemberRelationshipSpecialty Start DateEnd Date Genaro Rodriguez MD [address] [place] [address] PCP - [facility] Medicine10/14/23 Angie Pike, DONTE [address] [place] [address] Referring PhysicianNurse Practitioner04/07/23Team MemberRelationshipSpecialty Start DateEnd Date Genaro Rodriguez MD [address] [place] [address] PCP - [facility] Medicine10/14/23 Angie Pike NP [address] [place] [address] Referring PhysicianNurse Practitioner04/07/23Te MemberRelationshipSpecialty Start DateEnd Date Pcp, No No Address PCP - General05/19/22 Moose Ellsworth MD [address] [facility], [address] [place] [address] [facility]05/21/22 Charis Barrera, MOTORCYCLE SUBASSEMBLY REPAIRER [address] [facility], [address] [place] [address] [place] [address] Nurse Practitioner10/08/22Team MemberRelationship SpecialtyStart DateEnd Date Pcp, No No Address PCP - General05/19/22 Moose Ellsworth MD [address] [facility], [address] [place] [address] [facility]05/21/22 Charis Barrera, MOTORCYCLE SUBASSEMBLY REPAIRER [address] [facility], [address] [place] [address] [facility] Nurse Practitioner10/08/22Team MemberRelationship SpecialtyStart DateEnd Date Pcp, No No Address PCP - [facility]05/19/22 Moose Ellsworth MD [address] [facility], [address] [place] [address] [facility]05/21/22 Jackelyn Hoskins MD [address] [place] [address] ResidentPsychiatry04/29/24 [facility] [address] [place] [address] Consulting [facility] Psychology05/19/24Te MemberRelationshipSpecialty Start DateEnd Date Pcp, No No Address PCP [facility]05/19/22 Moose Ellsworth MD [address] [facility], [address] [place] [address] [facility]05/21/22 Jackelyn Hoskins MD [address] [place] [address] ResidentPsychiatry04/29/24 [facility] [address] [place] [address] Consulting [facility] Psychology05/19/24Te MemberRelationshipSpecialty Start DateEnd Date Pcp, No No Address PCP [facility]05/19/22 Moose Ellsworth MD [address] [facility], [address] [place] [address] [facility]05/21/22 Jackelyn Hoskins MD [address] [place] [address] ResidentPsychiatry04/29/24 Rodriguez Black V., [facility] [address] [place] [address] Consulting [facility] Psychology05/19/24Team MemberRelationshipSpecialty Start DateEnd Date Pcp, No No Address PCP - General05/19/22 Moose Ellsworth MD [address] [facility], [address] [place] [address] [facility]05/21/22 Jackelyn Hoskins MD [address] [place] [address] ResidentPsychiatry04/29/24 Rodriguez Black V., [facility] [address] [place] [address] Consulting [facility] Psychology05/19/24Te MemberRelationshipSpecialty Start DateEnd Date Pcp, No No Address [facility]05/19/22 Moose Ellsworth MD [address] [facility], [address] [place] [address] [facility]05/21/22 Jackelyn Hoskins MD [address] [place] [address] ResidentPsychiatry04/29/24 Rodriguez Black V., [facility] [address] [place] [address] Consulting [facility] Psychology05/19/24Team MemberRelationshipSpecialty Start DateEnd Date Pcp, No No Address PCP - [facility]05/19/22 Moose Ellsworth MD [address] [facility], [address] [place] [address] [facility]05/21/22 Jackelyn Hoskins MD [address] [place] [address] ResidentPsychiatry04/29/24 NicolasRodriguez V., [facility] [address] [place] [address] Consulting [facility] Psychology05/19/24Te MemberRelationshipSpecialty Start DateEnd Date Pcp, No No Address [facility]05/19/22 Moose Ellsworth MD [address] [facility], [address] [place] [address] [facility]05/21/22 Jackelyn Hoskins MD [address] [place] [address] ResidentPsychiatry04/29/24 NicolasRodriguez V., [facility] [address] [place] [address] Consulting [facility] Psychology05/19/24Te MemberRelationshipSpecialty Start DateEnd Date Pcp, No No Address [facility]05/19/22 Moose Ellsworth MD [address] [facility], [address] [place] [address] [facility]05/21/22 Jackelyn Hoskins MD [address] [place] [address] ResidentPsychiatry04/29/24 Rodriguez Black V., [facility] [address] [place] [address] Consulting [facility] Psychology05/19/24Team MemberRelationshipSpecialty Start DateEnd Date Pcp, No No Address PCP - General05/19/22 Moose Ellsworth MD [address] [facility], [address] [place] [address] [facility]05/21/22 Jackelyn Hoskins MD [address] [place] [address] ResidentPsychiatr04/29/24 NicolasRodriguez V., [facility] [address] [place] [address] Consulting [facility] Psychology05/19/24Te MemberRelationshipSpecialty Start DateEnd Date Pcp, No No Address PCP - [facility]05/19/22 Moose Ellsworth MD [address] [facility], [address] [place] [address] [facility]05/21/22 Jackelyn Hoskins MD [address] [place] [address] ResidentPsychiatry04/29/24 NicolasRodriguez V., [facility] [address] [place] [address] Consulting [facility] Psychology05/19/24 Marcel Olivares MD [address] [facility], [address] [place] [address] [facility]11/09/24Team MemberRelationshipSpecialty Start DateEnd Date Pcp, No No Address PCP - [facility]05/19/22 Moose Ellsworth MD [address] [facility], [address] [place] [address] [facility]05/21/22 Jackelyn Hoskins MD [address] [place] [address] ResidentPsychiatry04/29/24 Rodriguez Black V., [facility] [address] [place] [address] Consulting [facility] Psychology05/19/24 Marcel Olivares MD [address] [facility], [address] [place] [address] [facility]11/09/24Te MemberRelationshipSpecialty Start DateEnd Date Pcp, No No Address PCP [facility]05/19/22 Moose Ellsworth MD [address] [facility], [address] [place] [address] [facility]05/21/22 Jackelyn Hoskins MD [address] [place] [address] ResidentPsychiatry04/29/24 Rodriguez Black V., [facility] [address] [place] [address] Consulting PsychologistU[facility] Psychology05/19/24 Marcel Olivares MD [address] [facility], [address] [place] [address] [facility]11/09/24Te MemberRelationshipSpecialty Start DateEnd Date Pcp, No No Address PCP - [facility]05/19/22 Moose Ellsworth MD [address] [facility], [address] [place] [address] [facility]05/21/22 Jackelyn Hoskins MD [address] [place] [address] ResidentPsychiatry04/29/24 Rodriguez Black V., [facility] [address] [place] [address] Consulting Psychologist[facility]05/19/24 Marcel Olivares MD [address] [facility], [address] [place] [address] [facility]11/09/24Te MemberRelationshipSpecialty Start DateEnd Date Pcp, No No Address [facility]05/19/22 Moose Ellsworth MD [address] [facility], [address] [place] [address] [facility]05/21/22 Jackelyn Hoskins MD [address] [place] [address] ResidentPsychiatry04/29/24 Rodriguez Black V., [facility] [address] [place] [address] Consulting Psychologist[facility]05/19/24 Marcel Olivares MD [address] [facility], [address] [place] [address] [facility]11/09/24 Sofy Ferrer, MOTORCYCLE SUBASSEMBLY REPAIRER [address] [place] [address] [facility]12/09/24Team MemberRelationship SpecialtyStart DateEnd Date Pcp, No No Address PCP - General05/19/22 Moose Ellsworth MD [address] [facility], [address] [place] [address] [facility]05/21/22 Jackelyn Hoskins MD [address] [place] [address] ResidentPsychiatry04/29/24 Rodriguez Black V., [facility] [address] [place] [address] Consulting [facility]ologist[facility]05/19/24 Marcel Olivares MD [address] [facility], [address] [place] [address] [facility]11/09/24 Sofy Ferrer, MOTORCYCLE SUBASSEMBLY REPAIRER [address] [place] [address] [facility]12/09/24Team MemberRelationship SpecialtyStart DateEnd Date Pcp, No No Address PCP - General05/19/22 Moose Ellsworth MD [address] [facility], [address] [place] [address] [facility]05/21/22 Jackelyn Hoskins MD [address] [place], [place] [address] ResidentPsychiatry04/29/24 Rodriguez Black V., [facility] [address] [place] [address] Consulting [facility]St[facility]05/19/24 Marcel Olivares MD [address] [facility], [address] [place] [address] [facility]11/09/24 Sofy Ferrer, MADDISON [address] [place] [address] [facility]12/09/24Team MemberRelationship SpecialtyStart DateEnd Date Pcp, No No Address PCP - General05/19/22 Moose Ellsworth MD [address] [facility], [address] [place] [address] [facility]05/21/22 Jackelyn Hoskins MD [address] [place], [place] [address] ResidentPsychiatry04/29/24 Rodriguez Black V., [facility] [address] [place] [address] Consulting Psychologist[facility]05/19/24 Marcel Olivares MD [address] [facility], [address] [place] [phone] [facility]11/09/24 Sofy Ferrer, MOTORCYCLE SUBASSEMBLY REPAIRER [address] [place] [address] [facility]12/09/24Team MemberRelationship SpecialtyStart DateEnd Date Pcp, No No Address PCP - General05/19/22 Moose Ellsworth MD [address] [facility], [address] [place] [address] [facility]05/21/22 Jackelyn Hoskins MD [address] [place] [address] ResidentPsychiatry04/29/24 Rodriguez Black V., [facility] [address] [place] [address] Consulting Psychologist[facility]05/19/24 Marcel Olivares MD [address] [facility], [address] [place] [address] [facility]11/09/24 Sofy Ferrer, MOTORCYCLE SUBASSEMBLY REPAIRER [address] [place] [address] [facility]12/09/24Team MemberRelationship SpecialtyStart DateEnd Date Pcp, No No Address PCP - General05/19/22 Moose Ellsworth MD [address] [facility], [address] [place] [address] [facility]05/21/22 Jackelyn Hoskins MD [address] [place] [address] ResidentPsychiatry04/29/24 Rodriguez Black V., [facility] [address] [place] [address] Consulting [facility]ologist[facility]05/19/24 Marcel Olivares MD [address] [facility], [address] [place] [address] [facility]11/09/24 Sofy Ferrer CNP [address] [place] [address] [facility]12/09/24 Team Status: Active Member Role/Relationship Status Dates [...] BE BASED ON THE PRIMARY CLINICAL RECORDS. [facility] [employer] [facility]. provides no warranty or guarantee of the accuracy or completeness of information in this document.
--- NOTE | 2025-08-15 09:01 | US_ITS ---
[facility] [place] [address] Patient Name: DILLON KIM MRN: [id number] date: 2005 Sex: F Assigned Patient Location: US Current Patient Location: US Accession/Order Number: [id number] Exam Date: 08/15/2025 09:02 Report Date: 08/15/2025 09:31 At the request of: GABRIEL HULL NP Procedure: US abdomen limited LIMITED ABDOMINAL ULTRASOUND - spleen: CLINICAL HISTORY: Abdominal Pain, Val Riley Virus COMPARISON: CT 12/20/2016 The spleen is normal in size and echogenicity measuring 9.1 x 4.1 x 9.2 cm in size. No splenic lesions are visualized. Cursory evaluation left kidney shows no hydronephrosis. There is no left upper quadrant ascites. US/US abdomen limited IMPRESSION: UNREMARKABLE SPLEEN. Impression dictated by: Rossana Witt M.D. 08/15/2025 9:31 AM Dictation Location: [place] [address] Electronically authenticated by: [id number] Y Date: 08/15/2025 09:31
== END 2025-08-15 08:54 | disposition home or self-care (01) ==
LOC: US 08:53
PROVIDERS: PCP Nurse Practitioner; Visit Provider Nurse Practitioner
DX: R10.84 Generalized abdominal pain (principal); B27.90 Infectious mononucleosis, unspecified without complication
CPT/HCPCS: 76705